=== PATIENT | female | born 1955 | race Two or more races ===

== ENCOUNTER 2025-05-15 19:20 | Inpatient (IN) | payer OTHER, MEDICARE ==
[~2025-05-15] VITALS: Ht 165.1 cm; Wt 75.6 kg
--- NOTE | 2025-05-15 19:29 | ECG ---
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
[2025-05-15 23:17] VITALS: PULSE 93; RESP 14; O2SAT 93
--- NOTE | 2025-05-15 23:34 | DVH ---
EXAM: CT HEAD WITHOUT CONTRAST INDICATION: head injury TECHNIQUE: CT of the head without intravenous contrast. Radiation Dose : 1. Head: CT Dose: CTDI volume is 33.04 mGy. Dose-length product is 1.44 mGy*cm The dose indicators for CT are the volume Computed Tomography (CT) Dose Index (CTDIvol) and the Dose Length Product (DLP), and are measured in units of mGy and mGy-cm, respectively. These indicators are not patient dose, but values generated from the CT scanner acquisition factors. The report includes radiation exposure data for exposures received during this examination. COMPARISON: None FINDINGS: There is no evidence of acute intracranial hemorrhage, extra-axial collection, mass effect, midline s hift, herniation or hydrocephalus. Increased prominence of the ventricles, sulci and cisterns is consistent with the sequelae of atrophi c cortical volume loss. The lock-white differentiation is intact. Moderate diffuse confluent periventricular and subcortical white matter hypoattenuation is nonspecifi c but may be related to small vessel ischemic disease. Right maxillary mucosal sinus disease. The remaining visualized paranasal sinuses and mastoid air ce lls are clear. The surrounding soft tissues and osseous structures are unremarkable. IMPRESSION: 1. No acute intracranial abnormality. 2. Chronic sequelae of microangiopathy and atrophic cortical volume loss. Radiation optimization: All CT scans at this facility use at least one of these dose optimization izabela hniques: automated exposure control mA and/or kV adjustment per patient size (includes targeted exam s where dose is matched to clinical indication) or iterative reconstruction.
--- NOTE | 2025-05-15 23:55 | ED.PDOC ---
History of Present Illness HPI Comments 70-year-old female is brought in by ambulance for chief complaint of abdominal pain past 3 days. Patient is A&Ox2 at baseline. Denies any nausea, vomiting, diarrhea. Significant history for stomach cancer and CVA. No further acute symptoms reported. REVIEW OF SYSTEMS: General: No fever, no chills, or fatigue HEENT: No sore throat, no earache, no congestion, no neck pain. Cardiac: No chest pain. No palpitations. Lungs: No shortness of breath, no cough. GI: Abdominal pain, no nausea, no vomiting : No dysuria, frequency, or urgency. No hematuria. Musculoskeletal: No joint pain , no joint swelling, no extremity edema. Skin: No rash, no itching. Neuro: No headache, no dizziness, no weakness PHYSICAL EXAM: General: Awake, alert and oriented. No acute distress. Skin: Skin in warm, dry and intact. Appropriate color for ethnicity. HEENT: The head is normocephalic and atraumatic. Conjunctivae are clear without exudates or hemorrhage. Sclera is non-icteric. EOM are intact. No signs of nystagmus. Eyelids are normal in appearance without swelling or lesions. Oral mucosa is pink and moist Neck: The neck is supple with normal range of motion. No JVD. Cardiac: Heart rate and rhythm are normal. No murmurs, gallops, or rubs are auscultated. Respiratory: No signs of respiratory distress. Lung sounds are clear in all lobes bilaterally without rales, rhonchi, or wheezes. Abdominal: Abdomen is soft, non-tender without distention, guarding or rigidity. Bowel sounds are present and normoactive in all four quadrants. Musculoskeletal: Mild erythema to right flank. Extremities: Upper and lower extremities are atraumatic in appearance without deformity but positive pitting edema Neurological: The patient is awake, alert and oriented to person only. Speech is clear. There is no facial asymmetry. No upper or lower extremity drift. 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 Was a procedure done?: No Differential Dx Considerations may include: Differential diagnoses considered include: Abdominal aortic aneurysm, [place], esophageal rupture, intestinal obstruction, mesenteric ischemia, perforated viscus or solid organ rupture, CHF with hepatomegaly, pneumonia, abscess, appendicitis, biliary disease, diverticulitis, gastritis, gastroenteritis, hepatitis, hernia, inflammatory bowel disease, pancreatitis, peptic ulcer disease, urinary tract infection, ureteral colic, constipation, GERD, irritable syndrome, abdominal wall pain, nonspecific abdominal pain, herpes zoster, nephrolithiasis. [ ]Also ruptured ectopic , ovarian torsion/cyst, tubo- ovarian abscess, PID, endometriosis, mittleschmerz. X-Ray, Labs, Meds, VS Vital Signs Date Time Temp Pulse Resp B/P (MAP) Pulse Ox O2 Delivery O2 Flow Rate FiO2 05/16/25 08:35 79 195/100 05/16/25 08:00 98.3 72 18 187/83 (117) 100 98.3 05/16/25 07:00 81 18 179/100 (126) 100 05/16/25 06:00 64 15 190/108 (135) 100 05/16/25 05:00 64 14 150/91 (110) 100 05/16/25 04:00 68 16 143/80 (101) 100 05/16/25 03:00 92 14 171/98 (122) 100 05/16/25 02:00 77 13 158/89 (112) 100 05/16/25 01:00 74 18 159/89 (112) 100 05/16/25 00:00 93 13 187/81 (116) 95 05/15/25 23:17 98.8 93 14 182/99 (126) 93 98.8 05/15/25 23:17 93 14 93 Room Air* 0 21 05/15/25 19:34 99.5 86 18 200/88 96 99.5 05/15/25 19:20 84 Lab Test 05/16/25 06:03 05/16/25 02:38 05/16/25 02:07 05/15/25 06:53 Range/Units Urine Opiates Screen Neg NEGATIVE Urine Fentanyl Screen Neg NEGATIVE Urine Barbiturates Screen Neg NEGATIVE Urine Phencyclidine Screen Neg NEGATIVE Urine Amphetamines Screen Neg NEGATIVE Urine Benzodiazepines Screen Neg NEGATIVE Urine Cocaine Screen Neg NEGATIVE Urine Cannabinoids Screen Neg NEGATIVE White Blood Count 6.0 4.4-10.8 10^3/uL Red Blood Count 3.32 L 4.0-5.20 10^6/uL Hemoglobin 9.3 L 12.2-16.2 g/dL Hematocrit 28.3 L 36.0-46.0 % Mean Corpuscular Volume 85.3 80.0-100.0 fL Mean Corpuscular Hemoglobin 28.0 28.0-32.0 pg Mean Corpuscular Hemoglobin Concent 32.8 32.0-36.0 g/dL Red Cell Distribution Width 24.4 H 11.8-14.3 % Platelet Count 135 L 140-450 10^3/uL Mean Platelet Volume 7.7 6.9-10.8 fL Neutrophils (%) (Auto) 72.2 37.0-80.0 % Lymphocytes (%) (Auto) 18.0 10.0-50.0 % Monocytes (%) (Auto) 8.2 0.0-12.0 % Eosinophils (%) (Auto) 1.1 0.0-7.0 % Basophils (%) (Auto) 0.5 0.0-2.0 % Neutrophils # (Auto) 4.3 1.6-8.6 10 ^3/uL Lymphocytes # (Auto) 1.1 0.4-5.4 10 ^3/uL Monocytes # (Auto) 0.5 0-1.3 10 ^3/uL Eosinophils # (Auto) 0.1 0-0.8 10 ^3/uL Basophils # (Auto) 0 0-0.2 10 ^3/uL Nucleated Red Blood Cells 0.1 % B-Type Natriuretic Peptide 400.76 0-100 pg/mL Sodium Level 143 136-145 mmol/L Potassium Level 3.9 3.5-5.1 mmol/L Chloride Level 108 H 98-107 mmol/L Carbon Dioxide Level 22 20-31 mmol/L Anion Gap 13 5-15 Blood Urea Nitrogen 7 L 9-23 mg/dL Creatinine 1.41 H 0.550-1.02 mg/dL Glomerular Filtration Rate Calc 40 >90 mL/min BUN/Creatinine Ratio 5.0 L 10.0-20.0 Serum Glucose 95 74-106 mg/dL Calcium Level 9.0 8.7-10.4 mg/dL Total Bilirubin 1.0 0.2-1.0 mg/dL Aspartate Amino Transferase (AST) 38 13-40 U/L Alanine Aminotransferase (ALT) < 9 7-40 U/L Alkaline Phosphatase 168 H 46-116 U/L Total Protein 7.4 5.7-8.2 g/dL Albumin 3.5 3.2-4.8 g/dL Urine Color Colorless Yellow Urine Clarity Clear Clear Urine pH 7.5 5.0-9.0 Urine Specific [place] 1.007 1.001-1.035 Urine Protein Negative Negative Urine Ketones Negative Negative Urine Blood 3+ H Negative /uL Urine Nitrite Negative Negative Urine Bilirubin Negative Negative Urine Urobilinogen Normal Negative mg/dL Urine Leukocyte Esterase 1+ Negative /uL Urine RBC 259 0 - 4 /hpf Urine Microscopic WBC 34 H 0-5 /HPF Urine Squamous Epithelial Cells Few <5 /hpf Urine Bacteria None seen None Seen /hpf Urine Glucose Normal Normal mg/dL Current Medications Medications (Trade) Dose Ordered Sig/Raoul Route Start Time Stop Time Status Last Admin Lorazepam (Ativan Inj) 5 mg ONCE ONCE IM 05/15/25 23:45 05/15/25 23:46 DC 05/16/25 00:00 Lorazepam (Ativan Inj) 1 mg ONCE ONCE IV 05/16/25 06:45 05/16/25 06:46 DC 05/16/25 06:46 Labetalol HCl (Labetalol HCl) 10 mg ONCE ONCE IV 05/16/25 08:30 05/16/25 08:31 DC 05/16/25 08:35 [place] [id number] Ph: [phone] DIAGNOSTIC IMAGING Diagnostic Imaging Report : [id number] Signed PATIENT: CHAD TREVIZO ACCT: [id number] UNIT: [id number] : 1955 LOC: ER ROOM / BED: / AGE / SEX: 70 / F ADM STATUS: REG ER SERVICE 30 ORDERING PHYSICIAN: CAMMY MORALES MD PROCEDURE(s): HWOCT - HEAD WITHOUT CONTRAST REASON: head injury ORDER NUMBER(s): [id number], ACCESSION NUMBER(s): [id number] EXAM: CT HEAD WITHOUT CONTRAST INDICATION: head injury TECHNIQUE: CT of the head without intravenous contrast. Radiation Dose : 1. Head: CT Dose: CTDI volume is 33.04 mGy. Dose-length product is 1.44 mGy*cm The dose indicators for CT are the volume Computed Tomography (CT) Dose Index (CTDIvol) and the Dose Length Product (DLP), and are measured in units of mGy and mGy-cm, respectively. These indicators are not patient dose, but values generated from the CT scanner acquisition factors. The report includes radiation exposure data for exposures received during this examination. COMPARISON: None FINDINGS: There is no evidence of acute intracranial hemorrhage, extra-axial collection, mass effect, midline shift, herniation or hydrocephalus. Increased prominence of the ventricles, sulci and cisterns is consistent with the sequelae of atrophic cortical volume loss. The lock-white differentiation is intact. Moderate diffuse confluent periventricular and subcortical white matter hypoattenuation is nonspecific but may be related to small vessel ischemic disease. Right maxillary mucosal sinus disease. The remaining visualized paranasal sinuses and mastoid air cells are clear. The surrounding soft tissues and osseous structures are unremarkable. IMPRESSION: 1. No acute intracranial abnormality. 2. Chronic sequelae of microangiopathy and atrophic cortical volume loss. Radiation optimization: All CT scans at this facility use at least one of these dose optimization techniques: automated exposure control mA and/or kV adjustment per patient size (includes targeted exams where dose is matched to clinical indication) or iterative reconstruction. ATED BY: VASILE CORRAL MD DICTATED DATE/TIME: 05/15/252331 SIGNED BY: VASILE CORRAL MD SIGNED DATE/TIME: 05/15/252331 CC: [place] [id number] Ph: [phone] DIAGNOSTIC IMAGING Diagnostic Imaging Report : [id number] Signed PATIENT: CHAD TREVIZO ACCT: [id number] UNIT: [id number] : 1955 LOC: ER ROOM / BED: / AGE / SEX: 70 / F ADM STATUS: REG ER SERVICE 30 ORDERING PHYSICIAN: CAMMY MORALES MD PROCEDURE(s): ABPL - CT AB PEL WO CON-NO ORAL OR IV REASON: abdominal pain ORDER NUMBER(s): [id number], ACCESSION NUMBER(s): [id number] Exam: CT CT AB PEL WO CON-NO ORAL OR IV History: abdominal pain Comparison Study: None Technique: Multidetector spiral CT of the abdomen was performed from lung bases to pubic symphysis. Imaging was performed without IV contrast. Axial, coronal and sagittal multiplanar reformats were obtained from the axial data set by the technologist. Radiation Dose : 1. Abdomen/Pelvis: CTDIvol 19.88 mGy, DLP 1085.27 mGy*cm. Findings: Evaluation of solid organs is limited due to lack of intravenous contrast use. Beam hardening artifact from arms down positioning, and presence of 4-quadrant a scites, further limit assessment. Lower Chest: Small right layering simple density pleural effusion with adjacent compressive atelectasis. Unremarkable imaged heart. Liver: Unremarkable. Gallbladder and Biliary Tree: Calcified stone in the gallbladder. No obvious wall thickening or ductal dilation. Pancreas: Mild atrophy. Spleen: Unremarkable. Adrenal Glands: Unremarkable. Kidneys/Ureters: Left percutaneous nephrostomy appears appropriately positioned. Mild bilateral hydroureteronephrosis. No evidence of a ureteral stone. Bladder: Circumferential wall thickening with irregular left posterolateral masslike density measuring a proximally 6.1 x 4 by 4.6 cm. Pelvic Organs: Markedly enlarged multi fibroid uterus. Thickened appearance of the endometrial stripe. No obvious adnexal abnormality. Bowel: No evidence of bowel obstruction or focal wall thickening. The appendix appears normal. Vasculature: Dwbe-ea-dcjbxetn atherosclerosis. A filter is present within a persistent left IVC, with no right-sided IVC appreciated. Lymphadenopathy: Limited assessment. No gross adenopathy is appreciated. Peritoneum: Moderate volume 4 quadrant ascites. Diffuse mesenteric edema. No free air or obvious fluid collection. Abdominal Wall: Moderate to severe anasarca. Musculoskeletal: No acute findings. No anatomic evidence of osseous metastasis. Mild degenerative changes. IMPRESSION: 1. Significantly limited exam. 2. Multiple abnormalities may be related to malignancy /metastatic disease. An irregular 6.1 cm mass within the left posterior bladder is suspicious for primary urinary or reproductive malignancy. The uterus is markedly enlarged with endometrial thickening. Mild bilateral hydroureteronephrosis, with a left percutaneous nephrostomy present, likely related to the bladder mass or enlarged uterus. 3. Fluid third-spacing including moderate volume 4 quadrant ascites, diffuse mes enteric and subcutaneous edema, and small right pleural effusion. 4. Correlate with any available prior exams, patient history, and other clinical workup. Radiation optimization: All CT scans at this facility use at least one of these dose optimization techniques: automated exposure control mA and/or kV adjustment per patient size (includes targeted exams where dose is matched to clinical indication) or iterative reconstruction. ATED BY: JOSHUA MCARTHUR MD DICTATED DATE/TIME: 05/15/252352 SIGNED BY: JOSHUA MCARTHUR MD SIGNED DATE/TIME: 05/15/252352 CC: X-Ray, Labs, Meds, VS Comment Addendum by Dr. Nickie Sands: Patient is admitted however is still being house in the ED. She has been agitated and yelling for the last several hours. She has been medicated multiple times during the course of her stay with IV Ativan which has seemed to improve her symptoms. I ordered an additional dose of IV Ativan at 1432 for agitation. Time of 1ST Reevaluation: 21:24 Reevaluation 1ST: Unchanged Patient Education/Counseling: Other Family Education/Counseling: No Family Present SEPSIS Sepsis Screen Date sepsis recognized/suspect: May 15, 2025 Time Sepsis recognized/suspect: 2326 Recent Procedure: No On Antibiotic Therapy: No Respiratory Rate >20: No Heart Rate >90: Yes Temp<36 C (96.8 F) or >38.3 C: No SBP <90 or MAP <65 mmHG: No New Acute Mental Status Change: No Is the patient on CPAP, BIPAP,: No Physician Orders Head Without Contrast (05/15/25 22:31) Fall Risk Precautions In Place QSHIFT (05/15/25 22:31) Fall Precautions Initiated (05/15/25 22:31) Ct Ab Pel Wo Con-No Oral Or Iv (05/15/25 22:31) Continous Pulse Oximetry (05/16/25 00:11) Cover Marker (05/16/25 ) Titrate Oxygen (05/16/25 00:11) Vital Signs Date Time Temp Pulse Resp B/P (MAP) Pulse Ox O2 Delivery O2 Flow Rate FiO2 05/16/25 08:35 79 195/100 05/16/25 08:00 98.3 72 18 187/83 (117) 100 98.3 05/16/25 07:00 81 18 179/100 (126) 100 05/16/25 06:00 64 15 190/108 (135) 100 05/16/25 05:00 64 14 150/91 (110) 100 05/16/25 04:00 68 16 143/80 (101) 100 05/16/25 03:00 92 14 171/98 (122) 100 05/16/25 02:00 77 13 158/89 (112) 100 05/16/25 01:00 74 18 159/89 (112) 100 05/16/25 00:00 93 13 187/81 (116) 95 05/15/25 23:17 98.8 93 14 182/99 (126) 93 98.8 05/15/25 23:17 93 14 93 Room Air* 0 21 05/15/25 19:34 99.5 86 18 200/88 96 99.5 05/15/25 19:20 84 Laboratory Tests Test 05/16/25 02:38 White Blood Count 6.0 10^3/uL (4.4-10.8) Departure 1 Departure Time of Disposition: 03:08 Impression: Primary Impression: Altered mental status Additional Impression: Acute renal failure Disposition: HOME / SELF CARE / HOMELESS Condition: Stable Comments MDM: Patient admitted to hospitalist service for further treatment, evaluation and monitoring. Extensive evaluation was performed in attempt to identify or rule out: (See differential diagnosis section) The following tests were ordered, and results were reviewed by me: (See diagnostic results section) The following test were independently interpreted by me: N/A I reviewed and agreed with the following test results read by other providers: CT head and abdomen and pelvis without contrast I reviewed the following notes from the pt's past medical encounters: N/A Additional information was gathered from interviewing the following independent historians: EMS personnel Decision regarding hospitalization or escalation of hospital level of care: Risk and benefits of admission for further treatment of patient's condition was considered. Due to patient's current clinical condition, high risk of decline and poor outcome if discharged and need for further inpatient management and monitoring, patient will be admitted to the hospital. Critical Care Note Critical Care Time?: No Stability Stability form required: No Heart Score Heart Score: Heart Score Response (Comments) Value History N/A 0 EKG N/A 0 Age N/A 0 Risk Factors N/A 0 Troponin N/A 0 Total 0 I personally scribed for CAMMY MORALES MD ([email or web address]) on 05/15/25 at 23:55. Electronically submitted by Kem Valdaez ([email or web address]). I personally scribed for CAMMY MORALES MD ([email or web address]) on 05/16/25 at 03:26. Electronically submitted by Kem Valadez ([email or web address]). CAMMY MORALES MD May 15, 2025 23:55 JOSE LIND MD May 16, 2025 14:32
--- NOTE | 2025-05-15 23:55 | DVH ---
Exam: CT CT AB PEL WO CON-NO ORAL OR IV History: abdominal pain Comparison Study: None Technique: Multidetector spiral CT of the abdomen was performed from lung bases to pubic symphysis. I maging was performed without IV contrast. Axial, coronal and sagittal multiplanar reformats were obta ined from the axial data set by the technologist. Radiation Dose : 1. Abdomen/Pelvis: CTDIvol 19.88 mGy, DLP 1085.27 mGy*cm. Findings: Evaluation of solid organs is limited due to lack of intravenous contrast use. Beam hardening artifac t from arms down positioning, and presence of 4-quadrant ascites, further limit assessment. Lower Chest: Small right layering simple density pleural effusion with adjacent compressive atelectas is. Unremarkable imaged heart. Liver: Unremarkable. Gallbladder and Biliary Tree: Calcified stone in the gallbladder. No obvious wall thickening or duct al dilation. Pancreas: Mild atrophy. Spleen: Unremarkable. Adrenal Glands: Unremarkable. Kidneys/Ureters: Left percutaneous nephrostomy appears appropriately positioned. Mild bilateral hydro ureteronephrosis. No evidence of a ureteral stone. Bladder: Circumferential wall thickening with irregular left posterolateral masslike density measurin g a proximally 6.1 x 4 by 4.6 cm. Pelvic Organs: Markedly enlarged multi fibroid uterus. Thickened appearance of the endometrial strip e. No obvious adnexal abnormality. Bowel: No evidence of bowel obstruction or focal wall thickening. The appendix appears normal. Vasculature: Ivfj-bs-daktwdgb atherosclerosis. A filter is present within a persistent left IVC, with no right-sided IVC appreciated. Lymphadenopathy: Limited assessment. No gross adenopathy is appreciated. Peritoneum: Moderate volume 4 quadrant ascites. Diffuse mesenteric edema. No free air or obvious fl uid collection. Abdominal Wall: Moderate to severe anasarca. Musculoskeletal: No acute findings. No anatomic evidence of osseous metastasis. Mild degenerative ch anges. IMPRESSION: 1. Significantly limited exam. 2. Multiple abnormalities may be related to malignancy /metastatic disease. An irregular 6.1 cm mass within the left posterior bladder is suspicious for primary urinary or reproductive malignancy. The uterus is markedly enlarged with endometrial thickening. Mild bilateral hydroureteronephrosis, with a left percutaneous nephrostomy present, likely related to the bladder mass or enlarged uterus. 3. Fluid third-spacing including moderate volume 4 quadrant ascites, diffuse mesenteric and subcutane ous edema, and small right pleural effusion. 4. Correlate with any available prior exams, patient history, and other clinical workup. Radiation optimization: All CT scans at this facility use at least one of these dose optimization izabela hniques: automated exposure control mA and/or kV adjustment per patient size (includes targeted exam s where dose is matched to clinical indication) or iterative reconstruction.
[2025-05-16] MEDS: LORazepam 2MG/ML-1ML VIAL IM ONE
[2025-05-16 02:37] LABS: Albumin 3.5 g/dL (3.2-4.8); Anion Gap 13 (5-15); BUN/Creatinine Ratio 5.0 (10.0-20.0); Bilirubin, Total 1.0 mg/dL (0.2-1.0); Calcium 9.0 mg/dL (8.7-10.4); Carbon Dioxide 22 mmol/L (20-31); Glucose 95 mg/dL (74-106); Potassium 3.9 mmol/L (3.5-5.1); Sodium 143 mmol/L (136-145); Total Protein 7.4 g/dL (5.7-8.2)
[2025-05-16 02:38] LABS: Alanine Aminotransferase < 9 U/L (7-40); Alkaline Phosphatase 168 U/L (46-116); Blood Urea Nitrogen 7 mg/dL (9-23); Chloride 108 mmol/L (98-107)
[2025-05-16 03:08] LABS: Hematocrit 28.3 % (36.0-46.0); Hemoglobin 9.3 g/dL (12.2-16.2); Mean Corpuscular Hemoglobin 28.0 pg (28.0-32.0); Mean Corpuscular Volume 85.3 fL (80.0-100.0); Nucleated Red Blood Cells % 0.1 %
[2025-05-16] MEDS ORDERED: LORazepam 2MG/ML-1ML VIAL IM ONE (06:30)
[2025-05-16] MEDS: LORazepam 2MG/ML-1ML VIAL IV ONE ×2 (06:46→22:42)
[2025-05-16 07:40] LABS: Urine Protein, UAD Negative (Negative)
[2025-05-16] MEDS: LABETALOL HCL 20 MG/4 ML VL IV ONE (08:35)
[2025-05-16] MEDS ORDERED: MORPHINE SULFATE INJ 2 MG/ml SYRG IV PRN (09:15)
[2025-05-16] MEDS ORDERED: NITROGLYCERIN 0.4 MG SL TAB SL PRN (09:15)
--- NOTE | 2025-05-16 09:55 | DVH ---
CHEST RADIOGRAPH Indication: SOB Technique: Single frontal view of the chest was obtained COMPARISON: None FINDINGS: Lines and Tubes: None Lungs: Clear Pleura: No effusion. No pneumothorax. Cardiomediastinal contours: Unremarkable Bones: Unremarkable IMPRESSION: No acute disease.
[2025-05-16 10:07] LABS: Opiate Scree,Urine Neg (NEGATIVE)
[2025-05-16 10:09] LABS: Amphetamine Screen, Urine Neg (NEGATIVE); Barbiturate Scree,Urine Neg (NEGATIVE); Benzodiazephine Screen, Urine Neg (NEGATIVE); Cannabinoid Screen, Urine Neg (NEGATIVE); Cocaine Screen, Urine Neg (NEGATIVE); Phencyclidine Screen, Urine Neg (NEGATIVE)
--- NOTE | 2025-05-16 10:29 | DVHHPRES ---
History of Present Illness Resident Creating Document: VICTORIA KOENIG RESIDENT History of Present Illness CHAD TREVIZO is a 70-year-old female with altered mental status, presented to the ER with chief complain of abdominal pain. She is a poor historian. Daughter on bedside, reported past medical history of cancer with metastasis, unsure primary. She reported that the patient was brought in from hospice care and has requested full code. Cardiovascular: HTN SKIN CARVER: CVA Hepatobiliary: Cholelithiasis Review of Systems Gastrointestinal: Abdominal Pain Allergies: Coded Allergies: Aspirin (Verified Allergy, Unknown, 05/15/25) Medications Current Medications Medications Dose Ordered Sig/Raoul Route Start Time Stop Time Status Last Admin Dose Admin Nitroglycerin 0.4 mg Q5MINP PRN SL 05/16/25 09:15 Morphine Sulfate 2 mg Q30M PRN IV 05/16/25 09:15 Nifedipine 60 mg DAILY PO 05/16/25 09:45 UNV Ceftriaxone Sodium 50 ml @ 100 mls/hr DAILY@09 IV 05/17/25 09:00 UNV Exam Vital Signs Vital Signs Date Time Temp Pulse Resp B/P (MAP) Pulse Ox O2 Delivery O2 Flow Rate FiO2 05/16/25 09:35 84 184/75 05/16/25 08:00 98.3 18 100 98.3 05/15/25 23:17 Room Air* 0 21 General Appearance: Cooperative, Other (Confused, somnolent) HEENT: Atraumatic, PERRLA, Other (protubrent eyes B/L) Respiratory: Clear to auscultation, Normal air movement Cardiovascular: Regular rate, Normal S1, Normal S2, No murmurs Abdominal: Normal bowel sounds, Other (Generalized tenderness w/o guarding or rigidity, nephrostomy tube on left side draining straw-colored fluid) Extremities: No clubbing, No cyanosis, Other (Grade 2 pitting edema bilateral lower extremities) Skin: No significant lesion Neuro: Sensation intact, Other (Motor strength 3 on 5 on right hand, 4 on 5 on left hand) Psych/Mental Status: Other (Altered mental status) Labs/Xrays Labs Test 05/16/25 06:03 05/16/25 02:38 05/16/25 02:07 05/15/25 06:53 Range/Units White Blood Count 6.0 4.4-10.8 10^3/uL Red Blood Count 3.32 L 4.0-5.20 10^6/uL Hemoglobin 9.3 L 12.2-16.2 g/dL Hematocrit 28.3 L 36.0-46.0 % Mean Corpuscular Volume 85.3 80.0-100.0 fL Mean Corpuscular Hemoglobin 28.0 28.0-32.0 pg Mean Corpuscular Hemoglobin Concent 32.8 32.0-36.0 g/dL Red Cell Distribution Width 24.4 H 11.8-14.3 % Platelet Count 135 L 140-450 10^3/uL Mean Platelet Volume 7.7 6.9-10.8 fL Neutrophils (%) (Auto) 72.2 37.0-80.0 % Lymphocytes (%) (Auto) 18.0 10.0-50.0 % Monocytes (%) (Auto) 8.2 0.0-12.0 % Eosinophils (%) (Auto) 1.1 0.0-7.0 % Basophils (%) (Auto) 0.5 0.0-2.0 % Neutrophils # (Auto) 4.3 1.6-8.6 10 ^3/uL Lymphocytes # (Auto) 1.1 0.4-5.4 10 ^3/uL Monocytes # (Auto) 0.5 0-1.3 10 ^3/uL Eosinophils # (Auto) 0.1 0-0.8 10 ^3/uL Basophils # (Auto) 0 0-0.2 10 ^3/uL Nucleated Red Blood Cells 0.1 % B-Type Natriuretic Peptide 400.76 0-100 pg/mL Sodium Level 143 136-145 mmol/L Potassium Level 3.9 3.5-5.1 mmol/L Chloride Level 108 H 98-107 mmol/L Carbon Dioxide Level 22 20-31 mmol/L Anion Gap 13 5-15 Blood Urea Nitrogen 7 L 9-23 mg/dL Creatinine 1.41 H 0.550-1.02 mg/dL Glomerular Filtration Rate Calc 40 >90 mL/min BUN/Creatinine Ratio 5.0 L 10.0-20.0 Serum Glucose 95 74-106 mg/dL Calcium Level 9.0 8.7-10.4 mg/dL Total Bilirubin 1.0 0.2-1.0 mg/dL Aspartate Amino Transferase (AST) 38 13-40 U/L Alanine Aminotransferase (ALT) < 9 7-40 U/L Alkaline Phosphatase 168 H 46-116 U/L Total Protein 7.4 5.7-8.2 g/dL Albumin 3.5 3.2-4.8 g/dL Urine Color Colorless Yellow Urine Clarity Clear Clear Urine pH 7.5 5.0-9.0 Urine Specific [place] 1.007 1.001-1.035 Urine Protein Negative Negative Urine Ketones Negative Negative Urine Blood 3+ H Negative /uL Urine Nitrite Negative Negative Urine Bilirubin Negative Negative Urine Urobilinogen Normal Negative mg/dL Urine Leukocyte Esterase 1+ Negative /uL Urine RBC 259 0 - 4 /hpf Urine Microscopic WBC 34 H 0-5 /HPF Urine Squamous Epithelial Cells Few <5 /hpf Urine Bacteria None seen None Seen /hpf Urine Glucose Normal Normal mg/dL SEPSIS Sepsis Screen Date sepsis recognized/suspect: May 15, 2025 Time Sepsis recognized/suspect: 2326 Recent Procedure: No On Antibiotic Therapy: No Respiratory Rate >20: No Heart Rate >90: Yes Temp<36 C (96.8 F) or >38.3 C: No SBP <90 or MAP <65 mmHG: No New Acute Mental Status Change: No Is the patient on CPAP, BIPAP,: No Physician Orders Admit (05/16/25 09:14) Code Status (05/16/25:) Vital Signs .PER UNIT PROTOCOL (05/16/25 09:14) Review Orders With Adm. (05/16/25 09:14) Encourage Activity As Tolerate (05/16/25 09:14) Notify Md Of Changes From Base (05/16/25:14) Advance Directive (05/16/25:14) Echo 2d Mode Cardiac Dop (05/16/25:14) Basic Metabolic Panel (05/17/25 04:00) Complete Blood Count (05/17/25 04:00) Urine Bacterial Culture (05/16/25 09:14) Patient Condition (05/16/25:14) Allergies (05/16/25:14) Drug Screen (05/16/25 09:14) Sequential Compression Device (05/16/25 ) Nitroglycerin Sublingual (Ntrostat Subli (05/16/25 09:15) Morphine Sulfate Injection (05/16/25:15) Oxygen By Nasal Cannula (05/16/25 09:14) Stat Ekg For Chest Pain (05/16/25 09:14) Notify Of Changes From Base (05/16/25 09:14) Aircraft Load Controller For 24 Hours (05/16/25 09:14) Emergency Dysrhythmia Protocol (05/16/25 09:14) Rhythm Strips Once Every Shift (05/16/25 09:14) Chest Portable (05/16/25 09:14) Troponin-I Hs (05/16/25 09:14) Abdomen Complete Sonogram (05/16/25 09:14) Electrocardigram (05/16/25 09:41) Nifedipine Er (Procardia Xl (Time-Releas (05/16/25 09:45) Ceftriaxone 1gm/50ml (Rocephin) (05/16/25 09:45) Ceftriaxone 1gm/50ml (Rocephin) (05/17/25 09:00) Pureed (05/16/25 Lunch) Blood Culture (05/16/25 09:44) Vital Signs Date Time Temp Pulse Resp B/P (MAP) Pulse Ox O2 Delivery O2 Flow Rate FiO2 05/16/25 09:35 84 184/75 05/16/25 09:29 85 05/16/25 08:35 79 195/100 05/16/25 08:00 98.3 72 18 187/83 (117) 100 98.3 05/16/25 07:00 81 18 179/100 (126) 100 05/16/25 06:00 64 15 190/108 (135) 100 05/16/25 05:00 64 14 150/91 (110) 100 05/16/25 04:00 68 16 143/80 (101) 100 05/16/25 03:00 92 14 171/98 (122) 100 05/16/25 02:00 77 13 158/89 (112) 100 Laboratory Tests Test 05/16/25 02:38 White Blood Count 6.0 10^3/uL (4.4-10.8) Medications Medications Dose Ordered Sig/Raoul Route Start Time Stop Time Status Last Admin Dose Admin Labetalol HCl 10 mg ONCE ONCE IV 05/16/25 08:30 05/16/25 08:31 DC 05/16/25 08:35 10 MG Lorazepam 1 mg ONCE ONCE IV 05/16/25 06:45 05/16/25 06:46 DC 05/16/25 06:46 1 MG Lorazepam 5 mg ONCE ONCE IM 05/15/25 23:45 05/15/25 23:46 DC 05/16/25 00:00 5 MG Assessment/Plan Assessment/Plan Acute Metabolic encephalopathy Hx of dementia Brain metastasis, possible CT abdomen pelvis showed increased prominence of ventricles, sulci and cisterns which is consistent with the sequela of atrophic cortical volume loss, no other acute intracranial abnormality Hypertensive emergency Hypertensive heart disease NSTEMI, likely type II from demand ischemia Nifedipine 90mg Cardiology consulted Aspirin, atorvastatin ordered Labs show BNP elevated, Echo ordered Acute abdominal pain Urinary bladder mass Uterine mass Diffuse mesenteric, subcutaneous edema with ascites CT abdomen pelvis show irregular 6.1 cm mass within the left posterior bladder is suspicious for primary urinary or reproductive malignancy, ascites, diffuse mesenteric and subcutaneous edema, small right pleural effusion. Ordered ultrasound abdomen Complicated UTI Bilateral hydronephrosis with Left nephrostomy tube FADIA due to VMN UA positive for UTI, elevated creatinine Urine culture ordered IV ceftriaxone 1 g daily Urology consulted Holding of IV fluids in context of possible fluid overload Monitor renal function, electrolytes Normocytic, normochromic anemia, unspecified UA positive for blood, RBCs Stool occult blood, iron panel ordered IVC filter in place, seen on CT scan Cholelithiasis, CT finding Ordered ultrasound abdomen History of CVA DIET: Pureed diet DVT PROPHYLAXIS: Sequential compression device, IVC filter in place (Lovenox deferred due to unobtainable history) GI prophylaxis: PO Protonix CODE STATUS: Goals of care discussed with shania, patient at bedside for more than 37 minutes. Full code (presumptive) DISPOSITION: Med/surge Patient's status and plan discussed with the patient. Case discussed with Dr. Zuleta Plan discussed with: Daughter (Lisa palma), Other ([facility]) My Orders Orders - VICTORIA KOENIG RESIDENT Procedure Category Date Status Time Admit ADMIT 05/16/25 Transmitted 09:14 Code Status CODE 05/16/25 Transmitted 09:14 Vital Signs KARTHIK 05/16/25 In Process 09:14 Review Orders With KARTHIK 05/16/25 In Process Adm. 09:14 Encourage Activity As KARTHIK 05/16/25 In Process Tolerate 09:14 Notify Of Changes KARTHIK 05/16/25 In Process From Base 09:14 Advance Directive [facility] 05/16/25 In Process 09:14 Echo 2d Mode Cardiac US 05/16/25 Logged DOP 09:14 Basic Metabolic Panel LAB 05/17/25 Verified 04:00 Complete Blood Count LAB 05/17/25 Verified 04:00 Urine Bacterial JOSE 05/16/25 In Process Culture 09:14 Patient Condition ORDERS 05/16/25 Transmitted 09:14 Allergies [facility] 05/16/25 In Process 09:14 Drug Screen LAB 05/16/25 In Process 09:14 Sequential KARTHIK 05/16/25 In Process Compression Device Nitroglycerin [facility] 05/16/25 In Process Sublingual (Ntrostat 09:15 Morphine Sulfate PHA 05/16/25 In Process Injection 09:15 Oxygen By Nasal RT 05/16/25 Transmitted Cannula 09:14 Stat Ekg For Chest [facility] 05/16/25 In Process Pain 09:14 Notify Md Of Changes [facility] 05/16/25 In Process From Base 09:14 Aircraft Load Controller For [facility] 05/16/25 In Process 24 Hours 09:14 Emergency Dysrhythmia [facility] 05/16/25 In Process Protocol 09:14 Rhythm Strips Once [facility] 05/16/25 In Process Every Shift 09:14 Chest Portable XY 05/16/25 Resulted 09:14 Troponin-I Hs LAB 05/16/25 Logged 09:14 Abdomen Complete US 05/16/25 Logged Sonogram 09:14 Electrocardigram EKG 05/16/25 Logged 09:41 Nifedipine Er PHA 05/16/25 Logged (Procardia Xl 09:45 Date of Service: May 16, 2025 Billing Provider: ANTONIA ZULETA MD Common Visit Codes: 49289-ACFWQHA INP/OBS CARE (HIGH) Secondary Visit Codes: 42374-[id number] CARE PLAN 30 MINUTES VICTORIA KOENIG RESIDENT May 16, 2025 10:29 HARVEY HOYOS RESIDENT May 16, 2025 16:13
--- NOTE | 2025-05-16 10:44 | DVH ---
Exam: US BLADDER History: BLADDER MASS Comparison: US ABDOMEN LIMITED on DOS: 05/16/25, US PELVIC on DOS: 05/16/25, CT CT AB PEL WO CON-NO ORA L OR IV on DOS: 05/15/25 Date: 05/16/2025 10:13 AM Technique: Grayscale and color Doppler ultrasound of the pelvis was obtained. Pre-and postvoid images of the bladder were obtained. Findings/Impression: Masslike area in the urinary bladder measuring 6.5 x 5.4 x 3.3 cm. Recommend further evaluation with cystoscopy.
--- NOTE | 2025-05-16 11:10 | DVH ---
INDICATION: Eval for GB stone TECHNIQUE: Multiple real-time sonographic images were obtained of the right upper quadrant. COMPARISON: US PELVIC on DOS: 05/16/25, US BLADDER on DOS: 05/16/25, CT CT AB PEL WO CON-NO ORAL OR IV on DOS: 05/15/25 FINDINGS: The liver demonstrates increased echotexture without focal mass lesions. The liver measure s 15.9 cm. There is no intrahepatic or extrahepatic ductal dilatation. The common duct is suboptimally visualize d secondary to shadowing from overlying bowel gas. Cholelithiasis. The gallbladder wall measures 0.3 cm and is within normal limits. The right kidney measures 9.0 cm. The right kidney is normal in contour, size, and shape. The echogen icity is normal. There is no hydronephrosis. The pancreas is not well visualized due to overlying bowel gas. Small right pleural effusion. Trace ascites. IMPRESSION: Cholelithiasis. Hepatic steatosis. Small right pleural effusion. Trace ascites.
[2025-05-16] MEDS: PANTOPRAZOLE 40 MG TAB PO SCH (11:17)
--- NOTE | 2025-05-16 11:26 | DVH ---
INDICATION: UTERINE MASS TECHNIQUE: Multiple real-time grayscale transabdominal sonographic images along with color and duplex Doppler of the uterus and ovaries were obtained. COMPARISON: US ABDOMEN LIMITED on DOS: 05/16/25, US BLADDER on DOS: 05/16/25, CT CT AB PEL WO CON-NO OR AL OR IV on DOS: 05/15/25 FINDINGS: The uterus measures 15 x 9 x 6 cm. The endometrial stripe measures 2.4 cm. Right ovary not seen. The left ovary measures 4 x 4x 2 cm. Left ovarian flow is noted. IMPRESSION: 1. Thickened endometrial stripe with 4 x 3 x 5 cm uterine mass, which could represent a fibroid. MRI with IV contrast recommended.
[2025-05-16 12:07] LABS: Iron 34.0 ug/dL (50-170); Total Iron Binding Capacity 240.0 ug/dL (250-425)
[2025-05-16] MEDS: POLYETHYLENE GLYCOL 17 GM PWDR PO ONE (12:54)
[2025-05-16] MEDS: hydrALAZINE HCL 20 MG/ML VL IV ONE (13:53)
--- NOTE | 2025-05-16 15:32 | DVHINCON2 ---
Date of service: May 16, 2025 Referring Physician Hospitalist Reason for Consultation bladder mass History of Present Illness History Source: Family Exam Limitations: Clinical condition HPI 70 yo pleasantly confused lady with recent diagnosis of metastatic bladder cancer. She was seen at [facility] last month for gross hematuria. Daughter Mary reports that the doctors there "offered no treatment" and she was d/c on hospice with left sided PCN placement. She is admitted for ALOC and is seen in ER 3 without clothing on and yelling random words. She denies pain. Her PCN is draining well, urine is clear. Her daughter wants her to get treatment at [facility] or [facility]. Past Medical History Hemotology/Oncology: Anemia NOS, Cancer Review of Systems Psychiatric: Confusion H&P Exam Vital Signs Vital Signs Date Time Temp Pulse Resp B/P (MAP) Pulse Ox O2 Delivery O2 Flow Rate FiO2 05/16/25 14:00 81 17 184/54 (97) 97 05/16/25 08:00 98.3 98.3 05/15/25 23:17 Room Air* 0 21 General Appeara: Well developed, Well nourished, Normal Appearance, Mild distress Pulmonary/Respiratory: Normal inspection, Normal breath sounds, Chest non- tender, Lungs clear Cardiovascular/Chest: Edema Abdominal Exam: Normal bowel sounds, Soft, No tenderness, No hepatospenomegaly, No masses Rectal Exam: Deferred Back Exam: Normal inspection, Other (left pCN insitu) Pelvic Exam: External exam normal Neuro/Mental St: Disoriented Appearance: Memory impairment, Impaired recent memory, Impaired remote memory Skin Exam: Normal inspection, Normal color, Warm/dry Labs/Xrays [place] [address] Ph: [phone] DIAGNOSTIC IMAGING Diagnostic Imaging Report : [id number] Signed PATIENT: CHAD TREVIZO ACCT: [id number] UNIT: [id number] : 1955 LOC: OVERFLOW ROOM / BED: [facility] / A AGE / SEX: 70 / F ADM STATUS: ADM IN SERVICE 0000 ORDERING PHYSICIAN: VICTORIA KOENIG RESIDENT PROCEDURE(s): BLDR - BLADDER REASON: BLADDER MASS ORDER NUMBER(s): [id number], ACCESSION NUMBER(s): [id number] Exam: US BLADDER History: BLADDER MASS Comparison: US ABDOMEN LIMITED on DOS: 05/16/25, US PELVIC on DOS: 05/16/25, CT CT AB PEL WO CON-NO ORAL OR IV on DOS: 05/15/25 Date: 05/16/2025 10:13 AM Technique: Grayscale and color Doppler ultrasound of the pelvis was obtained. Pre-and postvoid images of the bladder were obtained. Findings/Impression: Masslike area in the urinary bladder measuring 6.5 x 5.4 x 3.3 cm. Recommend further evaluation with cystoscopy. ATED BY: ESTRADA DOE MD DICTATED DATE/TIME: 05/16/251040 SIGNED BY: ESTRADA DOE MD SIGNED DATE/TIME: 05/16/251040 CC: [place] [address] Ph: [phone] DIAGNOSTIC IMAGING Diagnostic Imaging Report : [id number] Signed PATIENT: CHAD TREVIZO ACCT: [id number] UNIT: [id number] : 1955 LOC: ER ROOM / BED: / AGE / SEX: 70 / F ADM STATUS: REG ER SERVICE 30 ORDERING PHYSICIAN: CAMMY MORALES MD PROCEDURE(s): ABPL - CT AB PEL WO CON-NO ORAL OR IV REASON: abdominal pain ORDER NUMBER(s): [id number], ACCESSION NUMBER(s): [id number] Exam: CT CT AB PEL WO CON-NO ORAL OR IV History: abdominal pain Comparison Study: None Technique: Multidetector spiral CT of the abdomen was performed from lung bases to pubic symphysis. Imaging was performed without IV contrast. Axial, coronal and sagittal multiplanar reformats were obtained from the axial data set by the technologist. Radiation Dose : 1. Abdomen/Pelvis: CTDIvol 19.88 mGy, DLP 1085.27 mGy*cm. Findings: Evaluation of solid organs is limited due to lack of intravenous contrast use. Beam hardening artifact from arms down positioning, and presence of 4-quadrant ascites, further limit assessment. Lower Chest: Small right layering simple density pleural effusion with adjacent compressive atelectasis. Unremarkable imaged heart. Liver: Unremarkable. Gallbladder and Biliary Tree: Calcified stone in the gallbladder. No obvious w all thickening or ductal dilation. Pancreas: Mild atrophy. Spleen: Unremarkable. Adrenal Glands: Unremarkable. Kidneys/Ureters: Left percutaneous nephrostomy appears appropriately positioned. Mild bilateral hydroureteronephrosis. No evidence of a ureteral stone. Bladder: Circumferential wall thickening with irregular left posterolateral masslike density measuring a proximally 6.1 x 4 by 4.6 cm. Pelvic Organs: Markedly enlarged multi fibroid uterus. Thickened appearance of the endometrial stripe. No obvious adnexal abnormality. Bowel: No evidence of bowel obstruction or focal wall thickening. The appendix appears normal. Vasculature: Puuf-yp-gtoegslg atherosclerosis. A filter is present within a persistent left IVC, with no right-sided IVC appreciated. Lymphadenopathy: Limited assessment. No gross adenopathy is appreciated. Peritoneum: Moderate volume 4 quadrant ascites. Diffuse mesenteric edema. No free air or obvious fluid collection. Abdominal Wall: Moderate to severe anasarca. Musculoskeletal: No acute findings. No anatomic evidence of osseous metastasis. Mild degenerative changes. IMPRESSION: 1. Significantly limited exam. 2. Multiple abnormalities may be related to malignancy /metastatic disease. An irregular 6.1 cm mass within the left posterior bladder is suspicious for primary urinary or reproductive malignancy. The uterus is markedly enlarged with endometrial thickening. Mild bilateral hydroureteronephrosis, with a left percutaneous nephrostomy present, likely related to the bladder mass or enlarged uterus. 3. Fluid third-spacing including moderate volume 4 quadrant ascites, diffuse mesenteric and subcutaneous edema, and small right pleural effusion. 4. Correlate with any available prior exams, patient history, and other clinical workup. Radiation optimization: All CT scans at this facility use at least one of these dose optimization techniques: automated exposure control mA and/or kV adjustment per patient size (includes targeted exams where dose is matched to clinical indication) or iterative reconstruction. ATED BY: JOSHUA MCARTHUR MD DICTATED DATE/TIME: 05/15/25 6133 SIGNED BY: JOSHUA MCARTHUR MD SIGNED DATE/TIME: 05/15/25 5834 CC: Labs Test 05/16/25 12:46 05/16/25 10:29 05/16/25 06:03 05/16/25 02:38 Range/Units Troponin I High Sensitivity 894 *H </=34 ng/L Thyroid Stimulating Hormone (TSH) 9.67 H 0.55-4.78 uIU/mL Iron Level 34 L 50-170 ug/dL Total Iron Binding Capacity 240 L 250-425 ug/dL Percent Iron Saturation 14.2 L 15-50 % Ferritin 140.0 10-291 ng/mL Urine Opiates Screen Neg NEGATIVE Urine Fentanyl Screen Neg NEGATIVE Urine Barbiturates Screen Neg NEGATIVE Urine Phencyclidine Screen Neg NEGATIVE Urine Amphetamines Screen Neg NEGATIVE Urine Benzodiazepines Screen Neg NEGATIVE Urine Cocaine Screen Neg NEGATIVE Urine Cannabinoids Screen Neg NEGATIVE White Blood Count 6.0 4.4-10.8 10^3/uL Red Blood Count 3.32 L 4.0-5.20 10^6/uL Hemoglobin 9.3 L 12.2-16.2 g/dL Hematocrit 28.3 L 36.0-46.0 % Mean Corpuscular Volume 85.3 80.0-100.0 fL Mean Corpuscular Hemoglobin 28.0 28.0-32.0 pg Mean Corpuscular Hemoglobin Concent 32.8 32.0-36.0 g/dL Red Cell Distribution Width 24.4 H 11.8-14.3 % Platelet Count 135 L 140-450 10^3/uL Mean Platelet Volume 7.7 6.9-10.8 fL Neutrophils (%) (Auto) 72.2 37.0-80.0 % Lymphocytes (%) (Auto) 18.0 10.0-50.0 % Monocytes (%) (Auto) 8.2 0.0-12.0 % Eosinophils (%) (Auto) 1.1 0.0-7.0 % Basophils (%) (Auto) 0.5 0.0-2.0 % Neutrophils # (Auto) 4.3 1.6-8.6 10 ^3/uL Lymphocytes # (Auto) 1.1 0.4-5.4 10 ^3/uL Monocytes # (Auto) 0.5 0-1.3 10 ^3/uL Eosinophils # (Auto) 0.1 0-0.8 10 ^3/uL Basophils # (Auto) 0 0-0.2 10 ^3/uL Nucleated Red Blood Cells 0.1 % B-Type Natriuretic Peptide 400.76 0-100 pg/mL Test 05/16/25 02:07 05/15/25 06:53 Range/Units Sodium Level 143 136-145 mmol/L Potassium Level 3.9 3.5-5.1 mmol/L Chloride Level 108 H 98-107 mmol/L Carbon Dioxide Level 22 20-31 mmol/L Anion Gap 13 5-15 Blood Urea Nitrogen 7 L 9-23 mg/dL Creatinine 1.41 H 0.550-1.02 mg/dL Glomerular Filtration Rate Calc 40 >90 mL/min BUN/Creatinine Ratio 5.0 L 10.0-20.0 Serum Glucose 95 74-106 mg/dL Calcium Level 9.0 8.7-10.4 mg/dL Total Bilirubin 1.0 0.2-1.0 mg/dL Aspartate Amino Transferase (AST) 38 13-40 U/L Alanine Aminotransferase (ALT) < 9 7-40 U/L Alkaline Phosphatase 168 H 46-116 U/L Total Protein 7.4 5.7-8.2 g/dL Albumin 3.5 3.2-4.8 g/dL Urine Color Colorless Yellow Urine Clarity Clear Clear Urine pH 7.5 5.0-9.0 Urine Specific [place] 1.007 1.001-1.035 Urine Protein Negative Negative Urine Ketones Negative Negative Urine Blood 3+ H Negative /uL Urine Nitrite Negative Negative Urine Bilirubin Negative Negative Urine Urobilinogen Normal Negative mg/dL Urine Leukocyte Esterase 1+ Negative /uL Urine RBC 259 0 - 4 /hpf Urine Microscopic WBC 34 H 0-5 /HPF Urine Squamous Epithelial Cells Few <5 /hpf Urine Bacteria None seen None Seen /hpf Urine Glucose Normal Normal mg/dL Assessment/Plan Problem List: (1) Foreign body in genitourinary tract, part unspecified, initial encounter (2) Bladder malignancy (3) Metastasis (4) Encephalopathy (5) Troponin level elevated (6) Thyroid disease (7) Altered mental status (8) Anemia Plan no urologic intervention indicated. f/u with tertiary center for possible trimodal therapy PCN to be exchanged quarterly Plan discussed with: Daughter JEANINE GONZALEZ SHARA May 16, 2025 15:32
[2025-05-16 15:50] LABS: Free T4 (Free Thyroxine) 1.05 ng/dL (0.89-1.76)
[2025-05-16] MEDS: FUROSEMIDE 20 MG/2 ML VIAL IV ONE (15:59)
[2025-05-16] MEDS: FUROSEMIDE 40 MG/4 ML VIAL ONE (17:19)
[2025-05-16 20:01] VITALS: PULSE 93; RESP 14; O2SAT 93
[2025-05-16] MEDS: ATORVASTATIN 20 MG TAB PO SCH (22:00)
--- NOTE | 2025-05-16 23:24 | ECG ---
[facility] Test Date: 2025-05-16 Test Time: 22:59:35 Pat Name: CHAD TREVIZO Department: Room: 0273T Gender: F Shoe Folder: SUNG : 1955 Requested By: VICTORIA KOENIG Order Number: [id number] Reading MD: Francois Hernandez Measurements Intervals [place] Rate: 102 P: 0 [place]: 0 QRS: -7 QRSD: 106 T: 226 QT: 357 QTc: 466 Interpretive Statements Atrial fibrillation Multiple ventricular premature complexes Probable anterior infarct, age indeterminate Electronically Signed On 05-18-2025 9:57:29 PDT by Francois Hernandez Please click the below link to view image of tracing.
[2025-05-17 05:38] VITALS: BP 170/92; PULSE 94; RESP 15; O2SAT 96
--- NOTE | 2025-05-17 05:44 | DVHINCON2 ---
Date of service: May 17, 2025 Referring Physician ER attending Reason for Consultation Incidental fibroid found in the uterus proximally 4 cm History of Present Illness History Source: Patient (Questionable hips history of primary CA with Mets. 6 cm questionable bladder mass 4 cm fibroid), MD Notes Chief Complaint of Abdominal/F: Other (No peritoneal signs diffuse tenderness) Onset/Duration of Abd/Flank Pa: 1 week Past Medical History Cardiac: No pertinent Hx Pulmonary: No pertinent Hx Central Nervous System: No pertinent Hx GI: No pertinent Hx Hemotology/Oncology: No pertinent Hx Hepatobiliary: No pertinent Hx Psychiatric: No pertinent Hx Musculoskeletal: No pertinent Hx Rheumotologic: No pertinent Hx Infectious Disease: No peritnent Hx ENT: No pertinent Hx Renal/: No pertinent Hx Endocrine: No pertinent Hx Dermatology: No pertinent Hx Past Surgical History: No pertinent Hx Family History: No pertinent Hx Review of Systems Constitutional: No symptom reported Ears, Nose, & Throat: No symptom reported Eyes: No symptom reported Pulmonary/Respiratory: No symptom reported Cardiovascular: No symptom reported Gastrointestinal: No symptom reported Genitourinary: No symptom reported Musculoskeletal: No symptom reported Skin: No symptom reported Psychiatric: No symptom reported Endocrine: No symptom reported Hemotologic/Lymphatic: No symptom reported H&P Exam Vital Signs Vital Signs Date Time Temp Pulse Resp B/P (MAP) Pulse Ox O2 Delivery O2 Flow Rate FiO2 05/17/25 04:00 105 24 146/89 (108) 98 05/16/25 20:01 Room Air* 0 21 05/16/25 19:59 98.8 98.8 General Appeara: Well developed, Well nourished, Normal Appearance Abdominal Exam: Normal bowel sounds, Soft, No tenderness, No hepatospenomegaly, No masses Abdominal Pain Onset Location: Suprapubic, Generalized abdomen Labs/Xrays Labs Test 05/17/25 04:45 05/16/25 12:46 05/16/25 10:29 05/16/25 06:03 Range/Units Thyroid Stimulating Hormone (TSH) 9.67 H 0.55-4.78 uIU/mL Free Thyroxine (T4) Calculated 1.05 0.89-1.76 ng/dL Total Triiodothyronine (TT3) 0.94 0.60-1.81 ng/mL Iron Level 34 L 50-170 ug/dL Total Iron Binding Capacity 240 L 250-425 ug/dL Percent Iron Saturation 14.2 L 15-50 % Ferritin 140.0 10-291 ng/mL Urine Opiates Screen Neg NEGATIVE Urine Fentanyl Screen Neg NEGATIVE Urine Barbiturates Screen Neg NEGATIVE Urine Phencyclidine Screen Neg NEGATIVE Urine Amphetamines Screen Neg NEGATIVE Urine Benzodiazepines Screen Neg NEGATIVE Urine Cocaine Screen Neg NEGATIVE Urine Cannabinoids Screen Neg NEGATIVE Test 05/16/25 02:38 05/16/25 02:07 05/15/25 06:53 Range/Units White Blood Count 6.0 4.4-10.8 10^3/uL Red Blood Count 3.32 L 4.0-5.20 10^6/uL Hemoglobin 9.3 L 12.2-16.2 g/dL Hematocrit 28.3 L 36.0-46.0 % Mean Corpuscular Volume 85.3 80.0-100.0 fL Mean Corpuscular Hemoglobin 28.0 28.0-32.0 pg Mean Corpuscular Hemoglobin Concent 32.8 32.0-36.0 g/dL Red Cell Distribution Width 24.4 H 11.8-14.3 % Platelet Count 135 L 140-450 10^3/uL Mean Platelet Volume 7.7 6.9-10.8 fL Neutrophils (%) (Auto) 72.2 37.0-80.0 % Lymphocytes (%) (Auto) 18.0 10.0-50.0 % Monocytes (%) (Auto) 8.2 0.0-12.0 % Eosinophils (%) (Auto) 1.1 0.0-7.0 % Basophils (%) (Auto) 0.5 0.0-2.0 % Neutrophils # (Auto) 4.3 1.6-8.6 10 ^3/uL Lymphocytes # (Auto) 1.1 0.4-5.4 10 ^3/uL Monocytes # (Auto) 0.5 0-1.3 10 ^3/uL Eosinophils # (Auto) 0.1 0-0.8 10 ^3/uL Basophils # (Auto) 0 0-0.2 10 ^3/uL Nucleated Red Blood Cells 0.1 % B-Type Natriuretic Peptide 400.76 0-100 pg/mL Sodium Level 143 136-145 mmol/L Potassium Level 3.9 3.5-5.1 mmol/L Chloride Level 108 H 98-107 mmol/L Carbon Dioxide Level 22 20-31 mmol/L Anion Gap 13 5-15 Blood Urea Nitrogen 7 L 9-23 mg/dL Creatinine 1.41 H 0.550-1.02 mg/dL Glomerular Filtration Rate Calc 40 >90 mL/min BUN/Creatinine Ratio 5.0 L 10.0-20.0 Serum Glucose 95 74-106 mg/dL Calcium Level 9.0 8.7-10.4 mg/dL Total Bilirubin 1.0 0.2-1.0 mg/dL Aspartate Amino Transferase (AST) 38 13-40 U/L Alanine Aminotransferase (ALT) < 9 7-40 U/L Alkaline Phosphatase 168 H 46-116 U/L Total Protein 7.4 5.7-8.2 g/dL Albumin 3.5 3.2-4.8 g/dL Urine Color Colorless Yellow Urine Clarity Clear Clear Urine pH 7.5 5.0-9.0 Urine Specific [place] 1.007 1.001-1.035 Urine Protein Negative Negative Urine Ketones Negative Negative Urine Blood 3+ H Negative /uL Urine Nitrite Negative Negative Urine Bilirubin Negative Negative Urine Urobilinogen Normal Negative mg/dL Urine Leukocyte Esterase 1+ Negative /uL Urine RBC 259 0 - 4 /hpf Urine Microscopic WBC 34 H 0-5 /HPF Urine Squamous Epithelial Cells Few <5 /hpf Urine Bacteria None seen None Seen /hpf Urine Glucose Normal Normal mg/dL Assessment/Plan Admitting Diagnosis: Incidental fibroid you found in uterus does not appear to be necrotic or significant. 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
[2025-05-17 06:05] LABS: Hematocrit 30.4 % (36.0-46.0); Hemoglobin 10.0 g/dL (12.2-16.2); Mean Corpuscular Hemoglobin 28.0 pg (28.0-32.0); Mean Corpuscular Volume 85.5 fL (80.0-100.0); Nucleated Red Blood Cells % 0.3 %
[2025-05-17 06:16] LABS: Anion Gap 15 (5-15); Calcium 9.4 mg/dL (8.7-10.4); Carbon Dioxide 23 mmol/L (20-31); Potassium 4.0 mmol/L (3.5-5.1)
[2025-05-17 06:22] LABS: BUN/Creatinine Ratio 5.1 (10.0-20.0); Glucose 96 mg/dL (74-106)
[2025-05-17 06:24] LABS: Blood Urea Nitrogen 6 mg/dL (9-23); Chloride 107 mmol/L (98-107); Sodium 145 mmol/L (136-145)
--- NOTE | 2025-05-17 06:37 | ECG ---
[facility] Test Date: 2025-05-17 Test Time: 00:03:36 Pat Name: CHAD TREVIZO Department: Room: 0273T Gender: F Child Nurse: SUNG : 1955 Requested By: VICTORIA KOENIG Order Number: [id number] Reading MD: Francois Hernandez Measurements Intervals [place] Rate: 105 P: 68 MT: 101 QRS: 24 QRSD: 97 T: 243 QT: 417 QTc: 552 Interpretive Statements Sinus tachycardia Ventricular premature complex Nonspecific T abnormalities, diffuse leads Prolonged QT interval Artifact in lead(s) I,II,III,aVR,aVL,aVF,V1,V2 Electronically Signed On 05-18-2025 9:57:40 PDT by Francois Hernandez Please click the below link to view image of tracing.
[2025-05-17 08:25] VITALS: PULSE 97; RESP 16; O2SAT 98
[2025-05-17] MEDS: LORazepam 2MG/ML-1ML VIAL IV ONE (08:26)
[2025-05-17] MEDS: HALOPERIDOL LACTATE 5 MG/ML INJ VIAL IM PRN (14:52)
--- NOTE | 2025-05-17 15:35 | DVHPN2 ---
Reviewed: H&P Changes from previous H/P or p: No Changes General: Per HPI Gastrointestinal: Abdominal Pain Objective Vitals Vital Signs Date Time Temp Pulse Resp B/P (MAP) Pulse Ox O2 Delivery O2 Flow Rate FiO2 05/17/25 13:00 87 17 135/63 (87) 97 05/17/25 09:30 98.3 98.3 05/17/25 08:25 Room Air* 0 21 Intake/Output Intake and Output 05/17/25 07:00 Output Total 800 ml Balance -800 ml Output Urine Total 800 ml Exam General Appearance: Cooperative, Other (Confused, somnolent) HEENT: Atraumatic, PERRLA, Other (protubrent eyes B/L) Respiratory: Clear to auscultation, Normal air movement Cardiovascular: Regular rate, Normal S1, Normal S2, No murmurs Abdominal: Normal bowel sounds, Other (Generalized tenderness w/o guarding or rigidity, nephrostomy tube on left side draining straw-colored fluid) Extremities: No clubbing, No cyanosis, Other (Grade 2 pitting edema bilateral lower extremities) Skin: No significant lesion Neuro: Sensation intact, Other (Motor strength 3 on 5 on right hand, 4 on 5 on left hand) Psych/Mental Status: Other (Altered mental status) Medications Current Medications Medications Dose Ordered Sig/Raoul Route Start Time Stop Time Status Last Admin Dose Admin Nitroglycerin 0.4 mg Q5MINP PRN SL 05/16/25 09:15 Morphine Sulfate 2 mg Q30M PRN IV 05/16/25 09:15 Ceftriaxone Sodium 50 ml @ 100 mls/hr DAILY@09 IV 05/17/25 09:00 05/17/25 09:17 100 MLS/HR Pantoprazole Sodium 40 mg DAILY@0600 PO 05/16/25 10:30 05/17/25 06:24 40 MG Nifedipine 90 mg DAILY PO 05/17/25 10:00 05/17/25 09:18 90 MG Aspirin 81 mg DAILY PO 05/17/25 10:00 Hold Atorvastatin Calcium 40 mg HS PO 05/16/25 22:00 Haloperidol Lactate 10 mg Q6HPRN PRN IM 05/17/25 14:45 05/17/25 14:52 10 MG Laboratory Results Laboratory Tests 05/17/25 05:24 Chemistry Test 05/17/25 05:24 Calcium Level 9.4 mg/dL (8.7-10.4) Urinalysis Test 05/15/25 06:53 Urine Color Colorless (Yellow) Urine Clarity Clear (Clear) Urine pH 7.5 (5.0-9.0) Urine Specific [place] 1.007 (1.001-1.035) Urine Protein Negative (Negative) Urine Ketones Negative (Negative) Urine Blood 3+ /uL (Negative) H Urine Nitrite Negative (Negative) Urine Bilirubin Negative (Negative) Urine Urobilinogen Normal mg/dL (Negative) Urine Leukocyte Esterase 1+ /uL (Negative) Urine RBC 259 /hpf (0 - 4) Urine Microscopic WBC 34 /HPF (0-5) H Urine Squamous Epithelial Cells Few /hpf (<5) Urine Bacteria None seen /hpf (None Seen) Urine Glucose Normal mg/dL (Normal) Microbiology Microbiology Date/Time Source Procedure Growth Status 05/16/25 12:56 Blood Blood Culture - Preliminary NO GROWTH AFTER 24 HOURS OF INCUBATION. Resulted 05/16/25 06:03 Voided Urine Urine Culture - Preliminary Resulted Labs and/or images reviewed: Labs reviewed by me, Image(s) reviewed by me Assessment/Plan Assessment/Plan 70-year-old female with altered mental status, presented to the ER with chief complain of abdominal pain. She is a poor historian. Daughter on bedside, reported past medical history of cancer with metastasis, unsure primary. She reported that the patient was brought in from hospice care and has requested full code. 05/17 patient in his hospice revoked for unknown reason. CT abdomen showing multiple metastatic disease to left posterior bladder, uterus endometrial thickening. Patient has left PCN that has to be changed every 3 months per urology eval. Patient is 3rd spacing with the ascites diffuse subcutaneous edema. CT head cortical volume loss likely ongoing worsening dementia. Patient has FADIA, troponins elevated, thrombocytopenia. Right upper quadrant ultrasound is done showing trace ascites, cholelithiasis, hepatic steatosis, right pleural effusion which is small. Acute Metabolic encephalopathy Hx of dementia Brain metastasis, possible CT abdomen pelvis showed increased prominence of ventricles, sulci and cisterns which is consistent with the sequela of atrophic cortical volume loss, no other acute intracranial abnormality Hypertensive emergency Hypertensive heart disease NSTEMI, likely type II from demand ischemia Nifedipine 90mg Cardiology consulted Aspirin, atorvastatin ordered Labs show BNP elevated, Echo ordered Acute abdominal pain Urinary bladder mass Uterine mass Diffuse mesenteric, subcutaneous edema with ascites CT abdomen pelvis show irregular 6.1 cm mass within the left posterior bladder is suspicious for primary urinary or reproductive malignancy, ascites, diffuse mesenteric and subcutaneous edema, small right pleural effusion. Ordered ultrasound abdomen Complicated UTI Bilateral hydronephrosis with Left nephrostomy tube FADIA due to VMN UA positive for UTI, elevated creatinine Urine culture ordered IV ceftriaxone 1 g daily Urology consulted Holding of IV fluids in context of possible fluid overload Monitor renal function, electrolytes Normocytic, normochromic anemia, unspecified UA positive for blood, RBCs Stool occult blood, iron panel ordered IVC filter in place, seen on CT scan Cholelithiasis, CT finding Ordered ultrasound abdomen History of CVA DIET: Pureed diet Plan discussed with: Other My Orders Orders - DC DUARTE MD Procedure Category Date Status Time Haloperidol Lactate PHA 05/17/25 In Process Injection (Haldol) 14:45 Date of Service: May 17, 2025 Billing Provider: DC DUARTE MD Common Visit Codes: 36487-[id number] INP/OBS CARE(HIGH) DC DUARTE MD May 17, 2025 15:35
--- NOTE | 2025-05-17 16:50 | DVHINCON2 ---
Date Seen: May 17, 2025 Referring Physician MD Wes Reason for Consultation Elevated troponin History of Present Illness This is a 70-year-old female who presented to the emergency room via EMS with a chief complaint of abdominal pain for three days. At time of assessment, the patient was found A&O x2. Information obtained from primary RN and records which indicate the patient presented with a chief complaint of abdominal pain associated with nausea, vomiting, and constipation with daughter reporting no bowel movement since 04/25/2025. Cardiology consulted given troponin levels peaking at 900s ng/L. Multiple 12 lead electrocardiograms x3 revealed a normal sinus rhythm with premature ventricular contractions and no evidence of acute ischemia (one ECG was read mistakenly as atrial fibrillation by machine). Significant medical history includes metastatic bladder cancer on hospice care prior to admission, history of cerebrovascular accident, hypertension, cholelithiasis, and status post IVC filter insertion. Past Medical History Per records, there is no use of illicit drugs, alcohol, or tobacco use. Past Surgical History IVC filter Family History Unknown family history. Social History Unknown social history. Allergies: Coded Allergies: Aspirin (Verified Allergy, Unknown, 05/15/25) Home Meds Unknown home medications. Current Medications Current Medications Medications (Trade) Dose Ordered Sig/Raoul Route PRN Reason Start Time Stop Time Status Last Admin Ceftriaxone Sodium 50 ml @ 100 mls/hr DAILY@09 IV 05/17/25 09:00 05/17/25 09:17 Nifedipine (Procardia Xl (Time-Release)) 90 mg DAILY PO 05/17/25 10:00 05/17/25 09:18 Aspirin 81 mg DAILY PO 05/17/25 10:00 Hold Atorvastatin Calcium (Lipitor) 40 mg HS PO 05/16/25 22:00 Haloperidol Lactate (Haldol) 10 mg Q6HPRN PRN IM AGITATION 05/17/25 14:45 05/17/25 14:52 Review of Systems Constitutional: No symptom reported Ears, Nose, & Throat: No symptom reported Eyes: No symptom reported Neurological: No symptoms reported Pulmonary/Respiratory: No symptom reported Cardiovascular: No symptom reported Gastrointestinal: Abdominal pain, nausea, vomiting, constipation Genitourinary: No symptom reported Musculoskeletal: No symptom reported Skin: No symptom reported Psychiatric: No symptom reported Endocrine: No symptom reported Hemotologic/Lymphatic: No symptom reported Vital Signs Vital Signs Date Time Temp Pulse Resp B/P (MAP) Pulse Ox O2 Delivery O2 Flow Rate FiO2 05/17/25 13:00 87 17 135/63 (87) 97 05/17/25 09:30 98.3 98.3 05/17/25 08:25 Room Air* 0 21 Physical Exam General Appearance: Cooperative. Thin. In no acute distress Head Exam: Normal inspection Neck Exam: Normal inspection. Non-tender. Normal alignment Pulmonary/Respiratory: Chest non-tender. Clear bilateral breath sounds Cardiovascular/Chest: Regular rate and rhythm. S1, S2. NSR. No murmurs. No JVD. Peripheral Pulses: 2+ Radial (R). 2+ Radial (L). 2+ Pedal (R). 2+ Pedal (L) Abdominal Exam: Normal bowel sounds Ankle Exam: Negative ankle edema Lower extremities: Negative lower extremity edema Neuro/Mental Status: A&O x2. Confused, cooperative Thoughts/Psych: Cooperative, calm Appearance: In no acute distress Skin Exam: Normal inspection. Normal color. Warm. Dry Labs/Diagnostic Data Labs Test 05/17/25 05:24 05/16/25 12:46 05/16/25 10:29 05/16/25 06:03 Range/Units White Blood Count 6.2 4.4-10.8 10^3/uL Red Blood Count 3.55 L 4.0-5.20 10^6/uL Hemoglobin 10.0 L 12.2-16.2 g/dL Hematocrit 30.4 L 36.0-46.0 % Mean Corpuscular Volume 85.5 80.0-100.0 fL Mean Corpuscular Hemoglobin 28.0 28.0-32.0 pg Mean Corpuscular Hemoglobin Concent 32.8 32.0-36.0 g/dL Red Cell Distribution Width 24.3 H 11.8-14.3 % Platelet Count 130 L 140-450 10^3/uL Mean Platelet Volume 7.9 6.9-10.8 fL Neutrophils (%) (Auto) 68.8 37.0-80.0 % Lymphocytes (%) (Auto) 19.9 10.0-50.0 % Monocytes (%) (Auto) 9.8 0.0-12.0 % Eosinophils (%) (Auto) 1.1 0.0-7.0 % Basophils (%) (Auto) 0.4 0.0-2.0 % Neutrophils # (Auto) 4.3 1.6-8.6 10 ^3/uL Lymphocytes # (Auto) 1.2 0.4-5.4 10 ^3/uL Monocytes # (Auto) 0.6 0-1.3 10 ^3/uL Eosinophils # (Auto) 0.1 0-0.8 10 ^3/uL Basophils # (Auto) 0 0-0.2 10 ^3/uL Nucleated Red Blood Cells 0.3 % Sodium Level 145 136-145 mmol/L Potassium Level 4.0 3.5-5.1 mmol/L Chloride Level 107 98-107 mmol/L Carbon Dioxide Level 23 20-31 mmol/L Anion Gap 15 5-15 Blood Urea Nitrogen 6 L 9-23 mg/dL Creatinine 1.17 H 0.550-1.02 mg/dL Glomerular Filtration Rate Calc 50 >90 mL/min BUN/Creatinine Ratio 5.1 L 10.0-20.0 Serum Glucose 96 74-106 mg/dL Calcium Level 9.4 8.7-10.4 mg/dL Troponin I High Sensitivity 891 *H </=34 ng/L Thyroid Stimulating Hormone (TSH) 9.67 H 0.55-4.78 uIU/mL Free Thyroxine (T4) Calculated 1.05 0.89-1.76 ng/dL Total Triiodothyronine (TT3) 0.94 0.60-1.81 ng/mL Iron Level 34 L 50-170 ug/dL Total Iron Binding Capacity 240 L 250-425 ug/dL Percent Iron Saturation 14.2 L 15-50 % Ferritin 140.0 10-291 ng/mL Urine Opiates Screen Neg NEGATIVE Urine Fentanyl Screen Neg NEGATIVE Urine Barbiturates Screen Neg NEGATIVE Urine Phencyclidine Screen Neg NEGATIVE Urine Amphetamines Screen Neg NEGATIVE Urine Benzodiazepines Screen Neg NEGATIVE Urine Cocaine Screen Neg NEGATIVE Urine Cannabinoids Screen Neg NEGATIVE Test 05/16/25 02:38 05/16/25 02:07 05/15/25 06:53 Range/Units B-Type Natriuretic Peptide 400.76 0-100 pg/mL Total Bilirubin 1.0 0.2-1.0 mg/dL Aspartate Amino Transferase (AST) 38 13-40 U/L Alanine Aminotransferase (ALT) < 9 7-40 U/L Alkaline Phosphatase 168 H 46-116 U/L Total Protein 7.4 5.7-8.2 g/dL Albumin 3.5 3.2-4.8 g/dL Urine Color Colorless Yellow Urine Clarity Clear Clear Urine pH 7.5 5.0-9.0 Urine Specific [place] 1.007 1.001-1.035 Urine Protein Negative Negative Urine Ketones Negative Negative Urine Blood 3+ H Negative /uL Urine Nitrite Negative Negative Urine Bilirubin Negative Negative Urine Urobilinogen Normal Negative mg/dL Urine Leukocyte Esterase 1+ Negative /uL Urine RBC 259 0 - 4 /hpf Urine Microscopic WBC 34 H 0-5 /HPF Urine Squamous Epithelial Cells Few <5 /hpf Urine Bacteria None seen None Seen /hpf Urine Glucose Normal Normal mg/dL Microbiology Date/Time Source Procedure Growth Status 05/16/25 12:56 Blood Blood Culture - Preliminary NO GROWTH AFTER 24 HOURS OF INCUBATION. Resulted 05/16/25 06:03 Voided Urine Urine Culture - Preliminary Resulted Assessment Hypertensive urgency with acute encephalopathy Metastatic bladder cancer NSTEMI, likely type 2 secondary to above Pulmonary hypertension, moderate degree Presence of IVC filter History of CVA Recent hospice care Plan/Recommendation (Dr. Sosa) Preliminary transthoracic echocardiogram revealed an optimal LV function and RV SP at 41 mmHg. Continue aggressive blood pressure control with nifedipine therapy for a target SBP <140 mmHg. Consider addition of Coreg therapy for blood pressure control if deemed necessary. Likely NSTEMI Type II secondary to hypertensive urgency and metastatic disease. Consider goals of care given malignancy with recent hospice care. There is no further cardiac workup indic ated at this time. Kindly call if in need to re-consult. Thank you for allowing us to participate in this patient's care. Please call if you have any questions or concerns. This medical document was created using an electronic medical record system with voice recognition software and computerized dictation system. Although this document has been carefully reviewed, there might still be some phonetic and typographical errors. Occasional wrong-word or ``sound-alike substitutions may have occurred due to the inherent limitations of voice recognition software. These areas are purely typographical due to imperfections of the software programs and do not reflect any compromise in the patient's medical care. Please read the chart carefully and recognize, using context, where these substitutions have occurred. Plan discussed with: Other NYHA Physical activity limitations: NA Date of Service: May 17, 2025 Billing Provider: JACKELYN MOMIN [employer] [facility] Cardiology Common Codes: [id number] INP/OBS CARE (High) JACKELYN MOMIN [facility] May 17, 2025 16:50
[2025-05-17 18:00] VITALS: BP 156/83; PULSE 105; RESP 17; TEMP 98.8; O2SAT 98
[2025-05-17 18:24] VITALS: PULSE 105; RESP 17; O2SAT 98
[2025-05-17 20:00] VITALS: PULSE 115; PULSE 74; RESP 18; O2SAT 96
[2025-05-17] MEDS: LACTULOSE 20Gm/30ML SOLN PO SCH (20:12)
[2025-05-17] MEDS: METHYLNALTREXONE BROMIDE 12 MG/0.6 ML VIAL SC ONE (20:14)
[2025-05-17 21:00] VITALS: BP 154/87; PULSE 86; RESP 17; TEMP 98.8; O2SAT 96
[2025-05-18] VITALS (9 sets, daily range): BP systolic 135–159; BP diastolic 71–87; PULSE 84–110; RESP 16–18; TEMP 98–98.6; O2SAT 94–97
[2025-05-18] MEDS: hydrALAZINE HCL 20 MG/ML VL IV ONE (02:57)
--- NOTE | 2025-05-18 07:31 | DVHSR ---
APPROVED REPORT EXAM: LIMITED Two-dimensional and M-mode echocardiogram with Doppler and color Doppler. Blood Pressure: 195/100 mmHg INDICATION Anasarca RISK FACTORS Height: 5'5", Weight: 119 DIMENSIONS LVDd3.5 (3.8-5.7cm)LA (2D)4.0 (1.9-4.0cm)Aortic Root2.8 (2.0-3.7cm) LVDs2.5 (2.5-4.0cm)LA (MM) (1.9-4.0cm)Aortic Cusp Exc1.7 (1.5-2.0cm) EF (%) 60.0 (55-70%)Rt. Atrium3.9 (1.9-4.0cm)Asc. Aorta cm IVSd1.0 (0.7-1.1cm)RV (D) (1.8-2.4cm) PWd1.2 (0.7-1.1cm) Mitral Valve MitralMitral Stenosis E wave0.90m/sMV Mean GR.mmHg A wave1.31m/sMV Peak GR.mmHg E/A ratio0.72D MVAcm2 DECEL [id number] 1/2 Timems Aortic Valve Aortic ValveAortic Stenosis LVOT Diameter2.0 (1.8-2.4cm)Doppler AVAcm2 Pulmonic Valve V21.07m/s Tricuspid Valve TR Velocity2.87m/s [id number] Other Information Quality : Technically LimitedRhythm : Technically limited study due to patient altered and uncooperative. Unable to complete study due to pt grabbing at probe and tech. Conclusion lvef 60% mild lvh RV borderline enlarged left atrium enlarged mild no severe valve abnormality noted trivia to small l circumferential pericardial effusion noted
[2025-05-18] MEDS ORDERED: LORazepam 2MG/ML-1ML VIAL IV ONE (10:00)
--- NOTE | 2025-05-18 11:46 | DVHPN2 ---
Reviewed: H&P Changes from previous H/P or p: No Changes General: Per HPI Gastrointestinal: Abdominal Pain Objective Vitals Vital Signs Date Time Temp Pulse Resp B/P (MAP) Pulse Ox O2 Delivery O2 Flow Rate FiO2 05/18/25 07:45 95 18 95 Room Air* 0 21 05/18/25 05:00 98.6 151/71 (97) 98.6 Intake/Output Intake and Output 05/18/25 07:00 Intake Total 170 ml Balance 170 ml Intake Oral 120 ml IV Total 50 ml # Voids 1 Exam General Appearance: Cooperative, Other (Confused, somnolent) HEENT: Atraumatic, PERRLA, Other (protubrent eyes B/L) Respiratory: Clear to auscultation, Normal air movement Cardiovascular: Regular rate, Normal S1, Normal S2, No murmurs Abdominal: Normal bowel sounds, Other (Generalized tenderness w/o guarding or rigidity, nephrostomy tube on left side draining straw-colored fluid) Extremities: No clubbing, No cyanosis, Other (Grade 2 pitting edema bilateral lower extremities) Skin: No significant lesion Neuro: Sensation intact, Other (Motor strength 3 on 5 on right hand, 4 on 5 on left hand) Psych/Mental Status: Other (Altered mental status) Medications Current Medications Medications Dose Ordered Sig/Raoul Route Start Time Stop Time Status Last Admin Dose Admin Nitroglycerin 0.4 mg Q5MINP PRN SL 05/16/25 09:15 Morphine Sulfate 2 mg Q30M PRN IV 05/16/25 09:15 Ceftriaxone Sodium 50 ml @ 100 mls/hr DAILY@09 IV 05/17/25 09:00 05/18/25 09:55 100 MLS/HR Pantoprazole Sodium 40 mg DAILY@0600 PO 05/16/25 10:30 05/17/25 06:24 40 MG Nifedipine 90 mg DAILY PO 05/17/25 10:00 05/17/25 22:16 90 MG Aspirin 81 mg DAILY PO 05/17/25 10:00 Hold Atorvastatin Calcium 40 mg HS PO 05/16/25 22:00 05/17/25 20:12 40 MG Haloperidol Lactate 10 mg Q6HPRN PRN IM 05/17/25 14:45 05/18/25 07:00 10 MG Lactulose 15 ml BID PO 05/17/25 22:00 05/18/25 09:53 15 ML Laboratory Results Laboratory Tests 05/17/25 05:24 Urinalysis Test 05/15/25 06:53 Urine Color Colorless (Yellow) Urine Clarity Clear (Clear) Urine pH 7.5 (5.0-9.0) Urine Specific [place] 1.007 (1.001-1.035) Urine Protein Negative (Negative) Urine Ketones Negative (Negative) Urine Blood 3+ /uL (Negative) H Urine Nitrite Negative (Negative) Urine Bilirubin Negative (Negative) Urine Urobilinogen Normal mg/dL (Negative) Urine Leukocyte Esterase 1+ /uL (Negative) Urine RBC 259 /hpf (0 - 4) Urine Microscopic WBC 34 /HPF (0-5) H Urine Squamous Epithelial Cells Few /hpf (<5) Urine Bacteria None seen /hpf (None Seen) Urine Glucose Normal mg/dL (Normal) Microbiology Microbiology Date/Time Source Procedure Growth Status 05/16/25 12:56 Blood Blood Culture - Preliminary NO GROWTH AFTER 24 HOURS OF INCUBATION. Resulted 05/16/25 06:03 Voided Urine Urine Culture - Preliminary Resulted Labs and/or images reviewed: Labs reviewed by me, Image(s) reviewed by me Assessment/Plan Assessment/Plan 70-year-old female with altered mental status, presented to the ER with chief complain of abdominal pain. She is a poor historian. Daughter on bedside, reported past medical history of cancer with metastasis, unsure primary. She reported that the patient was brought in from hospice care and has requested full code. 05/17 patient in his hospice revoked for unknown reason. CT abdomen showing multiple metastatic disease to left posterior bladder, uterus endometrial thickening. Patient has left PCN that has to be changed every 3 months per urology eval. Patient is 3rd spacing with the ascites diffuse subcutaneous edema. CT head cortical volume loss likely ongoing worsening dementia. Patient has FADIA, troponins elevated, thrombocytopenia. Right upper quadrant ultrasound is done showing trace ascites, cholelithiasis, hepatic steatosis, right pleural effusion which is small. 05/18: Patient remains confused altered agitated A&O x1, continuing Haldol q.6 as 1st line for agitation, adding Ativan 1 mg q.4 for second-line agitation. Patient having bowel movements which appear to be the primary concern of family. Patient is not complaining of any abdominal pain. Urology signed off, gynecology signed off, patient has advanced metastatic disease. We will discuss with family to continue hospice. - tried to call family but this is no number, concern for patient having we will discuss with social. Acute Metabolic encephalopathy Hx of dementia Brain metastasis, possible CT abdomen pelvis showed increased prominence of ventricles, sulci and cisterns which is consistent with the sequela of atrophic cortical volume loss, no other acute intracranial abnormality Hypertensive emergency Hypertensive heart disease NSTEMI, likely type II from demand ischemia Nifedipine 90mg Cardiology consulted Aspirin, atorvastatin ordered Labs show BNP elevated, Echo ordered Acute abdominal pain Urinary bladder mass Uterine mass Diffuse mesenteric, subcutaneous edema with ascites CT abdomen pelvis show irregular 6.1 cm mass within the left posterior bladder is suspicious for primary urinary or reproductive malignancy, ascites, diffuse mesenteric and subcutaneous edema, small right pleural effusion. Ordered ultrasound abdomen Complicated UTI Bilateral hydronephrosis with Left nephrostomy tube FADIA due to VMN UA positive for UTI, elevated creatinine Urine culture ordered IV ceftriaxone 1 g daily Urology consulted Holding of IV fluids in context of possible fluid overload Monitor renal function, electrolytes Normocytic, normochromic anemia, unspecified UA positive for blood, RBCs Stool occult blood, iron panel ordered IVC filter in place, seen on CT scan Cholelithiasis, CT finding Ordered ultrasound abdomen History of CVA DIET: Pureed diet Plan discussed with: Other My Orders Orders - DC DUARTE MD Procedure Category Date Status Time Haloperidol Lactate PHA 05/17/25 In Process Injection (Haldol) 14:45 Lactulose Oral PHA 05/17/25 In Process 22:00 Mrsa Screen JOSE 05/17/25 In Process 20:50 Bedside Commode KARTHIK 05/18/25 In Process 09:35 Date of Service: May 18, 2025 Billing Provider: CD DUARTE MD Common Visit Codes: [id number] INP/OBS CARE(HIGH) DC DUARTE MD May 18, 2025 11:46
[2025-05-18] MEDS: LORazepam 2MG/ML-1ML VIAL IV PRN (12:24)
--- NOTE | 2025-05-18 19:03 | DVHINCON2 ---
Date Seen: May 17, 2025 Referring Physician MD Wes Reason for Consultation Elevated troponin History of Present Illness This is a 70-year-old female with a PMH of metastatic bladder cancer on hospice care prior to admission, history of cerebrovascular accident, hypertension, cholelithiasis, and status post IVC filter insertion brought in by EMS with complaint of abdominal pain for three days. At time of assessment, the patient was found A&O x2. Information obtained from primary RN and records which indicate the patient presented with a chief complaint of abdominal pain associated with nausea, vomiting, and constipation with daughter reporting no bowel movement since 04/25/2025. Cardiology consulted given troponin levels peaking at 900s ng/L. Multiple 12 lead electrocardiograms x3 revealed a normal sinus rhythm with premature ventricular contractions and no evidence of acute ischemia (one ECG was read mistakenly as atrial fibrillation by machine). Past Medical History Per records, there is no use of illicit drugs, alcohol, or tobacco use. Past Surgical History IVC filter Family History: Patient reports no known family medical history. Allergies: Coded Allergies: Aspirin (Verified Allergy, Unknown, 05/15/25) Current Medications Current Medications Medications (Trade) Dose Ordered Sig/Raoul Route PRN Reason Start Time Stop Time Status Last Admin Lactulose 15 ml BID PO 05/17/25 22:00 05/18/25 09:53 Lorazepam (Ativan Inj) 1 mg Q4HPRN PRN IV ANXIETY 05/18/25 12:15 05/18/25 12:24 Review of Systems Constitutional: No symptom reported Ears, Nose, & Throat: No symptom reported Eyes: No symptom reported Neurological: No symptoms reported Pulmonary/Respiratory: No symptom reported Cardiovascular: No symptom reported Gastrointestinal: Abdominal pain, nausea, vomiting, constipation Genitourinary: No symptom reported Musculoskeletal: No symptom reported Skin: No symptom reported Psychiatric: No symptom reported Endocrine: No symptom reported Hemotologic/Lymphatic: No symptom reported Vital Signs Vital Signs Date Time Temp Pulse Resp B/P (MAP) Pulse Ox O2 Delivery O2 Flow Rate FiO2 05/18/25 17:00 98.0 105 18 153/75 (101) 95 98.0 05/18/25 07:45 Room Air* 0 21 Physical Exam GENERAL: No acute distress. EYES: PERRL, EOMI. Anicteric. HENT: Moist mucous membranes. LUNGS: Clear to auscultation bilaterally. CARDIOVASCULAR: Regular rate and rhythm. ABDOMEN: Soft, non-tender and non-distended. EXTREMITIES: No edema. NEUROLOGIC: A&O x2. Confused, cooperative SKIN: Warm, dry. Labs/Diagnostic Data Labs Test 05/17/25 05:24 05/16/25 12:46 05/16/25 10:29 05/16/25 06:03 Range/Units White Blood Count 6.2 4.4-10.8 10^3/uL Red Blood Count 3.55 L 4.0-5.20 10^6/uL Hemoglobin 10.0 L 12.2-16.2 g/dL Hematocrit 30.4 L 36.0-46.0 % Mean Corpuscular Volume 85.5 80.0-100.0 fL Mean Corpuscular Hemoglobin 28.0 28.0-32.0 pg Mean Corpuscular Hemoglobin Concent 32.8 32.0-36.0 g/dL Red Cell Distribution Width 24.3 H 11.8-14.3 % Platelet Count 130 L 140-450 10^3/uL Mean Platelet Volume 7.9 6.9-10.8 fL Neutrophils (%) (Auto) 68.8 37.0-80.0 % Lymphocytes (%) (Auto) 19.9 10.0-50.0 % Monocytes (%) (Auto) 9.8 0.0-12.0 % Eosinophils (%) (Auto) 1.1 0.0-7.0 % Basophils (%) (Auto) 0.4 0.0-2.0 % Neutrophils # (Auto) 4.3 1.6-8.6 10 ^3/uL Lymphocytes # (Auto) 1.2 0.4-5.4 10 ^3/uL Monocytes # (Auto) 0.6 0-1.3 10 ^3/uL Eosinophils # (Auto) 0.1 0-0.8 10 ^3/uL Basophils # (Auto) 0 0-0.2 10 ^3/uL Nucleated Red Blood Cells 0.3 % Sodium Level 145 136-145 mmol/L Potassium Level 4.0 3.5-5.1 mmol/L Chloride Level 107 98-107 mmol/L Carbon Dioxide Level 23 20-31 mmol/L Anion Gap 15 5-15 Blood Urea Nitrogen 6 L 9-23 mg/dL Creatinine 1.17 H 0.550-1.02 mg/dL Glomerular Filtration Rate Calc 50 >90 mL/min BUN/Creatinine Ratio 5.1 L 10.0-20.0 Serum Glucose 96 74-106 mg/dL Calcium Level 9.4 8.7-10.4 mg/dL Troponin I High Sensitivity 891 *H </=34 ng/L Thyroid Stimulating Hormone (TSH) 9.67 H 0.55-4.78 uIU/mL Free Thyroxine (T4) Calculated 1.05 0.89-1.76 ng/dL Total Triiodothyronine (TT3) 0.94 0.60-1.81 ng/mL Iron Level 34 L 50-170 ug/dL Total Iron Binding Capacity 240 L 250-425 ug/dL Percent Iron Saturation 14.2 L 15-50 % Ferritin 140.0 10-291 ng/mL Urine Opiates Screen Neg NEGATIVE Urine Fentanyl Screen Neg NEGATIVE Urine Barbiturates Screen Neg NEGATIVE Urine Phencyclidine Screen Neg NEGATIVE Urine Amphetamines Screen Neg NEGATIVE Urine Benzodiazepines Screen Neg NEGATIVE Urine Cocaine Screen Neg NEGATIVE Urine Cannabinoids Screen Neg NEGATIVE Test 05/16/25 02:38 05/16/25 02:07 05/15/25 06:53 Range/Units B-Type Natriuretic Peptide 400.76 0-100 pg/mL Total Bilirubin 1.0 0.2-1.0 mg/dL Aspartate Amino Transferase (AST) 38 13-40 U/L Alanine Aminotransferase (ALT) < 9 7-40 U/L Alkaline Phosphatase 168 H 46-116 U/L Total Protein 7.4 5.7-8.2 g/dL Albumin 3.5 3.2-4.8 g/dL Urine Color Colorless Yellow Urine Clarity Clear Clear Urine pH 7.5 5.0-9.0 Urine Specific [place] 1.007 1.001-1.035 Urine Protein Negative Negative Urine Ketones Negative Negative Urine Blood 3+ H Negative /uL Urine Nitrite Negative Negative Urine Bilirubin Negative Negative Urine Urobilinogen Normal Negative mg/dL Urine Leukocyte Esterase 1+ Negative /uL Urine RBC 259 0 - 4 /hpf Urine Microscopic WBC 34 H 0-5 /HPF Urine Squamous Epithelial Cells Few <5 /hpf Urine Bacteria None seen None Seen /hpf Urine Glucose Normal Normal mg/dL Microbiology Date/Time Source Procedure Growth Status 05/17/25 20:50 Nose MRSA Screen - Final Complete 05/16/25 12:56 Blood Blood Culture - Preliminary NO GROWTH AFTER 48 HOURS OF INCUBATION. Resulted 05/16/25 06:03 Voided Urine Urine Culture - Final Complete Assessment Hypertensive urgency with acute encephalopathy. Metastatic bladder cancer. NSTEMI, likely type 2 secondary to above. Pulmonary hypertension, moderate degree. Presence of IVC filter. History of CVA. Recent hospice care. Plan/Recommendation I agree with your ongoing assessment and care of plan. Patient has been seen by Teresita Han NP on my behalf. We have discussed the plan with the patient. Preliminary transthoracic echocardiogram revealed an optimal LV function and RVSP at 41 mmHg. Continue aggressive blood pressure control with nifedipine therapy for a target SBP <140 mmHg. Consider addition of Coreg therapy for blood pressure control if deemed necessary. Likely NSTEMI Type II secondary to hypertensive urgency and metastatic disease. Consider goals of care given malignancy with recent hospice care. Additional plan as per the hospital course. Plan discussed with: Other NYHA Physical activity limitations: NA Date of Service: May 18, 2025 Billing Provider: LION LOCKETT MD Cardiology Common Codes: [id number] INP/OBS CARE (High) Cardiology Consultation Codes: [id number] CONSULT <45MIN LION LOCKETT MD May 18, 2025 19:03
--- NOTE | 2025-05-18 23:47 | DVHPN2 ---
Progress Note - Dictate Date Seen: May 18, 2025 Medical Necessity Reason Pt with a Central, PICC or Fol: No Subjective Patient was seen and evaluated in follow up. Patient is awake and confused. RN reports the patient has been refusing medications. MRSA is negative. Telemetry reviewed. vital signs Vital Sign Date Time Temp Pulse Resp B/P (MAP) Pulse Ox O2 Delivery O2 Flow Rate FiO2 05/18/25 17:00 98.0 105 18 153/75 (101) 95 98.0 05/18/25 07:45 Room Air* 0 21 Total Intake and Output 05/17/25 05/17/25 05/18/25 15:00 23:00 07:00 Intake Total 50 ml 120 ml Balance 50 ml 120 ml medications Current Medications Medications Dose Ordered Sig/Raoul Route Start Time Stop Time Status Last Admin Dose Admin Nitroglycerin 0.4 mg Q5MINP PRN SL 05/16/25 09:15 Morphine Sulfate 2 mg Q30M PRN IV 05/16/25 09:15 Ceftriaxone Sodium 50 ml @ 100 mls/hr DAILY@09 IV 05/17/25 09:00 05/18/25 09:55 100 MLS/HR Pantoprazole Sodium 40 mg DAILY@0600 PO 05/16/25 10:30 05/17/25 06:24 40 MG Nifedipine 90 mg DAILY PO 05/17/25 10:00 05/17/25 22:16 90 MG Aspirin 81 mg DAILY PO 05/17/25 10:00 Hold Atorvastatin Calcium 40 mg HS PO 05/16/25 22:00 05/17/25 20:12 40 MG Haloperidol Lactate 10 mg Q6HPRN PRN IM 05/17/25 14:45 05/18/25 07:00 10 MG Lactulose 15 ml BID PO 05/17/25 22:00 05/18/25 09:53 15 ML Lorazepam 1 mg Q4HPRN PRN IV 05/18/25 12:15 05/18/25 12:24 1 MG objective GENERAL: No acute distress. EYES: PERRL, EOMI. Anicteric. HENT: Moist mucous membranes. LUNGS: Clear to auscultation bilaterally. CARDIOVASCULAR: Regular rate and rhythm. ABDOMEN: Soft, non-tender and non-distended. EXTREMITIES: No edema. NEUROLOGIC: A&O x2. Confused, cooperative SKIN: Warm, dry. laboratory and microbiology Laboratory Tests 05/17/25 05:24 Test 05/17/25 05:24 Range/Units Serum Glucose 96 74-106 mg/dL Problem List Hypertensive urgency with acute encephalopathy. Metastatic bladder cancer. NSTEMI, likely type 2 secondary to above. Pulmonary hypertension, moderate degree. Presence of IVC filter. History of CVA. Recent hospice care. Assessment/Plan Continued all current supportive medical care. Lipitor. IV antibiotics as ordered. Morphine for pain management. Nifedipine. Nitro SL GI prophylactics. Additional plan as per the hospital course. Plan discussed with: Other LION LOCKETT MD May 18, 2025 20:21
[2025-05-19] VITALS (9 sets, daily range): BP systolic 123–164; BP diastolic 64–93; PULSE 85–121; RESP 16–19; TEMP 79.8–98.4; O2SAT 95–100
--- NOTE | 2025-05-19 11:15 | DVHPN2 ---
Reviewed: H&P Changes from previous H/P or p: No Changes General: Per HPI Gastrointestinal: Abdominal Pain Objective Vitals Vital Signs Date Time Temp Pulse Resp B/P (MAP) Pulse Ox O2 Delivery O2 Flow Rate FiO2 05/19/25 09:16 138/75 05/19/25 09:00 79.8 91 16 97 79.8 05/19/25 07:30 Room Air* 0 21 Intake/Output Intake and Output 05/19/25 07:00 Intake Total 1200 ml Output Total 850 ml Balance 350 ml Intake Oral 1150 ml IV Total 50 ml Output Urine Total 850 ml # Voids 3 # Bowel Movements 3 Exam General Appearance: Cooperative, Other (Confused, somnolent) HEENT: Atraumatic, PERRLA, Other (protubrent eyes B/L) Respiratory: Clear to auscultation, Normal air movement Cardiovascular: Regular rate, Normal S1, Normal S2, No murmurs Abdominal: Normal bowel sounds, Other (Generalized tenderness w/o guarding or rigidity, nephrostomy tube on left side draining straw-colored fluid) Extremities: No clubbing, No cyanosis, Other (Grade 2 pitting edema bilateral lower extremities) Skin: No significant lesion Neuro: Sensation intact, Other (Motor strength 3 on 5 on right hand, 4 on 5 on left hand) Psych/Mental Status: Other (Altered mental status) Medications Current Medications Medications Dose Ordered Sig/Raoul Route Start Time Stop Time Status Last Admin Dose Admin Nitroglycerin 0.4 mg Q5MINP PRN SL 05/16/25 09:15 Morphine Sulfate 2 mg Q30M PRN IV 05/16/25 09:15 Ceftriaxone Sodium 50 ml @ 100 mls/hr DAILY@09 IV 05/17/25 09:00 05/19/25 09:27 100 MLS/HR Pantoprazole Sodium 40 mg DAILY@0600 PO 05/16/25 10:30 05/19/25 06:12 40 MG Nifedipine 90 mg DAILY PO 05/17/25 10:00 05/19/25 09:16 90 MG Aspirin 81 mg DAILY PO 05/17/25 10:00 Hold Atorvastatin Calcium 40 mg HS PO 05/16/25 22:00 05/18/25 23:46 40 MG Haloperidol Lactate 10 mg Q6HPRN PRN IM 05/17/25 14:45 05/18/25 07:00 10 MG Lactulose 15 ml BID PO 05/17/25 22:00 05/19/25 09:21 15 ML Lorazepam 1 mg Q4HPRN PRN IV 05/18/25 12:15 05/18/25 12:24 1 MG Laboratory Results Laboratory Tests 05/17/25 05:24 Urinalysis Test 05/15/25 06:53 Urine Color Colorless (Yellow) Urine Clarity Clear (Clear) Urine pH 7.5 (5.0-9.0) Urine Specific [place] 1.007 (1.001-1.035) Urine Protein Negative (Negative) Urine Ketones Negative (Negative) Urine Blood 3+ /uL (Negative) H Urine Nitrite Negative (Negative) Urine Bilirubin Negative (Negative) Urine Urobilinogen Normal mg/dL (Negative) Urine Leukocyte Esterase 1+ /uL (Negative) Urine RBC 259 /hpf (0 - 4) Urine Microscopic WBC 34 /HPF (0-5) H Urine Squamous Epithelial Cells Few /hpf (<5) Urine Bacteria None seen /hpf (None Seen) Urine Glucose Normal mg/dL (Normal) Microbiology Microbiology Date/Time Source Procedure Growth Status 05/17/25 20:50 Nose MRSA Screen - Final Complete 05/16/25 12:56 Blood Blood Culture - Preliminary NO GROWTH AFTER 48 HOURS OF INCUBATION. Resulted 05/16/25 06:03 Voided Urine Urine Culture - Final Complete Labs and/or images reviewed: Labs reviewed by me, Image(s) reviewed by me Assessment/Plan Assessment/Plan 70-year-old female with altered mental status, presented to the ER with chief complain of abdominal pain. She is a poor historian. Daughter on bedside, reported past medical history of cancer with metastasis, unsure primary. She reported that the patient was brought in from hospice care and has requested full code. 05/17 patient in his hospice revoked for unknown reason. CT abdomen showing multiple metastatic disease to left posterior bladder, uterus endometrial thickening. Patient has left PCN that has to be changed every 3 months per urology eval. Patient is 3rd spacing with the ascites diffuse subcutaneous edema. CT head cortical volume loss likely ongoing worsening dementia. Patient has FADIA, troponins elevated, thrombocytopenia. Right upper quadrant ultrasound is done showing trace ascites, cholelithiasis, hepatic steatosis, right pleural effusion which is small. 05/18: Patient remains confused altered agitated A&O x1, continuing Haldol q.6 as 1st line for agitation, adding Ativan 1 mg q.4 for second-line agitation. Patient having bowel movements which appear to be the primary concern of family. Patient is not complaining of any abdominal pain. Urology signed off, gynecology signed off, patient has advanced metastatic disease. We will discuss with family to continue hospice. - tried to call family but this is no number, concern for patient having we will discuss with social. 05/19: Patient appears to be much more calm today. A&O x1. Missed daughter today. Patient is stable to go home we have to discuss with the patient needs to return to hospice or not. Urology in going want to follow up patient outpatient if not going to hospice. Likely discharge today depending. Able to get a hold off the daughter. - update: social was able to provide me daughter number. i had converstaion with daughter, final decision is to take patient back to hospice. she affirms that main reason was constipation and abdominal pain. we notice significant mental and psychiatric burden on patient from the advanced metastatic disease and i will recommend bowel regiment and olanzepine 10mg daily, i defer on-going care/medication rec to [facility]. patient to dc tomorrow Acute Metabolic encephalopathy Hx of dementia Brain metastasis, possible CT abdomen pelvis showed increased prominence of ventricles, sulci and cisterns which is consistent with the sequela of atrophic cortical volume loss, no other acute intracranial abnormality Hypertensive emergency Hypertensive heart disease NSTEMI, likely type II from demand ischemia Nifedipine 90mg Cardiology consulted Aspirin, atorvastatin ordered Labs show BNP elevated, Echo ordered Acute abdominal pain Urinary bladder mass Uterine mass Diffuse mesenteric, subcutaneous edema with ascites CT abdomen pelvis show irregular 6.1 cm mass within the left posterior bladder is suspicious for primary urinary or reproductive malignancy, ascites, diffuse mesenteric and subcutaneous edema, small right pleural effusion. Ordered ultrasound abdomen Complicated UTI Bilateral hydronephrosis with Left nephrostomy tube FADIA due to VMN UA positive for UTI, elevated creatinine Urine culture ordered IV ceftriaxone 1 g daily Urology consulted Holding of IV fluids in context of possible fluid overload Monitor renal function, electrolytes Normocytic, normochromic anemia, unspecified UA positive for blood, RBCs Stool occult blood, iron panel ordered IVC filter in place, seen on CT scan Cholelithiasis, CT finding Ordered ultrasound abdomen History of CVA DIET: Pureed diet Plan discussed with: Other My Orders Orders - DC DUARTE MD Procedure Category Date Status Time Lorazepam 2mg/Ml Inj PHA 05/18/25 In Process (Ativan Inj) 12:15 * [employer] CONS 05/19/25 Transmitted Consult Date of Service: May 19, 2025 Billing Provider: DC DUARTE MD Common Visit Codes: [id number] INP/OBS CARE(HIGH) DC DUARTE MD May 19, 2025 11:15
[2025-05-19] MEDS: OLANZapine 5 MG TAB PO SCH (17:51)
--- NOTE | 2025-05-19 22:14 | DVHPN2 ---
Progress Note - Dictate Date Seen: May 19, 2025 Medical Necessity Reason Pt with a Central, PICC or Fol: No Subjective Patient was seen and evaluated in follow up. The patient is resting comfortably in bed. Patient is awake but remains confused. Patient is afebrile. Telemetry reviewed. vital signs Vital Sign Date Time Temp Pulse Resp B/P (MAP) Pulse Ox O2 Delivery O2 Flow Rate FiO2 05/19/25 09:16 138/75 05/19/25 09:00 79.8 91 16 97 79.8 05/19/25 07:30 Room Air* 0 21 Total Intake and Output 05/18/25 05/18/25 05/19/25 14:59 22:59 06:59 Intake Total 50 ml 800 ml 350 ml Output Total 400 ml 450 ml Balance 50 ml 400 ml -100 ml medications Current Medications Medications Dose Ordered Sig/Raoul Route Start Time Stop Time Status Last Admin Dose Admin Nitroglycerin 0.4 mg Q5MINP PRN SL 05/16/25 09:15 Morphine Sulfate 2 mg Q30M PRN IV 05/16/25 09:15 Ceftriaxone Sodium 50 ml @ 100 mls/hr DAILY@09 IV 05/17/25 09:00 05/19/25 09:27 100 MLS/HR Pantoprazole Sodium 40 mg DAILY@0600 PO 05/16/25 10:30 05/19/25 06:12 40 MG Nifedipine 90 mg DAILY PO 05/17/25 10:00 05/19/25 09:16 90 MG Aspirin 81 mg DAILY PO 05/17/25 10:00 Hold Atorvastatin Calcium 40 mg HS PO 05/16/25 22:00 05/18/25 23:46 40 MG Haloperidol Lactate 10 mg Q6HPRN PRN IM 05/17/25 14:45 05/18/25 07:00 10 MG Lactulose 15 ml BID PO 05/17/25 22:00 05/19/25 09:21 15 ML Lorazepam 1 mg Q4HPRN PRN IV 05/18/25 12:15 05/18/25 12:24 1 MG objective GENERAL: No acute distress. EYES: PERRL, EOMI. Anicteric. HENT: Moist mucous membranes. LUNGS: Clear to auscultation bilaterally. CARDIOVASCULAR: Regular rate and rhythm. ABDOMEN: Soft, non-tender and non-distended. EXTREMITIES: No edema. NEUROLOGIC: A&O x2. Confused, cooperative SKIN: Warm, dry. laboratory and microbiology Laboratory Tests 05/17/25 05:24 Test 05/17/25 05:24 Range/Units Serum Glucose 96 74-106 mg/dL Problem List Hypertensive urgency with acute encephalopathy. Metastatic bladder cancer. NSTEMI, likely type 2 secondary to above. Pulmonary hypertension, moderate degree. Presence of IVC filter. History of CVA. Recent hospice care. Assessment/Plan Continued all current supportive medical care. IV antibiotics as ordered. Morphine for pain management. Nifedipine. Nitro SL GI prophylactics. Additional plan as per the hospital course. Plan discussed with: Other LION LOCKETT MD May 19, 2025 12:06
[2025-05-20] VITALS (8 sets, daily range): BP systolic 140–203; BP diastolic 72–103; PULSE 82–101; RESP 14–20; TEMP 97.7–98.5; O2SAT 94–98
[2025-05-20] MEDS: ONDANSETRON HCL 4 MG/2 ML VIAL IV PRN (12:06)
[2025-05-20] MEDS: hydrALAZINE HCL 20 MG/ML VL IV PRN (12:06)
--- NOTE | 2025-05-20 15:44 | DVHPN2 ---
Reviewed: H&P Changes from previous H/P or p: No Changes General: Per HPI Gastrointestinal: Abdominal Pain Objective Vitals Vital Signs Date Time Temp Pulse Resp B/P (MAP) Pulse Ox O2 Delivery O2 Flow Rate FiO2 05/20/25 12:39 98.1 83 14 203/103 (136) 94 98.1 05/20/25 08:00 Room Air* 0 21 Intake/Output Intake and Output 05/20/25 07:00 Intake Total 1050 ml Output Total 450 ml Balance 600 ml Intake Oral 1000 ml IV Total 50 ml Other 450 ml # Voids 7 Exam General Appearance: Cooperative, Other (Confused, somnolent) HEENT: Atraumatic, PERRLA, Other (protubrent eyes B/L) Respiratory: Clear to auscultation, Normal air movement Cardiovascular: Regular rate, Normal S1, Normal S2, No murmurs Abdominal: Normal bowel sounds, Other (Generalized tenderness w/o guarding or rigidity, nephrostomy tube on left side draining straw-colored fluid) Extremities: No clubbing, No cyanosis, Other (Grade 2 pitting edema bilateral lower extremities) Skin: No significant lesion Neuro: Sensation intact, Other (Motor strength 3 on 5 on right hand, 4 on 5 on left hand) Psych/Mental Status: Other (Altered mental status) Medications Current Medications Medications Dose Ordered Sig/Raoul Route Start Time Stop Time Status Last Admin Dose Admin Nitroglycerin 0.4 mg Q5MINP PRN SL 05/16/25 09:15 Morphine Sulfate 2 mg Q30M PRN IV 05/16/25 09:15 Ceftriaxone Sodium 50 ml @ 100 mls/hr DAILY@09 IV 05/17/25 09:00 05/20/25 09:39 100 MLS/HR Pantoprazole Sodium 40 mg DAILY@0600 PO 05/16/25 10:30 05/20/25 05:19 40 MG Nifedipine 90 mg DAILY PO 05/17/25 10:00 05/20/25 09:40 90 MG Aspirin 81 mg DAILY PO 05/17/25 10:00 Hold Atorvastatin Calcium 40 mg HS PO 05/16/25 22:00 05/19/25 21:43 40 MG Haloperidol Lactate 10 mg Q6HPRN PRN IM 05/17/25 14:45 05/19/25 17:16 10 MG Lactulose 15 ml BID PO 05/17/25 22:00 05/20/25 09:39 15 ML Lorazepam 1 mg Q4HPRN PRN IV 05/18/25 12:15 05/18/25 12:24 1 MG Olanzapine 10 mg DAILY PO 05/19/25 17:00 05/20/25 09:40 10 MG Ondansetron HCl 4 mg Q4HPRN PRN IV 05/20/25 11:55 05/20/25 12:06 4 MG Hydralazine HCl 10 mg Q6HP PRN IV 05/20/25 11:55 05/20/25 12:06 10 MG Laboratory Results Laboratory Tests 05/17/25 05:24 Urinalysis Test 05/15/25 06:53 Urine Color Colorless (Yellow) Urine Clarity Clear (Clear) Urine pH 7.5 (5.0-9.0) Urine Specific [place] 1.007 (1.001-1.035) Urine Protein Negative (Negative) Urine Ketones Negative (Negative) Urine Blood 3+ /uL (Negative) H Urine Nitrite Negative (Negative) Urine Bilirubin Negative (Negative) Urine Urobilinogen Normal mg/dL (Negative) Urine Leukocyte Esterase 1+ /uL (Negative) Urine RBC 259 /hpf (0 - 4) Urine Microscopic WBC 34 /HPF (0-5) H Urine Squamous Epithelial Cells Few /hpf (<5) Urine Bacteria None seen /hpf (None Seen) Urine Glucose Normal mg/dL (Normal) Microbiology Microbiology Date/Time Source Procedure Growth Status 05/18/25 15:42 Nose MRSA Screen - Final Complete 05/16/25 12:56 Blood Blood Culture - Preliminary NO GROWTH AFTER 72 HOURS OF INCUBATION. Resulted 05/16/25 06:03 Voided Urine Urine Culture - Final Complete Labs and/or images reviewed: Labs reviewed by me, Image(s) reviewed by me Assessment/Plan Assessment/Plan 70-year-old female with altered mental status, presented to the ER with chief complain of abdominal pain. She is a poor historian. Daughter on bedside, reported past medical history of cancer with metastasis, unsure primary. She reported that the patient was brought in from hospice care and has requested full code. 05/17 patient in his hospice revoked for unknown reason. CT abdomen showing multiple metastatic disease to left posterior bladder, uterus endometrial thickening. Patient has left PCN that has to be changed every 3 months per urology eval. Patient is 3rd spacing with the ascites diffuse subcutaneous edema. CT head cortical volume loss likely ongoing worsening dementia. Patient has FADIA, troponins elevated, thrombocytopenia. Right upper quadrant ultrasound is done showing trace ascites, cholelithiasis, hepatic steatosis, right pleural effusion which is small. 05/18: Patient remains confused altered agitated A&O x1, continuing Haldol q.6 as 1st line for agitation, adding Ativan 1 mg q.4 for second-line agitation. Patient having bowel movements which appear to be the primary concern of family. Patient is not complaining of any abdominal pain. Urology signed off, gynecology signed off, patient has advanced metastatic disease. We will discuss with family to continue hospice. - tried to call family but this is no number, concern for patient having we will discuss with social. 05/19: Patient appears to be much more calm today. A&O x1. Missed daughter today. Patient is stable to go home we have to discuss with the patient needs to return to hospice or not. Urology in going want to follow up patient outpatient if not going to hospice. Likely discharge today depending. Able to get a hold off the daughter. - update: [employer] was able to provide me daughter number. i had converstaion with daughter, final decision is to take patient back to hospice. she affirms that main reason was constipation and abdominal pain. we notice significant mental and psychiatric burden on patient from the advanced metastatic disease and i will recommend bowel regiment and olanzepine 10mg daily, i defer on-going care/medication rec [facility]. patient to dc tomorrow 05/20: plan to dc today back to hospice but patient later in am lethargic, sBP>200, will start Hydralazine IV 10mg Q6h for SBP>160 and Zofran 4mg IV Q4H for nausea.. monitor another 24hr then dc back to hospice with tay daughter. Acute Metabolic encephalopathy Hx of dementia Brain metastasis, possible CT abdomen pelvis showed increased prominence of ventricles, sulci and cisterns which is consistent with the sequela of atrophic cortical volume loss, no other acute intracranial abnormality Hypertensive emergency Hypertensive heart disease NSTEMI, likely type II from demand ischemia Nifedipine 90mg Cardiology consulted Aspirin, atorvastatin ordered Labs show BNP elevated, Echo ordered Acute abdominal pain Urinary bladder mass Uterine mass Diffuse mesenteric, subcutaneous edema with ascites CT abdomen pelvis show irregular 6.1 cm mass within the left posterior bladder is suspicious for primary urinary or reproductive malignancy, ascites, diffuse mesenteric and subcutaneous edema, small right pleural effusion. Ordered ultrasound abdomen Complicated UTI Bilateral hydronephrosis with Left nephrostomy tube FADIA due to VMN UA positive for UTI, elevated creatinine Urine culture ordered IV ceftriaxone 1 g daily Urology consulted Holding of IV fluids in context of possible fluid overload Monitor renal function, electrolytes Normocytic, normochromic anemia, unspecified UA positive for blood, RBCs Stool occult blood, iron panel ordered IVC filter in place, seen on CT scan Cholelithiasis, CT finding Ordered ultrasound abdomen History of CVA DIET: Pureed diet Plan discussed with: Patient My Orders Orders - DC DUARTE MD Procedure Category Date Status Time * Financial Quantitative Analyst CONS 05/19/25 Transmitted Consult Olanzapine Tablet PHA 05/19/25 In Process (Zyprexa Tablet) 17:00 Ondansetron Hcl PHA 05/20/25 In Process (Zofran) 11:55 Hydralazine Injection PHA 05/20/25 In Process (Apresoline Inject 11:55 Date of Service: May 20, 2025 Billing Provider: DC DUARTE MD Common Visit Codes: [id number] INP/OBS CARE(HIGH) DC DUARTE MD May 20, 2025 15:44
--- NOTE | 2025-05-20 23:18 | DVHPN2 ---
Progress Note - Dictate Date Seen: May 20, 2025 Medical Necessity Reason Pt with a Central, PICC or Fol: No Subjective Patient was seen and evaluated in follow up. Tele sitter at bedside. Patient remains confused. He is afebrile. Telemetry reviewed. vital signs Vital Sign Date Time Temp Pulse Resp B/P (MAP) Pulse Ox O2 Delivery O2 Flow Rate FiO2 05/20/25 09:40 168/101 05/20/25 08:38 97.8 91 16 96 97.8 05/20/25 08:00 Room Air* 0 21 Total Intake and Output 05/19/25 05/19/25 05/20/25 15:00 23:00 07:00 Intake Total 50 ml 840 ml 160 ml Output Total 50 ml 400 ml Balance 50 ml 790 ml -240 ml medications Current Medications Medications Dose Ordered Sig/Raoul Route Start Time Stop Time Status Last Admin Dose Admin Nitroglycerin 0.4 mg Q5MINP PRN SL 05/16/25 09:15 Morphine Sulfate 2 mg Q30M PRN IV 05/16/25 09:15 Ceftriaxone Sodium 50 ml @ 100 mls/hr DAILY@09 IV 05/17/25 09:00 05/20/25 09:39 100 MLS/HR Pantoprazole Sodium 40 mg DAILY@0600 PO 05/16/25 10:30 05/20/25 05:19 40 MG Nifedipine 90 mg DAILY PO 05/17/25 10:00 05/20/25 09:40 90 MG Aspirin 81 mg DAILY PO 05/17/25 10:00 Hold Atorvastatin Calcium 40 mg HS PO 05/16/25 22:00 05/19/25 21:43 40 MG Haloperidol Lactate 10 mg Q6HPRN PRN IM 05/17/25 14:45 05/19/25 17:16 10 MG Lactulose 15 ml BID PO 05/17/25 22:00 05/20/25 09:39 15 ML Lorazepam 1 mg Q4HPRN PRN IV 05/18/25 12:15 05/18/25 12:24 1 MG Olanzapine 10 mg DAILY PO 05/19/25 17:00 05/20/25 09:40 10 MG Ondansetron HCl 4 mg Q4HPRN PRN IV 05/20/25 11:55 Hydralazine HCl 10 mg Q6HP PRN IV 05/20/25 11:55 objective GENERAL: No acute distress. EYES: PERRL, EOMI. Anicteric. HENT: Moist mucous membranes. LUNGS: Clear to auscultation bilaterally. CARDIOVASCULAR: Regular rate and rhythm. ABDOMEN: Soft, non-tender and non-distended. EXTREMITIES: No edema. NEUROLOGIC: A&O x2. Confused, cooperative SKIN: Warm, dry. laboratory and microbiology Laboratory Tests 05/17/25 05:24 Test 05/17/25 05:24 Range/Units Serum Glucose 96 74-106 mg/dL Problem List Hypertensive urgency with acute encephalopathy. Metastatic bladder cancer. NSTEMI, likely type 2 secondary to above. Pulmonary hypertension, moderate degree. Presence of IVC filter. History of CVA. Recent hospice care. Assessment/Plan Continued all current supportive medical care. IV antibiotics as ordered. Morphine for pain management. Nifedipine. Nitro SL GI prophylactics. IV Hydralazine for SBP> 150. Additional plan as per the hospital course. Plan discussed with: Other LION LOCKETT MD May 20, 2025 12:41
[2025-05-21 01:00] VITALS: BP 159/89; PULSE 111; RESP 18; TEMP 98.1; O2SAT 96
[2025-05-21 05:00] VITALS: BP 150/66; PULSE 82; RESP 16; TEMP 98.1; O2SAT 98
[2025-05-21 08:00] VITALS: PULSE 82; PULSE 89; RESP 16; O2SAT 96
[2025-05-21 09:27] VITALS: BP 170/82; PULSE 97; RESP 14; TEMP 98; O2SAT 96
[2025-05-21 12:30] VITALS: BP 151/92; PULSE 95; RESP 16; TEMP 97.9; O2SAT 96
--- NOTE | 2025-05-21 16:50 | DVHPN2 ---
Subjective Patient denies any symptoms. Confusion noted. Reviewed: H&P Changes from previous H/P or p: No Changes General: Per HPI Gastrointestinal: Abdominal Pain Objective Vitals Vital Signs Date Time Temp Pulse Resp B/P (MAP) Pulse Ox O2 Delivery O2 Flow Rate FiO2 05/21/25 12:30 97.9 95 16 151/92 (111) 96 97.9 05/21/25 08:00 Room Air* 0 21 Intake/Output Intake and Output 05/21/25 07:00 Intake Total 2050 ml Output Total 350 ml Balance 1700 ml Intake Oral 2000 ml IV Total 50 ml Output Urine Total 350 ml # Voids 5 General Appearance: Alert, mild distress, Other (Not cooperative) HEENT: Atraumatic, PERRLA Abdomen: Other (Left nephrostomy tube) Musculoskeletal: Normal sensory function, Normal motor function Skin: Dry, Intact Psych/Mental Status: Other (Agitated) Medications Current Medications Medications Dose Ordered Sig/Raoul Route Start Time Stop Time Status Last Admin Dose Admin Nitroglycerin 0.4 mg Q5MINP PRN SL 05/16/25 09:15 Morphine Sulfate 2 mg Q30M PRN IV 05/16/25 09:15 Ceftriaxone Sodium 50 ml @ 100 mls/hr DAILY@09 IV 05/17/25 09:00 05/21/25 08:59 100 MLS/HR Pantoprazole Sodium 40 mg DAILY@0600 PO 05/16/25 10:30 05/20/25 05:19 40 MG Nifedipine 90 mg DAILY PO 05/17/25 10:00 05/20/25 09:40 90 MG Aspirin 81 mg DAILY PO 05/17/25 10:00 Hold Atorvastatin Calcium 40 mg HS PO 05/16/25 22:00 05/20/25 21:42 40 MG Haloperidol Lactate 10 mg Q6HPRN PRN IM 05/17/25 14:45 05/19/25 17:16 10 MG Lactulose 15 ml BID PO 05/17/25 22:00 05/20/25 21:41 15 ML Lorazepam 1 mg Q4HPRN PRN IV 05/18/25 12:15 05/21/25 00:43 1 MG Olanzapine 10 mg DAILY PO 05/19/25 17:00 05/20/25 09:40 10 MG Ondansetron HCl 4 mg Q4HPRN PRN IV 05/20/25 11:55 05/20/25 12:06 4 MG Hydralazine HCl 10 mg Q6HP PRN IV 05/20/25 11:55 05/21/25 08:57 10 MG Laboratory Results Laboratory Tests 05/17/25 05:24 Urinalysis Test 05/15/25 06:53 Urine Color Colorless (Yellow) Urine Clarity Clear (Clear) Urine pH 7.5 (5.0-9.0) Urine Specific [place] 1.007 (1.001-1.035) Urine Protein Negative (Negative) Urine Ketones Negative (Negative) Urine Blood 3+ /uL (Negative) H Urine Nitrite Negative (Negative) Urine Bilirubin Negative (Negative) Urine Urobilinogen Normal mg/dL (Negative) Urine Leukocyte Esterase 1+ /uL (Negative) Urine RBC 259 /hpf (0 - 4) Urine Microscopic WBC 34 /HPF (0-5) H Urine Squamous Epithelial Cells Few /hpf (<5) Urine Bacteria None seen /hpf (None Seen) Urine Glucose Normal mg/dL (Normal) Microbiology Microbiology Date/Time Source Procedure Growth Status 05/18/25 15:42 Nose MRSA Screen - Final Complete 05/16/25 12:56 Blood Blood Culture - Final NO GROWTH AFTER 5 DAYS OF INCUBATION. Complete 05/16/25 06:03 Voided Urine Urine Culture - Final Complete Labs and/or images reviewed: Labs reviewed by me, Image(s) reviewed by me Assessment/Plan Assessment/Plan Impression: -metabolic encephalopathy -probable metastatic cancer with probable bladder cancer as primary. -obstructive uropathy -left percutaneous nephrostomy tube -anemia -hypertensive crisis Plan: Covering for primary hospitalist, . Apparently patient will be discharged back to hospice today per his notation. Attempted to discuss with social media community manager. Notation reveals that patient has been accepted back to hospice. Continue current treatment plan until patient's discharge. Total time spent with patient discussing and formulating plan of care: 35 minutes. This medical document was created using an electronic medical record system with [employer] system. Although this document has been carefully reviewed, there may still be some phonetic and typographical errors. These areas are purely typographical due to imperfections of the software programs, and do not reflect any compromise in the patient's medical care. Plan discussed with: Patient, Other (RN) Date of Service: May 21, 2025 Billing Provider: HANS HERNANDES NP Common Visit Codes: [id number] INP/OBS CARE(HIGH) HANS HERNANDES NP May 21, 2025 16:50
[2025-05-21 18:33] VITALS: BP 156/88; PULSE 84; TEMP 36.6
--- NOTE | 2025-05-21 20:32 | DVHPN2 ---
Progress Note - Dictate Date Seen: May 21, 2025 Medical Necessity Reason Pt with a Central, PICC or Fol: No Subjective Patient was seen and evaluated in follow up. Overnight, the patient was noted to be combative and having hallucinations. Tele sitter now at bedside. Per CM, [facility] has accepted the patient back with their services. Telemetry reviewed. vital signs Vital Sign Date Time Temp Pulse Resp B/P (MAP) Pulse Ox O2 Delivery O2 Flow Rate FiO2 05/21/25 09:27 98.0 97 14 170/82 (111) 96 98.0 05/21/25 08:00 Room Air* 0 21 Total Intake and Output 05/20/25 05/20/25 05/21/25 15:00 23:00 07:00 Intake Total 450 ml 800 ml 800 ml Output Total 350 ml Balance 450 ml 450 ml 800 ml medications Current Medications Medications Dose Ordered Sig/Raoul Route Start Time Stop Time Status Last Admin Dose Admin Nitroglycerin 0.4 mg Q5MINP PRN SL 05/16/25 09:15 Morphine Sulfate 2 mg Q30M PRN IV 05/16/25 09:15 Ceftriaxone Sodium 50 ml @ 100 mls/hr DAILY@09 IV 05/17/25 09:00 05/21/25 08:59 100 MLS/HR Pantoprazole Sodium 40 mg DAILY@0600 PO 05/16/25 10:30 05/20/25 05:19 40 MG Nifedipine 90 mg DAILY PO 05/17/25 10:00 05/20/25 09:40 90 MG Aspirin 81 mg DAILY PO 05/17/25 10:00 Hold Atorvastatin Calcium 40 mg HS PO 05/16/25 22:00 05/20/25 21:42 40 MG Haloperidol Lactate 10 mg Q6HPRN PRN IM 05/17/25 14:45 05/19/25 17:16 10 MG Lactulose 15 ml BID PO 05/17/25 22:00 05/20/25 21:41 15 ML Lorazepam 1 mg Q4HPRN PRN IV 05/18/25 12:15 05/21/25 00:43 1 MG Olanzapine 10 mg DAILY PO 05/19/25 17:00 05/20/25 09:40 10 MG Ondansetron HCl 4 mg Q4HPRN PRN IV 05/20/25 11:55 05/20/25 12:06 4 MG Hydralazine HCl 10 mg Q6HP PRN IV 05/20/25 11:55 05/21/25 08:57 10 MG objective GENERAL: No acute distress. EYES: PERRL, EOMI. Anicteric. HENT: Moist mucous membranes. LUNGS: Clear to auscultation bilaterally. CARDIOVASCULAR: Regular rate and rhythm. ABDOMEN: Soft, non-tender and non-distended. EXTREMITIES: No edema. NEUROLOGIC: A&O x2. Confused, cooperative SKIN: Warm, dry. laboratory and microbiology Laboratory Tests 05/17/25 05:24 Test 05/17/25 05:24 Range/Units Serum Glucose 96 74-106 mg/dL Problem List Hypertensive urgency with acute encephalopathy. Metastatic bladder cancer. NSTEMI, likely type 2 secondary to above. Pulmonary hypertension, moderate degree. Presence of IVC filter. History of CVA. Recent hospice care. Assessment/Plan Continued all current supportive medical care. IV antibiotics as ordered. Morphine for pain management. Nitro SL. IV Hydralazine for SBP >150. Additional plan as per the hospital course. Plan discussed with: LION Berman MD May 21, 2025 12:15
== END 2025-05-21 19:20 | disposition hospice, home (50) | DRG 70 ==
LOC: EDBD 19:20 → ER 19:20 → OVERFLOW 05-16 09:14 → TELE-WESTW 05-17 18:07
PROVIDERS: ADMIT Student in an Organized Health Care Education/Training Program; ATTEND Student in an Organized Health Care Education/Training Program
DX: G93.41 Metabolic encephalopathy (principal); I21.A1 Myocardial infarction type 2; N17.0 Acute kidney failure with tubular necrosis; N13.6 Pyonephrosis; I16.1 Hypertensive emergency; R18.8 Other ascites; F03.92 Unspecified dementia, unspecified severity, with psychotic disturbance; N30.01 Acute cystitis with hematuria; K59.00 Constipation, unspecified; Z51.5 Encounter for palliative care; D64.9 Anemia, unspecified; D25.9 Leiomyoma of uterus, unspecified; C67.9 Malignant neoplasm of bladder, unspecified; E07.9 Disorder of thyroid, unspecified; D69.6 Thrombocytopenia, unspecified; I27.20 Pulmonary hypertension, unspecified; I11.9 Hypertensive heart disease without heart failure; K80.20 Calculus of gallbladder without cholecystitis without obstruction; Z85.9 Personal history of malignant neoplasm, unspecified; Z86.73 Personal history of transient ischemic attack (TIA), and cerebral infarction without residual deficits; Z85.028 Personal history of other malignant neoplasm of stomach; Z85.51 Personal history of malignant neoplasm of bladder; Z95.828 Presence of other vascular implants and grafts; Z88.6 Allergy status to analgesic agent
CPT/HCPCS: 36415; 70450; 71045; 74176; 76705; 76856; 76857; 80048; 80053; 80307; 81001; 82728; 82962; 83540; 83550; 83880; 84439; 84443; 84480; 84484; 85025; 87040; 87077; 87081; 87086; 87186; 93005; 93306; G0378; J2212; J2405

== ENCOUNTER 2025-06-04 21:48 | Inpatient (IN) | payer MEDICARE, OTHER ==
[~2025-06-04] VITALS: Ht 165.1 cm; Wt 70.4 kg
[2025-06-04] MEDS: AZITHROMYCIN 500MG/ 250ML 250 ML IV ONE (22:00)
[2025-06-04] MEDS: SODIUM CHLORIDE 0.9% 1,000 ML IV ONE ×2 (22:00)
[2025-06-04] MEDS: CEFEPIME 1GM/50ML 50 ML IV SCH (22:00)
--- NOTE | 2025-06-04 22:44 | ED.PDOC ---
History of Present Illness HPI Comments 70 y/o F is BIBA from private residence for c/c of ALOC. Significant history of FADIA, anemia, bilateral hydronephrosis, metastatic bladder cancer, CVA, dementia, gallstones, HTN, NSTEMI II, pulmonary HTN, UTI's, IVC filter, and Steen catheter. Per EMS personnel report, family called for worsening mental status for the past 2x days after, recently, being taken off hospice. Patient was found on scene with a Spo2 of 80%RA. No reported recent known prior ailments, sick contacts, injuries, or further pertinent history or events. No further acute symptoms reported. Chief Complaint: ALOC Time Seen by MD: 22:00 Reviewed Notes: Nurses Notes, [employer] Notes, Medications, Allergies Allergies: Coded Allergies: Aspirin (Verified Allergy, Unknown, 05/15/25) Home Meds No Active Prescriptions or Reported Meds Information Source: Emergency Med Personnel Mode of Arrival: EMS Severity: Moderate Timing: Days Duration: Since onset Prehospital treatment: 12 Lead EKG, Wool Washer, IVF, Oxygen (nasal cannule ) Past Medical History PAST MEDICAL HISTORY: Anemia (Normocytic, normochromic anemia), Cancer (Metastatic bladder cancer), CVA, Dementia, Gallstones, HTN, ND (NSTEMI II ), [place] I'S Past Medical History (Other): FADIA d/t VMN Bilateral hydronephrosis with left nephrostomy tube Pulmonary HTN Surgical History (Other): IVC filter Steen catheter Family History Family History: Unknown Social History Smoker: Non-Smoker Alcohol: Denies ETOH Use Drugs: Denies Drug Use Lives In: Home All Other Systems: Reviewed and Negative (Comprehensive systems review obtained and negative except for what is stated in the HPI.) Physical Exam General Appearance: Severe Distress HEENT: Normal ENT Inspection, Pharynx Normal, TMs Normal Neck: Full Range of Motion, Non-Tender, Normal, Normal Inspection Respiratory: Chest Non-Tender, Lungs Clear, No Accessory Muscle Use, No Respiratory Distress, Normal Breath Sounds Cardiovascular: No Edema, No JVD, No Murmur, No Gallop, Normal Peripheral Pulses, Regular Rate/Rhythm Breast Exam: Deferred Gastrointestinal: No Organomegaly, Non Tender, No Pulsatile Mass, Normal Bowel Sounds, Soft Genitalia: Deferred Pelvic: Deferred Rectal: Deferred Extremities: No calf tenderness Musculoskeletal : Apperance: Normal Neurologic: Disoriented Cerebellar Function: NOT DONE Reflexes: NOT DONE Skin: Normal Color Peripheral Pulses: 3+ Radial (R), 3+ Radial (L) Lymphatic: NOT DONE Was a procedure done? Was a procedure done?: No EKG EKG : Pulse Rate (adult): 101 [place]: Normal Cardiac Rhythm: ST Block: None Hypertrophy: None ST: Normal Differential Dx Considerations may include: Metabolic encephalopathy, complicated UTI, viral syndrome, dehydration, electrolyte imbalance, CVA - ischemic vs hemorrhagic, TIA, hypoglycemia, hypoxia, among others X-Ray, Labs, Meds, VS Vital Signs Date Time Temp Pulse Resp B/P (MAP) Pulse Ox O2 Delivery O2 Flow Rate FiO2 06/05/25 00:15 96 18 99 Nasal Cannula* 2 28 06/05/25 00:13 98.1 97 20 126/65 (85) 99 98.1 06/04/25 22:44 101 06/04/25 22:02 101 06/04/25 21:50 99.1 105 20 131/70 98 99.1 Lab Test 06/04/25 22:50 06/04/25 22:31 Range/Units Urine Color Brown H Yellow Urine Clarity Ex.turbid Clear Urine pH 6.0 5.0-9.[address] [place] 1.019 1.001-1.035 Urine Protein 2+ H Negative Urine Ketones 2+ H Negative Urine Blood 3+ H Negative /uL Urine Nitrite Negative Negative Urine Bilirubin Negative Negative Urine Urobilinogen 4 H Negative mg/dL Urine Leukocyte Esterase 3+ Negative /uL Urine RBC 135 0 - 4 /hpf Urine WBC Clumps Present None Seen /hpf Urine Microscopic WBC 3377 H 0-5 /HPF Urine Squamous Epithelial Cells None seen <5 /hpf Urine Bacteria None seen None Seen /hpf Urine Mucus Few None Seen Urine Yeast (Budding) Moderate None Seen /hpf Urine Glucose Normal Normal mg/dL White Blood Count 14.9 H 4.4-10.8 10^3/uL Red Blood Count 2.87 L 4.0-5.20 10^6/uL Hemoglobin 8.0 L 12.2-16.2 g/dL Hematocrit 25.3 L 36.0-46.0 % Mean Corpuscular Volume 88.0 80.0-100.0 fL Mean Corpuscular Hemoglobin 27.7 L 28.0-32.0 pg Mean Corpuscular Hemoglobin Concent 31.5 L 32.0-36.0 g/dL Red Cell Distribution Width 23.8 H 11.8-14.3 % Platelet Count 64 L 140-450 10^3/uL Mean Platelet Volume 8.9 6.9-10.8 fL Neutrophils (%) (Auto) 84.1 H 37.0-80.0 % Lymphocytes (%) (Auto) 11.0 10.0-50.0 % Monocytes (%) (Auto) 4.7 0.0-12.0 % Eosinophils (%) (Auto) 0.1 0.0-7.0 % Basophils (%) (Auto) 0.1 0.0-2.0 % Neutrophils # (Auto) 12.5 H 1.6-8.6 10 ^3/uL Lymphocytes # (Auto) 1.6 0.4-5.4 10 ^3/uL Monocytes # (Auto) 0.7 0-1.3 10 ^3/uL Eosinophils # (Auto) 0 0-0.8 10 ^3/uL Basophils # (Auto) 0 0-0.2 10 ^3/uL Nucleated Red Blood Cells 0.6 % Prothrombin Time 12.3 H 9.3-11.8 sec Prothrombin Time INR 1.18 H 0.9-1.15 Activated Partial Thromboplast Time 29.4 24.5-34.5 SEC Sodium Level 141 136-145 mmol/L Potassium Level 4.7 3.5-5.1 mmol/L Chloride Level 105 98-107 mmol/L Carbon Dioxide Level 22 20-31 mmol/L Anion Gap 14 5-15 Blood Urea Nitrogen 62 H 9-23 mg/dL Creatinine 4.53 H 0.550-1.02 mg/dL Glomerular Filtration Rate Calc 10 >90 mL/min BUN/Creatinine Ratio 13.7 10.0-20.0 Serum Glucose 152 H 74-106 mg/dL Lactic Acid Level 1.7 0.4-2.0 mmol/L Calcium Level 8.3 L 8.7-10.4 mg/dL Total Bilirubin 0.4 0.2-1.0 mg/dL Aspartate Amino Transferase (AST) 27 13-40 U/L Alanine Aminotransferase (ALT) 10 7-40 U/L Alkaline Phosphatase 162 H 46-116 U/L Total Protein 7.2 5.7-8.2 g/dL Albumin 3.5 3.2-4.8 g/dL Current Medications Medications (Trade) Dose Ordered Sig/Raoul Route Start Time Stop Time Status Last Admin Cefepime HCl 50 ml @ 12.5 mls/hr Q8HR IV 06/04/25 22:00 06/05/25 01:31 Sodium Chloride 1,000 ml @ 1,000 mls/hr Q1H ONCE IV 06/04/25 22:00 06/04/25 22:59 DC 06/04/25 22:00 Sodium Chloride 1,000 ml @ 150 mls/hr Q6H40M ONCE IV 06/04/25 22:00 06/05/25 04:39 06/04/25 22:00 Azithromycin 250 ml @ 125 mls/hr ONCE ONCE IV 06/04/25 22:00 06/04/25 23:59 DC 06/04/25 22:00 [place] [id number] Ph: [phone] DIAGNOSTIC IMAGING Diagnostic Imaging Report : [id number] Signed PATIENT: CHAD TREVIZO ACCT: [id number] UNIT: [id number] : 1955 LOC: ER ROOM / BED: / AGE / SEX: 70 / F ADM STATUS: REG ER SERVICE 99 ORDERING PHYSICIAN: ZOHREH GASTELUM MD PROCEDURE(s): HWOCT - HEAD WITHOUT CONTRAST REASON: altered ORDER NUMBER(s): [id number], ACCESSION NUMBER(s): [id number] EXAM: CT HEAD WITHOUT CONTRAST INDICATION: altered TECHNIQUE: CT of the head without intravenous contrast. Radiation Dose : 1. Head: CT Dose: CTDI volume is 53.55 mGy. Dose-length product is 1055.35 mGy*cm The dose indicators for CT are the volume Computed Tomography (CT) Dose Index (CTDIvol) and the Dose Length Product (DLP), and are measured in units of mGy and mGy-cm, respectively. These indicators are not patient dose, but values generated from the CT scanner acquisition factors. The report includes radiation exposure data for exposures received during this examination. COMPARISON: CT HEAD WITHOUT CONTRAST on DOS: 05/15/25 FINDINGS: Brain: No acute hemorrhage, mass effect, or cerebral edema. [id number] senescent changes, including basal ganglia calcifications. CSF Spaces: Moderate symmetric enlargement. Bones/Soft Tissues: No acute findings. Orbits/Sinuses/Mastoids: Similar right maxillary sinus opacity. IMPRESSION: 1. No acute intracranial abnormality or significant interval change from prior exam. Radiation optimization: All CT scans at this facility use at least one of these dose optimization techniques: automated exposure control mA and/or kV adjustment per patient size (includes targeted exams where dose is matched to clinical indication) or iterative reconstruction. ATED BY: JOSHUA MCARTHUR MD DICTATED DATE/TIME: 06/04/252358 SIGNED BY: JOSHUA MCARTHUR MD SIGNED DATE/TIME: 06/04/252358 CC: [place] [id number] Ph: [phone] DIAGNOSTIC IMAGING Diagnostic Imaging Report : [id number] Signed PATIENT: CHAD TREVIZO ACCT: [id number] UNIT: [id number] : 1955 LOC: ER ROOM / BED: / AGE / SEX: 70 / F ADM STATUS: REG ER SERVICE 99 ORDERING PHYSICIAN: ZOHREH GASTELUM MD PROCEDURE(s): CXRP - CHEST PORTABLE REASON: sob ORDER NUMBER(s): [id number], ACCESSION NUMBER(s): [id number] CHEST RADIOGRAPH Indication: sob Technique: 1 view Comparison: XY CHEST PORTABLE on DOS: 05/16/25 FINDINGS: Lines and Tubes: Leadless cardiac device. External leads. Left upper quadrant percutaneous pigtail catheter, and partially imaged filter. Lungs/Pleura: No focal consolidation, pleural effusion or pneumothorax. Interstitial opacities appear within normal limits. Cardiomediastinum: Unremarkable. Other: No acute osseous abnormality. IMPRESSION: 1. No acute cardiopulmonary abnormality. ATED BY: JOSHUA MCARTHUR MD DICTATED DATE/TIME: 06/05/255 SIGNED BY: JOSHUA MCARTHUR MD SIGNED DATE/TIME: 06/05/255 CC: Patient altered. Vitals stable. Unable to get any history from the patient. WBC elevated. Urinalysis shows UTI. Sepsis protocol. Establish intravenous access. Was given fluids. Was given antibiotics. Kidney function elevated. Blood sugar elevated. CT of the head reviewed does not show any acute changes. She was DNR but the family revoked recently Continue monitoring. Time of 1ST Reevaluation: 22:30 Reevaluation 1ST: Unchanged Patient Education/Counseling: Other (Patient is altered ) Family Education/Counseling: No Family Present SEPSIS Sepsis Screen Date sepsis recognized/suspect: Jun 04, 2025 Time Sepsis recognized/suspect: 2149 Recent Procedure: No On Antibiotic Therapy: No Respiratory Rate >20: No Heart Rate >90: Yes Temp<36 C (96.8 F) or >38.3 C: No SBP <90 or MAP <65 mmHG: No New Acute Mental Status Change: No Is the patient on CPAP, BIPAP,: No Physician Orders Chest Portable (06/04/25 22:00) Accucheck (06/04/25 22:00) Blood Culture (06/04/25 22:00) Cefepime 1gm/50ml (Maxipime 1gm/50ml) (06/04/25 22:00) Notify Md If Map <65 Or Bp<90 (06/04/25 22:00) If Map<65 Start Vasopressor (06/04/25 22:00) Sepsis Reassesment After Fluid (06/04/25 23:00) Head Without Contrast (06/04/25 22:00) Sodium Chloride 0.9% (06/04/25 22:00) Urine Bacterial Culture (06/04/25 22:00) Electrocardigram (06/04/25 22:27) Vital Signs Date Time Temp Pulse Resp B/P (MAP) Pulse Ox O2 Delivery O2 Flow Rate FiO2 06/05/25 00:15 96 18 99 Nasal Cannula* 2 28 06/05/25 00:13 98.1 97 20 126/65 (85) 99 98.1 06/04/25 22:44 101 06/04/25 22:02 101 06/04/25 21:50 99.1 105 20 131/70 98 99.1 Laboratory Tests Test 06/04/25 22:31 Lactic Acid Level 1.7 mmol/L (0.4-2.0) White Blood Count 14.9 10^3/uL (4.4-10.8) H Medications Medications Dose Ordered Sig/Raoul Route Start Time Stop Time Status Last Admin Dose Admin Azithromycin 250 ml @ 125 mls/hr ONCE ONCE IV 06/04/25 22:00 06/04/25 23:59 DC 06/04/25 22:00 Cefepime HCl 50 ml @ 12.5 mls/hr Q8HR IV 06/04/25 22:00 06/05/25 01:31 Sodium Chloride 1,000 ml @ 150 mls/hr Q6H40M ONCE IV 06/04/25 22:00 06/05/25 04:39 06/04/25 22:00 Sodium Chloride 1,000 ml @ 1,000 mls/hr Q1H ONCE IV 06/04/25 22:00 06/04/25 22:59 DC 06/04/25 22:00 Departure 1 Departure Time of Disposition: 00:57 Impression: Primary Impression: Metabolic encephalopathy Additional Impression: Sepsis due to urinary tract infection Disposition: ADMITTED INPATIENT Admit to: ICU Condition: Guarded e-Prescriptions No Active Prescriptions or Reported Meds Critical Care Note Critical Care Time?: Yes (90 min-critical care time only) Stability Stability form required: No Heart Score Heart Score: Heart Score Response (Comments) Value History Slightly Suspicious 0 EKG Normal 0 Age >65 2 Risk Factors >3 or Hx ASHD 2 Troponin Normal limit 0 Total 4 I personally scribed for ZOHREH GASTELUM MD ([email or web address]) on 06/04/25 at 22:44. Electronically submitted by Kem Valadez ([email or web address]). I personally scribed for ZOHREH GASTELUM MD ([email or web address]) on 06/05/25 at 02:14. Electronically submitted by Kem Valadez ([email or web address]). ZOHREH GASTELUM MD Jun 04, 2025 22:44
[2025-06-04 22:58] LABS: Hematocrit 25.3 % (36.0-46.0); Hemoglobin 8.0 g/dL (12.2-16.2); Mean Corpuscular Hemoglobin 27.7 pg (28.0-32.0); Mean Corpuscular Volume 88.0 fL (80.0-100.0); Nucleated Red Blood Cells % 0.6 %
[2025-06-04 23:01] LABS: Alanine Aminotransferase 10 U/L (7-40); Albumin 3.5 g/dL (3.2-4.8); Anion Gap 14 (5-15); BUN/Creatinine Ratio 13.7 (10.0-20.0); Bilirubin, Total 0.4 mg/dL (0.2-1.0); Carbon Dioxide 22 mmol/L (20-31); Chloride 105 mmol/L (98-107); Potassium 4.7 mmol/L (3.5-5.1); Sodium 141 mmol/L (136-145); Total Protein 7.2 g/dL (5.7-8.2)
[2025-06-04 23:06] LABS: INR 1.18 (0.9-1.15); Partial Thromboplastin Time 29.4 SEC (24.5-34.5); Prothrombin Time 12.3 sec (9.3-11.8)
[2025-06-04 23:08] LABS: Alkaline Phosphatase 162 U/L (46-116); Blood Urea Nitrogen 62 mg/dL (9-23); Calcium 8.3 mg/dL (8.7-10.4); Glucose 152 mg/dL (74-106)
[2025-06-04 23:18] LABS: Urine Budding Yeast MODERATE /hpf (None Seen); Urine Protein, UAD 2+ (Negative); Urine WBC Clumps PRESENT /hpf (None Seen)
--- NOTE | 2025-06-05 00:02 | DVH ---
EXAM: CT HEAD WITHOUT CONTRAST INDICATION: altered TECHNIQUE: CT of the head without intravenous contrast. Radiation Dose : 1. Head: CT Dose: CTDI volume is 53.55 mGy. Dose-length product is 1055.35 mGy*cm The dose indicators for CT are the volume Computed Tomography (CT) Dose Index (CTDIvol) and the Dose Length Product (DLP), and are measured in units of mGy and mGy-cm, respectively. These indicators are not patient dose, but values generated from the CT scanner acquisition factors. The report includes radiation exposure data for exposures received during this examination. COMPARISON: CT HEAD WITHOUT CONTRAST on DOS: 05/15/25 FINDINGS: Brain: No acute hemorrhage, mass effect, or cerebral edema. [id number] senescent changes, inclu ding basal ganglia calcifications. CSF Spaces: Moderate symmetric enlargement. Bones/Soft Tissues: No acute findings. Orbits/Sinuses/Mastoids: Similar right maxillary sinus opacity. IMPRESSION: 1. No acute intracranial abnormality or significant interval change from prior exam. Radiation optimization: All CT scans at this facility use at least one of these dose optimization izabela hniques: automated exposure control mA and/or kV adjustment per patient size (includes targeted exam s where dose is matched to clinical indication) or iterative reconstruction.
--- NOTE | 2025-06-05 00:08 | DVH ---
CHEST RADIOGRAPH Indication: sob Technique: 1 view Comparison: XY CHEST PORTABLE on DOS: 05/16/25 FINDINGS: Lines and Tubes: Leadless cardiac device. External leads. Left upper quadrant percutaneous pigtail ca theter, and partially imaged filter. Lungs/Pleura: No focal consolidation, pleural effusion or pneumothorax. Interstitial opacities appear within normal limits. Cardiomediastinum: Unremarkable. Other: No acute osseous abnormality. IMPRESSION: 1. No acute cardiopulmonary abnormality.
[2025-06-05 00:15] VITALS: PULSE 96; RESP 18; O2SAT 99
[2025-06-05] MEDS: LORazepam 2MG/ML-1ML VIAL IV ONE (04:39)
[2025-06-05] MEDS ORDERED: ACETAMINOPHEN 325 MG TAB PO PRN (04:45)
[2025-06-05] MEDS ORDERED: ONDANSETRON HCL 4 MG/2 ML VIAL IV PRN (04:45)
[2025-06-05] MEDS ORDERED: DOCUSATE SOD 100 MG CAP PO PRN (04:45)
[2025-06-05] MEDS ORDERED: HYDROcodone-ACET 5/325MG TAB PO PRN (04:45)
[2025-06-05] MEDS: SODIUM CHLOR 0.9% PF (SALINE LOCK) 10ML VIAL/SYR IV SCH (05:08)
[2025-06-05] MEDS ORDERED: NITROGLYCERIN 0.4 MG SL TAB SL PRN (05:30)
[2025-06-05] MEDS ORDERED: MORPHINE SULFATE INJ 2 MG/ml SYRG IV PRN (05:30)
--- NOTE | 2025-06-05 05:32 | DVHHP2 ---
History of Present Illness Reason for Visit: Generalized weakness History of Present Illness The patient is a 70-year-old female with multiple past medical history including hypertension, gallstone, dementia, CVA, and anemia who presented to [facility] ED for evaluation of altered level of consciousness. As reported by EMS, family called for worsening change in patient's mental status for the past 2 days. Patient is recently taken off hospice, she was found on the scene with SpO2 at 80% on room air and was placed on oxygen 2 L/min via nasal cannula O2 saturation improved to 94% EN route to our facility ED. Patient was seen and evaluated in the ED, laboratory data shows WBC 14.9, hemoglobin 8.0, hematocrit 25.3, platelets 64, sodium 141, potassium 4.7, BUN 62, creatinine 4.53, GFR 11, glucose 152, calcium 8.3, blood pressure 140/83, heart rate 90, temperature 98.1 F, O2 saturation 97% on oxygen. Urinalysis positive for urinary tract infection. Head CT showed no acute intracranial abnormality significant interval change from prior exam. Patient was started on IV antibiotic regimen Rocephin, please see medication orders section in the computer. On my assessment, daughter at bedside, patient remains altered, no diaphoresis, currently on oxygen, no diarrhea, nausea, vomiting, no chills. Patient was admitted for further ev aluation and medical management. Past Medical History Anemia (Normocytic, normochromic anemia), Cancer (Metastatic bladder cancer), CVA, Dementia, Gallstones, HTN, IA (NSTEMI II ), UTI'S FADIA d/t VMN, Bilateral hydronephrosis with left nephrostomy tube, Pulmonary HTN Past Surgical History IVC filter, Steen catheter, Left nephrostomy tube Family History Reviewed, noncontributory to the management of this case. Past Social History The patient lives at home, denies smoking, alcohol or illicit drugs abuse. Review of Systems Constitutional: Yes: Weakness, Other (Fatigue); No: Fever, Chills, Sweats, Malaise Eyes: No: Pain, Vision change, Conjunctivae inflammation, Eyelid inflammation, Other, Redness ENT: No: Ear pain, Ear discharge, Nose pain, Nose discharge, Nose congestion, Mouth pain, Mouth swelling, Throat pain, Throat swelling, Other Respiratory: Shortness of breath; No: Cough, Dry, SOB with excertion, Wheezing, Hemoptysis, Pleuritic Pain, Sputum, Wheezing, Other Cardiovascular: No: Chest Pain, Palpitations, Orthopnea, Paroxysmal Noc. Dyspnea, Edema, Lt Headedness, Other Gastrointestinal: No: Nausea, Vomiting, Abdominal Pain, Diarrhea, Constipation, Melena, Hematochezia, Other Genitourinary: No Dysuria, No Frequency, No Incontinence, No Hematuria, No Retention; Other (Nephrostomy tube) Musculoskeletal: No: other, neck pain, shoulder pain, arm pain, back pain, hand pain, leg pain, foot pain Skin: No: Rash, Lesions, Jaundice, Bruising, Other Neurological: Confusion; No: Weakness, Numbness, Incoordination, Change in spe ech, Seizures, Other Allergies: Coded Allergies: Aspirin (Verified Allergy, Unknown, 05/15/25) Medications Current Medications Medications Dose Ordered Sig/Raoul Route Start Time Stop Time Status Last Admin Dose Admin Cefepime HCl 50 ml @ 12.5 mls/hr Q8HR IV 06/04/25 22:00 06/05/25 01:31 12.5 MLS/HR Sodium Chloride 10 ml Q8HR IV 06/05/25 06:00 06/05/25 05:08 10 ML Acetaminophen/ Hydrocodone Bitart 1 tab Q4HP PRN PO 06/05/25 04:45 Ondansetron HCl 4 mg Q4HP PRN IV 06/05/25 04:45 Docusate Sodium 100 mg BIDPRN PRN PO 06/05/25 04:45 Acetaminophen 650 mg Q6HP PRN PO 06/05/25 04:45 Exam Vital Signs Vital Signs Date Time Temp Pulse Resp B/P (MAP) Pulse Ox O2 Delivery O2 Flow Rate FiO2 06/05/25 03:58 98.1 90 18 140/83 (102) 97 98.1 06/05/25 00:15 Nasal Cannula* 2 28 General Appearance: Alert, Cooperative, No acute distress, Other (Oriented x1) HEENT: Atraumatic, PERRLA, EOMI, Mucous membr. moist/pink Respiratory: Normal air movement Cardiovascular: Regular rate, Normal S1, Normal S2, No murmurs Abdominal: Normal bowel sounds, Soft, No tenderness, No hepatospenomegaly, No masses Extremities: No clubbing, No cyanosis, Normal pulses, No tenderness/swelling Skin: No rashes, No significant lesion Neuro: Normal tone, Sensation intact, Cranial nerves 3-12 NL, Reflexes 2+, Other (Generalized weakness) Psych/Mental Status: Mood NL, Other (Altered mental status) Labs/Xrays Labs Test 06/04/25 22:50 06/04/25 22:31 Range/Units Urine Color Brown H Yellow Urine Clarity Ex.turbid Clear Urine pH 6.0 5.0-9.0 Urine Specific [place] 1.019 1.001-1.035 Urine Protein 2+ H Negative Urine Ketones 2+ H Negative Urine Blood 3+ H Negative /uL Urine Nitrite Negative Negative Urine Bilirubin Negative Negative Urine Urobilinogen 4 H Negative mg/dL Urine Leukocyte Esterase 3+ Negative /uL Urine RBC 135 0 - 4 /hpf Urine WBC Clumps Present None Seen /hpf Urine Microscopic WBC 3377 H 0-5 /HPF Urine Squamous Epithelial Cells None seen <5 /hpf Urine Bacteria None seen None Seen /hpf Urine Mucus Few None Seen Urine Yeast (Budding) Moderate None Seen /hpf Urine Glucose Normal Normal mg/dL White Blood Count 14.9 H 4.4-10.8 10^3/uL Red Blood Count 2.87 L 4.0-5.20 10^6/uL Hemoglobin 8.0 L 12.2-16.2 g/dL Hematocrit 25.3 L 36.0-46.0 % Mean Corpuscular Volume 88.0 80.0-100.0 fL Mean Corpuscular Hemoglobin 27.7 L 28.0-32.0 pg Mean Corpuscular Hemoglobin Concent 31.5 L 32.0-36.0 g/dL Red Cell Distribution Width 23.8 H 11.8-14.3 % Platelet Count 64 L 140-450 10^3/uL Mean Platelet Volume 8.9 6.9-10.8 fL Neutrophils (%) (Auto) 84.1 H 37.0-80.0 % Lymphocytes (%) (Auto) 11.0 10.0-50.0 % Monocytes (%) (Auto) 4.7 0.0-12.0 % Eosinophils (%) (Auto) 0.1 0.0-7.0 % Basophils (%) (Auto) 0.1 0.0-2.0 % Neutrophils # (Auto) 12.5 H 1.6-8.6 10 ^3/uL Lymphocytes # (Auto) 1.6 0.4-5.4 10 ^3/uL Monocytes # (Auto) 0.7 0-1.3 10 ^3/uL Eosinophils # (Auto) 0 0-0.8 10 ^3/uL Basophils # (Auto) 0 0-0.2 10 ^3/uL Nucleated Red Blood Cells 0.6 % Prothrombin Time 12.3 H 9.3-11.8 sec Prothrombin Time INR 1.18 H 0.9-1.15 Activated Partial Thromboplast Time 29.4 24.5-34.5 SEC Sodium Level 141 136-145 mmol/L Potassium Level 4.7 3.5-5.1 mmol/L Chloride Level 105 98-107 mmol/L Carbon Dioxide Level 22 20-31 mmol/L Anion Gap 14 5-15 Blood Urea Nitrogen 62 H 9-23 mg/dL Creatinine 4.53 H 0.550-1.02 mg/dL Glomerular Filtration Rate Calc 10 >90 mL/min BUN/Creatinine Ratio 13.7 10.0-20.0 Serum Glucose 152 H 74-106 mg/dL Lactic Acid Level 1.7 0.4-2.0 mmol/L Calcium Level 8.3 L 8.7-10.4 mg/dL Total Bilirubin 0.4 0.2-1.0 mg/dL Aspartate Amino Transferase (AST) 27 13-40 U/L Alanine Aminotransferase (ALT) 10 7-40 U/L Alkaline Phosphatase 162 H 46-116 U/L Total Protein 7.2 5.7-8.2 g/dL Albumin 3.5 3.2-4.8 g/dL PATIENT: CHAD TREVIZO ACCT: [id number] UNIT: [id number] : 1955 LOC: ER ROOM / BED: / AGE / SEX: 70 / F ADM STATUS: REG ER SERVICE 99 ORDERING PHYSICIAN: ZOHREH GASTELUM MD PROCEDURE(s): HWOCT - HEAD WITHOUT CONTRAST REASON: altered ORDER NUMBER(s): [id number], ACCESSION NUMBER(s): [id number] EXAM: CT HEAD WITHOUT CONTRAST INDICATION: altered TECHNIQUE: CT of the head without intravenous contrast. Radiation Dose: 1. Head: CT Dose: CTDI volume is 53.55 mGy. Dose-length product is 1055.35 mGy*cm The dose indicators for CT are the volume Computed Tomography (CT) Dose Index (CTDIvol) and the Dose Length Product (DLP), and are measured in units of mGy and mGy-cm, respectively. These indicators are not patient dose, but values ge nerated from the CT scanner acquisition factors. The report includes radiation exposure data for exposures received during this examination. COMPARISON: CT HEAD WITHOUT CONTRAST on DOS: 05/15/25 FINDINGS: Brain: No acute hemorrhage, mass effect, or cerebral edema. [id number] senescent changes, including basal ganglia calcifications. CSF Spaces: Moderate symmetric enlargement. Bones/Soft Tissues: No acute findings. Orbits/Sinuses/Mastoids: Similar right maxillary sinus opacity. IMPRESSION: 1. No acute intracranial abnormality or significant interval change from prior exam. ORDERING PHYSICIAN: ZOHREH GASTELUM MD PROCEDURE(s): CXRP - CHEST PORTABLE REASON: sob ORDER NUMBER(s): [id number], ACCESSION NUMBER(s): [id number] CHEST RADIOGRAPH Indication: sob Technique: 1 view Comparison: XY CHEST PORTABLE on DOS: 05/16/25 FINDINGS: Lines and Tubes: Leadless cardiac device. External leads. Left upper quadrant percutaneous pigtail catheter, and partially imaged filter. Lungs/Pleura: No focal consolidation, pleural effusion or pneumothorax. Interstitial opacities appear within normal limits. Cardiomediastinum: Unremarkable. Other: No acute osseous abnormality. IMPRESSION: 1. No acute cardiopulmonary abnormality. SEPSIS Sepsis Screen Date sepsis recognized/suspect: Jun 05, 2025 Time Sepsis recognized/suspect: 0014 Recent Procedure: No On Antibiotic Therapy: No Respiratory Rate >20: No Heart Rate >90: No Temp<36 C (96.8 F) or >38.3 C: No SBP <90 or MAP <65 mmHG: No New Acute Mental Status Change: No Is the patient on CPAP, BIPAP,: No Physician Orders Chest Portable (06/04/25 22:00) Accucheck (06/04/25 22:00) Blood Culture (06/04/25 22:00) Cefepime 1gm/50ml (Maxipime 1gm/50ml) (06/04/25 22:00) Notify Md If Map <65 Or Bp<90 (06/04/25 22:00) If Map<65 Start Vasopressor (06/04/25 22:00) Sepsis Reassesment After Fluid (06/04/25 23:00) Head Without Contrast (06/04/25 22:00) Urine Bacterial Culture (06/04/25 22:00) Electrocardigram (06/04/25 22:27) Type And Screen (06/05/25 04:37) *Dr. Janae Floyd -Da Anisa (06/05/25 04:37) Allergies (06/05/25 04:37) Code Status (06/05/25 04:37) Renal Standard(2gna,3gk,Lopho) (06/05/25 Breakfast) Sodium Chloride Lock (Saline Lock Ns) (06/05/25 06:00) Oxygen Per Hour (06/05/25 04:37) Hydrocodone-Acet 5/325mg Tab ([place] 32 (06/05/25 04:45) Ondansetron Hcl (Zofran) (06/05/25 04:45) Docusate Sodium Capsule (Colace Capsule) (06/05/25 04:45) Fall Risk Precautions In Place QSHIFT (06/05/25 04:37) Complete Blood Count (06/06/25 04:00) Comprehensive Metabolic Panel (06/06/25 04:00) Condition: Serious (06/05/25 04:37) Acetaminophen Tablet (Tylenol Tablet) (06/05/25 04:45) Maintain Bed Rest (06/05/25 04:37) Sequential Compression Device (06/05/25 ) Complete Blood Count (06/05/25 05:11) Comprehensive Metabolic Panel (06/05/25 05:11) Admit (06/05/25 05:30) Nitroglycerin Sublingual (Ntrostat Subli (06/05/25 05:30) Morphine Sulfate Injection (06/05/25 05:30) Stat Ekg For Chest Pain (06/05/25 05:30) Notify Md Of Changes From Base (06/05/25 05:30) Solutions Delivery Consultant For 24 Hours (06/05/25 05:30) Emergency Dysrhythmia Protocol (06/05/25 05:30) Rhythm Strips Once Every Shift (06/05/25 05:30) Oxygen By Nasal Cannula (06/05/25 05:30) Vital Signs Date Time Temp Pulse Resp B/P (MAP) Pulse Ox O2 Delivery O2 Flow Rate FiO2 06/05/25 03:58 98.1 90 18 140/83 (102) 97 98.1 06/05/25 00:15 96 18 99 Nasal Cannula* 2 28 06/05/25 00:13 98.1 97 20 126/65 (85) 99 98.1 06/04/25 22:44 101 06/04/25 22:02 101 06/04/25 21:50 99.1 105 20 131/70 98 99.1 Laboratory Tests Test 06/04/25 22:31 Lactic Acid Level 1.7 mmol/L (0.4-2.0) White Blood Count 14.9 10^3/uL (4.4-10.8) H Medications Medications Dose Ordered Sig/Raoul Route Start Time Stop Time Status Last Admin Dose Admin Azithromycin 250 ml @ 125 mls/hr ONCE ONCE IV 06/04/25 22:00 06/04/25 23:59 DC 06/04/25 22:00 125 MLS/HR Cefepime HCl 50 ml @ 12.5 mls/hr Q8HR IV 06/04/25 22:00 06/05/25 01:31 12.5 MLS/HR Lorazepam 0.5 mg ONCE ONCE IV 06/05/25 04:45 06/05/25 04:46 DC 06/05/25 04:39 0.5 MG Sodium Chloride 10 ml Q8HR IV 06/05/25 06:00 06/05/25 05:08 10 ML Sodium Chloride 1,000 ml @ 150 mls/hr Q6H40M ONCE IV 06/04/25 22:00 06/05/25 04:39 DC 06/04/25 22:00 150 MLS/HR Sodium Chloride 1,000 ml @ 1,000 mls/hr Q1H ONCE IV 06/04/25 22:00 06/04/25 22:59 DC 06/04/25 22:00 1,000 MLS/HR Assessment/Plan Assessment/Plan Metabolic encephalopathy Anemia, unspecified Thrombocytopenia Sepsis due to urinary tract infection Generalized weakness Acute respiratory distress Acute on chronic renal failure Plan 1. Admit to telemetry unit 2. Breathing treatment 3. Pain control management 4. IV antibiotic management 5. Management of fluids and electrolytes 6. Consultation for hospitalist 7. Diagnostic test head CT 8. DVT prophylaxis-on SCDs 9. Repeat labs CBC, CMP in a.m. 10. Home medication reviewed and reconciled 11. Continue with current medical management 12. Treatment plan discussed with patient and RN. Patient verbalized understanding. Plan discussed with: Patient, Daughter (Daughter at bedside), Other (RN) My Orders Orders - DAMION MCCORD DNP Procedure Category Date Status Time Type And Screen BBK 06/05/25 Logged 04:37 *Dr. Janae Floyd -Da CONS 06/05/25 Transmitted Anisa 04:37 Allergies KARTHIK 06/05/25 In Process 04:37 Code Status CODE 06/05/25 Transmitted 04:37 Renal DIET 06/05/25 Transmitted Standard(2gna,3gk,Lopho) Breakfast Sodium Chloride Lock PHA 06/05/25 In Process (Saline Lock Ns) 06:00 Oxygen Per Hour RT 06/05/25 Transmitted 04:37 Hydrocodone-Acet PHA 06/05/25 In Process 5/325mg Tab ([place] 04:45 Ondansetron Hcl PHA 06/05/25 In Process (Zofran) 04:45 Docusate Sodium PHA 06/05/25 In Process Capsule (Colace 04:45 Fall Risk Precautions KARTHIK 06/05/[address] 04:37 Complete Blood Count LAB 06/06/25 Verified 04:00 Comprehensive LAB 06/06/25 Verified Metabolic Panel 04:00 Condition: Serious KARTHIK 06/05/25 In Process 04:37 Acetaminophen Tablet PHA 06/05/25 In Process (Tylenol Tablet) 04:45 Maintain Bed Rest KARTHIK 06/05/25 In Process 04:37 Sequential KARTHIK 06/05/25 In Process Compression Device Complete Blood Count LAB 06/05/25 Logged 05:11 Comprehensive LAB 06/05/25 Logged Metabolic Panel 05:11 Admit ADMIT 06/05/25 Verified 05:30 Nitroglycerin PHA 06/05/25 Verified Sublingual (Ntrostat 05:30 Morphine Sulfate PHA 06/05/25 Verified Injection 05:30 Stat Ekg For Chest KARTHIK 06/05/25 Verified Pain 05:30 Notify Md Of Changes KARTHIK 06/05/25 Verified From Base 05:30 Solutions Delivery Consultant For KARTHIK 06/05/25 Verified 24 Hours 05:30 Emergency Dysrhythmia KARTHIK 06/05/25 Verified Protocol 05:30 Rhythm Strips Once KARTHIK 06/05/25 Verified Every Shift 05:30 Oxygen By Nasal RT 06/05/25 Verified Cannula 05:30 Problem List: (1) Metabolic encephalopathy (2) Anemia, unspecified (3) Thrombocytopenia (4) Sepsis due to urinary tract infection (5) Generalized weakness (6) Acute respiratory distress (7) Acute on chronic renal failure Date of Service: Jun 05, 2025 Billing Provider: DAMION MCCORD DNP Common Visit Codes: [id number] INP/OBS CARE (HIGH) DAMION MCCORD DNP Jun 05, 2025 05:32
[2025-06-05 05:47] LABS: Hematocrit 23.0 % (36.0-46.0); Hemoglobin 7.4 g/dL (12.2-16.2); Mean Corpuscular Hemoglobin 27.3 pg (28.0-32.0); Mean Corpuscular Volume 85.2 fL (80.0-100.0); Nucleated Red Blood Cells % 0.6 %
[2025-06-05 07:22] LABS: Albumin 3.3 g/dL (3.2-4.8); Anion Gap 16 (5-15); BUN/Creatinine Ratio 15.7 (10.0-20.0); Carbon Dioxide 20 mmol/L (20-31); Chloride 106 mmol/L (98-107); Potassium 4.9 mmol/L (3.5-5.1); Sodium 142 mmol/L (136-145); Total Protein 6.7 g/dL (5.7-8.2)
[2025-06-05 07:23] LABS: Bilirubin, Total 0.4 mg/dL (0.2-1.0)
[2025-06-05 07:24] LABS: Alanine Aminotransferase 9 U/L (7-40); Alkaline Phosphatase 145 U/L (46-116); Blood Urea Nitrogen 64 mg/dL (9-23); Calcium 7.9 mg/dL (8.7-10.4); Glucose 135 mg/dL (74-106)
[2025-06-05 07:53] VITALS: O2SAT 90
[2025-06-05] MEDS: SODIUM CHLORIDE 0.9% 1,000 ML IV SCH (11:51)
[2025-06-05] MEDS: BUMETANIDE 2.5mg/10ml (0.25 mg/ml) INJ IV ONE (12:10)
--- NOTE | 2025-06-05 13:02 | DVHINCON2 ---
DATE OF CONSULTATION: 06/05/2025 CONSULTING PHYSICIAN: Dr. Lazcano. REASON FOR CONSULTATION: Renal failure. HISTORY OF PRESENT ILLNESS: The patient is a 70-year-old female who presented to the Emergency Room earlier today. She was brought by ambulance. The family called them to pick her up and bring her to the Emergency Room because they were taking her off the hospice when she was in palliative care at home with the diagnosis of the bladder cancer. The reason for this is that she became more lethargic and was pretty much unresponsive. When she came to the Emergency Room, she was found to have significant renal failure. She was also hypoxemic and hypotensive, so she has been admitted to the hospital for further care. I am being consulted to evaluate the renal failure. Her past medical history, as per review of the medical records, is significant for "acute kidney injury." She has a history of metastatic bladder cancer, anemia, bilateral hydronephrosis. She has bilateral nephrostomy tubes. She also has a history of stroke, dementia, hypertension, coronary artery disease, pulmonary hypertension, recurrent urinary tract infections. She has inferior vena cava filter and a Steen catheter in place. REVIEW OF SYSTEMS: Not obtainable because of her mental status. PAST MEDICAL HISTORY: As stated above. SOCIAL HISTORY: Per review of the records, negative for alcohol or tobacco use. FAMILY HISTORY: Not available. MEDICATIONS: In the hospital, she is on sodium chloride, morphine, nitroglycerin, acetaminophen, docusate, Zofran, and hydrocodone. PHYSICAL EXAMINATION: VITAL SIGNS: 144/81, heart rate is 91, respirations 20, temperature 98. GENERAL: This patient is an elderly female who appears to be chronically ill, who is currently obtunded. HEENT: Shows pale oral mucosa. Oral mucosa is dry. LUNGS: Diminished air entry at the bases, with scattered wheezing and rhonchi. CARDIOVASCULAR: Regular rate, slightly tachycardic, a few extra systoles. ABDOMEN: Soft, mildly distended. Bowel sounds are diminished in intensity and frequency. No organomegaly. No ascites. EXTREMITIES: Show no clubbing or cyanosis. There is no edema. NEUROLOGIC: Nonfocal. LABORATORY FINDINGS: Sodium is 142, potassium 4.9, bicarbonate 20, BUN 64, creatinine 4.0. Estimated GFR is 11 mL/min, calcium 7.9, albumin 3.3. Hemoglobin 7.4. Urinalysis showed clumps of white blood cells, with hematuria. IMAGING: Imaging of the head was unremarkable. Chest x-ray shows no acute abnormalities. ASSESSMENT AND PLAN: * Acute kidney injury on top of chronic kidney disease. We do not know what her baseline creatinine is. She clearly has a history of obstructive uropathy with bilateral nephrostomy tubes and Steen catheter. We need to investigate the patency of the nephrostomy tubes. I will request a renal ultrasound. * Metastatic bladder cancer. * Anemia, which seems to be multifactorial. * Uremic encephalopathy. * History of hypertension. * Urinary tract infection. * History of coronary artery disease. * History of stroke and dementia. There is no urgent indication for renal replacement therapy. Moreover, she seems to be not a good candidate for any type of renal replacement therapy given her age and significant comorbidities and very poor prognosis. I would recommend conservative management at this point. We will start her on intravenous normal saline at 75 mL/h. Monitor urine output. If oliguric, we will start intravenous bumetanide 4 mg every 12 hours and continue to monitor closely. Further management will depend on the clinical progress. Thank you for the consultation. MD ADARSH Rudolph/KAREN/LYDIA TID: [id number] RECEIPT: [id number]
--- NOTE | 2025-06-05 13:19 | DVH ---
INDICATION: renal failure bladder cancer TECHNIQUE: Multiple real-time sonographic images of the kidneys and bladder were obtained. COMPARISON: Urinary bladder ultrasound 05/16/[address] abdomen and pelvis 05/15/2025 FINDINGS: The right kidney measures 10.3 cm in length, which is normal in size. There is normal echogenicity o f the right kidney. No hydronephrosis. The left kidney measures 9.5 cm in length, which is normal in size. There is normal echogenicity of the left kidney. No hydronephrosis. Redemonstration of masslike density within the Posterior urinary bladder measuring up to 6.2 x 5.6 x 6.7 cm. Small amount of Fluid-filled within the bilateral Upper abdominal quadrants. Moderate left with small right-sided pleural effusion. IMPRESSION: Normal sonographic appearance of the kidneys. No hydronephrosis. 6.2 x 5.6 x 6.7 cm mass within the urinary bladder. Cystoscopy is recommended for further evaluation . Small bilateral Upper abdominal ascites. Moderate right with small left-sided pleural effusions.
--- NOTE | 2025-06-05 13:51 | ECG ---
[facility] Test Date: 2025-06-04 Test Time: 22:02:32 Pat Name: CHAD TREVIZO Department: Room: 0237T Gender: F [employer] Worker: : 1955 Requested By: ZOHREH GASTELUM Order Number: [id number] Reading MD: Francois Hernandez Measurements Intervals [place] Rate: 101 P: 69 NE: 131 QRS: 39 QRSD: 68 T: -88 QT: 328 QTc: 426 Interpretive Statements Sinus tachycardia Multiple ventricular premature complexes Low voltage, precordial leads Borderline repolarization abnormality Electronically Signed On 06-11-2025 20:19:19 PDT by Francois Hernandez Please click the below link to view image of tracing.
--- NOTE | 2025-06-05 13:55 | DVHPN2 ---
Reviewed: Care Plan, H&P, Labs, Medications, Previous Orders, Radiology Changes from previous H/P or p: No Changes Objective Vitals Vital Signs Date Time Temp Pulse Resp B/P (MAP) Pulse Ox O2 Delivery O2 Flow Rate FiO2 06/05/25 12:40 90 94 119/94 (102) 06/05/25 10:20 96 06/05/25 08:00 98.1 98.1 06/05/25 07:53 Nasal Cannula* 4 36 Medications Current Medications Medications Dose Ordered Sig/Raoul Route Start Time Stop Time Status Last Admin Dose Admin Cefepime HCl 50 ml @ 12.5 mls/hr Q8HR IV 06/04/25 22:00 06/05/25 01:31 12.5 MLS/HR Sodium Chloride 10 ml Q8HR IV 06/05/25 06:00 06/05/25 05:08 10 ML Acetaminophen/ Hydrocodone Bitart 1 tab Q4HP PRN PO 06/05/25 04:45 Ondansetron HCl 4 mg Q4HP PRN IV 06/05/25 04:45 Docusate Sodium 100 mg BIDPRN PRN PO 06/05/25 04:45 Acetaminophen 650 mg Q6HP PRN PO 06/05/25 04:45 Nitroglycerin 0.4 mg Q5MINP PRN SL 06/05/25 05:30 Morphine Sulfate 2 mg Q30M PRN IV 06/05/25 05:30 Sodium Chloride 1,000 ml @ 75 mls/hr [id number] IV 06/05/25 11:45 06/05/25 11:51 75 MLS/HR Laboratory Results Laboratory Tests 06/05/25 05:15 06/05/25 06:54 Chemistry Test 06/04/25 22:31 06/05/25 06:54 Albumin 3.5 g/dL (3.2-4.8) 3.3 g/dL (3.2-4.8) Calcium Level 8.3 mg/dL (8.7-10.4) L 7.9 mg/dL (8.7-10.4) L Total Protein 7.2 g/dL (5.7-8.2) 6.7 g/dL (5.7-8.2) Coagulation Test 06/04/25 22:31 Prothrombin Time 12.3 sec (9.3-11.8) H Prothrombin Time INR 1.18 (0.9-1.15) H Activated Partial Thromboplast Time 29.4 SEC (24.5-34.5) LFT Test 06/04/25 22:31 06/05/25 06:54 Alanine Aminotransferase (ALT) 10 U/L (7-40) 9 U/L (7-40) Alkaline Phosphatase 162 U/L (46-116) H 145 U/L (46-116) H Aspartate Amino Transferase (AST) 27 U/L (13-40) 29 U/L (13-40) Total Bilirubin 0.4 mg/dL (0.2-1.0) 0.4 mg/dL (0.2-1.0) Urinalysis Test 06/04/25 22:50 Urine Color Brown (Yellow) H Urine Clarity Ex.turbid (Clear) Urine pH 6.0 (5.0-9.0) Urine Specific [place] 1.019 (1.001-1.035) Urine Protein 2+ (Negative) H Urine Ketones 2+ (Negative) H Urine Blood 3+ /uL (Negative) H Urine Nitrite Negative (Negative) Urine Bilirubin Negative (Negative) Urine Urobilinogen 4 mg/dL (Negative) H Urine Leukocyte Esterase 3+ /uL (Negative) Urine RBC 135 /hpf (0 - 4) Urine WBC Clumps Present /hpf (None Seen) Urine Microscopic WBC 3377 /HPF (0-5) H Urine Squamous Epithelial Cells None seen /hpf (<5) Urine Bacteria None seen /hpf (None Seen) Urine Mucus Few (None Seen) Urine Yeast (Budding) Moderate /hpf (None Seen) Urine Glucose Normal mg/dL (Normal) Labs and/or images reviewed: Labs reviewed by me, Image(s) reviewed by me Assessment/Plan Assessment/Plan Sepsis secondary to urinary tract infection: Blood cultures urine cultures , DC cefepime start Rocephin Acute metabolic encephalopathy Generalized weakness -probable metastatic cancer with probable bladder cancer as primary. -obstructive uropathy -left percutaneous nephrostomy tube -anemia -hypertensive crisis Bilateral hydronephrosis CVA Dementia Gallstones Hypertension Pulmonary hypertension History of IVC filter ESRD: Patient not a candidate for hemodialysis per Dr. Cardoso Patient is hospice revoked Time spent 70 minutes Advanced care planning time 20 minutes Plan discussed with: Patient Date of Service: Jun 05, 2025 Billing Provider: FABRICE ARENAS MD Common Visit Codes: [id number] CARE 30-74 MIN FABRICE ARENAS MD Jun 05, 2025 13:55
[2025-06-05 21:06] VITALS: BP 154/96; PULSE 94; RESP 18; TEMP 98.1; O2SAT 96
[2025-06-05] MEDS ORDERED: VANCOMYCIN PER PHARMACY 0 MG IV SCH (21:30)
[2025-06-05] MEDS: VANCOMYCIN 1.5GM/250ML 250 ML IV ONE (22:03)
[2025-06-06] VITALS (9 sets, daily range): BP systolic 131–159; BP diastolic 74–96; PULSE 18–101; RESP 17–20; TEMP 97.6–98.9; O2SAT 90–98
[2025-06-06] MEDS: HYDROmorphone HCL 2 MG/ML VL/or syr IV PRN (02:24)
[2025-06-06 07:50] LABS: Hemoglobin 8.4 g/dL (12.2-16.2)
[2025-06-06 07:54] LABS: Hematocrit 26.6 % (36.0-46.0); Mean Corpuscular Hemoglobin 27.7 pg (28.0-32.0); Mean Corpuscular Volume 87.5 fL (80.0-100.0); Nucleated Red Blood Cells % 1.8 %
[2025-06-06 08:04] LABS: Alanine Aminotransferase 11 U/L (7-40); Albumin 3.4 g/dL (3.2-4.8); Anion Gap 16 (5-15); BUN/Creatinine Ratio 18.6 (10.0-20.0); Carbon Dioxide 20 mmol/L (20-31); Potassium 4.0 mmol/L (3.5-5.1); Total Protein 7.1 g/dL (5.7-8.2)
[2025-06-06 08:05] LABS: Bilirubin, Total 0.4 mg/dL (0.2-1.0)
[2025-06-06 08:06] LABS: Alkaline Phosphatase 153 U/L (46-116); Blood Urea Nitrogen 54 mg/dL (9-23); Calcium 8.4 mg/dL (8.7-10.4); Chloride 109 mmol/L (98-107); Glucose 131 mg/dL (74-106); Sodium 145 mmol/L (136-145)
[2025-06-06 08:30] LABS: Anisocytosis Moderate
[2025-06-06 08:31] LABS: Polychromasia Slight
--- NOTE | 2025-06-06 12:14 | DVHPN2 ---
Reviewed: Care Plan, H&P, Labs, Medications, Previous Orders, Radiology Changes from previous H/P or p: No Changes Eyes: No Pain, No Vision change, No Conjunctivae inflammation, No Eyelid inflammation, No Other, No Redness ENT: No Ear pain, No Ear discharge, No Nose pain, No Nose discharge, No Nose congestion, No Mouth pain, No Mouth swelling, No Throat pain, No Throat swelling, No Other Cardiovascular: No Chest Pain, No Palpitations, No Orthopnea, No Paroxysmal Noc. Dyspnea, No Edema, No Lt Headedness, No Other Respiratory: No Cough, No Dry; Shortness of breath; No SOB with excertion, No Wheezing, No Hemoptysis, No Pleuritic Pain, No Sputum, No Other Gastrointestinal: No Nausea, No Vomiting, No Abdominal Pain, No Diarrhea, No Constipation, No Melena, No Hematochezia, No Other Genitourinary: No Dysuria, No Frequency, No Incontinence, No Hematuria, No Retention; Other (Nephrostomy tube) Musculoskeletal: No other, No neck pain, No shoulder pain, No arm pain, No back pain, No hand pain, No leg pain, No foot pain Skin: No Rash, No Lesions, No Jaundice, No Bruising, No Other Objective Vitals Vital Signs Date Time Temp Pulse Resp B/P (MAP) Pulse Ox O2 Delivery O2 Flow Rate FiO2 06/06/25 09:00 97.7 97 18 146/87 (106) 98 97.7 06/06/25 08:15 Nasal Cannula* 2 28 Intake/Output Intake and Output 06/06/25 07:00 Intake Total 1415 ml Output Total 1650 ml Balance -235 ml Intake Oral 1040 ml IV Total 375 ml Output Urine Total 1650 ml Medications Current Medications Medications Dose Ordered Sig/Raoul Route Start Time Stop Time Status Last Admin Dose Admin Sodium Chloride 10 ml Q8HR IV 06/05/25 06:00 06/06/25 05:24 10 ML Acetaminophen/ Hydrocodone Bitart 1 tab Q4HP PRN PO 06/05/25 04:45 Ondansetron HCl 4 mg Q4HP PRN IV 06/05/25 04:45 Docusate Sodium 100 mg BIDPRN PRN PO 06/05/25 04:45 Acetaminophen 650 mg Q6HP PRN PO 06/05/25 04:45 Nitroglycerin 0.4 mg Q5MINP PRN SL 06/05/25 05:30 Morphine Sulfate 2 mg Q30M PRN IV 06/05/25 05:30 Sodium Chloride 1,000 ml @ 75 mls/hr [id number] IV 06/05/25 11:45 06/06/25 02:09 75 MLS/HR Ceftriaxone Sodium 50 ml @ 100 mls/hr DAILY@09 IV 06/06/25 09:00 06/06/25 08:53 100 MLS/HR Vancomycin HCl 0 ml @ 0 mls/hr UD IV 06/05/25 21:30 Hydromorphone HCl 1 mg Q4HPRN PRN IV 06/06/25 02:15 06/06/25 02:24 1 MG Laboratory Results Laboratory Tests 06/06/25 07:11 Chemistry Test 06/06/25 07:11 Albumin 3.4 g/dL (3.2-4.8) Calcium Level 8.4 mg/dL (8.7-10.4) L Total Protein 7.1 g/dL (5.7-8.2) LFT Test 06/06/25 07:11 Alanine Aminotransferase (ALT) 11 U/L (7-40) Alkaline Phosphatase 153 U/L (46-116) H Aspartate Amino Transferase (AST) 25 U/L (13-40) Total Bilirubin 0.4 mg/dL (0.2-1.0) Urinalysis Test 06/04/25 22:50 Urine Color Brown (Yellow) H Urine Clarity Ex.turbid (Clear) Urine pH 6.0 (5.0-9.0) Urine Specific [place] 1.019 (1.001-1.035) Urine Protein 2+ (Negative) H Urine Ketones 2+ (Negative) H Urine Blood 3+ /uL (Negative) H Urine Nitrite Negative (Negative) Urine Bilirubin Negative (Negative) Urine Urobilinogen 4 mg/dL (Negative) H Urine Leukocyte Esterase 3+ /uL (Negative) Urine RBC 135 /hpf (0 - 4) Urine WBC Clumps Present /hpf (None Seen) Urine Microscopic WBC 3377 /HPF (0-5) H Urine Squamous Epithelial Cells None seen /hpf (<5) Urine Bacteria None seen /hpf (None Seen) Urine Mucus Few (None Seen) Urine Yeast (Budding) Moderate /hpf (None Seen) Urine Glucose Normal mg/dL (Normal) Microbiology Microbiology Date/Time Source Procedure Growth Status 06/04/25 22:31 Blood Blood Culture - Preliminary NO GROWTH AFTER 24 HOURS OF INCUBATION. 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 Cardoso Discussed the diagnosis management and poor prognosis with the patient's daughter Lisa [phone] at bedside Patient is hospice revoked Time spent 70 minutes Advanced care planning time 20 minutes Plan discussed with: Patient, Daughter, Other (RN) My Orders Orders - FABRICE ARENAS MD Procedure Category Date Status Time Ceftriaxone 1gm/50ml PHA 06/06/25 In Process (Rocephin) 09:00 Date of Service: Jun 06, 2025 Billing Provider: FABRICE ARENAS MD Common Visit Codes: [id number] CARE 30-74 MIN FABRICE ARENAS MD Jun 06, 2025 12:14
--- NOTE | 2025-06-06 17:55 | DVHPN2 ---
Progress Note - Dictate Date Seen: Jun 06, 2025 Medical Necessity Reason Pt with a Central, PICC or Fol: No Subjective no new symptoms vital signs Vital Sign Date Time Temp Pulse Resp B/P (MAP) Pulse Ox O2 Delivery O2 Flow Rate FiO2 06/06/25 13:00 98.9 18 143/94 (110) 90 98.9 06/06/25 09:00 18 06/06/25 08:15 Nasal Cannula* 2 28 Total Intake and Output 06/05/25 06/05/25 06/06/25 15:00 23:00 07:00 Intake Total 300 ml 315 ml 800 ml Output Total 1650 ml Balance 300 ml 315 ml -850 ml medications Current Medications Medications Dose Ordered Sig/Raoul Route Start Time Stop Time Status Last Admin Dose Admin Sodium Chloride 10 ml Q8HR IV 06/05/25 06:00 06/06/25 14:44 10 ML Acetaminophen/ Hydrocodone Bitart 1 tab Q4HP PRN PO 06/05/25 04:45 Ondansetron HCl 4 mg Q4HP PRN IV 06/05/25 04:45 Docusate Sodium 100 mg BIDPRN PRN PO 06/05/25 04:45 Acetaminophen 650 mg Q6HP PRN PO 06/05/25 04:45 Nitroglycerin 0.4 mg Q5MINP PRN SL 06/05/25 05:30 Morphine Sulfate 2 mg Q30M PRN IV 06/05/25 05:30 Sodium Chloride 1,000 ml @ 75 mls/hr [id number] IV 06/05/25 11:45 06/06/25 14:44 75 MLS/HR Ceftriaxone Sodium 50 ml @ 100 mls/hr DAILY@09 IV 06/06/25 09:00 06/06/25 08:53 100 MLS/HR Vancomycin HCl 0 ml @ 0 mls/hr UD IV 06/05/25 21:30 Hydromorphone HCl 1 mg Q4HPRN PRN IV 06/06/25 02:15 06/06/25 02:24 1 MG objective GENERAL: This patient is an elderly female who appears to be chronically ill, HEENT: Shows pale oral mucosa. Oral mucosa is dry. LUNGS: Diminished air entry at the bases, with scattered wheezing and rhonchi. CARDIOVASCULAR: Regular rate, slightly tachycardic, a few extra systoles. ABDOMEN: Soft, mildly distended. Bowel sounds are diminished in intensity and frequency. No organomegaly. No ascites. EXTREMITIES: Show no clubbing or cyanosis. There is no edema. NEUROLOGIC: Nonfocal. laboratory and microbiology Laboratory Tests 06/06/25 07:11 Test 06/06/25 07:11 Range/Units Serum Glucose 131 H 74-106 mg/dL Assessment/Plan ASSESSMENT AND PLAN: * Acute kidney injury on top of chronic kidney disease. We do not know what her baseline creatinine is. She clearly has a history of obstructive uropathy with bilateral nephrostomy tubes and Steen catheter * Metastatic bladder cancer. * Anemia, which seems to be multifactorial. * Uremic encephalopathy. * History of hypertension. * Urinary tract infection. * History of coronary artery disease. * History of stroke and dementia. Plan: GFR improving change IVF to 1/2 NS at 70 cc/h daily BMP Strict UO Dietary Evaluation Review Comments: Nutrition Recommendation 1) Consider 2gm Na msoft diet to minimize restriction 2) Nepro carbsteady 240ml BID 3) Monitor PO intake, lab values, weight trend, and I/O Expected Outcomes/Goals: To meet >75% estimated needs Lab values to improve Fu 3-5 days Plan discussed with: Other KEYUR HAYES MD Jun 06, 2025 17:55
[2025-06-06] MEDS: SOD CHL 0.45% 1,000 ML IV SCH (18:30)
[2025-06-07] VITALS (9 sets, daily range): BP systolic 122–161; BP diastolic 44–96; PULSE 83–108; RESP 16–18; TEMP 96.9–99; O2SAT 93–98
--- NOTE | 2025-06-07 11:06 | DVHPN2 ---
Reviewed: Care Plan, H&P, Labs, Medications, Previous Orders, Radiology Changes from previous H/P or p: No Changes Eyes: No Pain, No Vision change, No Conjunctivae inflammation, No Eyelid inflammation, No Other, No Redness ENT: No Ear pain, No Ear discharge, No Nose pain, No Nose discharge, No Nose congestion, No Mouth pain, No Mouth swelling, No Throat pain, No Throat swelling, No Other Cardiovascular: No Chest Pain, No Palpitations, No Orthopnea, No Paroxysmal Noc. Dyspnea, No Edema, No Lt Headedness, No Other Respiratory: No Cough, No Dry; Shortness of breath; No SOB with excertion, No Wheezing, No Hemoptysis, No Pleuritic Pain, No Sputum, No Other Gastrointestinal: No Nausea, No Vomiting, No Abdominal Pain, No Diarrhea, No Constipation, No Melena, No Hematochezia, No Other Genitourinary: No Dysuria, No Frequency, No Incontinence, No Hematuria, No Retention; Other (Nephrostomy tube) Musculoskeletal: No other, No neck pain, No shoulder pain, No arm pain, No back pain, No hand pain, No leg pain, No foot pain Skin: No Rash, No Lesions, No Jaundice, No Bruising, No Other Objective Vitals Vital Signs Date Time Temp Pulse Resp B/P (MAP) Pulse Ox O2 Delivery O2 Flow Rate FiO2 06/07/25 08:15 Room Air* 0 21 06/07/25 05:00 97.6 84 18 139/44 (75) 93 97.6 Intake/Output Intake and Output 06/07/25 07:00 Intake Total 805 ml Output Total 250 ml Balance 555 ml Intake Oral 530 ml IV Total 275 ml Output Urine Total 100 ml Other 150 ml Medications Current Medications Medications Dose Ordered Sig/Raoul Route Start Time Stop Time Status Last Admin Dose Admin Sodium Chloride 10 ml Q8HR IV 06/05/25 06:00 06/07/25 06:00 10 ML Acetaminophen/ Hydrocodone Bitart 1 tab Q4HP PRN PO 06/05/25 04:45 Ondansetron HCl 4 mg Q4HP PRN IV 06/05/25 04:45 Docusate Sodium 100 mg BIDPRN PRN PO 06/05/25 04:45 Acetaminophen 650 mg Q6HP PRN PO 06/05/25 04:45 Nitroglycerin 0.4 mg Q5MINP PRN SL 06/05/25 05:30 Morphine Sulfate 2 mg Q30M PRN IV 06/05/25 05:30 Ceftriaxone Sodium 50 ml @ 100 mls/hr DAILY@09 IV 06/06/25 09:00 06/07/25 08:58 100 MLS/HR Vancomycin HCl 0 ml @ 0 mls/hr UD IV 06/05/25 21:30 Hydromorphone HCl 1 mg Q4HPRN PRN IV 06/06/25 02:15 06/07/25 03:36 1 MG Sodium Chloride 1,000 ml @ 70 mls/hr [id number] IV 06/06/25 18:00 06/07/25 08:58 70 MLS/HR Laboratory Results Laboratory Tests 06/06/25 07:11 Urinalysis Test 06/04/25 22:50 Urine Color Brown (Yellow) H Urine Clarity Ex.turbid (Clear) Urine pH 6.0 (5.0-9.0) Urine Specific [place] 1.019 (1.001-1.035) Urine Protein 2+ (Negative) H Urine Ketones 2+ (Negative) H Urine Blood 3+ /uL (Negative) H Urine Nitrite Negative (Negative) Urine Bilirubin Negative (Negative) Urine Urobilinogen 4 mg/dL (Negative) H Urine Leukocyte Esterase 3+ /uL (Negative) Urine RBC 135 /hpf (0 - 4) Urine WBC Clumps Present /hpf (None Seen) Urine Microscopic WBC 3377 /HPF (0-5) H Urine Squamous Epithelial Cells None seen /hpf (<5) Urine Bacteria None seen /hpf (None Seen) Urine Mucus Few (None Seen) Urine Yeast (Budding) Moderate /hpf (None Seen) Urine Glucose Normal mg/dL (Normal) Microbiology Microbiology Date/Time Source Procedure Growth Status 06/04/25 22:50 Voided Urine Urine Culture - Final Complete 06/04/25 22:31 Blood Blood Culture - Preliminary NO GROWTH AFTER 48 HOURS OF INCUBATION. 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 Cardoso Discussed the diagnosis management and poor prognosis with the patient's daughter Lisa [phone] at bedside Patient is hospice revoked Time spent 70 minutes Advanced care planning time 20 minutes Plan discussed with: Patient Date of Service: Jun 07, 2025 Billing Provider: FABRICE ARENAS MD Common Visit Codes: [id number] CARE 30-74 MIN FABRICE ARENAS MD Jun 07, 2025 11:06
[2025-06-07] MEDS: LORazepam 2MG/ML-1ML VIAL IV PRN (11:43)
[2025-06-07] MEDS: HYDROmorphone HCL 2 MG/ML VL/or syr IV PRN (13:16)
[2025-06-07] MEDS: VANCOMYCIN 500mg/100mL 100 ML IV ONE (16:47)
--- NOTE | 2025-06-07 18:42 | DVHPN2 ---
Progress Note - Dictate Date Seen: Jun 07, 2025 Medical Necessity Reason Pt with a Central, PICC or Fol: No Subjective no new symptoms vital signs Vital Sign Date Time Temp Pulse Resp B/P (MAP) Pulse Ox O2 Delivery O2 Flow Rate FiO2 06/07/25 17:00 97.8 83 16 132/83 (99) 95 97.8 06/07/25 08:15 Room Air* 0 21 Total Intake and Output 06/06/25 06/06/25 06/07/25 15:00 23:00 07:00 Intake Total 50 ml 525 ml 230 ml Output Total 250 ml Balance 50 ml 525 ml -20 ml medications Current Medications Medications Dose Ordered Sig/Raoul Route Start Time Stop Time Status Last Admin Dose Admin Sodium Chloride 10 ml Q8HR IV 06/05/25 06:00 06/07/25 14:00 10 ML Acetaminophen/ Hydrocodone Bitart 1 tab Q4HP PRN PO 06/05/25 04:45 Ondansetron HCl 4 mg Q4HP PRN IV 06/05/25 04:45 Docusate Sodium 100 mg BIDPRN PRN PO 06/05/25 04:45 Acetaminophen 650 mg Q6HP PRN PO 06/05/25 04:45 Nitroglycerin 0.4 mg Q5MINP PRN SL 06/05/25 05:30 Morphine Sulfate 2 mg Q30M PRN IV 06/05/25 05:30 Ceftriaxone Sodium 50 ml @ 100 mls/hr DAILY@09 IV 06/06/25 09:00 06/07/25 08:58 100 MLS/HR Vancomycin HCl 0 ml @ 0 mls/hr UD IV 06/05/25 21:30 Sodium Chloride 1,000 ml @ 70 mls/hr [id number] IV 06/06/25 18:00 06/07/25 08:58 70 MLS/HR Hydromorphone HCl 1 mg Q6HPRN PRN IV 06/07/25 11:15 06/07/25 13:16 1 MG Clonidine HCl 0.1 mg Q6HP PRN PO 06/07/25 11:15 06/07/25 13:14 0.1 MG Lorazepam 0.5 mg Q8HP PRN IV 06/07/25 11:15 06/07/25 11:43 0.5 MG objective GENERAL: This patient is an elderly female who appears to be chronically ill, HEENT: Shows pale oral mucosa. Oral mucosa is dry. LUNGS: Diminished air entry at the bases, with scattered wheezing and rhonchi. CARDIOVASCULAR: Regular rate, slightly tachycardic, a few extra systoles. ABDOMEN: Soft, mildly distended. Bowel sounds are diminished in intensity and frequency. No organomegaly. No ascites. EXTREMITIES: Show no clubbing or cyanosis. There is no edema. NEUROLOGIC: Nonfocal. laboratory and microbiology Laboratory Tests 06/07/25 06:19 06/06/25 07:11 Test 06/06/25 07:11 Range/Units Serum Glucose 131 H 74-106 mg/dL Assessment/Plan ASSESSMENT AND PLAN: * Acute kidney injury on top of chronic kidney disease. We do not know what her baseline creatinine is. She clearly has a history of obstructive uropathy with bilateral nephrostomy tubes and Steen catheter * Metastatic bladder cancer. * Anemia, which seems to be multifactorial. * Uremic encephalopathy. * History of hypertension. * Urinary tract infection. * History of coronary artery disease. * History of stroke and dementia. Plan: GFR improving Continue 1/2 NS at 70 cc/h daily BMP Strict UO Dietary Evaluation Review Comments: Nutrition Recommendation 1) Consider 2gm Na msoft diet to minimize restriction 2) Nepro carbsteady 240ml BID 3) Monitor PO intake, lab values, weight trend, and I/O Expected Outcomes/Goals: To meet >75% estimated needs Lab values to improve Fu 3-5 days Plan discussed with: Patient, Other KEYUR HAYES MD Jun 07, 2025 18:42
[2025-06-08] VITALS (7 sets, daily range): BP systolic 131–185; BP diastolic 75–111; PULSE 85–93; RESP 18–20; TEMP 97.6–98.6; O2SAT 96–98
--- NOTE | 2025-06-08 09:34 | DVHPN2 ---
Reviewed: Care Plan, H&P, Labs, Medications, Previous Orders, Radiology Changes from previous H/P or p: No Changes Eyes: No Pain, No Vision change, No Conjunctivae inflammation, No Eyelid inflammation, No Other, No Redness ENT: No Ear pain, No Ear discharge, No Nose pain, No Nose discharge, No Nose congestion, No Mouth pain, No Mouth swelling, No Throat pain, No Throat swelling, No Other Cardiovascular: No Chest Pain, No Palpitations, No Orthopnea, No Paroxysmal Noc. Dyspnea, No Edema, No Lt Headedness, No Other Respiratory: No Cough, No Dry; Shortness of breath; No SOB with excertion, No Wheezing, No Hemoptysis, No Pleuritic Pain, No Sputum, No Other Gastrointestinal: No Nausea, No Vomiting, No Abdominal Pain, No Diarrhea, No Constipation, No Melena, No Hematochezia, No Other Genitourinary: No Dysuria, No Frequency, No Incontinence, No Hematuria, No Retention; Other (Nephrostomy tube) Musculoskeletal: No other, No neck pain, No shoulder pain, No arm pain, No back pain, No hand pain, No leg pain, No foot pain Skin: No Rash, No Lesions, No Jaundice, No Bruising, No Other Objective Vitals Vital Signs Date Time Temp Pulse Resp B/P (MAP) Pulse Ox O2 Delivery O2 Flow Rate FiO2 06/08/25 08:39 185/111 06/08/25 08:00 91 18 98 Nasal Cannula* 2 28 06/08/25 01:00 97.6 97.6 Intake/Output Intake and Output 06/08/25 07:00 Intake Total 1190 ml Output Total 900 ml Balance 290 ml Intake Oral 350 ml IV Total 840 ml Output Urine Total 900 ml Medications Current Medications Medications Dose Ordered Sig/Raoul Route Start Time Stop Time Status Last Admin Dose Admin Sodium Chloride 10 ml Q8HR IV 06/05/25 06:00 06/08/25 06:06 10 ML Acetaminophen/ Hydrocodone Bitart 1 tab Q4HP PRN PO 06/05/25 04:45 Ondansetron HCl 4 mg Q4HP PRN IV 06/05/25 04:45 Docusate Sodium 100 mg BIDPRN PRN PO 06/05/25 04:45 Acetaminophen 650 mg Q6HP PRN PO 06/05/25 04:45 Nitroglycerin 0.4 mg Q5MINP PRN SL 06/05/25 05:30 Morphine Sulfate 2 mg Q30M PRN IV 06/05/25 05:30 Ceftriaxone Sodium 50 ml @ 100 mls/hr DAILY@09 IV 06/06/25 09:00 06/08/25 08:39 100 MLS/HR Vancomycin HCl 0 ml @ 0 mls/hr UD IV 06/05/25 21:30 Sodium Chloride 1,000 ml @ 70 mls/hr [id number] IV 06/06/25 18:00 06/07/25 22:50 70 MLS/HR Hydromorphone HCl 1 mg Q6HPRN PRN IV 06/07/25 11:15 06/07/25 21:35 1 MG Clonidine HCl 0.1 mg Q6HP PRN PO 06/07/25 11:15 06/08/25 08:39 0.1 MG Lorazepam 0.5 mg Q8HP PRN IV 06/07/25 11:15 06/07/25 11:43 0.5 MG Laboratory Results Laboratory Tests 06/06/25 07:11 06/08/25 06:23 Urinalysis Test 06/04/25 22:50 Urine Color Brown (Yellow) H Urine Clarity Ex.turbid (Clear) Urine pH 6.0 (5.0-9.0) Urine Specific [place] 1.019 (1.001-1.035) Urine Protein 2+ (Negative) H Urine Ketones 2+ (Negative) H Urine Blood 3+ /uL (Negative) H Urine Nitrite Negative (Negative) Urine Bilirubin Negative (Negative) Urine Urobilinogen 4 mg/dL (Negative) H Urine Leukocyte Esterase 3+ /uL (Negative) Urine RBC 135 /hpf (0 - 4) Urine WBC Clumps Present /hpf (None Seen) Urine Microscopic WBC 3377 /HPF (0-5) H Urine Squamous Epithelial Cells None seen /hpf (<5) Urine Bacteria None seen /hpf (None Seen) Urine Mucus Few (None Seen) Urine Yeast (Budding) Moderate /hpf (None Seen) Urine Glucose Normal mg/dL (Normal) Microbiology Microbiology Date/Time Source Procedure Growth Status 06/06/25 22:00 Nose MRSA Screen - Final Complete 06/04/25 22:50 Voided Urine Urine Culture - Final Complete 06/04/25 22:31 Blood Blood Culture - Preliminary NO GROWTH AFTER 72 HOURS OF INCUBATION. 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 Cardoso Discussed the diagnosis management and poor prognosis with the patient's daughter Lisa [phone] at bedside Patient is hospice revoked Time spent 70 minutes Advanced care planning time 20 minutes Plan discussed with: Patient My Orders Orders - FABRICE ARENAS MD Procedure Category Date Status Time Hydromorphone PHA 06/07/25 In Process Injection (Dilaudid 11:15 Clonidine Hcl Tablet PHA 06/07/25 In Process (Catapres Tablet) 11:15 Lorazepam 2mg/Ml Inj PHA 06/07/25 In Process (Ativan Inj) 11:15 Pureed DIET 06/07/25 Transmitted Lunch Ok To Change Steen ORDERS 06/07/25 Transmitted 11:02 * Manager Sound CONS 06/07/25 Transmitted Consult Date of Service: Jun 08, 2025 Billing Provider: FABRICE ARENAS MD Common Visit Codes: [id number] CARE 30-74 MIN FABRICE ARENAS MD Jun 08, 2025 09:34
[2025-06-08] MEDS: LORazepam 2MG/ML-1ML VIAL IV PRN (11:42)
--- NOTE | 2025-06-08 12:57 | MEDREC ---
[facility] Intervention Section I [facility] Intervention: Review courses of therapy (PLEASE CONSIDER REVIEWING COURSE OF THERAPY ACCORDING TO CULTURE RESULTS) NAREN LEIGH PHARMACIST Jun 08, 2025 12:57
[2025-06-08] MEDS: VANCOMYCIN 500mg/100mL 100 ML IV ONE (15:00)
--- NOTE | 2025-06-08 15:39 | DVHPN2 ---
Progress Note - Dictate Date Seen: Jun 08, 2025 Medical Necessity Reason Pt with a Central, PICC or Fol: No Subjective no new symptoms vital signs Vital Sign Date Time Temp Pulse Resp B/P (MAP) Pulse Ox O2 Delivery O2 Flow Rate FiO2 06/08/25 09:39 180/103 06/08/25 09:00 98.6 91 20 97 98.6 06/08/25 08:00 Nasal Cannula* 2 28 Total Intake and Output 06/07/25 06/07/25 06/08/25 15:00 23:00 07:00 Intake Total 300 ml 890 ml Output Total 300 ml 50 ml 550 ml Balance -300 ml 250 ml 340 ml medications Current Medications Medications Dose Ordered Sig/Raoul Route Start Time Stop Time Status Last Admin Dose Admin Sodium Chloride 10 ml Q8HR IV 06/05/25 06:00 06/08/25 14:12 10 ML Acetaminophen/ Hydrocodone Bitart 1 tab Q4HP PRN PO 06/05/25 04:45 Ondansetron HCl 4 mg Q4HP PRN IV 06/05/25 04:45 Docusate Sodium 100 mg BIDPRN PRN PO 06/05/25 04:45 Acetaminophen 650 mg Q6HP PRN PO 06/05/25 04:45 Nitroglycerin 0.4 mg Q5MINP PRN SL 06/05/25 05:30 Morphine Sulfate 2 mg Q30M PRN IV 06/05/25 05:30 Ceftriaxone Sodium 50 ml @ 100 mls/hr DAILY@09 IV 06/06/25 09:00 06/08/25 08:39 100 MLS/HR Vancomycin HCl 0 ml @ 0 mls/hr UD IV 06/05/25 21:30 Sodium Chloride 1,000 ml @ 70 mls/hr [id number] IV 06/06/25 18:00 06/08/25 12:53 70 MLS/HR Hydromorphone HCl 1 mg Q6HPRN PRN IV 06/07/25 11:15 06/07/25 21:35 1 MG Lorazepam 1 mg Q8HP PRN IV 06/08/25 11:30 06/08/25 11:42 1 MG Clonidine HCl 0.2 mg Q6HP PRN PO 06/08/25 13:15 objective GENERAL: This patient is an elderly female who appears to be chronically ill, HEENT: Shows pale oral mucosa. Oral mucosa is dry. LUNGS: Diminished air entry at the bases, with scattered wheezing and rhonchi. CARDIOVASCULAR: Regular rate, slightly tachycardic, a few extra systoles. ABDOMEN: Soft, mildly distended. Bowel sounds are diminished in intensity and frequency. No organomegaly. No ascites. EXTREMITIES: Show no clubbing or cyanosis. There is no edema. NEUROLOGIC: Nonfocal. laboratory and microbiology Laboratory Tests 06/08/25 06:23 06/06/25 07:11 Test 06/06/25 07:11 Range/Units Serum Glucose 131 H 74-106 mg/dL Assessment/Plan ASSESSMENT AND PLAN: * Acute kidney injury on top of chronic kidney disease. We do not know what her baseline creatinine is. She clearly has a history of obstructive uropathy with bilateral nephrostomy tubes and Steen catheter * Metastatic bladder cancer. * Anemia, which seems to be multifactorial. * Uremic encephalopathy. * History of hypertension. * Urinary tract infection. * History of coronary artery disease. * History of stroke and dementia. Plan: GFR improving Continue 1/2 NS at 70 cc/h daily BMP Strict UO Dietary Evaluation Review Comments: Nutrition Recommendation 1) Consider 2gm Na msoft diet to minimize restriction 2) Nepro carbsteady 240ml BID 3) Monitor PO intake, lab values, weight trend, and I/O Expected Outcomes/Goals: To meet >75% estimated needs Lab values to improve Fu 3-5 days Plan discussed with: Daughter, Other KEYUR HAYES MD Jun 08, 2025 15:39
[2025-06-09] VITALS (10 sets, daily range): BP systolic 95–148; BP diastolic 50–110; PULSE 54–96; RESP 16–22; TEMP 96.5–98.5; O2SAT 91–98
--- NOTE | 2025-06-09 06:55 | DVHPN2 ---
Progress Note - Dictate Date Seen: Jun 09, 2025 Medical Necessity Reason Pt with a Central, PICC or Fol: No Subjective no new symptoms vital signs Vital Sign Date Time Temp Pulse Resp B/P (MAP) Pulse Ox O2 Delivery O2 Flow Rate FiO2 06/09/25 04:55 97.6 78 16 126/50 (75) 96 97.6 06/08/25 20:00 Nasal Cannula* 2 28 Total Intake and Output 06/08/25 06/08/25 06/09/25 15:00 23:00 07:00 Intake Total 50 ml 100 ml 300 ml Output Total 400 ml 300 ml Balance 50 ml -300 ml 0 ml medications Current Medications Medications Dose Ordered Sig/Raoul Route Start Time Stop Time Status Last Admin Dose Admin Sodium Chloride 10 ml Q8HR IV 06/05/25 06:00 06/09/25 05:21 10 ML Acetaminophen/ Hydrocodone Bitart 1 tab Q4HP PRN PO 06/05/25 04:45 Ondansetron HCl 4 mg Q4HP PRN IV 06/05/25 04:45 Docusate Sodium 100 mg BIDPRN PRN PO 06/05/25 04:45 Acetaminophen 650 mg Q6HP PRN PO 06/05/25 04:45 Nitroglycerin 0.4 mg Q5MINP PRN SL 06/05/25 05:30 Morphine Sulfate 2 mg Q30M PRN IV 06/05/25 05:30 Ceftriaxone Sodium 50 ml @ 100 mls/hr DAILY@09 IV 06/06/25 09:00 06/08/25 08:39 100 MLS/HR Vancomycin HCl 0 ml @ 0 mls/hr UD IV 06/05/25 21:30 Sodium Chloride 1,000 ml @ 70 mls/hr [id number] IV 06/06/25 18:00 06/09/25 03:14 70 MLS/HR Hydromorphone HCl 1 mg Q6HPRN PRN IV 06/07/25 11:15 06/07/25 21:35 1 MG Lorazepam 1 mg Q8HP PRN IV 06/08/25 11:30 06/08/25 23:25 1 MG Clonidine HCl 0.2 mg Q6HP PRN PO 06/08/25 13:15 06/08/25 23:25 0.2 MG objective GENERAL: This patient is an elderly female who appears to be chronically ill, HEENT: Shows pale oral mucosa. Oral mucosa is dry. LUNGS: Diminished air entry at the bases, with scattered wheezing and rhonchi. CARDIOVASCULAR: Regular rate, slightly tachycardic, a few extra systoles. ABDOMEN: Soft, mildly distended. Bowel sounds are diminished in intensity and frequency. No organomegaly. No ascites. EXTREMITIES: Show no clubbing or cyanosis. There is no edema. NEUROLOGIC: Nonfocal. laboratory and microbiology Laboratory Tests 06/09/25 04:58 06/06/25 07:11 Test 06/06/25 07:11 Range/Units Serum Glucose 131 H 74-106 mg/dL Assessment/Plan ASSESSMENT AND PLAN: * Acute kidney injury on top of chronic kidney disease. We do not know what her baseline creatinine is. She clearly has a history of obstructive uropathy with bilateral nephrostomy tubes and Steen catheter * Metastatic bladder cancer. * Anemia, which seems to be multifactorial. * Uremic encephalopathy. * History of hypertension. * Urinary tract infection. * History of coronary artery disease. * History of stroke and dementia. Plan: GFR improving Continue 1/2 NS at 70 cc/h daily BMP Strict UO Dietary Evaluation Review Comments: Nutrition Recommendation 1) Consider 2gm Na msoft diet to minimize restriction 2) Nepro carbsteady 240ml BID 3) Monitor PO intake, lab values, weight trend, and I/O Expected Outcomes/Goals: To meet >75% estimated needs Lab values to improve Fu 3-5 days Plan discussed with: Other KEYUR HAYES MD Jun 09, 2025 06:55
--- NOTE | 2025-06-09 10:00 | DVHPN2 ---
Reviewed: Care Plan, H&P, Labs, Medications, Previous Orders, Radiology Changes from previous H/P or p: No Changes Eyes: No Pain, No Vision change, No Conjunctivae inflammation, No Eyelid inflammation, No Other, No Redness ENT: No Ear pain, No Ear discharge, No Nose pain, No Nose discharge, No Nose congestion, No Mouth pain, No Mouth swelling, No Throat pain, No Throat swelling, No Other Cardiovascular: No Chest Pain, No Palpitations, No Orthopnea, No Paroxysmal Noc. Dyspnea, No Edema, No Lt Headedness, No Other Respiratory: No Cough, No Dry; Shortness of breath; No SOB with excertion, No Wheezing, No Hemoptysis, No Pleuritic Pain, No Sputum, No Other Gastrointestinal: No Nausea, No Vomiting, No Abdominal Pain, No Diarrhea, No Constipation, No Melena, No Hematochezia, No Other Genitourinary: No Dysuria, No Frequency, No Incontinence, No Hematuria, No Retention; Other (Nephrostomy tube) Musculoskeletal: No other, No neck pain, No shoulder pain, No arm pain, No back pain, No hand pain, No leg pain, No foot pain Skin: No Rash, No Lesions, No Jaundice, No Bruising, No Other Objective Vitals Vital Signs Date Time Temp Pulse Resp B/P (MAP) Pulse Ox O2 Delivery O2 Flow Rate FiO2 06/09/25 04:55 97.6 78 16 126/50 (75) 96 97.6 06/08/25 20:00 Nasal Cannula* 2 28 Intake/Output Intake and Output 06/09/25 07:00 Intake Total 450 ml Output Total 700 ml Balance -250 ml Intake Oral 400 ml IV Total 50 ml Output Urine Total 700 ml Medications Current Medications Medications Dose Ordered Sig/Raoul Route Start Time Stop Time Status Last Admin Dose Admin Sodium Chloride 10 ml Q8HR IV 06/05/25 06:00 06/09/25 05:21 10 ML Acetaminophen/ Hydrocodone Bitart 1 tab Q4HP PRN PO 06/05/25 04:45 Ondansetron HCl 4 mg Q4HP PRN IV 06/05/25 04:45 Docusate Sodium 100 mg BIDPRN PRN PO 06/05/25 04:45 Acetaminophen 650 mg Q6HP PRN PO 06/05/25 04:45 Nitroglycerin 0.4 mg Q5MINP PRN SL 06/05/25 05:30 Morphine Sulfate 2 mg Q30M PRN IV 06/05/25 05:30 Ceftriaxone Sodium 50 ml @ 100 mls/hr DAILY@09 IV 06/06/25 09:00 06/08/25 08:39 100 MLS/HR Vancomycin HCl 0 ml @ 0 mls/hr UD IV 06/05/25 21:30 Sodium Chloride 1,000 ml @ 70 mls/hr [id number] IV 06/06/25 18:00 06/09/25 03:14 70 MLS/HR Hydromorphone HCl 1 mg Q6HPRN PRN IV 06/07/25 11:15 06/07/25 21:35 1 MG Lorazepam 1 mg Q8HP PRN IV 06/08/25 11:30 06/09/25 08:19 1 MG Clonidine HCl 0.2 mg Q6HP PRN PO 06/08/25 13:15 06/08/25 23:25 0.2 MG Laboratory Results Laboratory Tests 06/06/25 07:11 06/09/25 04:58 Urinalysis Test 06/04/25 22:50 Urine Color Brown (Yellow) H Urine Clarity Ex.turbid (Clear) Urine pH 6.0 (5.0-9.0) Urine Specific [place] 1.019 (1.001-1.035) Urine Protein 2+ (Negative) H Urine Ketones 2+ (Negative) H Urine Blood 3+ /uL (Negative) H Urine Nitrite Negative (Negative) Urine Bilirubin Negative (Negative) Urine Urobilinogen 4 mg/dL (Negative) H Urine Leukocyte Esterase 3+ /uL (Negative) Urine RBC 135 /hpf (0 - 4) Urine WBC Clumps Present /hpf (None Seen) Urine Microscopic WBC 3377 /HPF (0-5) H Urine Squamous Epithelial Cells None seen /hpf (<5) Urine Bacteria None seen /hpf (None Seen) Urine Mucus Few (None Seen) Urine Yeast (Budding) Moderate /hpf (None Seen) Urine Glucose Normal mg/dL (Normal) Microbiology Microbiology Date/Time Source Procedure Growth Status 06/06/25 22:00 Nose MRSA Screen - Final Complete 06/04/25 22:50 Voided Urine Urine Culture - Final Complete 06/04/25 22:31 Blood Blood Culture - Preliminary NO GROWTH AFTER 72 HOURS OF INCUBATION. 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 Cardoso Discussed the diagnosis management and poor prognosis with the patient's daughter Lisa [phone] at bedside Patient will be discharged to shelter facility for meropenem IV q.12h for three weeks for bacteremia discussed the plan with the patient's daughter Leyla and she agreed Plan discussed with: Patient My Orders Orders - FABRICE ARENAS MD Procedure Category Date Status Time Lorazepam 2mg/Ml Inj PHA 06/08/25 In Process (Ativan Inj) 11:30 Clonidine Hcl Tablet PHA 06/08/25 In Process (Catapres Tablet) 13:15 Date of Service: Jun 09, 2025 Billing Provider: FABRICE ARENAS MD Common Visit Codes: [id number] CARE 30-74 MIN FABRICE ARENAS MD Jun 09, 2025 10:00
--- NOTE | 2025-06-09 10:43 | DVHDS2 ---
Discharge Summary Date of Admission Jun 05, 2025 at 05:30 Date of Discharge: Jun 09, 2025 Admitting Diagnosis Generalized weakness altered mental status Wounds: None Labs/Diagnostic Data: Laboratory Results Test 06/09/25 04:58 06/06/25 07:11 06/04/25 22:50 06/04/25 22:31 Creatinine 2.15 mg/dL (0.550-1.02) Glomerular Filtration Rate Calc 24 mL/min (>90) Random Vancomycin Level 15.8 ug/mL (5-10) White Blood Count 11.7 10^3/uL (4.4-10.8) Red Blood Count 3.04 10^6/uL (4.0-5.20) Hemoglobin 8.4 g/dL (12.2-16.2) Hematocrit 26.6 % (36.0-46.0) Mean Corpuscular Volume 87.5 fL (80.0-100.0) Mean Corpuscular Hemoglobin 27.7 pg (28.0-32.0) Mean Corpuscular Hemoglobin Concent 31.6 g/dL (32.0-36.0) Red Cell Distribution Width 23.3 % (11.8-14.3) Platelet Count 54 10^3/uL (140-450) Mean Platelet Volume 8.6 fL (6.9-10.8) Neutrophils (%) (Auto) 79.4 % (37.0-80.0) Lymphocytes (%) (Auto) 13.2 % (10.0-50.0) Monocytes (%) (Auto) 6.9 % (0.0-12.0) Eosinophils (%) (Auto) 0.4 % (0.0-7.0) Basophils (%) (Auto) 0.1 % (0.0-2.0) Neutrophils # (Auto) 9.3 10 ^3/uL (1.6-8.6) Lymphocytes # (Auto) 1.5 10 ^3/uL (0.4-5.4) Monocytes # (Auto) 0.8 10 ^3/uL (0-1.3) Eosinophils # (Auto) 0.1 10 ^3/uL (0-0.8) Basophils # (Auto) 0 10 ^3/uL (0-0.2) Nucleated Red Blood Cells 1.8 % Platelet Estimate Decreased Polychromasia Slight Hypochromasia (manual) Slight Poikilocytosis (manual) Slight Anisocytosis (manual) Moderate [place] Cells Few Sodium Level 145 mmol/L (136-145) Potassium Level 4.0 mmol/L (3.5-5.1) Chloride Level 109 mmol/L (98-107) Carbon Dioxide Level 20 mmol/L (20-31) Anion Gap 16 (5-15) Blood Urea Nitrogen 54 mg/dL (9-23) BUN/Creatinine Ratio 18.6 (10.0-20.0) Serum Glucose 131 mg/dL (74-106) Calcium Level 8.4 mg/dL (8.7-10.4) Total Bilirubin 0.4 mg/dL (0.2-1.0) Aspartate Amino Transferase (AST) 25 U/L (13-40) Alanine Aminotransferase (ALT) 11 U/L (7-40) Alkaline Phosphatase 153 U/L (46-116) Total Protein 7.1 g/dL (5.7-8.2) Albumin 3.4 g/dL (3.2-4.8) Urine Color Brown (Yellow) Urine Clarity Ex.turbid (Clear) Urine pH 6.0 (5.0-9.0) Urine Specific [place] 1.019 (1.001-1.035) Urine Protein 2+ (Negative) Urine Ketones 2+ (Negative) Urine Blood 3+ /uL (Negative) Urine Nitrite Negative (Negative) Urine Bilirubin Negative (Negative) Urine Urobilinogen 4 mg/dL (Negative) Urine Leukocyte Esterase 3+ /uL (Negative) Urine RBC 135 /hpf (0 - 4) Urine WBC Clumps Present /hpf (None Seen) Urine Microscopic WBC 3377 /HPF (0-5) Urine Squamous Epithelial Cells None seen /hpf (<5) Urine Bacteria None seen /hpf (None Seen) Urine Mucus Few (None Seen) Urine Yeast (Budding) Moderate /hpf (None Seen) Urine Glucose Normal mg/dL (Normal) Prothrombin Time 12.3 sec (9.3-11.8) Prothrombin Time INR 1.18 (0.9-1.15) Activated Partial Thromboplast Time 29.4 SEC (24.5-34.5) Lactic Acid Level 1.7 mmol/L (0.4-2.0) Other Laboratory Tests 06/09/25 04:58 06/06/25 07:11 Brief Hx & Hospital Course: 70-year-old female with a history of advanced bladder cancer recently moved [place] [facility] [facility] [place] family for altered mental status and generalized weakness patient was found to be an obstructive uropathy with a history of bilateral nephrostomy tubes and indwelling Steen history of anemia hypotension CVA dementia and gallstones and pulmonary hypertension status post IVC filter patient also had a CKD [address] Cardoso who advised the patient not a candidate for any dialysis in view of multiple comorbidities. Patient was started on Rocephin and clindamycin blood cultures came positive for Pseudomonas antibiotic changed to meropenem 500 mg IV q.12h which he will receive for three weeks in the long-term General condition very poor discussed with the patient's daughter and power of monotype setter Perri and [facility] to [facility] weeks of IV meropenem. Family decided not to pursue any aggressive treatment for bladder cancer. Consults/Reason for consult Nephrology Dr. 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 Cardoso Discharge Disposition: [facility] Discharge Instruct/Medications Diet: Cardiac 2g Na,low cholest Activity: Light activity Follow Up/Referral: Follow up with the long-term Medications: Meropenem 500 mg IV q.12h for three weeks for bacteremia See list for other meds No Active Prescriptions or Reported Meds 39 (Time taken for discharge summary 39 minutes) Discharge Statement: "Patient was advised to return to the ER or call 911 if any headaches, dizziness, shortness of breath, chest pain, abdominal pain, bleeding, fevers, or worsening of medical condition. Patient was counseled about treatment plan, medications, possible side effects, patientverbalized understanding. All questions were answered to the best of my ability. 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 Cardoso Date of Service: Jun 09, 2025 Billing Provider: FABRICE ARENAS MD Common Visit Codes: [id number]-WNA/OBS DISCH DAY >30min FABRICE ARENAS MD Jun 09, 2025 10:43
[2025-06-09 13:10] LABS: COVID19 ANTIGEN SOFIA FIA NEGATIVE (NEGATIVE)
[2025-06-09] MEDS ORDERED: MEROPENEM 500MG IVPB 50 ML IV SCH (22:00)
== END 2025-06-09 21:13 | DRG 871 ==
LOC: EDBD 21:48 → ER 21:48 → OVERFLOW 06-05 05:30 → TELE-EAST 06-05 18:00
PROVIDERS: ADMIT Family Medicine; ATTEND Family Medicine
DX: A41.52 Sepsis due to Pseudomonas (principal); G93.41 Metabolic encephalopathy; I63.9 Cerebral infarction, unspecified; N18.6 End stage renal disease; I16.9 Hypertensive crisis, unspecified; N17.9 Acute kidney failure, unspecified; I12.0 Hypertensive chronic kidney disease with stage 5 chronic kidney disease or end stage renal disease; C79.31 Secondary malignant neoplasm of brain; N13.6 Pyonephrosis; D69.6 Thrombocytopenia, unspecified; D64.9 Anemia, unspecified; I27.20 Pulmonary hypertension, unspecified; K80.20 Calculus of gallbladder without cholecystitis without obstruction; C67.9 Malignant neoplasm of bladder, unspecified; Z88.6 Allergy status to analgesic agent; Z20.822 Contact with and (suspected) exposure to COVID-19; F03.90 Unspecified dementia, unspecified severity, without behavioral disturbance, psychotic disturbance, mood disturbance, and anxiety; I25.10 Atherosclerotic heart disease of native coronary artery without angina pectoris; I25.2 Old myocardial infarction; Z86.73 Personal history of transient ischemic attack (TIA), and cerebral infarction without residual deficits; Z87.440 Personal history of urinary (tract) infections; Z95.828 Presence of other vascular implants and grafts; Z51.5 Encounter for palliative care
CPT/HCPCS: 36415; 70450; 71045; 76775; 80053; 80202; 81001; 82565; 83605; 85025; 85610; 85730; 86850; 86900; 86901; 87040; 87077; 87081; 87086; 87186; 87426; 93005; 96365; 97163; 99291; 99292; G0378

== ENCOUNTER 2025-06-15 13:02 | Inpatient (IN) | payer MEDICARE, OTHER ==
[~2025-06-15] VITALS: Ht 165.1 cm; Wt 66.6 kg
[2025-06-15 13:30] VITALS: PULSE 76; RESP 13; O2SAT 98
--- NOTE | 2025-06-15 13:40 | ED.PDOC ---
History of Present Illness HPI Comments 70-year-old female BIBA with prior medical history of Anemia (Normocytic, normochromic anemia), Cancer (Metastatic bladder cancer), CVA, Dementia, Gallstones, HTN, PA (NSTEMI II ), UTI'S, FADIA d/t VMN, Bilateral hydronephrosis with left nephrostomy tube, Pulmonary HTN surgical history of IVC filter, Steen catheter and a chief complaint of shortness a breath. EMS report that the patient was picked up at [facility] due from shortness a breath. EMS report that the patient had a possible sepsis and was on doses of antibiotics yesterday. The patient is verbal boot very shallow. Daughter reports that the patient has shallow breathing and was nonverbal today. On scene the patient had a saturation of 98% via NC, BS 110, BP 142/71,HR 72 and has a central line the left inner thigh. Denies any other symptoms at this time. Denies chills, fever, N/V/D, SOB, CP. No other associated symptoms, modifiers, recent injuries or sick contacts present at this time. Chief Complaint: Shortness of Breath Time Seen by MD: 13:30 Reviewed Notes: Nurses Notes, Cotton Farmer Notes, Medications, Allergies Allergies: Coded Allergies: Aspirin (Verified Allergy, Unknown, 05/15/25) Home Meds No Active Prescriptions or Reported Meds Information Source: Emergency Med Personnel Mode of Arrival: EMS Severity: Moderate Timing: Came on: Suddenly Duration: Since onset Prehospital treatment: None Past Medical History PAST MEDICAL HISTORY: Anemia (Normocytic, normochromic anemia), Cancer (Metastatic bladder cancer), CVA, Dementia, Gallstones, HTN, PA (NSTEMI II), UTI'S Past Medical History (Other): FADIA d/t VMN Bilateral hydronephrosis with left nephrostomy tube Pulmonary HTN Surgical History (Other): IVC filter 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 Family History Family History: Reviewed,noncontributory to illness, Unobtainable Social History Smoker: Unobtainable Alcohol: Unobtainable Drugs: Unobtainable Lives In: Assisted Care All Other Systems: Reviewed and Negative (Patient is currently nonverbal) Physical Exam General Appearance: Moderate Distress, Normal HEENT: Normal ENT Inspection, Pharynx Normal, TMs Normal Neck: Full Range of Motion, Non-Tender, Normal, Normal Inspection Respiratory: Chest Non-Tender, Lungs Clear, No Accessory Muscle Use, No Respiratory Distress, Normal Breath Sounds Cardiovascular: No Edema, No JVD, No Murmur, No Gallop, Normal Peripheral Pulses, Regular Rate/Rhythm Breast Exam: Deferred Gastrointestinal: No Organomegaly, Non Tender, No Pulsatile Mass, Normal Bowel Sounds, Soft Genitalia: Deferred Pelvic: Deferred Rectal: Deferred Extremities: No calf tenderness, Normal capillary refill, No pedal edema Musculoskeletal : Apperance: Normal Neurologic: Disoriented Cerebellar Function: NOT DONE Reflexes: NOT DONE Skin: Dry, Normal Color, Warm Peripheral Pulses: 3+ Radial (R), 3+ Radial (L) Lymphatic: No Adenopathy Was a procedure done? Was a procedure done?: No Differential Dx Considerations may include: Metabolic encephalopathy Electrolyte imbalance X-Ray, Labs, Meds, VS Vital Signs Date Time Temp Pulse Resp B/P (MAP) Pulse Ox O2 Delivery O2 Flow Rate FiO2 06/15/25 13:30 76 13 98 Nasal Cannula* 2 28 06/15/25 13:30 98.2 76 13 156/81 (106) 98 98.2 06/15/25 13:12 77 06/15/25 13:11 98.7 79 20 148/75 98 98.7 Lab Test 06/15/25 13:37 Range/Units White Blood Count 11.5 H 4.4-10.8 10^3/uL Red Blood Count 2.91 L 4.0-5.20 10^6/uL Hemoglobin 8.1 L 12.2-16.2 g/dL Hematocrit 27.1 L 36.0-46.0 % Mean Corpuscular Volume 92.9 80.0-100.0 fL Mean Corpuscular Hemoglobin 27.8 L 28.0-32.0 pg Mean Corpuscular Hemoglobin Concent 29.9 L 32.0-36.0 g/dL Red Cell Distribution Width 23.6 H 11.8-14.3 % Platelet Count 186 140-450 10^3/uL Mean Platelet Volume 9.0 6.9-10.8 fL Neutrophils (%) (Auto) 85.6 H 37.0-80.0 % Lymphocytes (%) (Auto) 9.9 L 10.0-50.0 % Monocytes (%) (Auto) 3.7 0.0-12.0 % Eosinophils (%) (Auto) 0.2 0.0-7.0 % Basophils (%) (Auto) 0.6 0.0-2.0 % Neutrophils # (Auto) 9.8 H 1.6-8.6 10 ^3/uL Lymphocytes # (Auto) 1.1 0.4-5.4 10 ^3/uL Monocytes # (Auto) 0.4 0-1.3 10 ^3/uL Eosinophils # (Auto) 0 0-0.8 10 ^3/uL Basophils # (Auto) 0.1 0-0.2 10 ^3/uL Nucleated Red Blood Cells 0.0 % Prothrombin Time 11.6 9.3-11.8 sec Prothrombin Time INR 1.11 0.9-1.15 Activated Partial Thromboplast Time 25.2 24.5-34.5 SEC Sodium Level 153 H 136-145 mmol/L Potassium Level 5.1 3.5-5.1 mmol/L Chloride Level 120 H 98-107 mmol/L Carbon Dioxide Level 21 20-31 mmol/L Anion Gap 12 5-15 Blood Urea Nitrogen 68 H 9-23 mg/dL Creatinine 2.49 H 0.550-1.02 mg/dL Glomerular Filtration Rate Calc 20 >90 mL/min BUN/Creatinine Ratio 27.3 H 10.0-20.0 Serum Glucose 105 74-106 mg/dL Lactic Acid Level 1.0 0.4-2.0 mmol/L Calcium Level 8.6 L 8.7-10.4 mg/dL Total Bilirubin 0.5 0.2-1.0 mg/dL Aspartate Amino Transferase (AST) 31 13-40 U/L Alanine Aminotransferase (ALT) 14 7-40 U/L Alkaline Phosphatase 180 H 46-116 U/L Total Protein 6.7 5.7-8.2 g/dL Albumin 3.3 3.2-4.8 g/dL Current Medications Medications (Trade) Dose Ordered Sig/Raoul Route Start Time Stop Time Status Last Admin Sodium Chloride 1,000 ml @ 1,000 mls/hr Q1H ONCE IV 06/15/25 13:15 06/15/25 14:14 DC 06/15/25 14:41 Sodium Chloride 1,000 ml @ 150 mls/hr Q6H40M ONCE IV 06/15/25 13:15 06/15/25 19:54 06/15/25 16:55 Clindamycin Phosphate 50 ml @ 50 mls/hr ONCE ONCE IV 06/15/25 13:15 06/15/25 14:14 DC 06/15/25 14:30 Patient baseline as per family. Vitals stable. Unable to get history. Blood pressure elevated. Placed on oxygen. Possible sepsis. Sodium is high. Establish intravenous access. Was given fluids pain Was given clindamycin. Continue monitoring. Time of 1ST Reevaluation: 14:00 Reevaluation 1ST: Unchanged Patient Education/Counseling: Pt Unresponsive Family Education/Counseling: No Family Present SEPSIS Sepsis Screen Date sepsis recognized/suspect: Jun 15, 2025 Time Sepsis recognized/suspect: 1313 Recent Procedure: No On Antibiotic Therapy: Yes Respiratory Rate >20: No Heart Rate >90: No Temp<36 C (96.8 F) or >38.3 C: No SBP <90 or MAP <65 mmHG: No New Acute Mental Status Change: No Is the patient on CPAP, BIPAP,: No Physician Orders Urinalysis (06/15/25 13:07) Chest Portable (06/15/25 13:07) Accucheck (06/15/25 13:07) Blood Culture (06/15/25 13:07) Notify Md If Map <65 Or Bp<90 (06/15/25 13:07) If Map<65 Start Vasopressor (06/15/25 13:07) Sepsis Reassesment After Fluid (06/15/25 14:07) Sodium Chloride 0.9% (06/15/25 13:15) Electrocardigram (06/15/25 13:42) Cefepime (Maxipime) (06/15/25 15:00) Vital Signs Date Time Temp Pulse Resp B/P (MAP) Pulse Ox O2 Delivery O2 Flow Rate FiO2 06/15/25 13:30 76 13 98 Nasal Cannula* 2 28 06/15/25 13:30 98.2 76 13 156/81 (106) 98 98.2 06/15/25 13:12 77 06/15/25 13:11 98.7 79 20 148/75 98 98.7 Laboratory Tests Test 06/15/25 13:37 Lactic Acid Level 1.0 mmol/L (0.4-2.0) White Blood Count 11.5 10^3/uL (4.4-10.8) H Medications Medications Dose Ordered Sig/Raoul Route Start Time Stop Time Status Last Admin Dose Admin Clindamycin Phosphate 50 ml @ 50 mls/hr ONCE ONCE IV 06/15/25 13:15 06/15/25 14:14 DC 06/15/25 14:30 Sodium Chloride 1,000 ml @ 150 mls/hr Q6H40M ONCE IV 06/15/25 13:15 06/15/25 19:54 06/15/25 16:55 Sodium Chloride 1,000 ml @ 1,000 mls/hr Q1H ONCE IV 06/15/25 13:15 06/15/25 14:14 DC 06/15/25 14:41 Departure 1 Departure Time of Disposition: 17:43 Impression: Primary Impression: Sepsis, unspecified organism Qualified Codes: A41.9 - Sepsis, unspecified organism Additional Impressions: Hypernatremia Metabolic encephalopathy Disposition: ADMITTED INPATIENT Admit to: Med Surg Condition: Guarded e-Prescriptions No Active Prescriptions or Reported Meds Critical Care Note Critical Care Time?: Yes (90 min-critical care time only) Stability Stability form required: No Heart Score Heart Score: Heart Score Response (Comments) Value History Slightly Suspicious 0 EKG Normal 0 Age >65 2 Risk Factors >3 or Hx ASHD 2 Troponin Normal limit 0 Total 4 I personally scribed for ZOHREH GASTELUM MD ([email or web address]) on 06/15/25 at 13:40. Electronically submitted by Cal Stone ([email or web address]). ZOHREH GASTELUM MD Jun 15, 2025 13:40
[2025-06-15] MEDS ORDERED: CEFEPIME 0.5 GM in D5W 5% 50 ML IV SCH ×2 (14:00→15:00)
[2025-06-15 14:02] LABS: Nucleated Red Blood Cells % 0.0 %
[2025-06-15 14:05] LABS: Hematocrit 27.1 % (36.0-46.0); Hemoglobin 8.1 g/dL (12.2-16.2); Mean Corpuscular Hemoglobin 27.8 pg (28.0-32.0); Mean Corpuscular Volume 92.9 fL (80.0-100.0)
--- NOTE | 2025-06-15 14:14 | DVH ---
EXAM: XY CHEST PORTABLE HISTORY: sob COMPARISON: XY CHEST PORTABLE on DOS: 06/04/25, XY CHEST PORTABLE on DOS: 05/16/25 TECHNIQUE: Portable upright AP view of the chest was performed. FINDINGS: There is new right basilar infiltrate and/or effusion. There is interstitial prominence, greatest norberto trally. No pneumothorax. The heart is borderline enlarged. There is a left chest loop recorder. IMPRESSION: 1. New right basilar infiltrate and effusion which may be due to pneumonia and/or atelectasis. 2. Increased interstitial prominence, greater centrally. This appearance may be due to CHF or reacti ve airways disease.
[2025-06-15 14:20] LABS: Alanine Aminotransferase 14 U/L (7-40); Albumin 3.3 g/dL (3.2-4.8); Anion Gap 12 (5-15); BUN/Creatinine Ratio 27.3 (10.0-20.0); Carbon Dioxide 21 mmol/L (20-31); Glucose 105 mg/dL (74-106); Total Protein 6.7 g/dL (5.7-8.2)
[2025-06-15 14:21] LABS: Alkaline Phosphatase 180 U/L (46-116); Bilirubin, Total 0.5 mg/dL (0.2-1.0); Blood Urea Nitrogen 68 mg/dL (9-23); Calcium 8.6 mg/dL (8.7-10.4); Chloride 120 mmol/L (98-107); INR 1.11 (0.9-1.15); Partial Thromboplastin Time 25.2 SEC (24.5-34.5); Potassium 5.1 mmol/L (3.5-5.1); Prothrombin Time 11.6 sec (9.3-11.8); Sodium 153 mmol/L (136-145)
[2025-06-15] MEDS: CLINDAMYCIN 300MG IV 50 ML IV ONE (14:30)
[2025-06-15] MEDS: SODIUM CHLORIDE 0.9% 1,000 ML IV ONE ×2 (14:41→16:55)
[2025-06-15] MEDS ORDERED: NITROGLYCERIN 0.4 MG SL TAB SL PRN (18:15)
[2025-06-15] MEDS ORDERED: MORPHINE SULFATE 4 MG/ML SYR/VIAL IV PRN (18:15)
[2025-06-15] MEDS: CEFEPIME 0.5 GM in SODIUM CHL 0.9% 50 ML IV SCH (18:59)
--- NOTE | 2025-06-15 20:14 | ECG ---
[facility] Test Date: 2025-06-15 Test Time: 13:12:25 Pat Name: CHAD TREVIZO Department: [facility] ED Patient ID: [facility]-[id number] Room: 0276T Gender: F Senior Report Developer: RUTH : 1955 Requested By: ZOHREH GASTELUM Order Number: [id number] Reading MD: Francois Hernandez Measurements Intervals [place] Rate: 77 P: 74 [place]: 134 QRS: 22 QRSD: 107 T: 139 QT: 419 QTc: 475 Interpretive Statements Sinus rhythm Probable left ventricular hypertrophy Abnrm T, consider ischemia, anterolateral lds Electronically Signed On 06-18-2025 18:41:01 PDT by Francois Hernandez Please click the below link to view image of tracing.
[2025-06-15] MEDS: FUROSEMIDE 100 MG/10ML VIAL IV ONE (20:15)
[2025-06-15 20:24] VITALS: PULSE 85; RESP 20; O2SAT 93
[2025-06-15] MEDS: D5W 5% 1,000 ML IV ONE (21:00)
[2025-06-15 22:35] VITALS: BP 177/90; PULSE 85; RESP 18; TEMP 98.1; O2SAT 93
[2025-06-15 22:58] LABS: Hemoglobin 9.5 g/dL (12.2-16.2); Nucleated Red Blood Cells % 0.1 %
[2025-06-15 23:00] LABS: Hematocrit 31.9 % (36.0-46.0); Mean Corpuscular Hemoglobin 28.4 pg (28.0-32.0); Mean Corpuscular Volume 95.4 fL (80.0-100.0)
--- NOTE | 2025-06-15 23:11 | DVHHPRES ---
History of Present Illness Resident Creating Document: HARVEY HOYOS RESIDENT History of Present Illness Patient is a 70-year-old female with a significant medical history of metastatic bladder cancer, history of CVA, hypertension, status post IVC filter, anemia, dementia, gallstone, chronic kidney disease, bilateral hydronephrosis with left nephrostomy tube was brought to the hospital acute with the patient had worsening shortness of breath. As per the ED physician documentation daughter reported a shallow breathing and was nonverbal today. Patient was noted to have Steen's catheter with the blood in urine seen. Past medical history: metastatic bladder cancer, history of CVA, hypertension, status post IVC filter, anemia, dementia, gallstone, chronic kidney disease Past surgical history: IVC filter, left nephrostomy tube Social history: Patient was brought [facility] the [facility] Review of Systems Review of Systems Patient seen and examined at the bedside Patient is disoriented and, speech uncomprehensible, does not follow commands Allergies: Coded Allergies: Aspirin (Verified Allergy, Unknown, 05/15/25) Medications Current Medications Medications Dose Ordered Sig/Raoul Route Start Time Stop Time Status Last Admin Dose Admin Nitroglycerin 0.4 mg Q5MINP PRN SL 06/15/25 18:15 Morphine Sulfate 2 mg Q30M PRN IV 06/15/25 18:15 Cefepime HCl 0.5 gm/Sodium Chloride 50 ml @ 12.5 mls/hr Q24H IV 06/15/25 19:00 06/15/25 18:59 12.5 MLS/HR Hydralazine HCl 10 mg Q6HP PRN IV 06/15/25 21:00 Furosemide 40 mg BIDD IV 06/16/25 06:00 Exam Vital Signs Vital Signs Date Time Temp Pulse Resp B/P (MAP) Pulse Ox O2 Delivery O2 Flow Rate FiO2 06/15/25 22:35 98.1 85 18 177/90 (119) 93 98.1 06/15/25 20:24 Room Air* 0 21 Exam Gen - no pallor, no icterus, no cyanosis, no clubbing, no LAD, no edema . Skin - Patients skin is warm and dry. HEENT - normocephalic, atraumatic, moist mucous membranes. Neck - full ROM, no LAD, no JVD Pulmonary - B/L equal breath sounds, no crackles, no wheezing, no stridor. cardiovascular - regular S1,S2 heard, no added sounds, no murmurs heard. peripheral pulses normal radial 2+, pedal 2+. capillary refill normal <2 secs. GI - soft, nontender abdomen. no hepatospleenomegaly. Bowel sounds normoactive Neurological - Patient is A/O X 3 . Bilateral upper extremity strength 5/5, bilateral lower extremity strength 5/5, no facial droop, normal speech, no tremor, no sensory deficiets. Labs/Xrays Labs Test 06/15/25 21:25 06/15/25 13:37 Range/Units Eosinophils (%) (Auto) 0.2 0.0-7.0 % Eosinophils # (Auto) 0 0-0.8 10 ^3/uL Basophils # (Auto) 0.1 0-0.2 10 ^3/uL Nucleated Red Blood Cells 0.0 % Prothrombin Time 11.6 9.3-11.8 sec Prothrombin Time INR 1.11 0.9-1.15 Activated Partial Thromboplast Time 25.2 24.5-34.5 SEC Sodium Level 153 H 136-145 mmol/L Potassium Level 5.1 3.5-5.1 mmol/L Chloride Level 120 H 98-107 mmol/L Carbon Dioxide Level 21 20-31 mmol/L Anion Gap 12 5-15 Blood Urea Nitrogen 68 H 9-23 mg/dL Creatinine 2.49 H 0.550-1.02 mg/dL Glomerular Filtration Rate Calc 20 >90 mL/min BUN/Creatinine Ratio 27.3 H 10.0-20.0 Serum Glucose 105 74-106 mg/dL Lactic Acid Level 1.0 0.4-2.0 mmol/L Calcium Level 8.6 L 8.7-10.4 mg/dL Total Bilirubin 0.5 0.2-1.0 mg/dL Aspartate Amino Transferase (AST) 31 13-40 U/L Alanine Aminotransferase (ALT) 14 7-40 U/L Alkaline Phosphatase 180 H 46-116 U/L Total Protein 6.7 5.7-8.2 g/dL Albumin 3.3 3.2-4.8 g/dL SEPSIS Sepsis Screen Date sepsis recognized/suspect: Jun 15, 2025 Time Sepsis recognized/suspect: 2026 Recent Procedure: No On Antibiotic Therapy: Yes Respiratory Rate >20: No Heart Rate >90: No Temp<36 C (96.8 F) or >38.3 C: No SBP <90 or MAP <65 mmHG: No New Acute Mental Status Change: No Is the patient on CPAP, BIPAP,: No Physician Orders Admit (06/15/25 18:04) Nitroglycerin Sublingual (Ntrostat Subli (06/15/25 18:15) Oxygen By Nasal Cannula (06/15/25 18:04) Stat Ekg For Chest Pain (06/15/25 18:04) Notify Md Of Changes From Base (06/15/25 18:04) Employee Adviser For 24 Hours (06/15/25 18:04) Emergency Dysrhythmia Protocol (06/15/25 18:04) Morphine Sulfate Injection (06/15/25 18:15) Cefepime (Maxipime) (06/15/25 19:00) D5w 5% (Dextrose 5%) (06/15/25 21:00) Npo (Nothing By Mouth) Diet (06/16/25 Breakfast) * Swallow Request (06/15/25 20:57) Complete Blood Count (06/15/25 20:57) Covid19 Antigen Krystal (06/15/25 ) Rapid Influenza A&B (06/15/25 20:57) Mrsa Screen (06/15/25 20:57) Respiratory Culture W/ Gs (06/15/25 20:57) Urine Bacterial Culture (06/15/25 20:57) Hydralazine Injection (Apresoline Inject (06/15/25 21:00) Furosemide Injection (Lasix Injection) (06/16/25 06:00) Vital Signs Date Time Temp Pulse Resp B/P (MAP) Pulse Ox O2 Delivery O2 Flow Rate FiO2 06/15/25 22:35 98.1 85 18 177/90 (119) 93 98.1 06/15/25 20:24 85 20 93 Room Air* 0 21 06/15/25 20:15 179/91 06/15/25 20:00 98.4 85 20 179/91 (120) 93 98.4 06/15/25 15:00 82 16 156/86 (109) 98 Laboratory Tests Test 06/15/25 13:37 06/15/25 21:25 Lactic Acid Level 1.0 mmol/L (0.4-2.0) White Blood Count 11.5 10^3/uL (4.4-10.8) H Pending Medications Medications Dose Ordered Sig/Raoul Route Start Time Stop Time Status Last Admin Dose Admin Cefepime HCl 0.5 gm/Sodium Chloride 50 ml @ 12.5 mls/hr Q24H IV 06/15/25 19:00 06/15/25 18:59 12.5 MLS/HR Clindamycin Phosphate 50 ml @ 50 mls/hr ONCE ONCE IV 06/15/25 13:15 06/15/25 14:14 DC 06/15/25 14:30 50 MLS/HR Furosemide 60 mg ONCE ONCE IV 06/15/25 20:15 06/15/25 20:16 DC 06/15/25 20:15 60 MG Sodium Chloride 1,000 ml @ 150 mls/hr Q6H40M ONCE IV 06/15/25 13:15 06/15/25 19:54 DC 06/15/25 16:55 150 MLS/HR Sodium Chloride 1,000 ml @ 1,000 mls/hr Q1H ONCE IV 06/15/25 13:15 06/15/25 14:14 DC 06/15/25 14:41 1,000 MLS/HR Assessment/Plan Assessment/Plan Acute metabolic encephalopathy likely due to sepsis Advanced dementia - currently NPO - swallow request pending Acute hypoxic respiratory failure likely due to pleural effusion Bilateral pulmonary edema Pneumonia likely due to Gram +/- bacteria Right-sided pleural effusion - Lasix 40 mg IV b.i.d. - duo nebs q.6 hours Hypertensive heart disease with uncontrolled hypertension h/o Pulmonary hypertension with a borderline enlarged RV - since the patient is altered, we will do a swallow evaluation until then IV hydralazine 10 mg IV q.6 hours - Lasix 40 b.i.d. History of metastatic bladder cancer FADIA on CKD likely due to VMN History of obstructive uropathy Left nephrostomy tube - Steen's has a red color urine - nephrostomy tubes patent - patient was evaluated by Nephrology in the last admission 10 days ago and they recommended against any type of renal replacement therapy given her age and significant comorbidities and very poor prognosis - monitor in's and out's - renal ultrasound done on 06/05 shows 6.2 X5.6 X6.7 cm mass within the urinary bladder. History of cholelithiasis Hepatic steatosis - seen on right upper quadrant ultrasound done on 05/16 Normocytic hypochromic anemia - monitor H&H - transfusion if hemoglobin less than 7 PUD prophylaxis: Protonix DVT prophylaxis: Held because of bleeding and low hemoglobin Goals of care discussed with the patient's nurse for over 15 minutes. Time spent: 39 minutes Plan discussed with Dr. Crain Plan discussed with: Other (RN) My Orders Orders - HARVEY HOYOS RESIDENT Procedure Category Date Status Time Admit ADMIT 06/15/25 Transmitted 18:04 Nitroglycerin PHA 06/15/25 In Process Sublingual (Ntrostat 18:15 Oxygen By Nasal RT 06/15/25 Transmitted Cannula 18:04 Stat Ekg For Chest KARTHIK 06/15/25 In Process Pain 18:04 Notify Of Changes KARTHIK 06/15/25 In Process From Base 18:04 Employee Adviser For KARTHIK 06/15/25 In Process 24 Hours 18:04 Emergency Dysrhythmia [facility] 06/15/25 In Process Protocol 18:04 Morphine Sulfate PHA 06/15/25 In Process Injection 18:15 D5w 5% (Dextrose 5%) PHA 06/15/25 In Process 21:00 Npo (Nothing By DIET 06/16/25 Transmitted Mouth) Diet Breakfast * Swallow Request ST 06/15/25 Transmitted 20:57 Complete Blood Count LAB 06/15/25 Logged 20:57 Covid19 Antigen Krystal LAB 06/15/25 Logged Rapid Influenza A&B LAB 06/15/25 Logged 20:57 Mrsa Screen JOSE 06/15/25 Uncollected 20:57 Respiratory Culture JOSE 06/15/25 Uncollected W/ Gs 20:57 Urine Bacterial JOSE 06/15/25 Uncollected Culture 20:57 Hydralazine Injection PHA 06/15/25 In Process (Apresoline Inject 21:00 Furosemide Injection PHA 06/16/25 In Process (Lasix Injection) 06:00 Date of Service: Jun 15, 2025 Billing Provider: YADIRA CRAIN MD Common Visit Codes: [id number] INP/OBS CARE (HIGH) Secondary Visit Codes: [id number] CARE PLAN 30 MINUTES HARVEY HOYOS RESIDENT Jun 15, 2025 23:11 YADIRA CRAIN MD Jun 16, 2025 22:53
[2025-06-15] MEDS: hydrALAZINE HCL 20 MG/ML VL IV PRN (23:41)
[2025-06-16] VITALS (9 sets, daily range): BP systolic 150–188; BP diastolic 85–95; PULSE 84–99; RESP 16–20; TEMP 97.7–99.5; O2SAT 92–98
[2025-06-16] MEDS: DOXYCYCLINE 100MG/100ML 100 ML IV SCH (01:57)
[2025-06-16] MEDS: PANTOPRAZOLE 40 MG/10 ML VIAL INJ IV ONE (03:15)
[2025-06-16 04:27] LABS: Urine Budding Yeast MODERATE /hpf (None Seen); Urine Protein, UAD 1+ (Negative); Urine WBC Clumps PRESENT /hpf (None Seen)
[2025-06-16] MEDS: FUROSEMIDE 40 MG/4 ML VIAL IV SCH (05:55)
[2025-06-16 07:35] LABS: Albumin 3.4 g/dL (3.2-4.8); Anion Gap 16 (5-15); BUN/Creatinine Ratio 19.4 (10.0-20.0); Bilirubin, Total 0.7 mg/dL (0.2-1.0); Calcium 8.8 mg/dL (8.7-10.4); Glucose 96 mg/dL (74-106); Potassium 4.7 mmol/L (3.5-5.1); Total Protein 7.1 g/dL (5.7-8.2)
[2025-06-16 07:36] LABS: Alanine Aminotransferase < 9 U/L (7-40); Alkaline Phosphatase 184 U/L (46-116); Blood Urea Nitrogen 49 mg/dL (9-23); Carbon Dioxide 19 mmol/L (20-31); Chloride 120 mmol/L (98-107); Sodium 155 mmol/L (136-145)
[2025-06-16 07:40] LABS: Hematocrit 28.7 % (36.0-46.0); Hemoglobin 9.1 g/dL (12.2-16.2); Mean Corpuscular Hemoglobin 28.8 pg (28.0-32.0); Mean Corpuscular Volume 91.2 fL (80.0-100.0); Nucleated Red Blood Cells % 0.1 %
[2025-06-16] MEDS: PANTOPRAZOLE 40 MG/10 ML VIAL INJ IV SCH (09:08)
[2025-06-16] MEDS: MEROPENEM 500MG IVPB 50 ML IV SCH (09:14)
[2025-06-16] MEDS ORDERED: D5W 5% 1,000 ML IV ONE (09:15)
--- NOTE | 2025-06-16 10:12 | DVH ---
ULTRASOUND CHEST: HISTORY: Right effusion COMPARISON: XY CHEST PORTABLE on DOS: 06/15/25, TECHNIQUE: Multiple grayscale images of bilateral chest were obtained using curved high resolution pr obe. FINDINGS: There are bilateral pleural effusions right greater than left . IMPRESSION: 1. Bilateral pleural effusions.
[2025-06-16] MEDS ORDERED: hydrALAZINE HCL 20 MG/ML VL IV PRN (13:15)
[2025-06-16] MEDS: HYDROmorphone HCL 2 MG/ML VL/or syr IV ONE (13:15)
--- NOTE | 2025-06-16 14:21 | DVHINCON2 ---
Date of service: Jun 16, [address] Angel Reason for Consultation right pleural effusion History of Present Illness 68-year-old woman history of metastatic bladder cancer, CVA, hypertension status post IVC filter, anemia, dementia, gallstones, chronic kidney disease, bilateral hydronephrosis with left nephrostomy tube who was brought into the hospital due to worsening shortness of breath. Chest x-ray demonstrated a moderate right pleural effusion. Family reported that patient had shallow breathing and was nonverbal. Patient was noted to have Steen's catheter with blood in the urine. Pulmonary consultation is called for evaluation of shortness of breath and right pleural effusion. Review of systems: 14 point review of systems is negative unless otherwise noted above. Past medical history: Metastatic bladder cancer, history of CVA, hypertension, status post IVC filter, anemia, dementia, gallstones, chronic kidney disease Past surgical history: IVC filter, left nephrostomy tube Medications: Reviewed Allergies: Aspirin Family history: No family history of premature CAD. No family history of lung disease Social history: Unable to obtain due to patient's dementia. Family History: Patient reports no known family medical history. Allergies: Coded Allergies: Aspirin (Verified Allergy, Unknown, 05/15/25) Home Meds No Active Prescriptions or Reported Meds Current Medications Current Medications Medications (Trade) Dose Ordered Sig/Raoul Route PRN Reason Start Time Stop Time Status Last Admin Cefepime HCl 0.5 gm/Dextrose 50 ml @ 12.5 mls/hr Q24H IV 06/15/25 15:00 06/15/25 18:31 DC Nitroglycerin (Ntrostat Sublingual) 0.4 mg Q5MINP PRN SL FOR CHEST PAIN 06/15/25 18:15 Morphine Sulfate 2 mg Q30M PRN IV FOR CHEST PAIN 06/15/25 18:15 Cefepime HCl 0.5 gm/Sodium Chloride 50 ml @ 12.5 mls/hr Q24H IV 06/15/25 19:00 06/16/25 07:24 DC 06/15/25 18:59 Hydralazine HCl (Apresoline Injection) 10 mg Q6HP PRN IV SBP>160 06/15/25 21:00 06/16/25 13:04 DC 06/16/25 09:07 Furosemide (Lasix Injection) 40 mg BIDD IV 06/16/25 06:00 06/16/25 05:55 Doxycycline Hyclate 100 ml @ 50 mls/hr Q12H IV 06/15/25 23:00 06/16/25 09:19 Pantoprazole Sodium (Protonix) 40 mg DAILY IV 06/16/25 10:00 06/16/25 09:08 Meropenem 50 ml @ 17 mls/hr Q12HR IV 06/16/25 10:00 06/16/25 09:14 Hydralazine HCl (Apresoline Injection) 20 mg Q6HP PRN IV SBP>160 06/16/25 13:15 Hydromorphone HCl (Dilaudid Injection) 0.5 mg Q4HPRN PRN IV SEVERE PAIN (7-10 PAIN SCALE) 06/16/25 13:15 Vital Signs Vital Signs Date Time Temp Pulse Resp B/P (MAP) Pulse Ox O2 Delivery O2 Flow Rate FiO2 06/16/25 12:46 98.3 95 18 176/94 (121) 98 98.3 06/16/25 08:00 Room Air* 0 21 Physical Exam Gen.: Patient lying in bed in no apparent distress. On supplemental oxygen. Head: Normocephalic, atraumatic Eyes: EOMI/PERRLA. Ears: Normal hearing. Normal anatomy. Neck/trachea: Trachea midline, supple. Nose: Normal external anatomy. Mouth: Moist mucous membranes. Chest: Decreased air entry bilaterally. No wheezing or rhonchi. Right base crackles. Cardio vascular: Positive S1, positive S2. Regular rate and rhythm. Abdomen: Positive bowel sounds in all 4 quadrants. Soft, non-tender, non- distended. : Deferred. Rectal: Deferred Skin: Warm, dry. Extremities: 2+ radial pulses bilaterally. No lower extremity edema. Neuro: Awake, alert , not oriented. No gross motor or sensory deficits. Cranial nerves II through XII intact. Gait not assessed. Labs/Diagnostic Data Labs Test 06/16/25 10:06/16/25 06:36 06/16/25 03:30 06/15/25 23:38 Range/Units Lactic Acid Level 1.7 0.4-2.0 mmol/L White Blood Count 9.9 4.4-10.8 10^3/uL Red Blood Count 3.15 L 4.0-5.20 10^6/uL Hemoglobin 9.1 L 12.2-16.2 g/dL Hematocrit 28.7 #L 36.0-46.0 % Mean Corpuscular Volume 91.2 # 80.0-100.0 fL Mean Corpuscular Hemoglobin 28.8 28.0-32.0 pg Mean Corpuscular Hemoglobin Concent 31.6 L 32.0-36.0 g/dL Red Cell Distribution Width 23.0 H 11.8-14.3 % Platelet Count 194 140-450 10^3/uL Mean Platelet Volume 9.1 6.9-10.8 fL Neutrophils (%) (Auto) 85.6 H 37.0-80.0 % Lymphocytes (%) (Auto) 9.7 L 10.0-50.0 % Monocytes (%) (Auto) 3.7 0.0-12.0 % Eosinophils (%) (Auto) 0.2 0.0-7.0 % Basophils (%) (Auto) 0.8 0.0-2.0 % Neutrophils # (Auto) 8.5 1.6-8.6 10 ^3/uL Lymphocytes # (Auto) 1.0 0.4-5.4 10 ^3/uL Monocytes # (Auto) 0.4 0-1.3 10 ^3/uL Eosinophils # (Auto) 0 0-0.8 10 ^3/uL Basophils # (Auto) 0.1 0-0.2 10 ^3/uL Nucleated Red Blood Cells 0.1 % Sodium Level 155 H 136-145 mmol/L Potassium Level 4.7 3.5-5.1 mmol/L Chloride Level 120 H 98-107 mmol/L Carbon Dioxide Level 19 L 20-31 mmol/L Anion Gap 16 H 5-15 Blood Urea Nitrogen 49 #H 9-23 mg/dL Creatinine 2.53 H 0.550-1.02 mg/dL Glomerular Filtration Rate Calc 20 >90 mL/min BUN/Creatinine Ratio 19.4 10.0-20.0 Serum Glucose 96 74-106 mg/dL Calcium Level 8.8 8.7-10.4 mg/dL Total Bilirubin 0.7 0.2-1.0 mg/dL Aspartate Amino Transferase (AST) 33 13-40 U/L Alanine Aminotransferase (ALT) < 9 7-40 U/L Alkaline Phosphatase 184 H 46-116 U/L Total Protein 7.1 5.7-8.2 g/dL Albumin 3.4 3.2-4.8 g/dL Urine Color Colorless Yellow Urine Clarity Ex.turbid Clear Urine pH 5.5 5.0-9.0 Urine Specific [place] 1.011 1.001-1.035 Urine Protein 1+ H Negative Urine Ketones Negative Negative Urine Blood 3+ H Negative /uL Urine Nitrite Negative Negative Urine Bilirubin Negative Negative Urine Urobilinogen Normal Negative mg/dL Urine Leukocyte Esterase 3+ Negative /uL Urine RBC 2590 0 - 4 /hpf Urine WBC Clumps Present None Seen /hpf Urine Microscopic WBC 629 H 0-5 /HPF Urine Squamous Epithelial Cells Few <5 /hpf Urine Bacteria None seen None Seen /hpf Urine Yeast (Budding) Moderate None Seen /hpf Urine Glucose Normal Normal mg/dL Platelet Estimate Adequate Test 06/15/25 13:37 Range/Units Prothrombin Time 11.6 9.3-11.8 sec Prothrombin Time INR 1.11 0.9-1.15 Activated Partial Thromboplast Time 25.2 24.5-34.5 SEC Microbiology Date/Time Source Procedure Growth Status 06/16/25 03:00 Nose MRSA Screen - Final Complete 06/15/25 13:37 Blood Blood Culture - Preliminary NO GROWTH AFTER 24 HOURS OF INCUBATION. Resulted Assessment Impression: Acute metabolic encephalopathy likely due to sepsis Sepsis Advanced dementia Acute hypoxic respiratory failure secondary to right pleural effusion Pleural effusion Atelectasis Bilateral pulmonary edema Pneumonia likely Gram-negative versus Gram-positive cocci Pulmonary hypertension Metastatic bladder cancer Acute on chronic kidney disease Status post left nephrostomy tube Plan: Chest x-ray imaging report reviewed. New right basilar opacities and effusion. Pneumonia versus atelectasis. Increased interstitial pulmonary vascular congestion. Chest ultrasound demonstrates bilateral pleural effusions, right greater than le ft. Limited chest ultrasound was performed at the bedside. Moderate right pleural effusion. Obtain consent for right thoracentesis. Tapered off supplemental oxygen Currently on room air. Continue antibiotics Follow up cultures Diuresis euvolemia. On Lasix twice daily. Monitor ins and outs. Monitor renal function. Monitor electrolytes. Supplement as necessary. GI prophylaxis-Protonix Prognosis: Poor given multiple comorbidities. Rest of plan per hospitalist and other consultants. Thank you Dr. Angel for allowing me to participate in this patient's care. Further recommendations will depend on patient's clinical course. Please do not hesitate to contact me if you have any questions or concerns. This medical document was created using an electronic medical record system with [employer] dictation system. Although this document has been carefully reviewed, there may still be some phonetic and typographical errors. These areas are purely typographical due to imperfections of the software programs, and do not reflect any compromise in the patient's medical care. Plan discussed with: Other (MD Dr Macario Mckennaajorge/Dr Lucero Crain) Visit Coding Pulmonary Billing Provider: ARIANA LEMOS MD Date of Service if different f: Jun 16, 2025 Common Visit Codes: [id number] INP/OBS CARE (HIGH) ARIANA LEMOS MD Jun 16, 2025 14:21
[2025-06-16] MEDS: hydrALAZINE HCL 20 MG/ML VL IV ONE (14:37)
--- NOTE | 2025-06-16 17:48 | DVHPNRES ---
Progress Note Date Seen: Jun 16, 2025 Resident Creating Document: BARAK THOMPSON Medical Necessity Reason Pt with a Central, PICC or Fol: Yes The following are medically ne: Steen Catheter Subjective Review of Systems Patient is a 70-year-old female with past medical history of metastatic bladder cancer, CVA, hypertension, anemia, dementia, gallstones, ID, UTI, and FADIA, presented to [facility] ED with complaint of worsening shortness of breath. According to the ED physician's documentation, the patient's daughter reported shallow breathing and noted that the patient was nonverbal today. The patient was observed to be aphasic and non-verbal. Blood pressure was elevated at 179/91, and order for Lasix 60 mg was administered. A Steen catheter was in place with blood noted in the urine earlier; however, urine appeared clear today. Midline access was established in the left upper thigh. MRSA swab and urine sample were sent to the lab for analysis. Past medical history: metastatic bladder cancer, cerebrovascular accident (CVA), hypertension, anemia, dementia, gallstones, chronic kidney disease, bilateral hydronephrosis Past surgical history: status post IVC filter placement, left nephrostomy tube Allergies: Aspirin Review of Systems Patient seen and examined at the bedside Patient is disoriented and, speech uncomprehensible, does not follow commands Objective vital signs Vital Sign Date Time Temp Pulse Resp B/P (MAP) Pulse Ox O2 Delivery O2 Flow Rate FiO2 06/16/25 17:13 166/85 06/16/25 16:57 98.2 99 18 97 98.2 06/16/25 08:00 Room Air* 0 21 Total Intake and Output 06/15/25 06/15/25 06/16/25 15:00 23:00 07:00 Intake Total 0 ml Output Total 650 ml Balance -650 ml medications Current Medications Medications Dose Ordered Sig/Raoul Route Start Time Stop Time Status Last Admin Dose Admin Nitroglycerin 0.4 mg Q5MINP PRN SL 06/15/25 18:15 Morphine Sulfate 2 mg Q30M PRN IV 06/15/25 18:15 Furosemide 40 mg BIDD IV 06/16/25 06:00 06/16/25 17:13 40 MG Doxycycline Hyclate 100 ml @ 50 mls/hr Q12H IV 06/15/25 23:00 06/16/25 09:19 50 MLS/HR Pantoprazole Sodium 40 mg DAILY IV 06/16/25 10:00 06/16/25 09:08 40 MG Meropenem 50 ml @ 17 mls/hr Q12HR IV 06/16/25 10:00 06/16/25 09:14 17 MLS/HR Hydralazine HCl 20 mg Q6HP PRN IV 06/16/25 13:15 Hydromorphone HCl 0.5 mg Q4HPRN PRN IV 06/16/25 13:15 Examination General Appearance: no pallor, no icterus, no cyanosis, no clubbing, no LAD, no edema . Head Exam: Normal inspection Neck Exam: Normal inspection. Non-tender. Normal alignment Pulmonary/Respiratory: Chest non-tender. Clear bilateral breath sounds, no crackles, no wheezing. Cardiovascular/Chest: Regular rate and rhythm. No murmurs. No JVD. Peripheral Pulses: 2+ Radial (R). 2+ Radial (L). 2+ Pedal (R). 2+ Pedal (L) Abdominal Exam: Normal bowel sounds. Soft. normal abdomen, no visible veins, Nontender. No hepatospenomegaly. No masses Ankle Exam: Negative ankle edema Lower extremities: Negative lower extremity edema Neuro/Mental Status: A&O x0. Thoughts/Psych: Normal thought pattern. Appropriate mood and affect. Skin Exam: Normal inspection. Normal color. Warm. Dry laboratory and microbiology Laboratory Tests 06/16/25 06:36 Test 06/16/25 06:36 Range/Units Serum Glucose 96 74-106 mg/dL Microbiology Date/Time Source Procedure Growth Status 06/16/25 03:00 Nose MRSA Screen - Final Complete 06/15/25 13:37 Blood Blood Culture - Preliminary NO GROWTH AFTER 24 HOURS OF INCUBATION. Resulted Labs and/or images reviewed: Labs reviewed by me, Image(s) reviewed by me Problem List/Assessment/Plan Problem List/Assessment/Plan Acute metabolic encephalopathy likely due to sepsis Advanced dementia - currently NPO - swallow request pending Acute hypoxic respiratory failure likely due to pleural effusion Bilateral pulmonary edema Pneumonia likely due to Gram +/- bacteria Right-sided pleural effusion - Chest US: Bilateral pleural effusions. - Chest X-ray: New right basilar infiltrate and effusion which may be due to pneumonia and/or atelectasis. Increased interstitial prominence, greater centrally. This appearance may be due to CHF or reactive airways disease. - Lasix 40 mg IV b.i.d. - duo nebs q.6 hours - tribal delegate on board - Doxycycline 100 ml - Meropenem 50 ml Hypertensive heart disease with uncontrolled hypertension h/o Pulmonary hypertension with a borderline enlarged RV - EKG: Sinus rhythm. Probable left ventricular hypertrophy Abnormal T, consider ischemia, anterolateral lds - since the patient is altered, we will do a swallow evaluation until then IV hydralazine 10 mg IV q.6 hours - Lasix 40 b.i.d. - Hydralazine 20 mg History of metastatic bladder cancer FADIA on CKD likely due to VMN History of obstructive uropathy Left nephrostomy tube - Steen's has a red color urine - nephrostomy tubes patent - patient was evaluated by Nephrology in the last admission 10 days ago and they recommended against any type of renal replacement therapy given her age and significant comorbidities and very poor prognosis - monitor in's and out's - renal ultrasound done on 06/05 shows 6.2 X5.6 X6.7 cm mass within the urinary bladder. History of cholelithiasis Hepatic steatosis - seen on right upper quadrant ultrasound done on 05/16 Normocytic hypochromic anemia - monitor H&H - transfusion if hemoglobin less than 7 Diet: NPO PUD prophylaxis: Protonix DVT prophylaxis: Held because of bleeding and low hemoglobin Goals of care: Full code, discussed for >16 minutes on 06/16/25 Plan discussed with patient Plan discussed with Dr. Crain Plan discussed with: Other (RN) Date of Service: Jun 16, 2025 Billing Provider: YADIRA CRAIN MD Common Visit Codes: [id number] INP/OBS CARE(HIGH) BARAK THOMPSON RESIDENT Jun 16, 2025 17:48 YADIRA CRAIN MD Jun 16, 2025 22:52
[2025-06-17] VITALS (8 sets, daily range): BP systolic 154–180; BP diastolic 84–106; PULSE 85–99; RESP 15–20; TEMP 97.3–98.8; O2SAT 94–98
[2025-06-17 07:50] LABS: Hematocrit 29.0 % (36.0-46.0); Hemoglobin 9.1 g/dL (12.2-16.2); Mean Corpuscular Hemoglobin 28.5 pg (28.0-32.0); Mean Corpuscular Volume 90.8 fL (80.0-100.0); Nucleated Red Blood Cells % 0.1 %
[2025-06-17 07:59] LABS: Potassium 4.5 mmol/L (3.5-5.1)
[2025-06-17 08:00] LABS: Anion Gap 17 (5-15); Calcium 8.9 mg/dL (8.7-10.4)
[2025-06-17 08:01] LABS: Carbon Dioxide 20 mmol/L (20-31); Chloride 120 mmol/L (98-107); Sodium 157 mmol/L (136-145)
[2025-06-17 08:05] LABS: BUN/Creatinine Ratio 22.9 (10.0-20.0); Glucose 95 mg/dL (74-106)
[2025-06-17 08:07] LABS: Blood Urea Nitrogen 57 mg/dL (9-23)
--- NOTE | 2025-06-17 10:45 | DVHPN2 ---
Subjective [facility] DOS: 06/17/2025 Patient seen and examined at bedside. Breathing comfortably on room air. Overnight events reviewed. Changes from previous H/P or p: No Changes Objective Vitals Vital Signs Date Time Temp Pulse Resp B/P (MAP) Pulse Ox O2 Delivery O2 Flow Rate FiO2 06/17/25 09:00 97.6 98 18 159/106 (123) 96 97.6 06/16/25 20:00 Room Air* 0 21 Intake/Output Intake and Output 06/17/25 07:00 Intake Total 0 ml Output Total 1025 ml Balance -1025 ml Intake Oral 0 ml Output Urine Total 1025 ml # Bowel Movements 1 Exam Gen.: Patient lying in bed in no apparent distress. Breathing on room air. Head: Normocephalic, atraumatic. Eyes: EOMI/PERRLA. Ears: Normal hearing. Normal anatomy. Neck/trachea: Trachea midline, supple. Nose: Normal external anatomy. Mouth: Moist mucous membranes. Chest: Decreased air entry bilaterally. No wheezing or rhonchi. Right base crackles. Cardiovascular: Positive S1, positive S2. Regular rate and rhythm. Abdomen: Positive bowel sounds in all 4 quadrants. Soft, non-tender, non- distended. : Deferred. Rectal: Deferred. Skin: Warm, dry. Intact. Extremities: 2+ radial pulses bilaterally. No lower extremity edema. Neuro: Awake, alert, oriented x3. No gross motor or sensory deficits. Cranial nerves II through XII intact. Gait not assessed. Medications Current Medications Medications Dose Ordered Sig/Raoul Route Start Time Stop Time Status Last Admin Dose Admin Nitroglycerin 0.4 mg Q5MINP PRN SL 06/15/25 18:15 Morphine Sulfate 2 mg Q30M PRN IV 06/15/25 18:15 Furosemide 40 mg BIDD IV 06/16/25 06:00 06/17/25 05:06 40 MG Doxycycline Hyclate 100 ml @ 50 mls/hr Q12H IV 06/15/25 23:00 06/17/25 09:35 50 MLS/HR Pantoprazole Sodium 40 mg DAILY IV 06/16/25 10:00 06/17/25 09:34 40 MG Meropenem 50 ml @ 17 mls/hr Q12HR IV 06/16/25 10:00 06/17/25 09:34 17 MLS/HR Hydromorphone HCl 0.5 mg Q4HPRN PRN IV 06/16/25 13:15 Labetalol HCl 10 mg Q6HPRN PRN IV 06/16/25 23:30 Laboratory Results Laboratory Tests 06/17/25 06:35 Chemistry Test 06/17/25 06:35 Calcium Level 8.9 mg/dL (8.7-10.4) Urinalysis Test 06/16/25 03:30 Urine Color Colorless (Yellow) Urine Clarity Ex.turbid (Clear) Urine pH 5.5 (5.0-9.0) Urine Specific [place] 1.011 (1.001-1.035) Urine Protein 1+ (Negative) H Urine Ketones Negative (Negative) Urine Blood 3+ /uL (Negative) H Urine Nitrite Negative (Negative) Urine Bilirubin Negative (Negative) Urine Urobilinogen Normal mg/dL (Negative) Urine Leukocyte Esterase 3+ /uL (Negative) Urine RBC 2590 /hpf (0 - 4) Urine WBC Clumps Present /hpf (None Seen) Urine Microscopic WBC 629 /HPF (0-5) H Urine Squamous Epithelial Cells Few /hpf (<5) Urine Bacteria None seen /hpf (None Seen) Urine Yeast (Budding) Moderate /hpf (None Seen) Urine Glucose Normal mg/dL (Normal) Microbiology Microbiology Date/Time Source Procedure Growth Status 06/16/25 03:00 Nose MRSA Screen - Final Complete 06/15/25 13:37 Blood Blood Culture - Preliminary NO GROWTH AFTER 24 HOURS OF INCUBATION. Resulted Assessment/Plan Assessment/Plan Impression: Acute metabolic encephalopathy likely due to sepsis Sepsis Advanced dementia Acute hypoxic respiratory failure secondary to right pleural effusion Pleural effusion Atelectasis Bilateral pulmonary edema Pneumonia likely Gram-negative versus Gram-positive cocci Pulmonary hypertension Metastatic bladder cancer Acute on chronic kidney disease Status post left nephrostomy tube Events: Breathing on room air Supplemental oxygen PRN Continue diuresis with Lasix Monitor renal function. Monitor electrolytes. Supplement as necessary. Continue IV antibiotics Incentive spirometry Protonix for GI prophylaxis Labs and imaging reviewed. Rest of plan as noted below. Plan: Chest x-ray imaging report reviewed. New right basilar opacities and effusion. Pneumonia versus atelectasis. Increased interstitial pulmonary vascular congestion. Chest ultrasound demonstrates bilateral pleural effusions, right greater than left. Limited chest ultrasound was performed at the bedside. Moderate right pleural effusion. Obtain consent for right thoracentesis. Supplemental oxygen PRN Titrate to keep O2 sats above 92%. Continue antibiotics Follow up cultures Diurese to euvolemia. On Lasix twice daily. Monitor ins and outs. Monitor renal function. Monitor electrolytes. Supplement as necessary. GI prophylaxis-Protonix Prognosis: Poor given multiple comorbidities. Rest of plan per hospitalist and other consultants. Thank you Dr. Angel for allowing me to participate in this patient's care. Further recommendations will depend on patient's clinical course. Please do not hesitate to contact me if you have any questions or concerns. This medical document was created using an electronic medical record system with [employer] dictation system. Although this document has been carefully reviewed, there may still be some phonetic and typographical errors. These areas are purely typographical due to imperfections of the software programs, and do not reflect any compromise in the patient's medical care. Plan discussed with: Patient, Other (RAJESH Farr) My Orders Orders - ARIANA LEMOS MD Procedure Category Date Status Time Obtain Consent For: ORDERS 06/16/25 Transmitted 14:18 Obtain Consent For KARTHIK 06/16/25 In Process Anesthesia 14:18 Body Fluid Culture W/ JOSE 06/16/25 Logged GS 14:18 Body Fluid Ph LAB 06/16/25 Logged 14:18 Body Fluids, Diff. LAB 06/16/25 Logged Cell Count 14:18 Glucose Body Fluid LAB 06/16/25 Logged 14:18 Protein, Body Fluid LAB 06/16/25 Logged 14:18 Lactate LAB 06/16/25 Logged Dehydrogenase, Fluid 14:18 Visit Coding Pulmonary Billing Provider: ARIANA LEMOS MD Date of Service if different f: Jun 17, 2025 Common Visit Codes: [id number] INP/OBS CARE(HIGH) ARIANA LEMOS MD Jun 17, 2025 10:45
[2025-06-17] MEDS: LABETALOL HCL 20 MG/4 ML VL IV PRN (12:23)
[2025-06-17] MEDS: D5W 5% 1,000 ML IV SCH (13:30)
--- NOTE | 2025-06-17 15:17 | DVHPNRES ---
Progress Note Date Seen: Jun 17, 2025 Resident Creating Document: BARAK THOMPSON Medical Necessity Reason Pt with a Central, PICC or Fol: Yes The following are medically ne: Steen Catheter Subjective Review of Systems Patient is a 70-year-old female with past medical history of metastatic bladder cancer, CVA, hypertension, anemia, dementia, gallstones, OR, UTI, and FADIA, presented to [facility] ED with complaint of worsening shortness of breath. According to the ED physician's documentation, the patient's daughter reported shallow breathing and noted that the patient was nonverbal today. The patient was observed to be aphasic and non-verbal. Blood pressure was elevated at 179/91, and order for Lasix 60 mg was administered. A Steen catheter was in place with blood noted in the urine earlier; however, urine appeared clear today. Midline access was established in the left upper thigh. MRSA swab and urine sample were sent to the lab for analysis. 06/17: Patient was seen and examined at bedside. Overnight events were reviewed. Chest X-ray and ultrasound imaging have been reviewed. Findings include new right basilar opacities and effusion, increased interstitial pulmonary vascular congestion, and bilateral pleural effusions, with the right side being more prominent. A limited bedside chest ultrasound confirmed a moderate right pleural effusion. Swallow evaluation is to be completed. Objective vital signs Vital Sign Date Time Temp Pulse Resp B/P (MAP) Pulse Ox O2 Delivery O2 Flow Rate FiO2 06/17/25 13:00 97.7 97 17 154/96 (115) 98 97.7 06/17/25 08:00 Room Air* 0 21 Total Intake and Output 06/16/25 06/16/25 06/17/25 15:00 23:00 07:00 Intake Total 0 ml 0 ml Output Total 600 ml 425 ml Balance -600 ml -425 ml medications Current Medications Medications Dose Ordered Sig/Raoul Route Start Time Stop Time Status Last Admin Dose Admin Nitroglycerin 0.4 mg Q5MINP PRN SL 06/15/25 18:15 Morphine Sulfate 2 mg Q30M PRN IV 06/15/25 18:15 Furosemide 40 mg BIDD IV 06/16/25 06:00 06/17/25 05:06 40 MG Doxycycline Hyclate 100 ml @ 50 mls/hr Q12H IV 06/15/25 23:00 06/17/25 09:35 50 MLS/HR Pantoprazole Sodium 40 mg DAILY IV 06/16/25 10:00 06/17/25 09:34 40 MG Meropenem 50 ml @ 17 mls/hr Q12HR IV 06/16/25 10:00 06/17/25 09:34 17 MLS/HR Hydromorphone HCl 0.5 mg Q4HPRN PRN IV 06/16/25 13:15 Labetalol HCl 10 mg Q6HPRN PRN IV 06/16/25 23:30 06/17/25 12:23 10 MG Dextrose 1,000 ml @ 125 mls/hr Q8H IV 06/17/25 13:30 06/17/25 13:30 125 MLS/HR Examination General Appearance: no pallor, no icterus, no cyanosis, no clubbing, no LAD, no edema . Head Exam: Normal inspection Neck Exam: Normal inspection. Non-tender. Normal alignment Pulmonary/Respiratory: Chest non-tender. Clear bilateral breath sounds, no crackles, no wheezing. Cardiovascular/Chest: Regular rate and rhythm. No murmurs. No JVD. Peripheral Pulses: 2+ Radial (R). 2+ Radial (L). 2+ Pedal (R). 2+ Pedal (L) Abdominal Exam: Normal bowel sounds. Soft. normal abdomen, no visible veins, Nontender. No hepatospenomegaly. No masses Ankle Exam: Negative ankle edema Lower extremities: Negative lower extremity edema Neuro/Mental Status: A&O x0. Thoughts/Psych: Normal thought pattern. Appropriate mood and affect. Skin Exam: Normal inspection. Normal color. Warm. Dry laboratory and microbiology Laboratory Tests 06/17/25 06:35 Test 06/17/25 06:35 Range/Units Serum Glucose 95 74-106 mg/dL Microbiology Date/Time Source Procedure Growth Status 06/16/25 03:30 Urine - Steen Port Urine Culture - Preliminary Resulted 06/16/25 03:00 Nose MRSA Screen - Final Complete 06/15/25 13:37 Blood Blood Culture - Preliminary NO GROWTH AFTER 48 HOURS OF INCUBATION. Resulted Labs and/or images reviewed: Labs reviewed by me, Image(s) reviewed by me Problem List/Assessment/Plan Problem List/Assessment/Plan Acute metabolic encephalopathy likely due to sepsis Advanced dementia - currently NPO - swallow request pending Acute hypoxic respiratory failure likely due to pleural effusion Bilateral pulmonary edema Pneumonia likely due to Gram +/- bacteria Right-sided pleural effusion - Chest US: Bilateral pleural effusions. - Chest X-ray: New right basilar infiltrate and effusion which may be due to pneumonia and/or atelectasis. Increased interstitial prominence, greater centrally. This appearance may be due to CHF or reactive airways disease. - Lasix 40 mg IV b.i.d. - duo nebs q.6 hours - county director welfare on board - Doxycycline 100 ml - Meropenem 50 ml Hypertensive heart disease with uncontrolled hypertension h/o Pulmonary hypertension with a borderline enlarged RV - EKG: Sinus rhythm. Probable left ventricular hypertrophy Abnormal T, consider ischemia, anterolateral lds - since the patient is altered, we will do a swallow evaluation until then IV hydralazine 10 mg IV q.6 hours - Lasix 40 b.i.d. - Hydralazine 20 mg History of metastatic bladder cancer FADIA on CKD likely due to VMN History of obstructive uropathy Left nephrostomy tube - Steen's has a red color urine - nephrostomy tubes patent - patient was evaluated by Nephrology in the last admission 10 days ago and they recommended against any type of renal replacement therapy given her age and significant comorbidities and very poor prognosis - monitor in's and out's - renal ultrasound done on 06/05 shows 6.2 X5.6 X6.7 cm mass within the urinary bladder. History of cholelithiasis Hepatic steatosis - seen on right upper quadrant ultrasound done on 05/16 Normocytic hypochromic anemia - monitor H&H - transfusion if hemoglobin less than 7 Diet: NPO PUD prophylaxis: Protonix DVT prophylaxis: Held because of bleeding and low hemoglobin Goals of care: Full code, discussed for >16 minutes on 06/17/25 Plan discussed with patient Plan discussed with Dr. Crain Plan discussed with: Daughter Date of Service: Jun 17, 2025 Billing Provider: YADIRA CRAIN MD Common Visit Codes: [id number] INP/OBS CARE(HIGH) BARAK THOMPSON RESIDENT Jun 17, 2025 15:17 YADIRA CRAIN MD Jun 17, 2025 23:51
[2025-06-18] VITALS (9 sets, daily range): BP systolic 136–161; BP diastolic 82–92; PULSE 75–100; RESP 17–19; TEMP 97.6–99.2; O2SAT 93–100
[2025-06-18 05:06] LABS: Hemoglobin 7.8 g/dL (12.2-16.2)
[2025-06-18 05:08] LABS: Hematocrit 24.5 % (36.0-46.0); Mean Corpuscular Hemoglobin 28.8 pg (28.0-32.0); Mean Corpuscular Volume 90.5 fL (80.0-100.0); Nucleated Red Blood Cells % 0.2 %
[2025-06-18 05:23] LABS: Potassium 4.3 mmol/L (3.5-5.1)
[2025-06-18 05:24] LABS: Anion Gap 15 (5-15); Carbon Dioxide 21 mmol/L (20-31); Chloride 120 mmol/L (98-107); Sodium 156 mmol/L (136-145)
[2025-06-18 05:27] LABS: Calcium 8.6 mg/dL (8.7-10.4)
[2025-06-18 05:29] LABS: BUN/Creatinine Ratio 21.1 (10.0-20.0); Glucose 103 mg/dL (74-106)
[2025-06-18 05:32] LABS: Blood Urea Nitrogen 52 mg/dL (9-23)
[2025-06-18] MEDS: HYDROmorphone HCL 2 MG/ML VL/or syr IV PRN (10:26)
--- NOTE | 2025-06-18 10:55 | DVH ---
EXAM DESCRIPTION: Chest 1 View CLINICAL HISTORY: pleural eff COMPARISON: US CHEST ULTRASOUND on DOS: 06/16/25, XY CHEST PORTABLE on DOS: 06/15/25, XY CHEST PORTAB LE on DOS: 06/04/25, XY CHEST PORTABLE on DOS: 05/16/25 FINDINGS and IMPRESSION: Lines, tubes, and support devices: Loop recorder in the left chest wall. Lungs / Pleura: No consolidation. No pleural effusion. No pneumothorax. Mediastinum: Normal cardiomediastinal silhouette. Osseous structures / Soft tissues: No acute findings.
[2025-06-18 11:12] LABS: Iron 20.0 ug/dL (50-170)
[2025-06-18 11:16] LABS: Total Iron Binding Capacity 213.0 ug/dL (250-425)
[2025-06-18] MEDS ORDERED: CLINIMIX PER PHARMACY 0 ML IV SCH (12:30)
[2025-06-18] MEDS: FLUCONAZOLE 200MG/100ML 100 ML IV ONE (13:15)
--- NOTE | 2025-06-18 15:22 | DVHPN2 ---
Progress Note - Dictate Date Seen: Jun 18, 2025 Medical Necessity Reason Pt with a Central, PICC or Fol: Yes The following are medically ne: Steen Catheter vital signs Vital Sign Date Time Temp Pulse Resp B/P (MAP) Pulse Ox O2 Delivery O2 Flow Rate FiO2 06/18/25 13:33 97.6 88 18 146/84 (104) 99 97.6 06/18/25 08:00 Room Air* 0 21 Total Intake and Output 06/17/25 06/17/25 06/18/25 15:00 23:00 07:00 Intake Total 0 ml 0 ml Output Total 350 ml 350 ml Balance -350 ml -350 ml medications Current Medications Medications Dose Ordered Sig/Raoul Route Start Time Stop Time Status Last Admin Dose Admin Nitroglycerin 0.4 mg Q5MINP PRN SL 06/15/25 18:15 Morphine Sulfate 2 mg Q30M PRN IV 06/15/25 18:15 Furosemide 40 mg BIDD IV 06/16/25 06:00 06/18/25 05:20 40 MG Pantoprazole Sodium 40 mg DAILY IV 06/16/25 10:00 06/18/25 08:35 40 MG Meropenem 50 ml @ 17 mls/hr Q12HR IV 06/16/25 10:00 06/18/25 10:25 17 MLS/HR Hydromorphone HCl 0.5 mg Q4HPRN PRN IV 06/16/25 13:15 06/18/25 10:26 0.5 MG Labetalol HCl 10 mg Q6HPRN PRN IV 06/16/25 23:30 06/17/25 21:10 10 MG Dextrose 1,000 ml @ 125 mls/hr Q8H IV 06/17/25 13:30 06/18/25 08:46 125 MLS/HR Iron Sucrose 110 ml @ 110 mls/hr DAILY@1200 IV 06/19/25 12:00 06/23/25 12:59 Fluconazole 100 ml @ 100 mls/hr DAILY IV 06/19/25 10:00 Future Hold Amino Acids 0 ml @ 0 mls/hr PER PHARMACY IV 06/18/25 12:30 UNV laboratory and microbiology Laboratory Tests 06/18/25 04:12 Test 06/18/25 04:12 Range/Units Serum Glucose 103 74-106 mg/dL Assessment/Plan Impression Acute hypoxemic respiratory failure Pulmonary hypertension Pulmonary edema Pleural effusions Pneumonia Patient seen and examined Events Low oxygen requirements On 3 liters nasal cannula No acute events Labs and imaging reviewed Management Supplemental oxygen Titrate to maintain sats 90% or above Incentive spirometry Continue antibiotics F/u cultures Bronchodilators Monitor renal function Monitor electrolytes Supplement as needed DVT prophylaxis Plan discussed with: Patient JOE LOPEZ MD Jun 18, 2025 15:22
--- NOTE | 2025-06-18 15:45 | DVHPNRES ---
Progress Note Date Seen: Jun 18, 2025 Resident Creating Document: BARAK THOMPSON Medical Necessity Reason Pt with a Central, PICC or Fol: Yes The following are medically ne: Steen Catheter Subjective Review of Systems Patient is a 70-year-old female with past medical history of metastatic bladder cancer, CVA, hypertension, anemia, dementia, gallstones, NH, UTI, and FADIA, presented to [facility] ED with complaint of worsening shortness of breath. According to the ED physician's documentation, the patient's daughter reported shallow breathing and noted that the patient was nonverbal today. The patient was observed to be aphasic and non-verbal. Blood pressure was elevated at 179/91, and order for Lasix 60 mg was administered. A Steen catheter was in place with blood noted in the urine earlier; however, urine appeared clear today. Midline access was established in the left upper thigh. MRSA swab and urine sample were sent to the lab for analysis. 06/17: Patient was seen and examined at bedside. Overnight events were reviewed. Chest X-ray and ultrasound imaging have been reviewed. Findings include new right basilar opacities and effusion, increased interstitial pulmonary vascular congestion, and bilateral pleural effusions, with the right side being more prominent. A limited bedside chest ultrasound confirmed a moderate right pleural effusion. Swallow evaluation is to be completed. 06/18: Patient was seen and examined at bedside. No signs or symptoms of distress, shortness of breath, or pain were noted. Overnight events were reviewed. Patients daughter verified identity and requested hospice services with [facility]. Objective vital signs Vital Sign Date Time Temp Pulse Resp B/P (MAP) Pulse Ox O2 Delivery O2 Flow Rate FiO2 06/18/25 13:33 97.6 88 18 146/84 (104) 99 97.6 06/18/25 08:00 Room Air* 0 21 Total Intake and Output 06/17/25 06/17/25 06/18/25 15:00 23:00 07:00 Intake Total 0 ml 0 ml Output Total 350 ml 350 ml Balance -350 ml -350 ml medications Current Medications Medications Dose Ordered Sig/Raoul Route Start Time Stop Time Status Last Admin Dose Admin Nitroglycerin 0.4 mg Q5MINP PRN SL 06/15/25 18:15 Morphine Sulfate 2 mg Q30M PRN IV 06/15/25 18:15 Furosemide 40 mg BIDD IV 06/16/25 06:00 06/18/25 05:20 40 MG Pantoprazole Sodium 40 mg DAILY IV 06/16/25 10:00 06/18/25 08:35 40 MG Meropenem 50 ml @ 17 mls/hr Q12HR IV 06/16/25 10:00 06/18/25 10:25 17 MLS/HR Hydromorphone HCl 0.5 mg Q4HPRN PRN IV 06/16/25 13:15 06/18/25 10:26 0.5 MG Labetalol HCl 10 mg Q6HPRN PRN IV 06/16/25 23:30 06/17/25 21:10 10 MG Dextrose 1,000 ml @ 125 mls/hr Q8H IV 06/17/25 13:30 06/18/25 08:46 125 MLS/HR Iron Sucrose 110 ml @ 110 mls/hr DAILY@1200 IV 06/19/25 12:00 06/23/25 12:59 Fluconazole 100 ml @ 100 mls/hr DAILY IV 06/19/25 10:00 Future Hold Amino Acids 0 ml @ 0 mls/hr PER PHARMACY IV 06/18/25 12:30 UNV Examination General Appearance: no pallor, no icterus, no cyanosis, no clubbing, no LAD, no edema . Head Exam: Normal inspection Neck Exam: Normal inspection. Non-tender. Normal alignment Pulmonary/Respiratory: Chest non-tender. Clear bilateral breath sounds, no crackles, no wheezing. Cardiovascular/Chest: Regular rate and rhythm. No murmurs. No JVD. Peripheral Pulses: 2+ Radial (R). 2+ Radial (L). 2+ Pedal (R). 2+ Pedal (L) Abdominal Exam: Normal bowel sounds. Soft. normal abdomen, no visible veins, Nontender. No hepatospenomegaly. No masses Ankle Exam: Negative ankle edema Lower extremities: Negative lower extremity edema Neuro/Mental Status: A&O x0. Thoughts/Psych: Normal thought pattern. Appropriate mood and affect. Skin Exam: Normal inspection. Normal color. Warm. Dry laboratory and microbiology Laboratory Tests 06/18/25 04:12 Test 06/18/25 04:12 Range/Units Serum Glucose 103 74-106 mg/dL Microbiology Date/Time Source Procedure Growth Status 06/16/25 03:30 Urine - Steen Port Urine Culture - Preliminary Resulted 06/16/25 03:00 Nose MRSA Screen - Final Complete 06/15/25 13:37 Blood Blood Culture - Preliminary NO GROWTH AFTER 72 HOURS OF INCUBATION. Resulted Labs and/or images reviewed: Labs reviewed by me, Image(s) reviewed by me Problem List/Assessment/Plan Problem List/Assessment/Plan Acute metabolic encephalopathy likely due to sepsis Advanced dementia - currently NPO - swallow request pending Acute hypoxic respiratory failure likely due to pleural effusion Bilateral pulmonary edema Pneumonia likely due to Gram +/- bacteria Right-sided pleural effusion - Chest US: Bilateral pleural effusions. - Chest X-ray: New right basilar infiltrate and effusion which may be due to pneumonia and/or atelectasis. Increased interstitial prominence, greater centrally. This appearance may be due to CHF or reactive airways disease. - Lasix 40 mg IV b.i.d. - duo nebs q.6 hours - produce assistant on board - Doxycycline 100 ml - Meropenem 50 ml Hypertensive heart disease with uncontrolled hypertension h/o Pulmonary hypertension with a borderline enlarged RV - EKG: Sinus rhythm. Probable left ventricular hypertrophy Abnormal T, consider ischemia, anterolateral lds - since the patient is altered, we will do a swallow evaluation until then IV hydralazine 10 mg IV q.6 hours - Lasix 40 b.i.d. - Hydralazine 20 mg History of metastatic bladder cancer FADIA on CKD likely due to VMN History of obstructive uropathy Left nephrostomy tube - Steen's has a red color urine - nephrostomy tubes patent - patient was evaluated by Nephrology in the last admission 10 days ago and they recommended against any type of renal replacement therapy given her age and significant comorbidities and very poor prognosis - monitor in's and out's - renal ultrasound done on 06/05 shows 6.2 X5.6 X6.7 cm mass within the urinary bladder. History of cholelithiasis Hepatic steatosis - seen on right upper quadrant ultrasound done on 05/16 Normocytic hypochromic anemia - monitor H&H - transfusion if hemoglobin less than 7 Diet: NPO PUD prophylaxis: Protonix DVT prophylaxis: Held because of bleeding and low hemoglobin Goals of care: Full code, discussed for >16 minutes on 06/18/25 Plan discussed with patient Plan discussed with Dr. Crain Plan discussed with: Patient, Other (RN) Date of Service: Jun 18, 2025 Billing Provider: YADIRA CRAIN MD Common Visit Codes: [id number] INP/OBS CARE(HIGH) BARAK THOMPSON RESIDENT Jun 18, 2025 15:45 YADIRA CRAIN MD Jun 19, 2025 08:26
[2025-06-18] MEDS ORDERED: DEXTROSE (50%) 50ML SYRG IV SCH (17:30)
[2025-06-18] MEDS: ACCU-CHEK COMFORT CURVE STRIP VI SCH (18:00)
[2025-06-18] MEDS: InsuLIN REG 1unit/0.01ml Soln (100units/ml) SC SCH (18:00)
[2025-06-19] VITALS (8 sets, daily range): BP systolic 125–173; BP diastolic 74–97; PULSE 74–84; RESP 16–18; TEMP 97.2–98.1; O2SAT 98–100
[2025-06-19] MEDS: AMINO ACID INFUSION IN D10W 1,000 ML IV SCH (03:47)
[2025-06-19 05:36] LABS: Hematocrit 26.5 % (36.0-46.0); Hemoglobin 8.1 g/dL (12.2-16.2); Mean Corpuscular Hemoglobin 28.4 pg (28.0-32.0); Mean Corpuscular Volume 92.8 fL (80.0-100.0); Nucleated Red Blood Cells % 0.0 %
[2025-06-19 05:54] LABS: Magnesium 2.6 mg/dL (1.6-2.6); Triglycerides 211.0 mg/dL (< 150)
[2025-06-19 05:55] LABS: Anion Gap 14 (5-15); BUN/Creatinine Ratio 18.9 (10.0-20.0); Bilirubin, Total 0.5 mg/dL (0.2-1.0); Calcium 8.7 mg/dL (8.7-10.4); Carbon Dioxide 21 mmol/L (20-31); Glucose 105 mg/dL (74-106); Potassium 4.4 mmol/L (3.5-5.1); Total Protein 6.6 g/dL (5.7-8.2)
[2025-06-19 05:58] LABS: Alanine Aminotransferase < 9 U/L (7-40); Albumin 3.0 g/dL (3.2-4.8); Alkaline Phosphatase 163 U/L (46-116); Blood Urea Nitrogen 52 mg/dL (9-23); Chloride 118 mmol/L (98-107); Sodium 153 mmol/L (136-145)
[2025-06-19] MEDS ORDERED: FLUCONAZOLE 200MG/100ML 100 ML IV SCH (10:00)
--- NOTE | 2025-06-19 14:13 | DVHPN2 ---
Progress Note - Dictate Date Seen: Jun 19, 2025 Medical Necessity Reason Pt with a Central, PICC or Fol: Yes The following are medically ne: Steen Catheter vital signs Vital Sign Date Time Temp Pulse Resp B/P (MAP) Pulse Ox O2 Delivery O2 Flow Rate FiO2 06/19/25 09:00 98.1 74 18 149/87 (107) 100 98.1 06/19/25 08:00 Nasal Cannula* 2 28 Total Intake and Output 06/18/25 06/18/25 06/19/25 15:00 23:00 07:00 Intake Total 0 ml 0 ml Output Total 350 ml 275 ml Balance -350 ml -275 ml 0 ml medications Current Medications Medications Dose Ordered Sig/Raoul Route Start Time Stop Time Status Last Admin Dose Admin Furosemide 40 mg BIDD IV 06/16/25 06:00 06/19/25 05:56 40 MG Pantoprazole Sodium 40 mg DAILY IV 06/16/25 10:00 06/19/25 08:05 40 MG Meropenem 50 ml @ 17 mls/hr Q12HR IV 06/16/25 10:00 06/19/25 08:04 17 MLS/HR Hydromorphone HCl 0.5 mg Q4HPRN PRN IV 06/16/25 13:15 06/19/25 08:05 0.5 MG Labetalol HCl 10 mg Q6HPRN PRN IV 06/16/25 23:30 06/19/25 01:08 10 MG Dextrose 1,000 ml @ 125 mls/hr Q8H IV 06/17/25 13:30 06/19/25 09:51 125 MLS/HR Iron Sucrose 110 ml @ 110 mls/hr DAILY@1200 IV 06/19/25 12:00 06/23/25 12:59 Fluconazole 100 ml @ 100 mls/hr DAILY IV 06/19/25 10:00 Hold Amino Acids 0 ml @ 0 mls/hr PER PHARMACY IV 06/18/25 12:30 Amino Acids/ Electrolytes/ Dextrose 1,000 ml @ 41 mls/hr DAILY@2200 IV 06/18/25 22:00 06/19/25 03:47 41 MLS/HR Diagnostic Test (Pha) 1 strip Q6HR 06/18/25 18:00 06/19/25 12:00 1 STRIP Insulin Human Regular FOLLOW SLIDING SCALE Q6HR SC 06/18/25 18:00 Dextrose 50 ml UD IV 06/18/25 17:30 laboratory and microbiology Laboratory Tests 06/19/25 04:55 Test 06/19/25 04:55 Range/Units Serum Glucose 105 74-106 mg/dL Assessment/Plan Impression Acute hypoxemic respiratory failure Pulmonary hypertension Pulmonary edema Pleural effusions Pneumonia Patient seen and examined Events Low oxygen requirements On 3 liters nasal cannula No distress Labs and imaging reviewed Management Supplemental oxygen Titrate to maintain sats 90% or above Incentive spirometry Continue antibiotics F/u cultures Bronchodilators Monitor renal function Monitor electrolytes Supplement as needed DVT prophylaxis Dietary Evaluation Review Comments: 1) Increase TPN to meet at leas 75% estimated daily needs 2) Advance to renal cardiac diet when medically feasible, pending ST approval 3) Follow-up with cardiology, pulmonology, nephrology, and oncology 4) Continue to monitor I&O, labs, and skin integrity Expected Outcomes/Goals: 1) TPN to meet at least 75% estimated daily needs 2) labs to improve 3) diet to advance 4) f/u in 2-3 days Plan discussed with: Patient JOE LOPEZ MD Jun 19, 2025 14:12
[2025-06-19] MEDS: IRON SUCROSE COMPLEX 110 ML IV SCH (14:16)
--- NOTE | 2025-06-19 16:05 | DVHPNRES ---
Progress Note Date Seen: Jun 19, 2025 Resident Creating Document: YENIFER KOLB Medical Necessity Reason Pt with a Central, PICC or Fol: Yes The following are medically ne: Steen Catheter Subjective Review of Systems Guy Patient is a 70-year-old female with past medical history of metastatic bladder cancer, CVA, hypertension, anemia, dementia, gallstones, [place], UTI, and FADIA, presented to [facility] ED with complaint of worsening shortness of breath. According to the ED physician's documentation, the patient's daughter reported shallow breathing and noted that the patient was nonverbal today. The patient was observed to be aphasic and non-verbal. Blood pressure was elevated at 179/91, and order for Lasix 60 mg was administered. A Steen catheter was in place with blood noted in the urine earlier; however, urine appeared clear today. Midline access was established in the left upper thigh. MRSA swab and urine sample were sent to the lab for analysis. The patient was seen and examined at bedside. Overnight events were reviewed. The patient was drowsy and was not responding to questions. The nurse reported giving her pain medicines. The daughter requested hospice service, awaiting acceptance. No other new complaints reported. Objective vital signs Vital Sign Date Time Temp Pulse Resp B/P (MAP) Pulse Ox O2 Delivery O2 Flow Rate FiO2 06/19/25 13:00 97.2 84 17 125/85 (98) 99 97.2 06/19/25 08:00 Nasal Cannula* 2 28 Total Intake and Output 06/18/25 06/18/25 06/19/25 15:00 23:00 07:00 Intake Total 0 ml 0 ml Output Total 350 ml 275 ml Balance -350 ml -275 ml 0 ml medications Current Medications Medications Dose Ordered Sig/Raoul Route Start Time Stop Time Status Last Admin Dose Admin Furosemide 40 mg BIDD IV 06/16/25 06:00 06/19/25 05:56 40 MG Pantoprazole Sodium 40 mg DAILY IV 06/16/25 10:00 06/19/25 08:05 40 MG Meropenem 50 ml @ 17 mls/hr Q12HR IV 06/16/25 10:00 06/19/25 08:04 17 MLS/HR Hydromorphone HCl 0.5 mg Q4HPRN PRN IV 06/16/25 13:15 06/19/25 08:05 0.5 MG Labetalol HCl 10 mg Q6HPRN PRN IV 06/16/25 23:30 06/19/25 01:08 10 MG Dextrose 1,000 ml @ 125 mls/hr Q8H IV 06/17/25 13:30 06/19/25 09:51 125 MLS/HR Iron Sucrose 110 ml @ 110 mls/hr DAILY@1200 IV 06/19/25 12:00 06/23/25 12:59 06/19/25 14:16 110 MLS/HR Fluconazole 100 ml @ 100 mls/hr DAILY IV 06/19/25 10:00 Hold Amino Acids 0 ml @ 0 mls/hr PER PHARMACY IV 06/18/25 12:30 Amino Acids/ Electrolytes/ Dextrose 1,000 ml @ 41 mls/hr DAILY@2200 IV 06/18/25 22:00 06/19/25 03:47 41 MLS/HR Diagnostic Test (Pha) 1 strip Q6HR 06/18/25 18:00 06/19/25 12:00 1 STRIP Insulin Human Regular FOLLOW SLIDING SCALE Q6HR SC 06/18/25 18:00 Dextrose 50 ml UD IV 06/18/25 17:30 Examination Pt is lying on bed General Appearance: Alert Oriented X0, Cooperative, Mild distress HEENT: Atraumatic, Mucous membranes moist/pink Respiratory: Clear to auscultation, Normal air movement, No added sounds Cardiovascular: Regular rate, Normal S1, Normal S2, No murmurs Abdominal/ : Active bowel sounds, Soft, no distention, no tenderness Extremities: No edema, Normal pulses, No tenderness/swelling Skin: No Significant rash, except past surgical scars Neuro: Normal speech, sensorimotor deficits none Psych/Mental Status: Mental status NL, Mood NL Nurse was there as freight caller during examination laboratory and microbiology Laboratory Tests 06/19/25 04:55 Test 06/19/25 04:55 Range/Units Serum Glucose 105 74-106 mg/dL Microbiology Date/Time Source Procedure Growth Status 06/16/25 03:30 Urine - Steen Port Urine Culture - Final Presumptive Alejandra albicans Complete 06/16/25 03:00 Nose MRSA Screen - Final Complete 06/15/25 13:37 Blood Blood Culture - Preliminary NO GROWTH AFTER 72 HOURS OF INCUBATION. Resulted Labs and/or images reviewed: Labs reviewed by me, Image(s) reviewed by me Problem List/Assessment/Plan Problem List/Assessment/Plan Acute metabolic encephalopathy likely due to sepsis Advanced dementia - currently NPO due to AXO - swallow request pending Acute hypoxic respiratory failure likely due to pleural effusion Bilateral pulmonary edema Pneumonia likely due to Gram +/- bacteria Right-sided pleural effusion - Chest US: Bilateral pleural effusions. - Chest X-ray: New right basilar infiltrate and effusion which may be due to pneumonia and/or atelectasis. Increased interstitial prominence, greater centrally. This appearance may be due to CHF or reactive airways disease. - Lasix 40 mg IV b.i.d. - duo nebs q.6 hours - structural steel worker helper on board - Doxycycline 100 ml - Meropenem 50 ml Hypertensive heart disease with uncontrolled hypertension h/o Pulmonary hypertension with a borderline enlarged RV - EKG: Sinus rhythm. Probable left ventricular hypertrophy Abnormal T, consider ischemia, anterolateral lds - since the patient is altered, we will do a swallow evaluation until then IV hydralazine 10 mg IV q.6 hours - Lasix 40 b.i.d. - Hydralazine 20 mg History of metastatic bladder cancer FADIA on CKD likely due to VMN History of obstructive uropathy Left nephrostomy tube - Steen's has a red color urine - nephrostomy tubes patent - patient was evaluated by Nephrology in the last admission 10 days ago and they recommended against any type of renal replacement therapy given her age and significant comorbidities and very poor prognosis - monitor in's and out's - renal ultrasound done on 06/05 shows 6.2 X5.6 X6.7 cm mass within the urinary bladder. History of cholelithiasis Hepatic steatosis - seen on right upper quadrant ultrasound done on 05/16 Normocytic hypochromic anemia - monitor H&H - transfusion if hemoglobin less than 7 Patient is waiting to be accepted at hospice. Diet: NPO due to AXO PUD prophylaxis: Protonix DVT prophylaxis: Held because of bleeding and low hemoglobin Goals of care: Full code, discussed for >16 minutes on 06/18/25 Plan discussed with patient Plan discussed with Dr. Crain Plan discussed with: Patient, Other (RN) Plan discussed with: Patient, Other (RN) Dietary Evaluation Review Comments: 1) Increase TPN to meet at leas 75% estimated daily needs 2) Advance to renal cardiac diet when medically feasible, pending ST approval 3) Follow-up with cardiology, pulmonology, nephrology, and oncology 4) Continue to monitor I&O, labs, and skin integrity Expected Outcomes/Goals: 1) TPN to meet at least 75% estimated daily needs 2) labs to improve 3) diet to advance 4) f/u in 2-3 days Date of Service: Jun 19, 2025 Billing Provider: YADIRA CRAIN MD Common Visit Codes: 89225-[id number] INP/OBS CARE(HIGH) YENIFER KOLB Jun 19, 2025 16:05 YADIRA CRAIN MD Jun 19, 2025 22:22
[2025-06-19] MEDS: D5W 5% 1,000 ML IV SCH (20:04)
[2025-06-20] VITALS (8 sets, daily range): BP systolic 128–169; BP diastolic 77–98; PULSE 73–83; RESP 16–18; TEMP 96.4–98.8; O2SAT 96–100
[2025-06-20 06:34] LABS: Hematocrit 26.9 % (36.0-46.0); Hemoglobin 8.1 g/dL (12.2-16.2); Mean Corpuscular Hemoglobin 28.5 pg (28.0-32.0); Mean Corpuscular Volume 94.0 fL (80.0-100.0); Nucleated Red Blood Cells % 0.1 %
[2025-06-20 06:44] LABS: Anion Gap 14 (5-15); BUN/Creatinine Ratio 22.1 (10.0-20.0); Bilirubin, Total 0.4 mg/dL (0.2-1.0); Carbon Dioxide 21 mmol/L (20-31); Glucose 102 mg/dL (74-106); Potassium 4.8 mmol/L (3.5-5.1); Total Protein 6.6 g/dL (5.7-8.2)
[2025-06-20 06:47] LABS: Alanine Aminotransferase < 9 U/L (7-40); Albumin 3.0 g/dL (3.2-4.8); Alkaline Phosphatase 173 U/L (46-116); Blood Urea Nitrogen 66 mg/dL (9-23); Calcium 8.3 mg/dL (8.7-10.4); Chloride 113 mmol/L (98-107); Magnesium 2.6 mg/dL (1.6-2.6); Sodium 148 mmol/L (136-145)
[2025-06-20] MEDS ORDERED: POTASSIUM PHOSPHATE 22 MEQ in SODIUM CHL 0.9% 100 ML IV ONE (11:30)
[2025-06-20 11:38] LABS: Free T4 (Free Thyroxine) 1.03 ng/dL (0.89-1.76)
--- NOTE | 2025-06-20 13:21 | DVHPN2 ---
Progress Note - Dictate Date Seen: Jun 20, 2025 Medical Necessity Reason Pt with a Central, PICC or Fol: Yes The following are medically ne: Steen Catheter vital signs Vital Sign Date Time Temp Pulse Resp B/P (MAP) Pulse Ox O2 Delivery O2 Flow Rate FiO2 06/20/25 09:00 98.3 75 16 128/77 (94) 100 98.3 06/20/25 08:00 Nasal Cannula* 2 28 Total Intake and Output 06/19/25 06/19/25 06/20/25 15:00 23:00 07:00 Intake Total 0 ml 50 ml Output Total 450 ml 50 ml Balance -450 ml 0 ml medications Current Medications Medications Dose Ordered Sig/Raoul Route Start Time Stop Time Status Last Admin Dose Admin Furosemide 40 mg BIDD IV 06/16/25 06:00 06/20/25 06:26 40 MG Pantoprazole Sodium 40 mg DAILY IV 06/16/25 10:00 06/20/25 10:27 40 MG Meropenem 50 ml @ 17 mls/hr Q12HR IV 06/16/25 10:00 06/20/25 10:27 17 MLS/HR Hydromorphone HCl 0.5 mg Q4HPRN PRN IV 06/16/25 13:15 06/20/25 07:28 0.5 MG Labetalol HCl 10 mg Q6HPRN PRN IV 06/16/25 23:30 06/20/25 00:32 10 MG Iron Sucrose 110 ml @ 110 mls/hr DAILY@1200 IV 06/19/25 12:00 06/23/25 12:59 06/20/25 12:12 110 MLS/HR Fluconazole 100 ml @ 100 mls/hr DAILY IV 06/19/25 10:00 Hold Amino Acids 0 ml @ 0 mls/hr PER PHARMACY IV 06/18/25 12:30 Amino Acids/ Electrolytes/ Dextrose 1,000 ml @ 41 mls/hr DAILY@2200 IV 06/18/25 22:00 06/20/25 00:33 41 MLS/HR Diagnostic Test (Pha) 1 strip Q6HR 06/18/25 18:00 06/20/25 12:13 1 STRIP Insulin Human Regular FOLLOW SLIDING SCALE Q6HR SC 06/18/25 18:00 Dextrose 50 ml UD IV 06/18/25 17:30 Dextrose 1,000 ml @ 100 mls/hr Q10H IV 06/19/25 19:00 06/19/25 20:04 100 MLS/HR laboratory and microbiology Laboratory Tests 06/20/25 05:21 Test 06/20/25 05:21 Range/Units Serum Glucose 102 74-106 mg/dL Assessment/Plan Impression Acute hypoxemic respiratory failure Pulmonary hypertension Pulmonary edema Pleural effusions Pneumonia Patient seen and examined Events Low oxygen requirements On 3 liters nasal cannula No acute events Labs and imaging reviewed Management Supplemental oxygen Titrate to maintain sats 90% or above Incentive spirometry Continue antibiotics F/u cultures Bronchodilators Monitor renal function Monitor electrolytes Supplement as needed DVT prophylaxis Dietary Evaluation Review Comments: 1) Increase TPN to meet at leas 75% estimated daily needs 2) Advance to renal cardiac diet when medically feasible, pending ST approval 3) Follow-up with cardiology, pulmonology, nephrology, and oncology 4) Continue to monitor I&O, labs, and skin integrity Expected Outcomes/Goals: 1) TPN to meet at least 75% estimated daily needs 2) labs to improve 3) diet to advance 4) f/u in 2-3 days Plan discussed with: Patient JOE LOPEZ MD Jun 20, 2025 13:21
--- NOTE | 2025-06-20 16:55 | DVHDSRES ---
Discharge Summary Date of Admission Resident Creating Document: YENIFER KOLB Jun 15, 2025 at 18:04 Date of Discharge: Jun 20, 2025 Labs/Diagnostic Data: Laboratory Results Test 06/20/25 06:40 06/20/25 05:21 06/19/25 04:55 06/18/25 04:12 POC Glucose 96 mg/dl (70-106) White Blood Count 8.2 10^3/uL (4.4-10.8) Red Blood Count 2.86 10^6/uL (4.0-5.20) Hemoglobin 8.1 g/dL (12.2-16.2) Hematocrit 26.9 % (36.0-46.0) Mean Corpuscular Volume 94.0 fL (80.0-100.0) Mean Corpuscular Hemoglobin 28.5 pg (28.0-32.0) Mean Corpuscular Hemoglobin Concent 30.3 g/dL (32.0-36.0) Red Cell Distribution Width 21.4 % (11.8-14.3) Platelet Count 125 10^3/uL (140-450) Mean Platelet Volume 8.4 fL (6.9-10.8) Neutrophils (%) (Auto) 76.6 % (37.0-80.0) Lymphocytes (%) (Auto) 16.1 % (10.0-50.0) Monocytes (%) (Auto) 5.3 % (0.0-12.0) Eosinophils (%) (Auto) 1.3 % (0.0-7.0) Basophils (%) (Auto) 0.7 % (0.0-2.0) Neutrophils # (Auto) 6.2 10 ^3/uL (1.6-8.6) Lymphocytes # (Auto) 1.3 10 ^3/uL (0.4-5.4) Monocytes # (Auto) 0.4 10 ^3/uL (0-1.3) Eosinophils # (Auto) 0.1 10 ^3/uL (0-0.8) Basophils # (Auto) 0.1 10 ^3/uL (0-0.2) Nucleated Red Blood Cells 0.1 % Sodium Level 148 mmol/L (136-145) Potassium Level 4.8 mmol/L (3.5-5.1) Chloride Level 113 mmol/L (98-107) Carbon Dioxide Level 21 mmol/L (20-31) Anion Gap 14 (5-15) Blood Urea Nitrogen 66 mg/dL (9-23) Creatinine 2.99 mg/dL (0.550-1.02) Glomerular Filtration Rate Calc 16 mL/min (>90) BUN/Creatinine Ratio 22.1 (10.0-20.0) Serum Glucose 102 mg/dL (74-106) Calcium Level 8.3 mg/dL (8.7-10.4) Phosphorus Level 6.2 mg/dL (2.4-5.1) Magnesium Level 2.6 mg/dL (1.6-2.6) Total Bilirubin 0.4 mg/dL (0.2-1.0) Aspartate Amino Transferase (AST) 23 U/L (13-40) Alanine Aminotransferase (ALT) < 9 U/L (7-40) Alkaline Phosphatase 173 U/L (46-116) Total Protein 6.6 g/dL (5.7-8.2) Albumin 3.0 g/dL (3.2-4.8) Triglycerides Level 211 mg/dL (< 150) Iron Level 20 ug/dL (50-170) Total Iron Binding Capacity 213 ug/dL (250-425) Percent Iron Saturation 9.4 % (15-50) Ferritin 196.4 ng/mL (10-291) B-Type Natriuretic Peptide 61.03 pg/mL (0-100) Thyroid Stimulating Hormone (TSH) 12.20 uIU/mL (0.55-4.78) Free Thyroxine (T4) Calculated 1.03 ng/dL (0.89-1.76) Total Triiodothyronine (TT3) 0.62 ng/mL (0.60-1.81) Test 06/16/25 10:15 06/16/25 03:30 06/15/25 23:38 06/15/25 13:37 Lactic Acid Level 1.7 mmol/L (0.4-2.0) Urine Color Colorless (Yellow) Urine Clarity Ex.turbid (Clear) Urine pH 5.5 (5.0-9.0) Urine Specific [place] 1.011 (1.001-1.035) Urine Protein 1+ (Negative) Urine Ketones Negative (Negative) Urine Blood 3+ /uL (Negative) Urine Nitrite Negative (Negative) Urine Bilirubin Negative (Negative) Urine Urobilinogen Normal mg/dL (Negative) Urine Leukocyte Esterase 3+ /uL (Negative) Urine RBC 2590 /hpf (0 - 4) Urine WBC Clumps Present /hpf (None Seen) Urine Microscopic WBC 629 /HPF (0-5) Urine Squamous Epithelial Cells Few /hpf (<5) Urine Bacteria None seen /hpf (None Seen) Urine Yeast (Budding) Moderate /hpf (None Seen) Urine Glucose Normal mg/dL (Normal) Platelet Estimate Adequate Prothrombin Time 11.6 sec (9.3-11.8) Prothrombin Time INR 1.11 (0.9-1.15) Activated Partial Thromboplast Time 25.2 SEC (24.5-34.5) Other Laboratory Tests 06/20/25 05:21 Brief Hx & Hospital Course: Brief history and hospital course: Guy Patient is a 70-year-old female with past medical history of metastatic bladder cancer, CVA, hypertension, anemia, dementia, gallstones, [place], UTI, and FADIA, presented to [facility] ED with complaint of worsening shortness of breath. Patient is on home-hospice, daughter called the EMS due to worsening shortness of breaths. EMS report that the patient was picked up at [facility], symptoms reported by daughter. On scene the patient had a saturation of 98% via NC, BS 110, BP 142/71,HR 72 and has a central line the left inner thigh. Patient has been nonverbal. The patient was observed to be aphasic and non-verbal. During her stay, patient remained A&Ox0. Her labs revealed hyponatremia. Chest X-ray revealed new right basilar infiltrate and effusion which may be due to pneumonia and/or atelectasis. Increased interstitial prominence, greater centrally. This appearance may be due to CHF or reactive airways disease. Chest US showed Bilateral pleural effusions. Her urine analysis was positive for UTI. Patient was treated with IV meropenem, Clinimix, pain management provided. Her labs have improved, patient is on her baseline and will be discharged for home hospice. Discharge diagnosis: Acute metabolic encephalopathy likely due to sepsis Advanced dementia Acute hypoxic respiratory failure likely due to pleural effusion Bilateral pulmonary edema Pneumonia likely due to Gram +/- bacteria Right-sided pleural effusion Hypertensive heart disease with uncontrolled hypertension h/o Pulmonary hypertension with a borderline enlarged RV History of metastatic bladder cancer FADIA on CKD likely due to VMN History of obstructive uropathy Left nephrostomy tube History of cholelithiasis Hepatic steatosis Normocytic hypochromic anemia, unspecified Discharge plan: Patient is discharged on home hospice. Continue home medications. Condition at Discharge: Stable Final Diagnosis/Problems List Acute metabolic encephalopathy likely due to sepsis Advanced dementia Acute hypoxic respiratory failure likely due to pneumonia, pleural effusion Bilateral pulmonary edema Pneumonia likely due to Gram +/- bacteria Right-sided pleural effusion Hypertensive heart disease with uncontrolled hypertension h/o Pulmonary hypertension with a borderline enlarged RV History of metastatic bladder cancer FADIA on CKD likely due to VMN History of obstructive uropathy Left nephrostomy tube History of cholelithiasis Hepatic steatosis Normocytic hypochromic anemia, unspecified Discharge Disposition: Hospice - Home Discharge Instruct/Medications Diet: Cardiac 2g Na,low cholest Activity: No Restrictions, As Tolerated Follow Up/Referral: Follow with PCP in 1 week Medications: As per Hospice Medication Profile: No Active Prescriptions or Reported Meds No Active Prescriptions or Reported Meds Discharge Statement: "Patient was advised to return to the ER or call 911 if any headaches, dizziness, shortness of breath, chest pain, abdominal pain, bleeding, fevers, or worsening of medical condition. Patient was counseled about treatment plan, medications, possible side effects, patientverbalized understanding. All questions were answered to the best of my ability. This discharge took greater then 30 minutes in planning, reviewing documentation, counseling the patient, and discussing with other team members." ASSESSMENT ASSESSMENT Assessment Sepsis due to pneumonia VICTORIA KOENIG RESIDENT Jun 20, 2025 16:54
--- NOTE | 2025-06-20 17:28 | DVHPNRES ---
Progress Note Date Seen: Jun 20, 2025 Resident Creating Document: VICTORIA KOENIG RESIDENT Medical Necessity Reason Pt with a Central, PICC or Fol: Yes The following are medically ne: Steen Catheter Subjective Review of Systems Guy Patient is a 70-year-old female with past medical history of metastatic bladder cancer, CVA, hypertension, anemia, dementia, gallstones, [place], UTI, and FADIA, presented to [facility] ED with complaint of worsening shortness of breath. According to the ED physician's documentation, the patient's daughter reported shallow breathing and noted that the patient was nonverbal today. The patient was observed to be aphasic and non-verbal. Blood pressure was elevated at 179/91, and order for Lasix 60 mg was administered. A Steen catheter was in place with blood noted in the urine earlier; however, urine appeared clear today. Midline access was established in the left upper thigh. MRSA swab and urine sample were sent to the lab for analysis. Review of system can not be done due as patient is not oriented and does not follow commands. 06/20/2025: The patient was seen and examined at bedside. The patient remains drowsy and was not responding to questions. The nurse reported giving her pain medicines. The daughter denied discharge to hospice, and wants to evaluate other options for discharge. Objective vital signs Vital Sign Date Time Temp Pulse Resp B/P (MAP) Pulse Ox O2 Delivery O2 Flow Rate FiO2 06/20/25 15:52 72 20 124/78 06/20/25 15:35 98.8 99 06/20/25 08:00 Nasal Cannula* 2 28 Total Intake and Output 06/19/25 06/19/25 06/20/25 15:00 23:00 07:00 Intake Total 0 ml 50 ml Output Total 450 ml 50 ml Balance -450 ml 0 ml medications Current Medications Medications Dose Ordered Sig/Raoul Route Start Time Stop Time Status Last Admin Dose Admin Furosemide 40 mg BIDD IV 06/16/25 06:00 06/20/25 06:26 40 MG Pantoprazole Sodium 40 mg DAILY IV 06/16/25 10:00 06/20/25 10:27 40 MG Meropenem 50 ml @ 17 mls/hr Q12HR IV 06/16/25 10:00 06/20/25 10:27 17 MLS/HR Hydromorphone HCl 0.5 mg Q4HPRN PRN IV 06/16/25 13:15 06/20/25 15:22 0.5 MG Labetalol HCl 10 mg Q6HPRN PRN IV 06/16/25 23:30 06/20/25 00:32 10 MG Iron Sucrose 110 ml @ 110 mls/hr DAILY@1200 IV 06/19/25 12:00 06/23/25 12:59 06/20/25 12:12 110 MLS/HR Fluconazole 100 ml @ 100 mls/hr DAILY IV 06/19/25 10:00 Hold Amino Acids 0 ml @ 0 mls/hr PER PHARMACY IV 06/18/25 12:30 Amino Acids/ Electrolytes/ Dextrose 1,000 ml @ 41 mls/hr DAILY@2200 IV 06/18/25 22:00 06/20/25 00:33 41 MLS/HR Diagnostic Test (Pha) 1 strip Q6HR 06/18/25 18:00 06/20/25 12:13 1 STRIP Insulin Human Regular FOLLOW SLIDING SCALE Q6HR SC 06/18/25 18:00 Dextrose 50 ml UD IV 06/18/25 17:30 Dextrose 1,000 ml @ 100 mls/hr Q10H IV 06/19/25 19:00 06/19/25 20:04 100 MLS/HR Examination General: Patient is not alert and oriented, not following commands. HEENT: Normocephalic, atraumatic. Respiratory/pulmonary: Clear lungs bilaterally. Cardiovascular: Normal heart sounds S1 and S2 Abdomen: Abdomen nondistended, there is no pain to palpation in any of the abdominal quadrants, no palpable masses. Extremities: Grade 1 bilateral pitting edema laboratory and microbiology Laboratory Tests 06/20/25 05:21 Test 06/20/25 05:21 Range/Units Serum Glucose 102 74-106 mg/dL Microbiology Date/Time Source Procedure Growth Status 06/16/25 03:30 Urine - Steen Port Urine Culture - Final Presumptive Alejandra albicans Complete 06/16/25 03:00 Nose MRSA Screen - Final Complete 06/15/25 13:37 Blood Blood Culture - Final NO GROWTH AFTER 5 DAYS OF INCUBATION. Complete Problem List/Assessment/Plan Problem List/Assessment/Plan Acute metabolic encephalopathy likely due to sepsis Advanced dementia Currently NPO due to AXO Swallow eval failed Acute hypoxic respiratory failure likely due to pleural effusion Bilateral pulmonary edema Pneumonia likely due to Gram +/- bacteria Right-sided pleural effusion Chest US: Bilateral pleural effusions. Chest X-ray: New right basilar infiltrate and effusion which may be due to pneumonia and/or atelectasis. Increased interstitial prominence, greater centrally. This appearance may be due to CHF or reactive airways disease. Lasix 40 mg IV b.i.d. 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 Probable left ventricular hypertrophy Abnormal T, consider ischemia, anterolateral lds Since the patient is altered, we will do a swallow evaluation until then IV hydralazine 10 mg IV q.6 hours Lasix 40 b.i.d. Hydralazine 20 mg History of metastatic bladder cancer FADIA on CKD likely due to VMN History of obstructive uropathy Left nephrostomy tube Steen's has a red color urine Nephrostomy tubes patent Patient was evaluated by Nephrology in the last admission 10 days ago and they recommended against any type of renal replacement therapy given her age and significant comorbidities and very poor prognosis Renal ultrasound done on 06/05 shows 6.2 X5.6 X6.7 cm mass within the urinary bladder. History of cholelithiasis Hepatic steatosis Normocytic hypochromic anemia Monitor H&H Transfusion if hemoglobin less than 7 Discharge planning Swallow evaluation Plan discussed with patient's daughter for more than 36 minutes, daughters denied discharge to hospice. GI consulted to evaluate for options. DIET: NPO DVT PROPHYLAXIS: Sequential compression device, Lovenox Held because of bleeding and low hemoglobin GI PROPHYLAXIS: Protonix CODE STATUS: Goals of care discussed with patient at bedside for more than 35 minutes. DISPOSITION: Telemetry This medical document was created using an electronic medical record system with [employer] direct computerized dictation system. Although this document has been carefully reviewed, there may still be some phonetic and typographical errors. These areas are purely typographical due to imperfections of the software programs, and do not reflect any compromise in the patient's medical care. Patient's status and plan discussed with the daughters Case discussed with Dr. Cruz Plan discussed with: Daughter, Other (Nurses) Dietary Evaluation Review Comments: 1) Increase TPN to meet at leas 75% estimated daily needs 2) Advance to renal cardiac diet when medically feasible, pending ST approval 3) Follow-up with cardiology, pulmonology, nephrology, and oncology 4) Continue to monitor I&O, labs, and skin integrity Expected Outcomes/Goals: 1) TPN to meet at least 75% estimated daily needs 2) labs to improve 3) diet to advance 4) f/u in 2-3 days VCITORIA KOENIG RESIDENT Jun 20, 2025 17:28
[2025-06-21] VITALS (11 sets, daily range): BP systolic 150–186; BP diastolic 71–94; PULSE 60–92; RESP 16–19; TEMP 96.7–98.9; O2SAT 95–100
[2025-06-21] MEDS: AMINO ACID INFUSION IN D10W 1,000 ML IV SCH (02:25)
[2025-06-21] MEDS ORDERED: AMOX1SUS99 PO (10:33)
[2025-06-21] MEDS ORDERED: hydrALAZINE HCL 20 MG/ML VL IV ONE (11:45)
--- NOTE | 2025-06-21 14:48 | DVHPN2 ---
Progress Note - Dictate Date Seen: Jun 21, 2025 Medical Necessity Reason Pt with a Central, PICC or Fol: Yes The following are medically ne: Steen Catheter vital signs Vital Sign Date Time Temp Pulse Resp B/P (MAP) Pulse Ox O2 Delivery O2 Flow Rate FiO2 06/21/25 13:00 98.9 89 18 150/71 (97) 97 98.9 06/21/25 08:21 Nasal Cannula* 2 28 Total Intake and Output 06/20/25 06/20/25 06/21/25 15:00 23:00 07:00 Intake Total 0 ml 50 ml Balance 0 ml 50 ml medications Current Medications Medications Dose Ordered Sig/Raoul Route Start Time Stop Time Status Last Admin Dose Admin Furosemide 40 mg BIDD IV 06/16/25 06:00 06/21/25 05:24 40 MG Pantoprazole Sodium 40 mg DAILY IV 06/16/25 10:00 06/20/25 10:27 40 MG Meropenem 50 ml @ 17 mls/hr Q12HR IV 06/16/25 10:00 06/20/25 23:33 17 MLS/HR Hydromorphone HCl 0.5 mg Q4HPRN PRN IV 06/16/25 13:15 06/20/25 15:22 0.5 MG Labetalol HCl 10 mg Q6HPRN PRN IV 06/16/25 23:30 06/20/25 00:32 10 MG Iron Sucrose 110 ml @ 110 mls/hr DAILY@1200 IV 06/19/25 12:00 06/23/25 12:59 06/20/25 12:12 110 MLS/HR Fluconazole 100 ml @ 100 mls/hr DAILY IV 06/19/25 10:00 Hold Dextrose 1,000 ml @ 100 mls/hr Q10H IV 06/19/25 19:00 06/19/25 20:04 100 MLS/HR Amino Acids/ Electrolytes/ Dextrose 1,000 ml @ 41 mls/hr DAILY@2200 IV 06/21/25 22:00 Cancel Hydralazine HCl 25 mg Q6HP PRN PO 06/21/25 13:15 laboratory and microbiology Laboratory Tests 06/20/25 05:21 Test 06/20/25 05:21 Range/Units Serum Glucose 102 74-106 mg/dL Assessment/Plan Impression Acute hypoxemic respiratory failure Pulmonary hypertension Pulmonary edema Pleural effusions Pneumonia Patient seen and examined Events Low oxygen requirements On 3 liters nasal cannula No distress Labs and imaging reviewed Management Supplemental oxygen Titrate to maintain sats 90% or above Incentive spirometry Continue antibiotics F/u cultures Bronchodilators Monitor renal function Monitor electrolytes Supplement as needed DVT prophylaxis Dietary Evaluation Review Comments: 1) Increase TPN to meet at leas 75% estimated daily needs 2) Advance to renal cardiac diet when medically feasible, pending ST approval 3) Follow-up with cardiology, pulmonology, nephrology, and oncology 4) Continue to monitor I&O, labs, and skin integrity Expected Outcomes/Goals: 1) TPN to meet at least 75% estimated daily needs 2) labs to improve 3) diet to advance 4) f/u in 2-3 days Plan discussed with: Patient JOE LOPEZ MD Jun 21, 2025 14:48
--- NOTE | 2025-06-21 16:28 | DVHDSRES ---
Discharge Summary Date of Admission Resident Creating Document: VICTORIA KOENIG RESIDENT Jun 15, 2025 at 18:04 Date of Discharge: Jun 20, 2025 Labs/Diagnostic Data: Laboratory Results Test 06/21/25 12:29 06/20/25 05:21 06/19/25 04:55 06/18/25 04:12 POC Glucose 72 mg/dl (70-106) White Blood Count 8.2 10^3/uL (4.4-10.8) Red Blood Count 2.86 10^6/uL (4.0-5.20) Hemoglobin 8.1 g/dL (12.2-16.2) Hematocrit 26.9 % (36.0-46.0) Mean Corpuscular Volume 94.0 fL (80.0-100.0) Mean Corpuscular Hemoglobin 28.5 pg (28.0-32.0) Mean Corpuscular Hemoglobin Concent 30.3 g/dL (32.0-36.0) Red Cell Distribution Width 21.4 % (11.8-14.3) Platelet Count 125 10^3/uL (140-450) Mean Platelet Volume 8.4 fL (6.9-10.8) Neutrophils (%) (Auto) 76.6 % (37.0-80.0) Lymphocytes (%) (Auto) 16.1 % (10.0-50.0) Monocytes (%) (Auto) 5.3 % (0.0-12.0) Eosinophils (%) (Auto) 1.3 % (0.0-7.0) Basophils (%) (Auto) 0.7 % (0.0-2.0) Neutrophils # (Auto) 6.2 10 ^3/uL (1.6-8.6) Lymphocytes # (Auto) 1.3 10 ^3/uL (0.4-5.4) Monocytes # (Auto) 0.4 10 ^3/uL (0-1.3) Eosinophils # (Auto) 0.1 10 ^3/uL (0-0.8) Basophils # (Auto) 0.1 10 ^3/uL (0-0.2) Nucleated Red Blood Cells 0.1 % Sodium Level 148 mmol/L (136-145) Potassium Level 4.8 mmol/L (3.5-5.1) Chloride Level 113 mmol/L (98-107) Carbon Dioxide Level 21 mmol/L (20-31) Anion Gap 14 (5-15) Blood Urea Nitrogen 66 mg/dL (9-23) Creatinine 2.99 mg/dL (0.550-1.02) Glomerular Filtration Rate Calc 16 mL/min (>90) BUN/Creatinine Ratio 22.1 (10.0-20.0) Serum Glucose 102 mg/dL (74-106) Calcium Level 8.3 mg/dL (8.7-10.4) Phosphorus Level 6.2 mg/dL (2.4-5.1) Magnesium Level 2.6 mg/dL (1.6-2.6) Total Bilirubin 0.4 mg/dL (0.2-1.0) Aspartate Amino Transferase (AST) 23 U/L (13-40) Alanine Aminotransferase (ALT) < 9 U/L (7-40) Alkaline Phosphatase 173 U/L (46-116) Total Protein 6.6 g/dL (5.7-8.2) Albumin 3.0 g/dL (3.2-4.8) Triglycerides Level 211 mg/dL (< 150) Iron Level 20 ug/dL (50-170) Total Iron Binding Capacity 213 ug/dL (250-425) Percent Iron Saturation 9.4 % (15-50) Ferritin 196.4 ng/mL (10-291) B-Type Natriuretic Peptide 61.03 pg/mL (0-100) Thyroid Stimulating Hormone (TSH) 12.20 uIU/mL (0.55-4.78) Free Thyroxine (T4) Calculated 1.03 ng/dL (0.89-1.76) Total Triiodothyronine (TT3) 0.62 ng/mL (0.60-1.81) Test 06/16/25 10:15 06/16/25 03:30 06/15/25 23:38 06/15/25 13:37 Lactic Acid Level 1.7 mmol/L (0.4-2.0) Urine Color Colorless (Yellow) Urine Clarity Ex.turbid (Clear) Urine pH 5.5 (5.0-9.0) Urine Specific [place] 1.011 (1.001-1.035) Urine Protein 1+ (Negative) Urine Ketones Negative (Negative) Urine Blood 3+ /uL (Negative) Urine Nitrite Negative (Negative) Urine Bilirubin Negative (Negative) Urine Urobilinogen Normal mg/dL (Negative) Urine Leukocyte Esterase 3+ /uL (Negative) Urine RBC 2590 /hpf (0 - 4) Urine WBC Clumps Present /hpf (None Seen) Urine Microscopic WBC 629 /HPF (0-5) Urine Squamous Epithelial Cells Few /hpf (<5) Urine Bacteria None seen /hpf (None Seen) Urine Yeast (Budding) Moderate /hpf (None Seen) Urine Glucose Normal mg/dL (Normal) Platelet Estimate Adequate Prothrombin Time 11.6 sec (9.3-11.8) Prothrombin Time INR 1.11 (0.9-1.15) Activated Partial Thromboplast Time 25.2 SEC (24.5-34.5) Other Laboratory Tests 06/20/25 05:21 Brief Hx & Hospital Course: Brief history and hospital course: Guy Patient is a 70-year-old female with past medical history of metastatic bladder cancer, CVA, hypertension, anemia, dementia, gallstones, ME, UTI, and FADIA, presented to [facility] ED with complaint of worsening shortness of breath. Patient is on home-hospice, daughter called the EMS due to worsening shortness of breaths. EMS report that the patient was picked up at [facility], symptoms reported by daughter. On scene the patient had a saturation of 98% via NC, BS 110, BP 142/71,HR 72 and has a central line the left inner thigh. Patient has been nonverbal. The patient was observed to be aphasic and non-verbal. During her stay, patient remained A&Ox0. Her labs revealed hyponatremia. Chest X-ray revealed new right basilar infiltrate and effusion which may be due to pneumonia and/or atelectasis. Increased interstitial prominence, greater centrally. This appearance may be due to CHF or reactive airways disease. Chest US showed Bilateral pleural effusions. Her urine analysis was positive for UTI. Patient was treated with IV meropenem, Clinimix, pain management provided. Her labs have improved, patient is on her baseline, now tolerating pureed diet and will be discharged for home hospice. Discharge diagnosis: Acute metabolic encephalopathy likely due to sepsis Advanced dementia Acute hypoxic respiratory failure likely due to pleural effusion Bilateral pulmonary edema Pneumonia likely due to Gram +/- bacteria Right-sided pleural effusion Hypertensive heart disease with uncontrolled hypertension h/o Pulmonary hypertension with a borderline enlarged RV History of metastatic bladder cancer FADIA on CKD likely due to VMN History of obstructive uropathy Left nephrostomy tube History of cholelithiasis Hepatic steatosis Normocytic hypochromic anemia, unspecified Discharge plan: Patient is discharged on home hospice. Continue home medications. Operations or Procedures EXAM DESCRIPTION: Chest 1 View CLINICAL HISTORY: pleural eff COMPARISON: US CHEST ULTRASOUND on DOS: 06/16/25, XY CHEST PORTABLE on DOS: 06/15/25, XY CHEST PORTABLE on DOS: 06/04/25, XY CHEST PORTABLE on DOS: 05/16/25 FINDINGS and IMPRESSION: Lines, tubes, and support devices: Loop recorder in the left chest wall. Lungs / Pleura: No consolidation. No pleural effusion. No pneumothorax. Mediastinum: Normal cardiomediastinal silhouette. Osseous structures / Soft tissues: No acute findings. ULTRASOUND CHEST: HISTORY: Right effusion COMPARISON: XY CHEST PORTABLE on DOS: 06/15/25, TECHNIQUE: Multiple grayscale images of bilateral chest were obtained using curved high resolution probe. FINDINGS: There are bilateral pleural effusions right greater than left . IMPRESSION: 1. Bilateral pleural effusions. EXAM: XY CHEST PORTABLE HISTORY: sob COMPARISON: XY CHEST PORTABLE on DOS: 06/04/25, XY CHEST PORTABLE on DOS: 05/16/25 TECHNIQUE: Portable upright AP view of the chest was performed. FINDINGS: There is new right basilar infiltrate and/or effusion. There is interstitial prominence, greatest centrally. No pneumothorax. The heart is borderline enlarged. There is a left chest loop recorder. IMPRESSION: 1. New right basilar infiltrate and effusion which may be due to pneumonia and/or atelectasis. 2. Increased interstitial prominence, greater centrally. This appearance may be due to CHF or reactive airways disease. 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 History of obstructive uropathy Left nephrostomy tube History of cholelithiasis Hepatic steatosis Normocytic hypochromic anemia, unspecified Discharge Disposition: Hospice - Home Discharge Instruct/Medications Diet: Cardiac 2g Na,low cholest Diet comment: Patient only able to tolerate pureed diet, thickened liquids Activity: No Restrictions, As Tolerated Follow Up/Referral: Follow with PCP in 1 week Medications: As per Hospice Scheduled Amoxicillin & Pot Clavulanate (Augmentin Es-600 600-42.9 mg/5Ml), 5 MONSTER PO Q8HR Discharge Statement: "Patient was advised to return to the ER or call 911 if any headaches, dizziness, shortness of breath, chest pain, abdominal pain, bleeding, fevers, or worsening of medical condition. Patient was counseled about treatment plan, medications, possible side effects, patientverbalized understanding. All questions were answered to the best of my ability. This discharge took greater then 30 minutes in planning, reviewing documentation, counseling the patient, and discussing with other team members." ASSESSMENT ASSESSMENT Assessment Acute metabolic encephalopathy likely due to sepsisAdvanced dementiaAcute hypoxic respiratory failure likely due to pneumonia, pleural effusionBilateral pulmonary edemaPneumonia likely due to Gram +/- bacteriaRight-sided pleural effusionHypertensive heart disease with uncontrolled hypertensionh/o Pulmonary hypertension with a borderline enlarged RVHistory of metastatic bladder cancerAKI on CKD likely due to VMNHistory of obstructive uropathyLeft nephrostomy tubeHistory of cholelithiasis Hepatic steatosisNormocytic hypochromic anemia, unspecified Date of Service: Jun 21, 2025 Billing Provider: DANE ENAMORADO MD Common Visit Codes: 11302-YYQ/OBS DISCH DAY >30min VICTORIA KOENIG RESIDENT Jun 21, 2025 16:28
[2025-06-21] MEDS ORDERED: AMINO ACID INFUSION IN D10W 1,000 ML IV SCH (22:00)
== END 2025-06-21 17:30 | disposition hospice, home (50) | DRG 871 ==
LOC: EDBD 13:02 → ER 13:02 → OVERFLOW 18:04 → TELE-WESTW 22:02
PROVIDERS: ADMIT Internal Medicine Geriatric Medicine; ATTEND Internal Medicine Geriatric Medicine
DX: A41.9 Sepsis, unspecified organism (principal); G93.41 Metabolic encephalopathy; J15.69 Pneumonia due to other Gram-negative bacteria; J96.01 Acute respiratory failure with hypoxia; N17.0 Acute kidney failure with tubular necrosis; J15.9 Unspecified bacterial pneumonia; J90 Pleural effusion, not elsewhere classified; J81.1 Chronic pulmonary edema; J98.11 Atelectasis; E87.0 Hyperosmolality and hypernatremia; I13.0 Hypertensive heart and chronic kidney disease with heart failure and stage 1 through stage 4 chronic kidney disease, or unspecified chronic kidney disease; N18.9 Chronic kidney disease, unspecified; I27.20 Pulmonary hypertension, unspecified; K76.0 Fatty (change of) liver, not elsewhere classified; D50.9 Iron deficiency anemia, unspecified; F03.90 Unspecified dementia, unspecified severity, without behavioral disturbance, psychotic disturbance, mood disturbance, and anxiety; I50.9 Heart failure, unspecified; F17.200 Nicotine dependence, unspecified, uncomplicated; I25.2 Old myocardial infarction; Z85.51 Personal history of malignant neoplasm of bladder; Z86.73 Personal history of transient ischemic attack (TIA), and cerebral infarction without residual deficits; Z93.6 Other artificial openings of urinary tract status; Z95.828 Presence of other vascular implants and grafts; Z88.6 Allergy status to analgesic agent; Z87.440 Personal history of urinary (tract) infections; Z88.8 Allergy status to other drugs, medicaments and biological substances
CPT/HCPCS: 36415; 71045; 76604; 80048; 80053; 81001; 82728; 82962; 83540; 83550; 83605; 83735; 83880; 84100; 84439; 84443; 84478; 84480; 85025; 85610; 85730; 87040; 87081; 87086; 87088; 92610; 93005; 96365; 97163; 99291; 99292; G0378; J1450; J1756; J2185; J2470; J3490; J7060

== ENCOUNTER 2025-08-04 23:09 | Inpatient (IN) | payer OTHER, MEDICARE, MEDICAID ==
[~2025-08-04] VITALS: Ht 165.1 cm; Wt 72.1 kg
[~2025-08-04 23:09] MED LIST: AMOX1SUS99 PO
[2025-08-04 23:52] VITALS: PULSE 76; RESP 15; O2SAT 100
[2025-08-05] VITALS (9 sets, daily range): BP systolic 105–179; BP diastolic 44–97; PULSE 77–96; RESP 17–20; TEMP 96.7–98.6; O2SAT 93–100
[2025-08-05 00:33] LABS: Hematocrit 26.5 % (36.0-46.0); Hemoglobin 8.4 g/dL (12.2-16.2); Mean Corpuscular Hemoglobin 27.6 pg (28.0-32.0); Mean Corpuscular Volume 86.3 fL (80.0-100.0); Nucleated Red Blood Cells % 0.2 %
[2025-08-05 00:34] LABS: Albumin 3.4 g/dL (3.2-4.8); Anion Gap 14 (5-15); BUN/Creatinine Ratio 20.3 (10.0-20.0); Calcium 8.9 mg/dL (8.7-10.4); Total Protein 7.3 g/dL (5.7-8.2)
--- NOTE | 2025-08-05 00:44 | DVH ---
EXAM: CT HEAD WITHOUT CONTRAST INDICATION: aloc TECHNIQUE: CT of the head without intravenous contrast. Radiation Dose : 1. Head: CT Dose: CTDI volume is 53.34 mGy. Dose-length product is 1051.35 mGy*cm The dose indicators for CT are the volume Computed Tomography (CT) Dose Index (CTDIvol) and the Dose Length Product (DLP), and are measured in units of mGy and mGy-cm, respectively. These indicators are not patient dose, but values generated from the CT scanner acquisition factors. The report includes radiation exposure data for exposures received during this examination. COMPARISON: CT HEAD WITHOUT CONTRAST on DOS: 06/04/25, CT HEAD WITHOUT CONTRAST on DOS: 05/15/25 FINDINGS: There is no evidence of acute intracranial hemorrhage, extra-axial collection, mass effect, midline shift, herniation or hydrocephalus. Chronic appearing infarcts within the right cerebellum and bilateral occipital lobes. Increased prominence of the ventricles, sulci and cisterns consistent with sequelae Of atrophic cortical volume loss. The lock-white differentiation is intact. Moderate diffuse confluent periventricular and subcortical white matter hypoattenuation is nonspecific but may be related to small vessel ischemic disease. Right maxillary sinus air-fluid level. The remaining visualized paranasal sinuses and mastoid air cells are clear. The surrounding soft tissues and osseous structures are unremarkable. IMPRESSION: 1. No acute intracranial abnormality. 2. Chronic appearing infarcts within the right cerebellum and bilateral occipital lobes. 3. Chronic sequelae of microangiopathy and atrophic cortical volume loss. 4. Right maxillary sinus air-fluid level. Radiation optimization: All CT scans at this facility use at least one of these dose optimization techniques: automated exposure control mA and/or kV adjustment per patient size (includes targeted exams where dose is matched to clinical indication) or iterative reconstruction.
[2025-08-05 00:54] LABS: Alanine Aminotransferase < 9 U/L (7-40); Alkaline Phosphatase 190 U/L (46-116); Bilirubin, Total 0.2 mg/dL (0.2-1.0); Carbon Dioxide 19 mmol/L (20-31); Chloride 96 mmol/L (98-107); Glucose 124 mg/dL (74-106); Lipase 118 U/L (12-53); Sodium 129 mmol/L (136-145)
--- NOTE | 2025-08-05 00:55 | DVH ---
Exam: CT CT AB PEL WO CON-NO ORAL OR IV History: abd pain Comparison Study: US ABDOMEN LIMITED on DOS: 05/16/25, US PELVIC on DOS: 05/16/25, CT CT AB PEL WO CON-NO ORAL OR IV on DOS: 05/15/25 TECHNIQUE: Multidetector CT of the abdomen and pelvis was performed from lung bases to pubic symphysis. Imaging was performed without IV contrast. Axial, coronal, and sagittal multiplanar reformats were obtained from the axial data set by the technologist. RADIATION DOSE: CTDI vol 9.01 mGy. DLP 540.97 mGy.cm Findings: Limited evaluation of the solid organs in the absence of IV contrast. Evaluation is also degraded by motion artifact. Lungs: Incompletely assessed large right pleural effusion with adjacent opacity. Incompletely assessed mild opacity within the left lower lobe. Liver: Unremarkable. Spleen: Unremarkable. Pancreas: Unremarkable. Gallbladder: Cholelithiasis. Adrenals: Unremarkable Kidneys: Redemonstrated left percutaneous nephrostomy. Mild bilateral hydronephrosis. No obstructing calculus. Pelvic Viscera: Markedly enlarged multi fibroid uterus. Previously seen mass within the urinary bladder is not well assessed. Vasculature: Atherosclerotic aortoiliac calcification. Incidental note of an IVC filter. Retroperitoneum: Moderate abdominopelvic ascites. Bowel: No bowel obstruction. Musculoskeletal: Unremarkable. Soft tissues: Diffuse subcutaneous edema. Impression: 1. Fluid third-spacing including moderate abdominopelvic ascites, diffuse mesenteric and subcutaneous edema, and Incompletely assessed large right pleural effusion. 2. Incompletely bibasilar opacities, infectious / inflammatory process cannot be excluded in the appropriate clinical setting. 3. Additional findings as detailed.
[2025-08-05 00:59] LABS: Blood Urea Nitrogen 107 mg/dL (9-23); Potassium 6.4 mmol/L (3.5-5.1)
[2025-08-05 01:11] LABS: Urine Budding Yeast LOADED /hpf (None Seen); Urine Protein, UAD 1+ (Negative); Urine WBC Clumps PRESENT /hpf (None Seen)
--- NOTE | 2025-08-05 01:46 | ED.PDOC ---
History of Present Illness HPI Comments Patient brought in by EMS. Per family members patient has a history of brain cancer and uterine cancer, was on hospice. They called hospice nurse and they advised to come into the emergency department. They noticed that over the last 24 hours patient's stomach has become more round and firm. Patient has normal status is nonverbal, bed-bound. They state that they decided to call EMS because patient started having episodes of vomiting, patient has been vomiting for the last 5 hours. Chief Complaint: Nausea/Vomiting Time Seen by MD: 23:12 Reviewed Notes: Nurses Notes Allergies: Coded Allergies: Aspirin (Verified Allergy, Unknown, 05/15/25) Home Meds Active Scripts Amoxicillin & Pot Clavulanate (Augmentin Es-600 600-42.9 mg/5Ml) 1 Monster Monster, 5 MONSTER PO Q8HR for 5 Days, #75 ML Prov:DANE ENAMORADO MD 06/21/25 Information Source: Emergency Med Personnel Mode of Arrival: EMS Past Medical History PAST MEDICAL HISTORY: Anemia, Cancer, CVA, Dementia, Gallstones, HTN, [place], UTI'S [place]AC[place] [employer] CONSULTANT History: Unobtainable Family History Family History: Reviewed,noncontributory to illness, Unobtainable Social History Smoker: Unobtainable Alcohol: Unobtainable Drugs: Unobtainable Lives In: Assisted Care Unable to Obtain due to: Altered Mental Status Physical Exam General Appearance: Severe Distress, Thin HEENT: Head, Pharynx Normal, TMs Normal Neck: Normal Respiratory: Decreased Breath Sounds Cardiovascular: No Edema, No JVD, No Murmur, No Gallop, Normal Peripheral Pulses, Regular Rate/Rhythm Breast Exam: Deferred Gastrointestinal: Distended, Tenderness Genitalia: Deferred Pelvic: Deferred Rectal: Deferred Extremities: NOT DONE Neurologic: NOT DONE Cerebellar Function: NOT DONE Reflexes: NOT DONE Skin: NOT DONE Peripheral Pulses: 2+ carotid (R), 2+ carotid (L) Lymphatic: NOT DONE Was a procedure done? Was a procedure done?: No Differential Dx Considerations may include: Urinary tract infection, sepsis, metastatic cancer X-Ray, Labs, Meds, VS Vital Signs Date Time Temp Pulse Resp B/P (MAP) Pulse Ox O2 Delivery O2 Flow Rate FiO2 08/04/25 23:52 76 15 100 Nasal Cannula* 4 36 08/04/25 23:30 97.0 76 15 130/45 (73) 100 97.0 08/04/25 23:29 75 08/04/25 23:09 98.1 78 14 131/63 97 98.1 Lab Test 08/05/25 01:08 08/04/25 23:59 08/04/25 23:30 Range/Units Troponin I High Sensitivity 17 18 </=34 ng/L White Blood Count 6.5 4.4-10.8 10^3/uL Red Blood Count 3.06 L 4.0-5.20 10^6/uL Hemoglobin 8.4 L 12.2-16.2 g/dL Hematocrit 26.5 L 36.0-46.0 % Mean Corpuscular Volume 86.3 80.0-100.0 fL Mean Corpuscular Hemoglobin 27.6 L 28.0-32.0 pg Mean Corpuscular Hemoglobin Concent 31.9 L 32.0-36.0 g/dL Red Cell Distribution Width 18.8 H 11.8-14.3 % Platelet Count 404 140-450 10^3/uL Mean Platelet Volume 7.4 6.9-10.8 fL Neutrophils (%) (Auto) 83.2 H 37.0-80.0 % Lymphocytes (%) (Auto) 13.0 10.0-50.0 % Monocytes (%) (Auto) 3.4 0.0-12.0 % Eosinophils (%) (Auto) 0.3 0.0-7.0 % Basophils (%) (Auto) 0.1 0.0-2.0 % Neutrophils # (Auto) 5.4 1.6-8.6 10 ^3/uL Lymphocytes # (Auto) 0.9 0.4-5.4 10 ^3/uL Monocytes # (Auto) 0.2 0-1.3 10 ^3/uL Eosinophils # (Auto) 0 0-0.8 10 ^3/uL Basophils # (Auto) 0 0-0.2 10 ^3/uL Nucleated Red Blood Cells 0.2 % Sodium Level 129 L 136-145 mmol/L Potassium Level 6.4 *H 3.5-5.1 mmol/L Chloride Level 96 L 98-107 mmol/L Carbon Dioxide Level 19 L 20-31 mmol/L Anion Gap 14 5-15 Blood Urea Nitrogen 107 *H 9-23 mg/dL Creatinine 5.26 H 0.550-1.02 mg/dL Glomerular Filtration Rate Calc 8 >90 mL/min BUN/Creatinine Ratio 20.3 H 10.0-20.0 Serum Glucose 124 H 74-106 mg/dL Lactic Acid Level 1.9 0.4-2.0 mmol/L Calcium Level 8.9 8.7-10.4 mg/dL Total Bilirubin 0.2 0.2-1.0 mg/dL Aspartate Amino Transferase (AST) 18 13-40 U/L Alanine Aminotransferase (ALT) < 9 7-40 U/L Alkaline Phosphatase 190 H 46-116 U/L Ammonia < 10 L 11-32 umol/L Total Protein 7.3 5.7-8.2 g/dL Albumin 3.4 3.2-4.8 g/dL Lipase 118 H 12-53 U/L Urine Color Light-orange Yellow Urine Clarity Ex.turbid Clear Urine pH 5.0 5.0-9.0 Urine Specific [place] 1.016 1.001-1.035 Urine Protein 1+ H Negative Urine Ketones Negative Negative Urine Blood 2+ H Negative /uL Urine Nitrite Negative Negative Urine Bilirubin Negative Negative Urine Urobilinogen Normal Negative mg/dL Urine Leukocyte Esterase 3+ Negative /uL Urine RBC 82 0 - 4 /hpf Urine WBC Clumps Present None Seen /hpf Urine Microscopic WBC 490 H 0-5 /HPF Urine Squamous Epithelial Cells Few <5 /hpf Urine Bacteria None seen None Seen /hpf Urine Hyaline Casts Mod 0 - 2 /lpf Urine Mucus Few None Seen Urine Yeast (Budding) Loaded None Seen /hpf Urine Glucose Normal Normal mg/dL X-Ray, Labs, Meds, VS Comment Patient will be admitted for intractable vomiting, ascites, metastatic cancer, hyperkalemia, Time of 1ST Reevaluation: 01:45 Reevaluation 1ST: Unchanged Patient Education/Counseling: Diagnosis, Treatment Family Education/Counseling: Diagnosis, Treatment SEPSIS Sepsis Screen Date sepsis recognized/suspect: Aug 04, 2025 Time Sepsis recognized/suspect: 2351 Recent Procedure: No On Antibiotic Therapy: No Respiratory Rate >20: No Heart Rate >90: No Temp<36 C (96.8 F) or >38.3 C: No SBP <90 or MAP <65 mmHG: No New Acute Mental Status Change: No Is the patient on CPAP, BIPAP,: No Physician Orders Ct Ab Pel Wo Con-No Oral Or Iv (08/04/25 23:18) Head Without Contrast (08/04/25 23:18) Troponin-I Hs (08/05/25 02:18) Electrocardigram (08/05/25 01:10) Insulin R (Human) (Insulin R) (08/05/25 01:45) Dextrose 50% Syringe (08/05/25 01:45) Albuterol Medneb (Ventolin Medneb) (08/05/25 01:45) Sodium Bicarb 50meq/50ml Syr (08/05/25 01:45) Vital Signs Date Time Temp Pulse Resp B/P (MAP) Pulse Ox O2 Delivery O2 Flow Rate FiO2 08/04/25 23:52 76 15 100 Nasal Cannula* 4 36 08/04/25 23:30 97.0 76 15 130/45 (73) 100 97.0 08/04/25 23:29 75 08/04/25 23:09 98.1 78 14 131/63 97 98.1 Laboratory Tests Test 08/04/25 23:59 Lactic Acid Level 1.9 mmol/L (0.4-2.0) White Blood Count 6.5 10^3/uL (4.4-10.8) Departure 1 Departure Time of Disposition: 01:43 Impression: Primary Impression: Altered mental status Qualified Codes: R41.0 - Disorientation, unspecified Additional Impressions: Encephalopathy Qualified Codes: G93.40 - Encephalopathy, unspecified Generalized weakness Ascites Qualified Codes: R18.8 - Other ascites Disposition: 09 ADMITTED INPATIENT Condition: Guarded Critical Care Note Critical Care Time?: No Stability Stability form required: No Heart Score Heart Score: Heart Score Response (Comments) Value History N/A 0 EKG N/A 0 Age N/A 0 Risk Factors N/A 0 Troponin N/A 0 Total 0 COLE SPENCER Aug 05, 2025 01:46
[2025-08-05] MEDS: DEXTROSE (50%) 50ML SYRG IV ONE ×3 (01:52→12:22)
[2025-08-05] MEDS: SODIUM BICARB 8.4% 50Meq/50ml SYR INJ IV ONE ×2 (01:52→04:58)
[2025-08-05] MEDS: ALBUTEROL SULF 2.5 MG/0.5ML(0.5%) NEB SOLN NEB ONE ×2 (01:57→04:58)
[2025-08-05] MEDS: InsuLIN REG 1unit/0.01ml Soln (100units/ml) IV ONE ×3 (02:06→12:30)
[2025-08-05] MEDS ORDERED: DOCUSATE SOD 100 MG CAP PO PRN (02:30)
[2025-08-05] MEDS ORDERED: ONDANSETRON HCL 4 MG/2 ML VIAL IV PRN (02:30)
[2025-08-05] MEDS ORDERED: ACETAMINOPHEN 325 MG TAB PO PRN (02:30)
[2025-08-05 03:04] LABS: Hematocrit 24.0 % (36.0-46.0); Hemoglobin 7.6 g/dL (12.2-16.2); Mean Corpuscular Hemoglobin 27.2 pg (28.0-32.0); Mean Corpuscular Volume 86.2 fL (80.0-100.0); Nucleated Red Blood Cells % 0.1 %
[2025-08-05] MEDS ORDERED: MORPHINE SULFATE INJ 2 MG/ml SYRG IV PRN (03:15)
[2025-08-05] MEDS ORDERED: NITROGLYCERIN 0.4 MG SL TAB SL PRN (03:15)
[2025-08-05 03:18] LABS: Anion Gap 14 (5-15); BUN/Creatinine Ratio 17.4 (10.0-20.0); Total Protein 6.9 g/dL (5.7-8.2)
--- NOTE | 2025-08-05 03:18 | DVHHP2 ---
History of Present Illness Reason for Visit: Altered mental status History of Present Illness The patient is a 70-year-old female bed-bound who presented to [facility] ED with complaint of anemia, brain cancer with Mets, CVA, dementia, gallstones, hypertension, ND, and UTIs presented to [facility] ED for evaluation of altered mental status associated with generalized body pain. As reported by EMS, patient was noted to be altered than usual, nonverbal, distended abdomen and firm, nausea, episodes of vomiting, so hospice nurse advised family to call EMS to bring patient to the emergency department. Patient was seen and evaluated in the ED, laboratory data shows WBC 6.5, hemoglobin 8.4, hematocrit 26.5, platelets 404, sodium 129, potassium 6.4, BUN 107, creatinine 5.26, GFR 8, glucose 124, hemoglobin A1c 5.5, calcium 8.9, alkaline phos 190, lipase 118, lactic acid 1.9, troponin 18, ammonia < 10, blood pressure 142/55, heart rate 90, temperature 97.6 F, O2 saturation 95% on oxygen. Head CT showed no acute intracranial abnormality. Abdomen/pelvis CT revealing fluid 3rd spacing including moderate abdominopelvic ascites, diffuse mesenteric and subcutaneous edema, and incompletely assessed large right pleural effusion; incompletely bibasilar opacities, infectious/inflammatory process can not be excluded. Patient was given hyperkalemia protocol, please see medication orders section in the computer. On my assessment, patient remains altered, no dizziness, diaphoresis, currently on oxygen, no diarrhea, nausea, vomiting, fever, no chills. Patient was admitted for further evaluation and medical management. Past Medical History Anemia, Breast cancer, CVA, Dementia, Gallstones, HTN, ND, UTI'S Past Surgical History Nephrostomy tube, Mastectomy Family History Reviewed, noncontributory to the management of this case. Past Social History The patient lives at assisted care living, denies smoking, alcohol or illicit drugs abuse. Review of Systems Constitutional: Yes: Weakness, Other (Fatigue); No: Fever, Chills, Sweats, Malaise Eyes: No: Pain, Vision change, Conjunctivae inflammation, Eyelid inflammation, Other, Redness ENT: No: Ear pain, Ear discharge, Nose pain, Nose discharge, Nose congestion, Mouth pain, Mouth swelling, Throat pain, Throat swelling, Other Respiratory: Shortness of breath, Other (SOB at rest); No: Cough, Dry, SOB with excertion, Wheezing, Hemoptysis, Pleuritic Pain, Sputum, Wheezing Cardiovascular: No: Chest Pain, Palpitations, Orthopnea, Paroxysmal Noc. Dyspnea, Edema, Lt Headedness, Other Gastrointestinal: Nausea, Vomiting, Abdominal Pain, Other (Distended abdomen); No: Diarrhea, Constipation, Melena, Hematochezia Genitourinary: No Dysuria, No Frequency, No Incontinence, No Hematuria, No Retention; Other (Nephrostomy tube in place) Musculoskeletal: No: other, neck pain, shoulder pain, arm pain, back pain, hand pain, leg pain, foot pain Skin: No: Rash, Lesions, Jaundice, Bruising, Other Neurological: No: Weakness, Numbness, Incoordination, Change in speech, Confusion, Seizures, Other Allergies: Coded Allergies: Aspirin (Verified Allergy, Unknown, 05/15/25) Medications Current Medications Medications Dose Ordered Sig/Raoul Route Start Time Stop Time Status Last Admin Dose Admin Amlodipine Besylate 5 mg DAILY PO 08/05/25 10:00 Metoprolol Tartrate 25 mg BID PO 08/05/25 10:00 Clonidine HCl 0.1 mg Q4HP PRN PO 08/05/25 02:30 Sodium Chloride 10 ml Q8HR IV 08/05/25 06:00 Acetaminophen/ Hydrocodone Bitart 1 tab Q4HP PRN PO 08/05/25 02:30 Ondansetron HCl 4 mg Q4HP PRN IV 08/05/25 02:30 Docusate Sodium 100 mg BIDPRN PRN PO 08/05/25 02:30 Acetaminophen 650 mg Q6HP PRN PO 08/05/25 02:30 Exam Vital Signs Vital Signs Date Time Temp Pulse Resp B/P (MAP) Pulse Ox O2 Delivery O2 Flow Rate FiO2 08/05/25 02:00 90 15 142/55 (84) 100 08/05/25 01:57 Nasal Cannula* 5 40 08/04/25 23:30 97.0 97.0 General Appearance: Alert, Cooperative, No acute distress, Other (Oriented x1) HEENT: Atraumatic, PERRLA, EOMI, Mucous membr. moist/pink Respiratory: Normal air movement, Other (Diminished breath sounds) Cardiovascular: Regular rate, Normal S1, Normal S2, No murmurs Abdominal: Normal bowel sounds, Soft, No masses, Other (Distended abdom en/tenderness) Extremities: No clubbing, No cyanosis, No edema, Normal pulses, No tenderness/swelling Skin: No rashes, No significant lesion Neuro: Normal speech, Normal tone, Sensation intact, Cranial nerves 3-12 NL, Reflexes 2+, Other (Generalized weakness) Psych/Mental Status: Mood NL, Other (Altered mental status) Labs/Xrays Labs Test 08/05/25 02:50 08/05/25 01:46 08/04/25 23:59 08/04/25 23:30 Range/Units White Blood Count 8.2 # 4.4-10.8 10^3/uL Red Blood Count 2.79 L 4.0-5.20 10^6/uL Hemoglobin 7.6 L 12.2-16.2 g/dL Hematocrit 24.0 L 36.0-46.0 % Mean Corpuscular Volume 86.2 80.0-100.0 fL Mean Corpuscular Hemoglobin 27.2 L 28.0-32.0 pg Mean Corpuscular Hemoglobin Concent 31.6 L 32.0-36.0 g/dL Red Cell Distribution Width 19.1 H 11.8-14.3 % Platelet Count 362 140-450 10^3/uL Mean Platelet Volume 7.2 6.9-10.8 fL Neutrophils (%) (Auto) 84.8 H 37.0-80.0 % Lymphocytes (%) (Auto) 12.1 10.0-50.0 % Monocytes (%) (Auto) 2.7 0.0-12.0 % Eosinophils (%) (Auto) 0.1 0.0-7.0 % Basophils (%) (Auto) 0.3 0.0-2.0 % Neutrophils # (Auto) 6.9 1.6-8.6 10 ^3/uL Lymphocytes # (Auto) 1.0 0.4-5.4 10 ^3/uL Monocytes # (Auto) 0.2 0-1.3 10 ^3/uL Eosinophils # (Auto) 0 0-0.8 10 ^3/uL Basophils # (Auto) 0 0-0.2 10 ^3/uL Nucleated Red Blood Cells 0.1 % Troponin I High Sensitivity 17 </=34 ng/L POC Glucose 132 H 70-106 mg/dl Lactic Acid Level 1.9 0.4-2.0 mmol/L Ammonia < 10 L 11-32 umol/L Lipase 118 H 12-53 U/L Urine Color Light-orange Yellow Urine Clarity Ex.turbid Clear Urine pH 5.0 5.0-9.0 Urine Specific [place] 1.016 1.001-1.035 Urine Protein 1+ H Negative Urine Ketones Negative Negative Urine Blood 2+ H Negative /uL Urine Nitrite Negative Negative Urine Bilirubin Negative Negative Urine Urobilinogen Normal Negative mg/dL Urine Leukocyte Esterase 3+ Negative /uL Urine RBC 82 0 - 4 /hpf Urine WBC Clumps Present None Seen /hpf Urine Microscopic WBC 490 H 0-5 /HPF Urine Squamous Epithelial Cells Few <5 /hpf Urine Bacteria None seen None Seen /hpf Urine Hyaline Casts Mod 0 - 2 /lpf Urine Mucus Few None Seen Urine Yeast (Budding) Loaded None Seen /hpf Urine Glucose Normal Normal mg/dL PATIENT: CHAD TREVIZO ACCT: [id number] UNIT: [id number] : 1955 LOC: ER ROOM / BED: / AGE / SEX: 70 / F ADM STATUS: REG ER SERVICE [id number] ORDERING PHYSICIAN: COLE SPENCER PROCEDURE(s): HWOCT - HEAD WITHOUT CONTRAST REASON: aloc ORDER NUMBER(s): [id number], ACCESSION NUMBER(s): [id number] EXAM: CT HEAD WITHOUT CONTRAST INDICATION: aloc TECHNIQUE: CT of the head without intravenous contrast. Radiation Dose: 1. Head: CT Dose: CTDI volume is 53.34 mGy. Dose-length product is 1051.35 mGy*cm The dose indicators for CT are the volume Computed Tomography (CT) Dose Index (CTDIvol) and the Dose Length Product (DLP), and are measured in units of mGy and mGy-cm, respectively. These indicators are not patient dose, but values generated from the CT scanner acquisition factors. The report includes radiation exposure data for exposures received during this examination. COMPARISON: CT HEAD WITHOUT CONTRAST on DOS: 06/04/25, CT HEAD WITHOUT CONTRAST on DOS: 05/15/25 FINDINGS: There is no evidence of acute intracranial hemorrhage, extra-axial collection, mass effect, midline shift, herniation or hydrocephalus. Chronic appearing infarcts within the right cerebellum and bilateral occipital lobes. Increased prominence of the ventricles, sulci and cisterns consistent with sequelae Of atrophic cortical volume loss. The lock-white differentiation is intact. Moderate diffuse confluent periventricular and subcortical white matter hypoattenuation is nonspecific but may be related to small vessel ischemic disease. Right maxillary sinus air-fluid level. The remaining visualized paranasal sinuses and mastoid air cells are clear. The surrounding soft tissues and osseous structures are unremarkable. IMPRESSION: 1. No acute intracranial abnormality. 2. Chronic appearing infarcts within the right cerebellum and bilateral occipital lobes. 3. Chronic sequelae of microangiopathy and atrophic cortical volume loss. 4. Right maxillary sinus air-fluid level. ORDERING PHYSICIAN: COLE SPENCER PROCEDURE(s): ABPL - CT AB PEL WO CON-NO ORAL OR IV REASON: abd pain ORDER NUMBER(s): [id number], ACCESSION NUMBER(s): [id number] Exam: CT CT AB PEL WO CON-NO ORAL OR IV History: abd pain Comparison Study: US ABDOMEN LIMITED on DOS: 05/16/25, US PELVIC on DOS: 05/16/25, CT CT AB PEL WO CON-NO ORAL OR IV on DOS: 05/15/25 TECHNIQUE: Multidetector CT of the abdomen and pelvis was performed from lung bases to pubic symphysis. Imaging was performed without IV contrast. Axial, coronal, and sagittal multiplanar reformats were obtained from the axial data set by the technologist. RADIATION DOSE: CTDI vol 9.01 mGy. DLP 540.97 mGy.cm Findings: Limited evaluation of the solid organs in the absence of IV contrast. Evaluation is also degraded by motion artifact. Lungs: Incompletely assessed large right pleural effusion with adjacent opacity. Incompletely assessed mild opacity within the left lower lobe. Liver: Unremarkable. Spleen: Unremarkable. Pancreas: Unremarkable. Gallbladder: Cholelithiasis. Adrenals: Unremarkable Kidneys: Redemonstrated left percutaneous nephrostomy. Mild bilateral hydronephrosis. No obstructing calculus. Pelvic Viscera: Markedly enlarged multi fibroid uterus. Previously seen mass w ithin the urinary bladder is not well assessed. Vasculature: Atherosclerotic aortoiliac calcification. Incidental note of an IVC filter. Retroperitoneum: Moderate abdominopelvic ascites. Bowel: No bowel obstruction. Musculoskeletal: Unremarkable. Soft tissues: Diffuse subcutaneous edema. Impression: 1. Fluid third-spacing including moderate abdominopelvic ascites, diffuse mesent jasmina and subcutaneous edema, and Incompletely assessed large right pleural effusion. 2. Incompletely bibasilar opacities, infectious/inflammatory process cannot be excluded in the appropriate clinical setting. 3. Additional findings as detailed. SEPSIS Sepsis Screen Date sepsis recognized/suspect: Aug 04, 2025 Time Sepsis recognized/suspect: 2351 Recent Procedure: No On Antibiotic Therapy: No Respiratory Rate >20: No Heart Rate >90: No Temp<36 C (96.8 F) or >38.3 C: No SBP <90 or MAP <65 mmHG: No New Acute Mental Status Change: No Is the patient on CPAP, BIPAP,: No Physician Orders Ct Ab Pel Wo Con-No Oral Or Iv (08/04/25 23:18) Head Without Contrast (08/04/25 23:18) Troponin-I Hs (08/05/25 02:18) Electrocardigram (08/05/25 01:10) Comprehensive Metabolic Panel (08/05/25 04:00) Amlodipine Tablet (Norvasc Tablet) (08/05/25 10:00) Metoprolol Tartrate Tablet (Lopressor Ta (08/05/25 10:00) Clonidine Hcl Tablet (Catapres Tablet) (08/05/25 02:30) Type And Screen (08/05/25 02:23) Urine Bacterial Culture (08/05/25 02:23) *[facility] (08/05/25 02:23) Hemoglobin A1c (08/05/25 02:23) Allergies (08/05/25 02:23) Code Status (08/05/25 02:23) Renal Standard(2gna,3gk,Lopho) (08/05/25 Breakfast) Sodium Chloride Lock (Saline Lock Ns) (08/05/25 06:00) Oxygen Per Hour (08/05/25 02:23) Hydrocodone-Acet 5/325mg Tab ([place] (08/05/25 02:30) Ondansetron Hcl (Zofran) (08/05/25 02:30) Docusate Sodium Capsule (Colace Capsule) (08/05/25 02:30) Fall Risk Precautions In Place QSHIFT (08/05/25 02:23) Complete Blood Count (08/06/25 04:00) Comprehensive Metabolic Panel (08/06/25 04:00) Condition: Serious (08/05/25 02:23) Acetaminophen Tablet (Tylenol Tablet) (08/05/25 02:30) Maintain Bed Rest (08/05/25 02:23) Sequential Compression Device (08/05/25 ) Vital Signs Date Time Temp Pulse Resp B/P (MAP) Pulse Ox O2 Delivery O2 Flow Rate FiO2 08/05/25 02:00 90 15 142/55 (84) 100 08/05/25 01:57 18 95 Nasal Cannula* 5 40 08/04/25 23:52 76 15 100 Nasal Cannula* 4 36 08/04/25 23:30 97.0 76 15 130/45 (73) 100 97.0 08/04/25 23:29 75 08/04/25 23:09 98.1 78 14 131/63 97 98.1 Laboratory Tests Test 08/04/25 23:59 08/05/25 02:50 Lactic Acid Level 1.9 mmol/L (0.4-2.0) White Blood Count 6.5 10^3/uL (4.4-10.8) 8.2 10^3/uL (4.4-10.8) # Medications Medications Dose Ordered Sig/Raoul Route Start Time Stop Time Status Last Admin Dose Admin Albuterol 20 mg ONCE ONCE NEB 08/05/25 01:45 08/05/25 01:46 DC 08/05/25 01:57 20 MG Dextrose 50 ml ONCE ONCE IV 08/05/25 01:45 08/05/25 01:46 DC 08/05/25 01:52 50 ML Insulin Human Regular 10 units ONCE ONCE IV 08/05/25 01:45 08/05/25 01:46 DC 08/05/25 02:06 10 UNITS Sodium Bicarbonate 50 ml ONCE ONCE IV 08/05/25 01:45 08/05/25 01:46 DC 08/05/25 01:52 50 ML Assessment/Plan Assessment/Plan Altered mental status Ascites Electrolyte imbalance Pleural effusion Disorientation, unspecified Anemia of chronic disease Acute on chronic renal failure Generalized weakness Metabolic encephalopathy Plan 1. Admit to telemetry unit 2. Breathing treatment 3. Pain control management 4. Management of fluids and electrolytes 5. Consultation for nephrology/Hematology/Oncology/GI/hospitalist 6. Diagnostic tests abdomen/pelvis CT, head CT 7. DVT prophylaxis-on SCDs 8. Repeat labs CBC, CMP, hemoglobin A1c in a.m. 9. Continue with current medical management 10. Treatment plan discussed with patient and RN. Patient will need reinstatement of information given mental status. Plan discussed with: Patient, Other (RN) My Orders Orders - DAMION MCCORD DNP Procedure Category Date Status Time Comprehensive LAB 08/05/25 In Process Metabolic Panel 04:00 Amlodipine Tablet PHA 08/05/25 In Process (Norvasc Tablet) 10:00 Metoprolol Tartrate PHA 08/05/25 In Process Tablet (Lopressor Ta 10:00 Clonidine Hcl Tablet PHA 08/05/25 In Process (Catapres Tablet) 02:30 Type And Screen BBK 08/05/25 In Process 02:23 Urine Bacterial JOSE 08/05/25 In Process Culture 02:23 *[facility] CONS 08/05/25 Transmitted -[place] 02:23 Hemoglobin A1c LAB 08/05/25 In Process 02:23 Allergies KARTHIK 08/05/25 In Process 02:23 Code Status CODE 08/05/25 Transmitted 02:23 Renal DIET 08/05/25 Transmitted Standard(2gna,3gk,Lopho) Breakfast Sodium Chloride Lock PHA 08/05/25 In Process (Saline Lock Ns) 06:00 Oxygen Per Hour RT 08/05/25 Transmitted 02:23 Hydrocodone-Acet PHA 08/05/25 In Process 5/325mg Tab ([place] 02:30 Ondansetron Hcl PHA 08/05/25 In Process (Zofran) 02:30 Docusate Sodium PHA 08/05/25 In Process Capsule (Colace 02:30 Fall Risk Precautions KARTHIK 08/05/[address] 02:23 Complete Blood Count LAB 08/06/25 Verified 04:00 Comprehensive LAB 08/06/25 Verified Metabolic Panel 04:00 Condition: Serious KARTHIK 08/05/25 In Process 02:23 Acetaminophen Tablet PHA 08/05/25 In Process (Tylenol Tablet) 02:30 Maintain Bed Rest KARTHIK 08/05/25 In Process 02:23 Sequential KARTHIK 08/05/25 In Process Compression Device Problem List: (1) Altered mental status (2) Ascites (3) Electrolyte imbalance (4) Pleural effusion (5) Disorientation, unspecified (6) Anemia of chronic disease (7) Acute on chronic renal failure (8) Generalized weakness (9) Metabolic encephalopathy Date of Service: Aug 05, 2025 Billing Provider: DAMION MCCORD DNP Common Visit Codes: [id number] INP/OBS CARE (HIGH) DAMION MCCORD DNP Aug 05, 2025 03:18
[2025-08-05 03:24] LABS: Alanine Aminotransferase < 9 U/L (7-40); Albumin 3.1 g/dL (3.2-4.8); Alkaline Phosphatase 161 U/L (46-116); Bilirubin, Total < 0.2 mg/dL (0.2-1.0); Calcium 8.5 mg/dL (8.7-10.4); Carbon Dioxide 20 mmol/L (20-31); Chloride 97 mmol/L (98-107); Glucose 229 mg/dL (74-106); Sodium 131 mmol/L (136-145)
[2025-08-05 03:27] LABS: Blood Urea Nitrogen 90 mg/dL (9-23); Potassium 5.9 mmol/L (3.5-5.1)
[2025-08-05] MEDS: CALCIUM GLUC 1,000mg/50ml-NS 50 ML IV ONE (04:58)
[2025-08-05] MEDS: ALBUTEROL SULF 2.5 MG/0.5ML(0.5%) NEB SOLN ONE (04:58)
[2025-08-05] MEDS: SODIUM CHLOR 0.9% PF (SALINE LOCK) 10ML VIAL/SYR IV SCH (05:11)
--- NOTE | 2025-08-05 10:10 | ECG ---
[facility] Test Date: 2025-08-04 Test Time: 23:29:05 Pat Name: CHAD TREVIZO Department: ED Room: 0234T Gender: F Telephone Collector: MARCELLE : 1955 Requested By: COLE BROWN* Order Number: [id number] Reading MD: Francois Hernandez Measurements Intervals [place] Rate: 75 P: 26 NE: 137 QRS: 12 QRSD: 92 T: 69 QT: 353 QTc: 395 Interpretive Statements Sinus rhythm Probable left atrial enlargement Electronically Signed On 08-11-2025 18:44:36 PST by Francois Hernandez Please click the below link to view image of tracing.
--- NOTE | 2025-08-05 10:48 | DVHCONRES ---
Date Seen: Aug 05, 2025 Resident Creating Document: ALLAN YANEZ RESIDENT Referring Physician Bladimir OLMEDO Reason for Consultation Hyperkalemia History of Present Illness Keturah Tovar is a 70-year-old female bed-bound who presented to [facility] ED with complaint of anemia, brain cancer with Mets, CVA, dementia, gallstones, hypertension, AL, and UTIs presented to [facility] ED f or evaluation of altered mental status associated with generalized body pain. As reported by EMS, patient was noted to be altered than usual, nonverbal, distended abdomen and firm, nausea, episodes of vomiting, so hospice nurse advised family to call EMS to bring patient to the emergency department. nephrology was consulted for hyperkalemia. Past Medical History: Anemia, Breast cancer, CVA, Dementia, Gallstones, HTN, AL, UTI'S Past Surgical History: Nephrostomy tube, Mastectomy Family History: Reviewed, noncontributory to the management of this case. Past Social History: The patient lives at assisted care living, denies smoking, alcohol or illicit drugs abuse. Allergies: Aspirin Patient seen and examined at the bedside. Unable to obtain ROS due to patient's clinical status, altered. Family History: Patient reports no known family medical history. Allergies: Coded Allergies: Aspirin (Verified Allergy, Unknown, 05/15/25) Home Meds Active Scripts Amoxicillin & Pot Clavulanate (Augmentin Es-600 600-42.9 mg/5Ml) 1 Zandra Zandra, 5 ZANDRA PO Q8HR for 5 Days, #75 ML Prov:DANE ENAMORADO MD 06/21/25 Current Medications Current Medications Medications (Trade) Dose Ordered Sig/Raoul Route PRN Reason Start Time Stop Time Status Last Admin Amlodipine Besylate (Norvasc Tablet) 5 mg DAILY PO 08/05/25 10:00 Metoprolol Tartrate (Lopressor Tablet) 25 mg BID PO 08/05/25 10:00 Clonidine HCl (Catapres Tablet) 0.1 mg Q4HP PRN PO SBP>150 08/05/25 02:30 Sodium Chloride (Saline Lock Ns) 10 ml Q8HR IV 08/05/25 06:00 08/05/25 05:11 Acetaminophen/ Hydrocodone Bitart ([place] 5/325MG Tab) 1 tab Q4HP PRN PO MODERATE PAIN (4-6 PAIN SCALE) 08/05/25 02:30 Ondansetron HCl (Zofran) 4 mg Q4HP PRN IV NAUSEA / VOMITING 08/05/25 02:30 Docusate Sodium (Colace Capsule) 100 mg BIDPRN PRN PO FOR CONSTIPATION 08/05/25 02:30 Acetaminophen (Tylenol Tablet) 650 mg Q6HP PRN PO PAIN SCALE 1-3 OR TEMP>100.4 08/05/25 02:30 Nitroglycerin (Ntrostat Sublingual) 0.4 mg Q5MINP PRN SL FOR CHEST PAIN 08/05/25 03:15 Morphine Sulfate 2 mg Q30M PRN IV FOR CHEST PAIN 08/05/25 03:15 Sodium Chloride 1,000 ml @ 100 mls/hr Q10H IV 08/05/25 10:45 UNV Vital Signs Vital Signs Date Time Temp Pulse Resp B/P (MAP) Pulse Ox O2 Delivery O2 Flow Rate FiO2 08/05/25 08:24 94 19 95 Nasal Cannula* 2 28 08/05/25 08:19 98.9 119/82 (94) 98.9 Physical Exam General Appearance: mild distress, altered HEENT: Atraumatic, PERRLA, Other Lungs: clear, no adventitious sounds Cardiovascular: Normal S1, Normal S2 Abdomen: decreased bowel sounds, abdomen is distended, tender Genitourinary: Steen catheter Musculoskeletal: No edema, Neuro: Unable to assess Skin: Dry, Intact Labs/Diagnostic Data Labs Test 08/05/25 04:49 08/05/25 02:50 08/04/25 23:59 08/04/25 23:30 Range/Units POC Glucose 137 H 70-106 mg/dl White Blood Count 8.2 # 4.4-10.8 10^3/uL Red Blood Count 2.79 L 4.0-5.20 10^6/uL Hemoglobin 7.6 L 12.2-16.2 g/dL Hematocrit 24.0 L 36.0-46.0 % Mean Corpuscular Volume 86.2 80.0-100.0 fL Mean Corpuscular Hemoglobin 27.2 L 28.0-32.0 pg Mean Corpuscular Hemoglobin Concent 31.6 L 32.0-36.0 g/dL Red Cell Distribution Width 19.1 H 11.8-14.3 % Platelet Count 362 140-450 10^3/uL Mean Platelet Volume 7.2 6.9-10.8 fL Neutrophils (%) (Auto) 84.8 H 37.0-80.0 % Lymphocytes (%) (Auto) 12.1 10.0-50.0 % Monocytes (%) (Auto) 2.7 0.0-12.0 % Eosinophils (%) (Auto) 0.1 0.0-7.0 % Basophils (%) (Auto) 0.3 0.0-2.0 % Neutrophils # (Auto) 6.9 1.6-8.6 10 ^3/uL Lymphocytes # (Auto) 1.0 0.4-5.4 10 ^3/uL Monocytes # (Auto) 0.2 0-1.3 10 ^3/uL Eosinophils # (Auto) 0 0-0.8 10 ^3/uL Basophils # (Auto) 0 0-0.2 10 ^3/uL Nucleated Red Blood Cells 0.1 % Sodium Level 131 L 136-145 mmol/L Potassium Level 5.9 *H 3.5-5.1 mmol/L Chloride Level 97 L 98-107 mmol/L Carbon Dioxide Level 20 20-31 mmol/L Anion Gap 14 5-15 Blood Urea Nitrogen 90 #*H 9-23 mg/dL Creatinine 5.16 H 0.550-1.02 mg/dL Glomerular Filtration Rate Calc 8 >90 mL/min BUN/Creatinine Ratio 17.4 10.0-20.0 Serum Glucose 229 H 74-106 mg/dL Hemoglobin A1c 5.5 <5.7 % A1C Calcium Level 8.5 L 8.7-10.4 mg/dL Total Bilirubin < 0.2 L 0.2-1.0 mg/dL Aspartate Amino Transferase (AST) 20 13-40 U/L Alanine Aminotransferase (ALT) < 9 7-40 U/L Alkaline Phosphatase 161 H 46-116 U/L Troponin I High Sensitivity 17 </=34 ng/L Total Protein 6.9 5.7-8.2 g/dL Albumin 3.1 L 3.2-4.8 g/dL Lactic Acid Level 1.9 0.4-2.0 mmol/L Ammonia < 10 L 11-32 umol/L Lipase 118 H 12-53 U/L Urine Color Light-orange Yellow Urine Clarity Ex.turbid Clear Urine pH 5.0 5.0-9.0 Urine Specific [place] 1.016 1.001-1.035 Urine Protein 1+ H Negative Urine Ketones Negative Negative Urine Blood 2+ H Negative /uL Urine Nitrite Negative Negative Urine Bilirubin Negative Negative Urine Urobilinogen Normal Negative mg/dL Urine Leukocyte Esterase 3+ Negative /uL Urine RBC 82 0 - 4 /hpf Urine WBC Clumps Present None Seen /hpf Urine Microscopic WBC 490 H 0-5 /HPF Urine Squamous Epithelial Cells Few <5 /hpf Urine Bacteria None seen None Seen /hpf Urine Hyaline Casts Mod 0 - 2 /lpf Urine Mucus Few None Seen Urine Yeast (Budding) Loaded None Seen /hpf Urine Glucose Normal Normal mg/dL Assessment FADIA likely hemodynamic mediated on CKD Dehydration Obstructive uropathy from advanced uterine cancer Status post nephrostomy tube Hyperkalemia likely from renal failure And increased intake (ensure) Metabolic encephalopathy Plan/recommendations Avoid potassium ingestion/ensure Hyperkalemia protocol with insulin 10 units, D5W Continuously monitor lab Urine studies 1 L bolus follow up with 100 mL/hour NS Lasix 80 mg IV push after 1 L bolus Steen catheter, monitor urine output Strict I&Os Rest of management primary team Patient seen and examined by myself in rounds with the medicine resident, I agree with the assessment and plan Case discussed with the Dr. Tabares Plan discussed with: Daughter, Other (rn) ALLAN YANEZ RESIDENT Aug 05, 2025 10:48 CIARRA TABARES MD Aug 06, 2025 09:37
[2025-08-05 11:06] LABS: Hemoglobin 7.7 g/dL (12.2-16.2); Mean Corpuscular Hemoglobin 27.0 pg (28.0-32.0); Nucleated Red Blood Cells % 0.1 %
[2025-08-05 11:08] LABS: Hematocrit 24.6 % (36.0-46.0); Mean Corpuscular Volume 86.7 fL (80.0-100.0)
[2025-08-05 11:17] LABS: Anion Gap 13 (5-15); Calcium 9.0 mg/dL (8.7-10.4); Carbon Dioxide 22 mmol/L (20-31)
[2025-08-05 11:22] LABS: BUN/Creatinine Ratio 20.8 (10.0-20.0); Chloride 97 mmol/L (98-107); Glucose 123 mg/dL (74-106); Sodium 132 mmol/L (136-145)
[2025-08-05 11:27] LABS: Blood Urea Nitrogen 109 mg/dL (9-23); Potassium 6.3 mmol/L (3.5-5.1)
--- NOTE | 2025-08-05 12:12 | DVHPN2 ---
Reviewed: Care Plan, H&P, Labs, Medications, Previous Orders, Radiology Changes from previous H/P or p: No Changes Eyes: No Pain, No Vision change, No Conjunctivae inflammation, No Eyelid inflammation, No Other, No Redness ENT: No Ear pain, No Ear discharge, No Nose pain, No Nose discharge, No Nose congestion, No Mouth pain, No Mouth swelling, No Throat pain, No Throat swelling, No Other Cardiovascular: No Chest Pain, No Palpitations, No Orthopnea, No Paroxysmal Noc. Dyspnea, No Edema, No Lt Headedness, No Other Respiratory: No Cough, No Dry; Shortness of breath; No SOB with excertion, No Wheezing, No Hemoptysis, No Pleuritic Pain, No Sputum; Other (SOB at rest) Gastrointestinal: Nausea, Vomiting, Abdominal Pain; No Diarrhea, No Constipation, No Melena, No Hematochezia; Other (Distended abdomen) Genitourinary: No Dysuria, No Frequency, No Incontinence, No Hematuria, No Retention; Other (Nephrostomy tube in place) Musculoskeletal: No other, No neck pain, No shoulder pain, No arm pain, No back pain, No hand pain, No leg pain, No foot pain Skin: No Rash, No Lesions, No Jaundice, No Bruising, No Other Objective Vitals Vital Signs Date Time Temp Pulse Resp B/P (MAP) Pulse Ox O2 Delivery O2 Flow Rate FiO2 08/05/25 10:47 90 20 111/44 (66) 98 08/05/25 08:24 Nasal Cannula* 2 28 08/05/25 08:19 98.9 98.9 Intake/Output Intake and Output 08/05/25 07:00 Intake Total 120 ml Balance 120 ml Intake IV Total 120 ml Medications Current Medications Medications Dose Ordered Sig/Raoul Route Start Time Stop Time Status Last Admin Dose Admin Amlodipine Besylate 5 mg DAILY PO 08/05/25 10:00 Metoprolol Tartrate 25 mg BID PO 08/05/25 10:00 Clonidine HCl 0.1 mg Q4HP PRN PO 08/05/25 02:30 Sodium Chloride 10 ml Q8HR IV 08/05/25 06:00 08/05/25 05:11 10 ML Acetaminophen/ Hydrocodone Bitart 1 tab Q4HP PRN PO 08/05/25 02:30 Ondansetron HCl 4 mg Q4HP PRN IV 08/05/25 02:30 Docusate Sodium 100 mg BIDPRN PRN PO 08/05/25 02:30 Acetaminophen 650 mg Q6HP PRN PO 08/05/25 02:30 Nitroglycerin 0.4 mg Q5MINP PRN SL 08/05/25 03:15 Morphine Sulfate 2 mg Q30M PRN IV 08/05/25 03:15 Sodium Chloride 1,000 ml @ 100 mls/hr Q10H IV 08/05/25 10:45 Laboratory Results Laboratory Tests 08/05/25 10:48 Chemistry Test 08/04/25 23:59 08/05/25 02:50 08/05/25 10:48 Albumin 3.4 g/dL (3.2-4.8) 3.1 g/dL (3.2-4.8) L Calcium Level 8.9 mg/dL (8.7-10.4) 8.5 mg/dL (8.7-10.4) L 9.0 mg/dL (8.7-10.4) Total Protein 7.3 g/dL (5.7-8.2) 6.9 g/dL (5.7-8.2) Lipid panel Test 08/04/25 23:59 Lipase 118 U/L (12-53) H LFT Test 08/04/25 23:59 08/05/25 02:50 Alanine Aminotransferase (ALT) < 9 U/L (7-40) < 9 U/L (7-40) Alkaline Phosphatase 190 U/L (46-116) H 161 U/L (46-116) H Aspartate Amino Transferase (AST) 18 U/L (13-40) 20 U/L (13-40) Total Bilirubin 0.2 mg/dL (0.2-1.0) < 0.2 mg/dL (0.2-1.0) L HgA1c, TSH Test 08/05/25 02:50 Hemoglobin A1c 5.5 % A1C (<5.7) Urinalysis Test 08/04/25 23:30 Urine Color Light-orange (Yellow) Urine Clarity Ex.turbid (Clear) Urine pH 5.0 (5.0-9.0) Urine Specific [place] 1.016 (1.001-1.035) Urine Protein 1+ (Negative) H Urine Ketones Negative (Negative) Urine Blood 2+ /uL (Negative) H Urine Nitrite Negative (Negative) Urine Bilirubin Negative (Negative) Urine Urobilinogen Normal mg/dL (Negative) Urine Leukocyte Esterase 3+ /uL (Negative) Urine RBC 82 /hpf (0 - 4) Urine WBC Clumps Present /hpf (None Seen) Urine Microscopic WBC 490 /HPF (0-5) H Urine Squamous Epithelial Cells Few /hpf (<5) Urine Bacteria None seen /hpf (None Seen) Urine Hyaline Casts Mod /lpf (0 - 2) Urine Mucus Few (None Seen) Urine Yeast (Budding) Loaded /hpf (None Seen) Urine Glucose Normal mg/dL (Normal) Labs and/or images reviewed: Labs reviewed by me, Image(s) reviewed by me Assessment/Plan Assessment/Plan Sepsis secondary to urinary tract infection: Blood cultures urine cultures, Rocephin Acute metabolic encephalopathy Generalized weakness 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 Cardoso during the last visit Acute hyperkalemia: Treatment per protocol consult by Dr. Tabares appreciated Patient Is hospice revoked Time spent 70 minutes Advanced care planning time 20 minutes Plan discussed with: Patient My Orders Orders - FABRICE ARENAS MD Procedure Category Date Status Time * Urology Consult CONS 08/05/25 Transmitted 12:06 Date of Service: Aug 05, 2025 Billing Provider: FABRICE ARENAS MD Common Visit Codes: [id number] CARE 30-74 MIN FABRICE ARENAS MD Aug 05, 2025 12:12
[2025-08-05] MEDS: METOPROLOL TARTRATE 25 MG TAB PO SCH (12:21)
[2025-08-05] MEDS: SODIUM CHLORIDE 0.9% 1,000 ML IV SCH (12:23)
[2025-08-05] MEDS: SODIUM CHLORIDE 0.9% 1,000 ML IV ONE (12:23)
[2025-08-05] MEDS: FUROSEMIDE 100 MG/10ML VIAL IV ONE (12:24)
--- NOTE | 2025-08-05 15:04 | DVH ---
Date: 08/05/2025 02:09 PM Examination: XY KUB ABDOMEN SINGLE VIEW History: ACITIES Comparison: None TECHNIQUE: Frontal views of the abdomen was obtained. FINDINGS: Bowel gas pattern is unremarkable. Large stool burden throughout the colon suggesting constipation. Loop recorder over cardiac silhouette in the left lower lung field. 5 cm round calcification in the pelvic midline most consistent with a calcified uterine fibroid. The lung bases are unremarkable. No acute osseous abnormality identified. IMPRESSION: 1. Nonobstructive bowel gas pattern. 2. Findings consistent with stool-filled colon constipation. 3. If ascites is of concern recommend abdominal ultrasound. 4. 5 cm round calcification in the pelvic midline consistent with a uterine fibroid. 5. Loop recorder over the left lower lung field over the cardiac silhouette.
[2025-08-05 15:28] LABS: Protein, Urine 122.0 mg/dL (1-14)
--- NOTE | 2025-08-05 17:14 | DVHINCON2 ---
Date of service: Aug 05, 2025 Referring Physician Hospitalist Reason for Consultation Hematuria History of Present Illness Patient brought in by EMS. Per family members patient has a history of brain cancer and uterine cancer, was on hospice. They called hospice nurse and they advised to come into the emergency department. They noticed that over the last 24 hours patient's stomach has become more round and firm. Patient has normal status is nonverbal, bed-bound. They state that they decided to call EMS because patient started having episodes of vomiting, patient has been vomiting for the last 5 hours. Daval[address] catheter in place with hematuria noted. Left PNT has clear urine output. Chief Complaint: Nausea/Vomiting Reviewed Notes: Nurses Notes Allergies: Coded Allergies: Aspirin (Verified Allergy, Unknown, 05/15/25) Home Meds Active Scripts Amoxicillin & Pot Clavulanate (Augmentin Es-600 600-42.9 mg/5Ml) 1 Zandra Zandra, 5 ZANDRA PO Q8HR for 5 Days, #75 ML Prov:DANE ENAMORADO MD 06/21/25 Information Source: Emergency Med Personnel Mode of Arrival: EMS Past Medical History Anemia, Cancer, CVA, Dementia, Gallstones, HTN, [place], UTI'S Past Surgical History Left PNT Family History: Patient reports no known family medical history. Allergies: Coded Allergies: Aspirin (Verified Allergy, Unknown, 05/15/25) Home Meds Active Scripts Amoxicillin & Pot Clavulanate (Augmentin Es-600 600-42.9 mg/5Ml) 1 Zandra Zandra, 5 ZANDRA PO Q8HR for 5 Days, #75 ML Prov:DANE ENAMORADO MD 06/21/25 Current Medications Current Medications Medications (Trade) Dose Ordered Sig/Raoul Route PRN Reason Start Time Stop Time Status Last Admin Amlodipine Besylate (Norvasc Tablet) 5 mg DAILY PO 08/05/25 10:00 Metoprolol Tartrate (Lopressor Tablet) 25 mg BID PO 08/05/25 10:00 Clonidine HCl (Catapres Tablet) 0.1 mg Q4HP PRN PO SBP>150 08/05/25 02:30 08/05/25 16:52 Sodium Chloride (Saline Lock Ns) 10 ml Q8HR IV 08/05/25 06:00 08/05/25 05:11 Acetaminophen/ Hydrocodone Bitart ([place] 5/325MG Tab) 1 tab Q4HP PRN PO MODERATE PAIN (4-6 PAIN SCALE) 08/05/25 02:30 Ondansetron HCl (Zofran) 4 mg Q4HP PRN IV NAUSEA / VOMITING 08/05/25 02:30 Docusate Sodium (Colace Capsule) 100 mg BIDPRN PRN PO FOR CONSTIPATION 08/05/25 02:30 Acetaminophen (Tylenol Tablet) 650 mg Q6HP PRN PO PAIN SCALE 1-3 OR TEMP>100.4 08/05/25 02:30 Nitroglycerin (Ntrostat Sublingual) 0.4 mg Q5MINP PRN SL FOR CHEST PAIN 08/05/25 03:15 Morphine Sulfate 2 mg Q30M PRN IV FOR CHEST PAIN 08/05/25 03:15 Sodium Chloride 1,000 ml @ 100 mls/hr Q10H IV 08/05/25 10:45 08/05/25 12:23 Ceftriaxone Sodium 50 ml @ 100 mls/hr DAILY@09 IV 08/06/25 09:00 Review of Systems Unable to Obtain due to: Altered Mental Status Vital Signs Vital Signs Date Time Temp Pulse Resp B/P (MAP) Pulse Ox O2 Delivery O2 Flow Rate FiO2 08/05/25 16:52 179/97 08/05/25 16:47 96.7 91 18 93 96.7 08/05/25 16:18 Nasal Cannula* 2 28 Physical Exam General Appearance: NAD HEENT: Head, Pharynx Normal, TMs Normal Neck: Normal Respiratory: Decreased Breath Sounds Cardiovascular: No Edema, No JVD, No Murmur, No Gallop, Normal Peripheral Pulses, Regular Rate/Rhythm Breast Exam: Deferred Gastrointestinal: Distended, Tenderness Genitalia: Davalos in place with heme tinged color urine Extremities: NOT DONE Neurologic: NOT DONE Cerebellar Function: NOT DONE Reflexes: NOT DONE Skin: NOT DONE Peripheral Pulses: 2+ carotid (R), 2+ carotid (L) Lymphatic: NOT DONE Labs/Diagnostic Data Labs Test 08/05/25 12:28 08/05/25 10:48 08/05/25 02:50 08/04/25 23:59 Range/Units POC Glucose 178 H 70-106 mg/dl White Blood Count 7.6 4.4-10.8 10^3/uL Red Blood Count 2.84 L 4.0-5.20 10^6/uL Hemoglobin 7.7 L 12.2-16.2 g/dL Hematocrit 24.6 L 36.0-46.0 % Mean Corpuscular Volume 86.7 80.0-100.0 fL Mean Corpuscular Hemoglobin 27.0 L 28.0-32.0 pg Mean Corpuscular Hemoglobin Concent 31.2 L 32.0-36.0 g/dL Red Cell Distribution Width 19.2 H 11.8-14.3 % Platelet Count 357 140-450 10^3/uL Mean Platelet Volume 7.2 6.9-10.8 fL Neutrophils (%) (Auto) 90.6 H 37.0-80.0 % Lymphocytes (%) (Auto) 3.9 L 10.0-50.0 % Monocytes (%) (Auto) 5.4 0.0-12.0 % Eosinophils (%) (Auto) 0.1 0.0-7.0 % Basophils (%) (Auto) 0.0 0.0-2.0 % Neutrophils # (Auto) 6.9 1.6-8.6 10 ^3/uL Lymphocytes # (Auto) 0.3 L 0.4-5.4 10 ^3/uL Monocytes # (Auto) 0.4 0-1.3 10 ^3/uL Eosinophils # (Auto) 0 0-0.8 10 ^3/uL Basophils # (Auto) 0 0-0.2 10 ^3/uL Nucleated Red Blood Cells 0.1 % Sodium Level 132 L 136-145 mmol/L Potassium Level 6.3 *H 3.5-5.1 mmol/L Chloride Level 97 L 98-107 mmol/L Carbon Dioxide Level 22 20-31 mmol/L Anion Gap 13 5-15 Blood Urea Nitrogen 109 #*H 9-23 mg/dL Creatinine 5.24 H 0.550-1.02 mg/dL Glomerular Filtration Rate Calc 8 >90 mL/min BUN/Creatinine Ratio 20.8 H 10.0-20.0 Serum Glucose 123 H 74-106 mg/dL Calcium Level 9.0 8.7-10.4 mg/dL Hemoglobin A1c 5.5 <5.7 % A1C Total Bilirubin < 0.2 L 0.2-1.0 mg/dL Aspartate Amino Transferase (AST) 20 13-40 U/L Alanine Aminotransferase (ALT) < 9 7-40 U/L Alkaline Phosphatase 161 H 46-116 U/L Troponin I High Sensitivity 17 </=34 ng/L Total Protein 6.9 5.7-8.2 g/dL Albumin 3.1 L 3.2-4.8 g/dL Lactic Acid Level 1.9 0.4-2.0 mmol/L Ammonia < 10 L 11-32 umol/L Lipase 118 H 12-53 U/L Test 08/04/25 23:30 Range/Units Urine Color Light-orange Yellow Urine Clarity Ex.turbid Clear Urine pH 5.0 5.0-9.0 Urine Specific [place] 1.016 1.001-1.035 Urine Protein 1+ H Negative Urine Ketones Negative Negative Urine Blood 2+ H Negative /uL Urine Nitrite Negative Negative Urine Bilirubin Negative Negative Urine Urobilinogen Normal Negative mg/dL Urine Leukocyte Esterase 3+ Negative /uL Urine RBC 82 0 - 4 /hpf Urine WBC Clumps Present None Seen /hpf Urine Microscopic WBC 490 H 0-5 /HPF Urine Squamous Epithelial Cells Few <5 /hpf Urine Bacteria None seen None Seen /hpf Urine Hyaline Casts Mod 0 - 2 /lpf Urine Mucus Few None Seen Urine Yeast (Budding) Loaded None Seen /hpf Urine Creatinine 113.85 30.0-125.0 mg/dL Urine Protein/Creatinine Ratio 1.07 Urine Sodium 34 L 40-220 mmol/L Urine Potassium 48 12-62 mmol/L Urine Glucose Normal Normal mg/dL Urine Total Protein 122.0 H 1-14 mg/dL Assessment FADIA/Azotemia Hematuria s/p Left PNT in situ Plan/Recommendation Keep davalos to gravity Monitor creatinine Left PNT in situ Plan discussed with: Other SAVITA STOUT MD Aug 05, 2025 17:14
[2025-08-06] VITALS (11 sets, daily range): BP systolic 111–158; BP diastolic 74–94; PULSE 64–96; RESP 16–19; TEMP 98.3–98.7; O2SAT 94–100
[2025-08-06 08:05] LABS: Hematocrit 22.6 % (36.0-46.0); Hemoglobin 7.3 g/dL (12.2-16.2); Mean Corpuscular Hemoglobin 28.2 pg (28.0-32.0); Mean Corpuscular Volume 87.6 fL (80.0-100.0); Nucleated Red Blood Cells % 0.4 %
[2025-08-06 08:56] LABS: Anion Gap 16 (5-15); BUN/Creatinine Ratio 22.2 (10.0-20.0); Chloride 101 mmol/L (98-107); Glucose 78 mg/dL (74-106)
[2025-08-06 08:57] LABS: Total Protein 6.2 g/dL (5.7-8.2)
[2025-08-06 09:07] LABS: Alanine Aminotransferase < 9 U/L (7-40); Albumin 2.8 g/dL (3.2-4.8); Alkaline Phosphatase 162 U/L (46-116); Bilirubin, Total 0.2 mg/dL (0.2-1.0); Calcium 8.2 mg/dL (8.7-10.4); Carbon Dioxide 19 mmol/L (20-31); Sodium 136 mmol/L (136-145)
[2025-08-06 09:09] LABS: Blood Urea Nitrogen 109 mg/dL (9-23); Potassium 6.0 mmol/L (3.5-5.1)
--- NOTE | 2025-08-06 09:24 | DVHPN2 ---
Reviewed: Care Plan, H&P, Labs, Medications, Previous Orders, Radiology Changes from previous H/P or p: No Changes Eyes: No Pain, No Vision change, No Conjunctivae inflammation, No Eyelid inflammation, No Other, No Redness ENT: No Ear pain, No Ear discharge, No Nose pain, No Nose discharge, No Nose congestion, No Mouth pain, No Mouth swelling, No Throat pain, No Throat swelling, No Other Cardiovascular: No Chest Pain, No Palpitations, No Orthopnea, No Paroxysmal Noc. Dyspnea, No Edema, No Lt Headedness, No Other Respiratory: No Cough, No Dry; Shortness of breath; No SOB with excertion, No Wheezing, No Hemoptysis, No Pleuritic Pain, No Sputum; Other (SOB at rest) Gastrointestinal: Nausea, Vomiting, Abdominal Pain; No Diarrhea, No Constipation, No Melena, No Hematochezia; Other (Distended abdomen) Genitourinary: No Dysuria, No Frequency, No Incontinence, No Hematuria, No Retention; Other (Nephrostomy tube in place) Musculoskeletal: No other, No neck pain, No shoulder pain, No arm pain, No back pain, No hand pain, No leg pain, No foot pain Skin: No Rash, No Lesions, No Jaundice, No Bruising, No Other Objective Vitals Vital Signs Date Time Temp Pulse Resp B/P (MAP) Pulse Ox O2 Delivery O2 Flow Rate FiO2 08/06/25 05:00 98.4 96 18 158/83 (108) 98 98.4 08/05/25 20:30 Nasal Cannula* 3 32 Intake/Output Intake and Output 08/06/25 07:00 Intake Total 0 ml Output Total 300 ml Balance -300 ml Intake Oral 0 ml Output Urine Total 300 ml # Bowel Movements 1 Medications Current Medications Medications Dose Ordered Sig/Raoul Route Start Time Stop Time Status Last Admin Dose Admin Amlodipine Besylate 5 mg DAILY PO 08/05/25 10:00 Metoprolol Tartrate 25 mg BID PO 08/05/25 10:00 Clonidine HCl 0.1 mg Q4HP PRN PO 08/05/25 02:30 08/05/25 16:52 0.1 MG Sodium Chloride 10 ml Q8HR IV 08/05/25 06:00 08/06/25 06:06 10 ML Acetaminophen/ Hydrocodone Bitart 1 tab Q4HP PRN PO 08/05/25 02:30 Ondansetron HCl 4 mg Q4HP PRN IV 08/05/25 02:30 Docusate Sodium 100 mg BIDPRN PRN PO 08/05/25 02:30 Acetaminophen 650 mg Q6HP PRN PO 08/05/25 02:30 Nitroglycerin 0.4 mg Q5MINP PRN SL 08/05/25 03:15 Morphine Sulfate 2 mg Q30M PRN IV 08/05/25 03:15 Sodium Chloride 1,000 ml @ 100 mls/hr Q10H IV 08/05/25 10:45 08/06/25 06:04 100 MLS/HR Ceftriaxone Sodium 50 ml @ 100 mls/hr DAILY@09 IV 08/06/25 09:00 Laboratory Results Laboratory Tests 08/06/25 06:33 Chemistry Test 08/05/25 10:48 08/06/25 06:33 Calcium Level 9.0 mg/dL (8.7-10.4) 8.2 mg/dL (8.7-10.4) L Albumin 2.8 g/dL (3.2-4.8) L Total Protein 6.2 g/dL (5.7-8.2) LFT Test 08/06/25 06:33 Alanine Aminotransferase (ALT) < 9 U/L (7-40) Alkaline Phosphatase 162 U/L (46-116) H Aspartate Amino Transferase (AST) 20 U/L (13-40) Total Bilirubin 0.2 mg/dL (0.2-1.0) Urinalysis Test 08/04/25 23:30 Urine Color Light-orange (Yellow) Urine Clarity Ex.turbid (Clear) Urine pH 5.0 (5.0-9.0) Urine Specific [place] 1.016 (1.001-1.035) Urine Protein 1+ (Negative) H Urine Ketones Negative (Negative) Urine Blood 2+ /uL (Negative) H Urine Nitrite Negative (Negative) Urine Bilirubin Negative (Negative) Urine Urobilinogen Normal mg/dL (Negative) Urine Leukocyte Esterase 3+ /uL (Negative) Urine RBC 82 /hpf (0 - 4) Urine WBC Clumps Present /hpf (None Seen) Urine Microscopic WBC 490 /HPF (0-5) H Urine Squamous Epithelial Cells Few /hpf (<5) Urine Bacteria None seen /hpf (None Seen) Urine Hyaline Casts Mod /lpf (0 - 2) Urine Mucus Few (None Seen) Urine Yeast (Budding) Loaded /hpf (None Seen) Urine Creatinine 113.85 mg/dL (30.0-125.0) Urine Protein/Creatinine Ratio 1.07 Urine Sodium 34 mmol/L (40-220) L Urine Potassium 48 mmol/L (12-62) Urine Glucose Normal mg/dL (Normal) Urine Total Protein 122.0 mg/dL (1-14) H Labs and/or images reviewed: Labs reviewed by me, Image(s) reviewed by me Assessment/Plan Assessment/Plan Sepsis secondary to urinary tract infection: Blood cultures pending urine cultures pending, Rocephin Acute metabolic encephalopathy Generalized weakness 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 Pereira appreciated anemia hypertensive crisis Bilateral hydronephrosis CVA Dementia Gallstones Pulmonary hypertension History of IVC filter ESRD: Patient not a candidate for hemodialysis per Dr. Cardoso during the last visit Acute hyperkalemia: Treatment per protocol consult for Dr. Mccurdy pending Patient Is hospice revoked patient was on [facility] hospice Time spent 50 minutes Advanced care planning time 20 minutes RN Perlita at bedside Plan discussed with: Patient My Orders Orders - FABRICE ARENAS MD Procedure Category Date Status Time Blood Culture JOSE 08/05/25 In Process 12:13 Ceftriaxone 1gm/50ml PHA 08/06/25 In Process (Rocephin) 09:00 * Urology Consult CONS 08/05/25 Transmitted 13:31 Complete Blood Count LAB 08/07/25 Verified 06:00 Complete Blood Count LAB 08/08/25 Verified 06:00 Comprehensive LAB 08/07/25 Verified Metabolic Panel 06:00 Comprehensive LAB 08/08/25 Verified Metabolic Panel 06:00 Pureed DIET 08/06/25 Transmitted Breakfast Date of Service: Aug 06, 2025 Billing Provider: FABRICE ARENAS MD Common Visit Codes: [id number] INP/OBS CARE(HIGH) FABRICE ARENAS MD Aug 06, 2025 09:24
--- NOTE | 2025-08-06 11:27 | DVHPN2 ---
Progress Note Date Seen: Aug 06, 2025 Medical Necessity Reason Pt with a Central, PICC or Fol: No Subjective Review of Systems: RESPIRATORY:Abnormal Other Systems: Patient seen and examined by myself today in follow-up Objective vital signs Vital Sign Date Time Temp Pulse Resp B/P (MAP) Pulse Ox O2 Delivery O2 Flow Rate FiO2 08/06/25 09:42 87 133/94 08/06/25 09:00 98.4 16 95 98.4 08/05/25 20:30 Nasal Cannula* 3 32 Total Intake and Output 08/05/25 08/05/25 08/06/25 15:00 23:00 07:00 Intake Total 0 ml 0 ml Output Total 200 ml 100 ml Balance -200 ml -100 ml medications Current Medications Medications Dose Ordered Sig/Raoul Route Start Time Stop Time Status Last Admin Dose Admin Amlodipine Besylate 5 mg DAILY PO 08/05/25 10:00 08/06/25 09:41 5 MG Metoprolol Tartrate 25 mg BID PO 08/05/25 10:00 08/06/25 09:42 25 MG Clonidine HCl 0.1 mg Q4HP PRN PO 08/05/25 02:30 08/05/25 16:52 0.1 MG Sodium Chloride 10 ml Q8HR IV 08/05/25 06:00 08/06/25 06:06 10 ML Acetaminophen/ Hydrocodone Bitart 1 tab Q4HP PRN PO 08/05/25 02:30 Ondansetron HCl 4 mg Q4HP PRN IV 08/05/25 02:30 Docusate Sodium 100 mg BIDPRN PRN PO 08/05/25 02:30 Acetaminophen 650 mg Q6HP PRN PO 08/05/25 02:30 Nitroglycerin 0.4 mg Q5MINP PRN SL 08/05/25 03:15 Morphine Sulfate 2 mg Q30M PRN IV 08/05/25 03:15 Sodium Chloride 1,000 ml @ 100 mls/hr Q10H IV 08/05/25 10:45 08/06/25 06:04 100 MLS/HR Ceftriaxone Sodium 50 ml @ 100 mls/hr DAILY@09 IV 08/06/25 09:00 08/06/25 09:35 100 MLS/HR Examination: LUNGS:Normal, CVS:Normal, MSK:Abnormal laboratory and microbiology Laboratory Tests 08/06/25 06:33 Test 08/06/25 06:33 Range/Units Serum Glucose 78 74-106 mg/dL Problem List/Assessment/Plan Problem List/Assessment/Plan Acute kidney injury superimposed Chronic Kidney Disease secondary obstructive uropathy Metabolic encephalopathy Obstructive uropathy from advanced uterine cancer Status post nephrostomy tube Hyperkalemia likely from renal failure And increased po intake (ensure supplement) Brain metastasis Metabolic acidosis Anemia of chronic kidney disease Recommendations' Kidney function slightly improved No urine output charted Strict I&Os Steen catheter Nephrostomy tube IVF D5 1/2 NS with sodium bicarb 50 meq/L @ 100 cc/hr Emergent medical treatment for hyperkalemia Urology consult Poor prognosis We will continue to follow up Plan discussed with: Daughter, Other (Nurse) My Orders My Orders Orders - CIARRA MOSER MD Procedure Category Date Status Time D5w/Sod Chl 0.45% PHA 08/06/25 Transmitted (... W/Sodium Bicarb 5 11:30 Dopamine Drip PHA 08/06/25 Transmitted 11:30 Potassium LAB 08/06/25 Transmitted 15:21 Insulin R 10units Iv PHA 08/06/25 Transmitted X One 11:30 Dextrose 50% 1amp=50ml PHA 08/06/25 Transmitted 11:30 Albuterol 20mg Medneb PHA 08/06/25 Transmitted X One 11:30 Sod Bicarb 50ml=1amp PHA 08/06/25 Transmitted 11:30 Furosemide Injection PHA 08/06/25 Transmitted (Lasix Injection) 11:30 Lokelma 10gm Po Tid X PHA 08/06/25 Transmitted 48hrs 14:00 CIARRA MOSER MD Aug 06, 2025 11:27
[2025-08-06] MEDS: ALBUTEROL SULF 2.5 MG/0.5ML(0.5%) NEB SOLN NEB ONE (12:11)
[2025-08-06] MEDS: DEXTROSE (50%) 50ML SYRG IV ONE (13:49)
[2025-08-06] MEDS: InsuLIN REG 1unit/0.01ml Soln (100units/ml) IV ONE (13:56)
[2025-08-06] MEDS: FUROSEMIDE 40 MG/4 ML VIAL IV ONE (13:58)
[2025-08-06] MEDS ORDERED: SODIUM ZIRCONIUM CYCL 10 GM PAK PO SCH (14:00)
[2025-08-06] MEDS: SODIUM BICARB 8.4% 50Meq/50ml SYR INJ IV ONE (14:15)
[2025-08-06] MEDS: SODIUM BICARB 50mEq/50ml Vial 50 ML in D5W/SOD CHL 0.45% 1,000 ML IV SCH (16:14)
[2025-08-06] MEDS: DOPamine 1600MCG/ML D5W 250 ML IV SCH (20:45)
[2025-08-07] VITALS (10 sets, daily range): BP systolic 108–137; BP diastolic 73–83; PULSE 87–102; RESP 16–18; TEMP 97.9–98.9; O2SAT 96–100
[2025-08-07 09:29] LABS: Hematocrit 22.7 % (36.0-46.0); Hemoglobin 7.1 g/dL (12.2-16.2); Mean Corpuscular Hemoglobin 26.9 pg (28.0-32.0); Mean Corpuscular Volume 85.6 fL (80.0-100.0); Nucleated Red Blood Cells % 0.0 %
--- NOTE | 2025-08-07 09:45 | DVHPN2 ---
Reviewed: Care Plan, H&P, Labs, Medications, Previous Orders, Radiology Changes from previous H/P or p: No Changes Eyes: No Pain, No Vision change, No Conjunctivae inflammation, No Eyelid inflammation, No Other, No Redness ENT: No Ear pain, No Ear discharge, No Nose pain, No Nose discharge, No Nose congestion, No Mouth pain, No Mouth swelling, No Throat pain, No Throat swelling, No Other Cardiovascular: No Chest Pain, No Palpitations, No Orthopnea, No Paroxysmal Noc. Dyspnea, No Edema, No Lt Headedness, No Other Respiratory: No Cough, No Dry; Shortness of breath; No SOB with excertion, No Wheezing, No Hemoptysis, No Pleuritic Pain, No Sputum; Other (SOB at rest) Gastrointestinal: Nausea, Vomiting, Abdominal Pain; No Diarrhea, No Constipation, No Melena, No Hematochezia; Other (Distended abdomen) Genitourinary: No Dysuria, No Frequency, No Incontinence, No Hematuria, No Retention; Other (Nephrostomy tube in place) Musculoskeletal: No other, No neck pain, No shoulder pain, No arm pain, No back pain, No hand pain, No leg pain, No foot pain Skin: No Rash, No Lesions, No Jaundice, No Bruising, No Other Objective Vitals Vital Signs Date Time Temp Pulse Resp B/P (MAP) Pulse Ox O2 Delivery O2 Flow Rate FiO2 08/07/25 07:55 100 Nasal Cannula* 3 32 08/07/25 05:00 98.9 94 18 108/73 (85) 98.9 Intake/Output Intake and Output 08/07/25 07:00 Intake Total 2600 ml Output Total 360 ml Balance 2240 ml Intake Oral 1600 ml IV Total 1000 ml Output Urine Total 360 ml Medications Current Medications Medications Dose Ordered Sig/Raoul Route Start Time Stop Time Status Last Admin Dose Admin Amlodipine Besylate 5 mg DAILY PO 08/05/25 10:00 08/06/25 09:41 5 MG Metoprolol Tartrate 25 mg BID PO 08/05/25 10:00 08/06/25 09:42 25 MG Clonidine HCl 0.1 mg Q4HP PRN PO 08/05/25 02:30 08/05/25 16:52 0.1 MG Sodium Chloride 10 ml Q8HR IV 08/05/25 06:00 08/07/25 05:59 10 ML Acetaminophen/ Hydrocodone Bitart 1 tab Q4HP PRN PO 08/05/25 02:30 Ondansetron HCl 4 mg Q4HP PRN IV 08/05/25 02:30 Docusate Sodium 100 mg BIDPRN PRN PO 08/05/25 02:30 Acetaminophen 650 mg Q6HP PRN PO 08/05/25 02:30 Nitroglycerin 0.4 mg Q5MINP PRN SL 08/05/25 03:15 Morphine Sulfate 2 mg Q30M PRN IV 08/05/25 03:15 Ceftriaxone Sodium 50 ml @ 100 mls/hr DAILY@09 IV 08/06/25 09:00 08/07/25 09:06 100 MLS/HR Sodium Bicarbonate 50 ml/ Dextrose/Sodium Chloride 1,050 ml @ 100 mls/hr [id number] IV 08/06/25 11:30 08/07/25 05:55 100 MLS/HR Dopamine HCl/ Dextrose 250 ml @ 5.018 mls/ hr Q24H IV 08/06/25 11:30 08/06/25 20:45 5.018 MLS/HR Zirconium Oxide 10 gm TID PO 08/06/25 14:00 08/08/25 06:01 Laboratory Results Laboratory Tests 08/07/25 08:51 Chemistry Test 08/07/25 08:51 Albumin Pending Calcium Level Pending Total Protein Pending LFT Test 08/07/25 08:51 Alanine Aminotransferase (ALT) Pending Alkaline Phosphatase Pending Aspartate Amino Transferase (AST) Pending Total Bilirubin Pending Urinalysis Test 08/04/25 23:30 Urine Color Light-orange (Yellow) Urine Clarity Ex.turbid (Clear) Urine pH 5.0 (5.0-9.0) Urine Specific [place] 1.016 (1.001-1.035) Urine Protein 1+ (Negative) H Urine Ketones Negative (Negative) Urine Blood 2+ /uL (Negative) H Urine Nitrite Negative (Negative) Urine Bilirubin Negative (Negative) Urine Urobilinogen Normal mg/dL (Negative) Urine Leukocyte Esterase 3+ /uL (Negative) Urine RBC 82 /hpf (0 - 4) Urine WBC Clumps Present /hpf (None Seen) Urine Microscopic WBC 490 /HPF (0-5) H Urine Squamous Epithelial Cells Few /hpf (<5) Urine Bacteria None seen /hpf (None Seen) Urine Hyaline Casts Mod /lpf (0 - 2) Urine Mucus Few (None Seen) Urine Yeast (Budding) Loaded /hpf (None Seen) Urine Creatinine 113.85 mg/dL (30.0-125.0) Urine Protein/Creatinine Ratio 1.07 Urine Sodium 34 mmol/L (40-220) L Urine Potassium 48 mmol/L (12-62) Urine Glucose Normal mg/dL (Normal) Urine Total Protein 122.0 mg/dL (1-14) H Microbiology Microbiology Date/Time Source Procedure Growth Status 08/05/25 13:00 Blood Blood Culture - Preliminary NO GROWTH AFTER 24 HOURS OF INCUBATION. 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 Pereira appreciated anemia hypertensive crisis Bilateral hydronephrosis CVA Dementia Gallstones Pulmonary hypertension History of IVC filter FADIA superimposed on CKD secondary to obstructive uropathy consult by Dr. Tabares appreciated Obstructive uropathy secondary to advanced uterine cancer Acute hyperkalemia: Treatment per protocol consult for Dr. Mccurdy pending Patient Is hospice revoked patient was on [place] hospice Time spent 50 minutes Advanced care planning time 20 minutes RAJESH Arrington at bedside Daughter Perri (was precision dancer in [employer] before) at bedside Plan discussed with: Patient My Orders Orders - FABRICE ARENAS MD Procedure Category Date Status Time Insert Midline ORDERS 08/06/25 Transmitted 13:44 Urinalysis LAB 08/06/25 Logged 16:57 Date of Service: Aug 07, 2025 Billing Provider: FABRICE ARENAS MD Common Visit Codes: [id number] INP/OBS CARE(HIGH) FABRICE ARENAS MD Aug 07, 2025 09:45
[2025-08-07 09:51] LABS: Alanine Aminotransferase < 9 U/L (7-40); Alkaline Phosphatase 161 U/L (46-116); Anion Gap 14 (5-15); BUN/Creatinine Ratio 17.8 (10.0-20.0); Calcium 8.3 mg/dL (8.7-10.4); Carbon Dioxide 22 mmol/L (20-31); Chloride 98 mmol/L (98-107); Glucose 121 mg/dL (74-106); Sodium 134 mmol/L (136-145); Total Protein 6.5 g/dL (5.7-8.2)
[2025-08-07 09:52] LABS: Albumin 3.0 g/dL (3.2-4.8); Bilirubin, Total < 0.2 mg/dL (0.2-1.0)
[2025-08-07 09:53] LABS: Blood Urea Nitrogen 91 mg/dL (9-23); Potassium 5.7 mmol/L (3.5-5.1)
--- NOTE | 2025-08-07 10:23 | DVHPN2 ---
Progress Note Date Seen: Aug 07, 2025 Medical Necessity Reason Pt with a Central, PICC or Fol: No Subjective Patient reports: No new complaints Other Systems: Patient seen and examined by myself today in follow-up Objective vital signs Vital Sign Date Time Temp Pulse Resp B/P (MAP) Pulse Ox O2 Delivery O2 Flow Rate FiO2 08/07/25 07:55 100 Nasal Cannula* 3 32 08/07/25 05:00 98.9 94 18 108/73 (85) 98.9 Total Intake and Output 08/06/25 08/06/25 08/07/25 15:00 23:00 07:00 Intake Total 1000 ml 900 ml 700 ml Output Total 160 ml 200 ml Balance 1000 ml 740 ml 500 ml medications Current Medications Medications Dose Ordered Sig/Raoul Route Start Time Stop Time Status Last Admin Dose Admin Amlodipine Besylate 5 mg DAILY PO 08/05/25 10:00 08/06/25 09:41 5 MG Metoprolol Tartrate 25 mg BID PO 08/05/25 10:00 08/06/25 09:42 25 MG Clonidine HCl 0.1 mg Q4HP PRN PO 08/05/25 02:30 08/05/25 16:52 0.1 MG Sodium Chloride 10 ml Q8HR IV 08/05/25 06:00 08/07/25 05:59 10 ML Acetaminophen/ Hydrocodone Bitart 1 tab Q4HP PRN PO 08/05/25 02:30 Ondansetron HCl 4 mg Q4HP PRN IV 08/05/25 02:30 Docusate Sodium 100 mg BIDPRN PRN PO 08/05/25 02:30 Acetaminophen 650 mg Q6HP PRN PO 08/05/25 02:30 Nitroglycerin 0.4 mg Q5MINP PRN SL 08/05/25 03:15 Morphine Sulfate 2 mg Q30M PRN IV 08/05/25 03:15 Ceftriaxone Sodium 50 ml @ 100 mls/hr DAILY@09 IV 08/06/25 09:00 08/07/25 09:06 100 MLS/HR Sodium Bicarbonate 50 ml/ Dextrose/Sodium Chloride 1,050 ml @ 100 mls/hr [id number] IV 08/06/25 11:30 08/07/25 05:55 100 MLS/HR Dopamine HCl/ Dextrose 250 ml @ 5.018 mls/ hr Q24H IV 08/06/25 11:30 08/06/25 20:45 5.018 MLS/HR Zirconium Oxide 10 gm TID PO 08/06/25 14:00 08/08/25 06:01 Examination: LUNGS:Normal, CVS:Normal, MSK:Normal laboratory and microbiology Laboratory Tests 08/07/25 08:51 Test 08/07/25 08:51 Range/Units Serum Glucose 121 H 74-106 mg/dL Microbiology Date/Time Source Procedure Growth Status 08/05/25 13:00 Blood Blood Culture - Preliminary NO GROWTH AFTER 24 HOURS OF INCUBATION. Resulted 08/04/25 23:30 Voided Urine Urine Culture - Preliminary Resulted Problem List/Assessment/Plan Problem List/Assessment/Plan Acute kidney injury superimposed Chronic Kidney Disease secondary obstructive uropathy Metabolic encephalopathy Obstructive uropathy from advanced uterine cancer Status post nephrostomy tube Hyperkalemia likely from renal failure And increased po intake (ensure supplement) CVA Metabolic acidosis Anemia of chronic kidney disease Recommendations' Kidney function slightly worsened today No urine output charted Strict I&Os Steen catheter Nephrostomy tube IVF D5 1/2 NS with sodium bicarb 50 meq/L @ 100 cc/hr Bumex 1 mg IV q day Emergent medical treatment for hyperkalemia Urology consult Poor prognosis Discussed my treatment plan with the patient her daughter at the bedside Plan discussed with: Patient, Daughter My Orders My Orders Orders - CIARRA MOSER MD Procedure Category Date Status Time D5w/Sod Chl 0.45% PHA 08/06/25 In Process (... W/Sodium Bicarb 5 11:30 Dopamine 1600mcg/Ml PHA 08/06/25 In Process D5W 11:30 Sodium Zirconium PHA 08/06/25 In Process Cyclosilicate 14:00 Potassium LAB 08/07/25 Logged 14:16 Insulin R (Human) PHA 08/07/25 Logged (Insulin R) 10:30 Dextrose 50% Syringe PHA 08/07/25 Logged 10:30 Albuterol Medneb PHA 08/07/25 Logged (Ventolin Medneb) 10:30 Furosemide Injection PHA 08/07/25 Transmitted (Lasix Injection) 10:30 Lokelma 10gm Po Tid X PHA 08/07/25 Transmitted 48hrs 14:00 Renal Specific DIET 08/07/25 Transmitted Diet(Renal) Lunch CIARRA MOSER MD Aug 07, 2025 10:23
[2025-08-07] MEDS: FUROSEMIDE 40 MG/4 ML VIAL IV ONE (10:30)
[2025-08-07] MEDS: InsuLIN REG 1unit/0.01ml Soln (100units/ml) IV ONE (10:30)
[2025-08-07] MEDS: ALBUTEROL SULF 2.5 MG/0.5ML(0.5%) NEB SOLN NEB ONE (11:15)
[2025-08-07] MEDS: DEXTROSE (50%) 50ML SYRG IV ONE (12:14)
[2025-08-07] MEDS: BUMETANIDE 2.5mg/10ml (0.25 mg/ml) INJ IV SCH (12:15)
[2025-08-07] MEDS: SODIUM ZIRCONIUM CYCL 10 GM PAK PO SCH (14:00)
--- NOTE | 2025-08-07 14:34 | DVHPN2 ---
Progress Note - Dictate Date Seen: Aug 07, 2025 Has the PT tested + for MRSA If YES, has PT been informed?: No Medical Necessity Reason Pt with a Central, PICC or Fol: No The following are medically ne: Davalos Catheter Medical Necessity Reason CKD Left PNT in situ Davalos catheter in place. URine now clear Subjective NA vital signs Vital Sign Date Time Temp Pulse Resp B/P (MAP) Pulse Ox O2 Delivery O2 Flow Rate FiO2 08/07/25 12:15 115/75 08/07/25 10:55 89 18 96 08/07/25 10:00 Nasal Cannula 3.0 08/07/25 10:00 32 08/07/25 09:00 98.1 98.1 Total Intake and Output 08/06/25 08/06/25 08/07/25 15:00 23:00 07:00 Intake Total 1000 ml 900 ml 700 ml Output Total 160 ml 200 ml Balance 1000 ml 740 ml 500 ml medications Current Medications Medications Dose Ordered Sig/Raoul Route Start Time Stop Time Status Last Admin Dose Admin Amlodipine Besylate 5 mg DAILY PO 08/05/25 10:00 08/06/25 09:41 5 MG Metoprolol Tartrate 25 mg BID PO 08/05/25 10:00 08/06/25 09:42 25 MG Clonidine HCl 0.1 mg Q4HP PRN PO 08/05/25 02:30 08/05/25 16:52 0.1 MG Sodium Chloride 10 ml Q8HR IV 08/05/25 06:00 08/07/25 05:59 10 ML Acetaminophen/ Hydrocodone Bitart 1 tab Q4HP PRN PO 08/05/25 02:30 Ondansetron HCl 4 mg Q4HP PRN IV 08/05/25 02:30 Docusate Sodium 100 mg BIDPRN PRN PO 08/05/25 02:30 Acetaminophen 650 mg Q6HP PRN PO 08/05/25 02:30 Nitroglycerin 0.4 mg Q5MINP PRN SL 08/05/25 03:15 Morphine Sulfate 2 mg Q30M PRN IV 08/05/25 03:15 Ceftriaxone Sodium 50 ml @ 100 mls/hr DAILY@09 IV 08/06/25 09:00 08/07/25 09:06 100 MLS/HR Sodium Bicarbonate 50 ml/ Dextrose/Sodium Chloride 1,050 ml @ 100 mls/hr [id number] IV 08/06/25 11:30 08/07/25 05:55 100 MLS/HR Dopamine HCl/ Dextrose 250 ml @ 5.018 mls/ hr Q24H IV 08/06/25 11:30 08/06/25 20:45 5.018 MLS/HR Zirconium Oxide 10 gm TID PO 08/07/25 14:00 08/09/25 06:01 Bumetanide 1 mg DAILY IV 08/07/25 10:30 08/07/25 12:15 1 MG laboratory and microbiology Laboratory Tests 08/07/25 08:51 Test 08/07/25 08:51 Range/Units Serum Glucose 121 H 74-106 mg/dL Problem List Renal failure Left PNT in situ Hematuria, improved Mild bilateral hydronephrosis Assessment/Plan Mag 3 Renal Scan with split renal function and lasix washout Keep davalos to gravity Plan discussed with: Other SAVITA STOUT MD Aug 07, 2025 14:34
[2025-08-08] VITALS (10 sets, daily range): BP systolic 107–132; BP diastolic 62–90; PULSE 72–89; RESP 16–19; TEMP 98.2–99.1; O2SAT 97–100
[2025-08-08] MEDS: HYDROcodone-ACET 5/325MG TAB PO PRN (02:16)
[2025-08-08 07:27] LABS: Hematocrit 23.6 % (36.0-46.0); Hemoglobin 7.3 g/dL (12.2-16.2); Mean Corpuscular Hemoglobin 26.5 pg (28.0-32.0); Mean Corpuscular Volume 85.6 fL (80.0-100.0); Nucleated Red Blood Cells % 0.0 %
[2025-08-08 07:41] LABS: Anion Gap 12 (5-15); BUN/Creatinine Ratio 20.0 (10.0-20.0); Carbon Dioxide 23 mmol/L (20-31); Glucose 92 mg/dL (74-106); Total Protein 6.0 g/dL (5.7-8.2)
[2025-08-08 07:53] LABS: Alanine Aminotransferase < 9 U/L (7-40); Albumin 2.8 g/dL (3.2-4.8); Alkaline Phosphatase 173 U/L (46-116); Bilirubin, Total < 0.2 mg/dL (0.2-1.0); Blood Urea Nitrogen 100 mg/dL (9-23); Calcium 8.2 mg/dL (8.7-10.4); Chloride 98 mmol/L (98-107); Potassium 5.9 mmol/L (3.5-5.1); Sodium 133 mmol/L (136-145)
--- NOTE | 2025-08-08 09:15 | DVHPN2 ---
Reviewed: Care Plan, H&P, Labs, Medications, Previous Orders, Radiology Changes from previous H/P or p: No Changes Eyes: No Pain, No Vision change, No Conjunctivae inflammation, No Eyelid inflammation, No Other, No Redness ENT: No Ear pain, No Ear discharge, No Nose pain, No Nose discharge, No Nose congestion, No Mouth pain, No Mouth swelling, No Throat pain, No Throat swelling, No Other Cardiovascular: No Chest Pain, No Palpitations, No Orthopnea, No Paroxysmal Noc. Dyspnea, No Edema, No Lt Headedness, No Other Respiratory: No Cough, No Dry; Shortness of breath; No SOB with excertion, No Wheezing, No Hemoptysis, No Pleuritic Pain, No Sputum; Other (SOB at rest) Gastrointestinal: Nausea, Vomiting, Abdominal Pain; No Diarrhea, No Constipation, No Melena, No Hematochezia; Other (Distended abdomen) Genitourinary: No Dysuria, No Frequency, No Incontinence, No Hematuria, No Retention; Other (Nephrostomy tube in place) Musculoskeletal: No other, No neck pain, No shoulder pain, No arm pain, No back pain, No hand pain, No leg pain, No foot pain Skin: No Rash, No Lesions, No Jaundice, No Bruising, No Other Objective Vitals Vital Signs Date Time Temp Pulse Resp B/P (MAP) Pulse Ox O2 Delivery O2 Flow Rate FiO2 08/08/25 05:00 98.4 74 18 132/90 (104) 100 98.4 08/07/25 20:00 Nasal Cannula* 3 32 Intake/Output Intake and Output 08/08/25 07:00 Intake Total 325 ml Output Total 500 ml Balance -175 ml Intake Oral 325 ml Output Urine Total 500 ml Medications Current Medications Medications Dose Ordered Sig/Raoul Route Start Time Stop Time Status Last Admin Dose Admin Amlodipine Besylate 5 mg DAILY PO 08/05/25 10:00 08/06/25 09:41 5 MG Metoprolol Tartrate 25 mg BID PO 08/05/25 10:00 08/07/25 22:59 25 MG Clonidine HCl 0.1 mg Q4HP PRN PO 08/05/25 02:30 08/05/25 16:52 0.1 MG Sodium Chloride 10 ml Q8HR IV 08/05/25 06:00 08/08/25 07:11 10 ML Acetaminophen/ Hydrocodone Bitart 1 tab Q4HP PRN PO 08/05/25 02:30 08/08/25 02:16 1 TAB Ondansetron HCl 4 mg Q4HP PRN IV 08/05/25 02:30 Docusate Sodium 100 mg BIDPRN PRN PO 08/05/25 02:30 Acetaminophen 650 mg Q6HP PRN PO 08/05/25 02:30 Nitroglycerin 0.4 mg Q5MINP PRN SL 08/05/25 03:15 Morphine Sulfate 2 mg Q30M PRN IV 08/05/25 03:15 Ceftriaxone Sodium 50 ml @ 100 mls/hr DAILY@09 IV 08/06/25 09:00 08/07/25 09:06 100 MLS/HR Sodium Bicarbonate 50 ml/ Dextrose/Sodium Chloride 1,050 ml @ 100 mls/hr [id number] IV 08/06/25 11:30 08/07/25 18:18 100 MLS/HR Dopamine HCl/ Dextrose 250 ml @ 5.018 mls/ hr Q24H IV 08/06/25 11:30 08/06/25 20:45 5.018 MLS/HR Zirconium Oxide 10 gm TID PO 08/07/25 14:00 08/09/25 06:01 Bumetanide 1 mg DAILY IV 08/07/25 10:30 08/07/25 12:15 1 MG Laboratory Results Laboratory Tests 08/08/25 07:03 Chemistry Test 08/08/25 07:03 Albumin 2.8 g/dL (3.2-4.8) L Calcium Level 8.2 mg/dL (8.7-10.4) L Total Protein 6.0 g/dL (5.7-8.2) LFT Test 08/08/25 07:03 Alanine Aminotransferase (ALT) < 9 U/L (7-40) Alkaline Phosphatase 173 U/L (46-116) H Aspartate Amino Transferase (AST) 20 U/L (13-40) Total Bilirubin < 0.2 mg/dL (0.2-1.0) L Urinalysis Test 08/04/25 23:30 Urine Color Light-orange (Yellow) Urine Clarity Ex.turbid (Clear) Urine pH 5.0 (5.0-9.0) Urine Specific [place] 1.016 (1.001-1.035) Urine Protein 1+ (Negative) H Urine Ketones Negative (Negative) Urine Blood 2+ /uL (Negative) H Urine Nitrite Negative (Negative) Urine Bilirubin Negative (Negative) Urine Urobilinogen Normal mg/dL (Negative) Urine Leukocyte Esterase 3+ /uL (Negative) Urine RBC 82 /hpf (0 - 4) Urine WBC Clumps Present /hpf (None Seen) Urine Microscopic WBC 490 /HPF (0-5) H Urine Squamous Epithelial Cells Few /hpf (<5) Urine Bacteria None seen /hpf (None Seen) Urine Hyaline Casts Mod /lpf (0 - 2) Urine Mucus Few (None Seen) Urine Yeast (Budding) Loaded /hpf (None Seen) Urine Creatinine 113.85 mg/dL (30.0-125.0) Urine Protein/Creatinine Ratio 1.07 Urine Sodium 34 mmol/L (40-220) L Urine Potassium 48 mmol/L (12-62) Urine Glucose Normal mg/dL (Normal) Urine Total Protein 122.0 mg/dL (1-14) H Microbiology Microbiology Date/Time Source Procedure Growth Status 08/05/25 13:00 Blood Blood Culture - Preliminary NO GROWTH AFTER 48 HOURS OF INCUBATION. Resulted 08/04/25 23:30 Voided Urine Urine Culture - Final Complete Labs and/or images reviewed: Labs reviewed by me, Image(s) reviewed by me Assessment/Plan Assessment/Plan Sepsis secondary to urinary tract infection: Blood cultures negative, urine cultures mixed culture along with yeast , continue Rocephin add Diflucan 200 mg p.o. 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 Pereira appreciated anemia hypertensive crisis Bilateral hydronephrosis CVA Dementia Gallstones Pulmonary hypertension History of IVC filter FADIA superimposed on CKD secondary to obstructive uropathy consult by Dr. Tabares appreciated, kidney function worsening Obstructive uropathy secondary to advanced uterine cancer Acute hyperkalemia: Treatment per protocol consult for Dr. Mccurdy pending Patient Is hospice revoked patient was on [facility] Time spent 50 minutes Advanced care planning time 20 minutes RAJESH Arrington at bedside Daughter Perri (was data coder operator in [employer] before) at bedside Plan discussed with: Patient My Orders Orders - FABRICE ARENAS MD Procedure Category Date Status Time Fluconazole Tablet PHA 08/08/25 Transmitted (Diflucan Tablet) 10:00 Date of Service: Aug 08, 2025 Billing Provider: FABRICE ARENAS MD Common Visit Codes: [id number] INP/OBS CARE(HIGH) FABRICE ARENAS MD Aug 08, 2025 09:15
[2025-08-08] MEDS: FLUCONAZOLE 100 MG TAB PO SCH (09:50)
[2025-08-08] MEDS: DEXTROSE (50%) 50ML SYRG IV ONE (10:34)
[2025-08-08] MEDS: InsuLIN REG 1unit/0.01ml Soln (100units/ml) IV ONE (10:47)
--- NOTE | 2025-08-08 13:00 | DVHPN2 ---
Progress Note Date Seen: Aug 08, 2025 Resident Creating Document: ALLAN YANEZ RESIDENT Has the PT tested + for MRSA If YES, has PT been informed?: No Medical Necessity Reason Pt with a Central, PICC or Fol: No The following are medically ne: Steen Catheter Subjective Patient reports: No new complaints Changes from previous H/P or p: No Changes Objective vital signs Vital Sign Date Time Temp Pulse Resp B/P (MAP) Pulse Ox O2 Delivery O2 Flow Rate FiO2 08/08/25 11:33 112/62 08/08/25 11:30 98.3 85 16 97 98.3 08/08/25 09:50 Nasal Cannula* 3 32 Total Intake and Output 08/07/25 08/07/25 08/08/25 15:00 23:00 07:00 Intake Total 125 ml 200 ml Output Total 250 ml 250 ml Balance -125 ml -50 ml medications Current Medications Medications Dose Ordered Sig/Raoul Route Start Time Stop Time Status Last Admin Dose Admin Amlodipine Besylate 5 mg DAILY PO 08/05/25 10:00 08/06/25 09:41 5 MG Metoprolol Tartrate 25 mg BID PO 08/05/25 10:00 08/07/25 22:59 25 MG Clonidine HCl 0.1 mg Q4HP PRN PO 08/05/25 02:30 08/05/25 16:52 0.1 MG Sodium Chloride 10 ml Q8HR IV 08/05/25 06:00 08/08/25 07:11 10 ML Acetaminophen/ Hydrocodone Bitart 1 tab Q4HP PRN PO 08/05/25 02:30 08/08/25 02:16 1 TAB Ondansetron HCl 4 mg Q4HP PRN IV 08/05/25 02:30 Docusate Sodium 100 mg BIDPRN PRN PO 08/05/25 02:30 Acetaminophen 650 mg Q6HP PRN PO 08/05/25 02:30 Nitroglycerin 0.4 mg Q5MINP PRN SL 08/05/25 03:15 Morphine Sulfate 2 mg Q30M PRN IV 08/05/25 03:15 Ceftriaxone Sodium 50 ml @ 100 mls/hr DAILY@09 IV 08/06/25 09:00 08/08/25 09:50 100 MLS/HR Sodium Bicarbonate 50 ml/ Dextrose/Sodium Chloride 1,050 ml @ 100 mls/hr [id number] IV 08/06/25 11:30 08/08/25 08:50 100 MLS/HR Dopamine HCl/ Dextrose 250 ml @ 5.018 mls/ hr Q24H IV 08/06/25 11:30 08/08/25 11:33 5.018 MLS/HR Zirconium Oxide 10 gm TID PO 08/07/25 14:00 08/09/25 06:01 Bumetanide 1 mg DAILY IV 08/07/25 10:30 08/08/25 10:02 1 MG Fluconazole 200 mg DAILY PO 08/08/25 10:00 08/08/25 09:50 200 MG Examination General Appearance: mild distress, altered HEENT: Atraumatic, PERRLA, Other Lungs: clear, no adventitious sounds Cardiovascular: Normal S1, Normal S2 Abdomen: decreased bowel sounds, abdomen is distended, tender Genitourinary: Steen catheter Musculoskeletal: No edema, Neuro: Unable to assess Skin: Dry, Intact laboratory and microbiology Laboratory Tests 08/08/25 07:03 Test 08/08/25 07:03 Range/Units Serum Glucose 92 74-106 mg/dL Microbiology Date/Time Source Procedure Growth Status 08/05/25 13:00 Blood Blood Culture - Preliminary NO GROWTH AFTER 48 HOURS OF INCUBATION. Resulted 08/04/25 23:30 Voided Urine Urine Culture - Final Complete Labs and/or images reviewed: Labs reviewed by me, Image(s) reviewed by me Problem List/Assessment/Plan Problem List/Assessment/Plan Acute kidney injury superimposed Chronic Kidney Disease secondary obstructive uropathy Hyperkalemia likely from renal failure And increased po intake (ensure supplement) Metabolic encephalopathy Obstructive uropathy from advanced uterine cancer Status post nephrostomy tube CVA Metabolic acidosis Anemia of chronic kidney disease Recommendations' Kidney function slightly worsened today Hyperkalemia protocol No urine output charted Strict I&Os Steen catheter Nephrostomy tube IVF D5 1/2 NS with sodium bicarb 50 meq/L @ 100 cc/hr Bumex 1 mg IV q day Emergent medical treatment for hyperkalemia Urology consult Poor prognosis Discussed my treatment plan with the patient her daughter at the bedside Case discussed with the Dr. Mccurdy Plan discussed with: Patient, Daughter ALLAN YANEZ RESIDENT Aug 08, 2025 13:00
[2025-08-09] VITALS (7 sets, daily range): BP systolic 103–130; BP diastolic 70–81; PULSE 68–89; RESP 15–17; TEMP 36.7; O2SAT 95–100
--- NOTE | 2025-08-09 09:18 | DVHPN2 ---
Reviewed: Care Plan, H&P, Labs, Medications, Previous Orders, Radiology Changes from previous H/P or p: No Changes Eyes: No Pain, No Vision change, No Conjunctivae inflammation, No Eyelid inflammation, No Other, No Redness ENT: No Ear pain, No Ear discharge, No Nose pain, No Nose discharge, No Nose congestion, No Mouth pain, No Mouth swelling, No Throat pain, No Throat swelling, No Other Cardiovascular: No Chest Pain, No Palpitations, No Orthopnea, No Paroxysmal Noc. Dyspnea, No Edema, No Lt Headedness, No Other Respiratory: No Cough, No Dry; Shortness of breath; No SOB with excertion, No Wheezing, No Hemoptysis, No Pleuritic Pain, No Sputum; Other (SOB at rest) Gastrointestinal: Nausea, Vomiting, Abdominal Pain; No Diarrhea, No Constipation, No Melena, No Hematochezia; Other (Distended abdomen) Genitourinary: No Dysuria, No Frequency, No Incontinence, No Hematuria, No Retention; Other (Nephrostomy tube in place) Musculoskeletal: No other, No neck pain, No shoulder pain, No arm pain, No back pain, No hand pain, No leg pain, No foot pain Skin: No Rash, No Lesions, No Jaundice, No Bruising, No Other Objective Vitals Vital Signs Date Time Temp Pulse Resp B/P (MAP) Pulse Ox O2 Delivery O2 Flow Rate FiO2 08/09/25 01:00 99.1 89 17 103/70 (81) 100 99.1 08/08/25 20:00 Nasal Cannula* 3 32 Intake/Output Intake and Output 08/09/25 07:00 Intake Total 1400 ml Output Total 510 ml Balance 890 ml Intake Oral 200 ml IV Total 1200 ml Output Urine Total 510 ml Medications Current Medications Medications Dose Ordered Sig/Raoul Route Start Time Stop Time Status Last Admin Dose Admin Amlodipine Besylate 5 mg DAILY PO 08/05/25 10:00 08/06/25 09:41 5 MG Metoprolol Tartrate 25 mg BID PO 08/05/25 10:00 08/08/25 21:33 25 MG Clonidine HCl 0.1 mg Q4HP PRN PO 08/05/25 02:30 08/05/25 16:52 0.1 MG Sodium Chloride 10 ml Q8HR IV 08/05/25 06:00 08/09/25 05:31 10 ML Acetaminophen/ Hydrocodone Bitart 1 tab Q4HP PRN PO 08/05/25 02:30 08/08/25 18:29 1 TAB Ondansetron HCl 4 mg Q4HP PRN IV 08/05/25 02:30 Docusate Sodium 100 mg BIDPRN PRN PO 08/05/25 02:30 Acetaminophen 650 mg Q6HP PRN PO 08/05/25 02:30 Nitroglycerin 0.4 mg Q5MINP PRN SL 08/05/25 03:15 Morphine Sulfate 2 mg Q30M PRN IV 08/05/25 03:15 Ceftriaxone Sodium 50 ml @ 100 mls/hr DAILY@09 IV 08/06/25 09:00 08/08/25 09:50 100 MLS/HR Sodium Bicarbonate 50 ml/ Dextrose/Sodium Chloride 1,050 ml @ 100 mls/hr [id number] IV 08/06/25 11:30 08/08/25 08:50 100 MLS/HR Dopamine HCl/ Dextrose 250 ml @ 5.018 mls/ hr Q24H IV 08/06/25 11:30 08/08/25 11:33 5.018 MLS/HR Bumetanide 1 mg DAILY IV 08/07/25 10:30 08/08/25 10:02 1 MG Fluconazole 200 mg DAILY PO 08/08/25 10:00 08/08/25 09:50 200 MG Laboratory Results Laboratory Tests 08/08/25 07:03 08/08/25 20:00 Urinalysis Test 08/04/25 23:30 Urine Color Light-orange (Yellow) Urine Clarity Ex.turbid (Clear) Urine pH 5.0 (5.0-9.0) Urine Specific [place] 1.016 (1.001-1.035) Urine Protein 1+ (Negative) H Urine Ketones Negative (Negative) Urine Blood 2+ /uL (Negative) H Urine Nitrite Negative (Negative) Urine Bilirubin Negative (Negative) Urine Urobilinogen Normal mg/dL (Negative) Urine Leukocyte Esterase 3+ /uL (Negative) Urine RBC 82 /hpf (0 - 4) Urine WBC Clumps Present /hpf (None Seen) Urine Microscopic WBC 490 /HPF (0-5) H Urine Squamous Epithelial Cells Few /hpf (<5) Urine Bacteria None seen /hpf (None Seen) Urine Hyaline Casts Mod /lpf (0 - 2) Urine Mucus Few (None Seen) Urine Yeast (Budding) Loaded /hpf (None Seen) Urine Creatinine 113.85 mg/dL (30.0-125.0) Urine Protein/Creatinine Ratio 1.07 Urine Sodium 34 mmol/L (40-220) L Urine Potassium 48 mmol/L (12-62) Urine Glucose Normal mg/dL (Normal) Urine Total Protein 122.0 mg/dL (1-14) H Microbiology Microbiology Date/Time Source Procedure Growth Status 08/05/25 13:00 Blood Blood Culture - Preliminary NO GROWTH AFTER 72 HOURS OF INCUBATION. Resulted 08/04/25 23:30 Voided Urine Urine Culture - Final Complete Labs and/or images reviewed: Labs reviewed by me, Image(s) reviewed by me Assessment/Plan Assessment/Plan Sepsis secondary to urinary tract infection: Blood cultures negative, urine cultures mixed culture along with yeast , continue Rocephin add Diflucan 200 mg p.o. 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 Pereira appreciated anemia hypertensive crisis Bilateral hydronephrosis CVA Dementia Gallstones Pulmonary hypertension History of IVC filter FADIA superimposed on CKD secondary to obstructive uropathy consult by Dr. Tabares appreciated, kidney function worsening Obstructive uropathy secondary to advanced uterine cancer Acute hyperkalemia: Treatment per protocol consult for Dr. Mccurdy pending Patient Is hospice revoked patient was on [place] hospice Time spent 54 minutes Advanced care planning time 20 minutes RN Josephine at bedside Spoke to daughter reece on the phone she wants patient to be full code and be discharged to [facility] today Plan discussed with: Patient My Orders Orders - FABRICE ARENAS MD Procedure Category Date Status Time Fluconazole Tablet PHA 08/08/25 In Process (Diflucan Tablet) 10:00 * Wound Consult CONS 08/08/25 Transmitted * Dietary Consult CONS 08/08/25 Transmitted 10:01 Date of Service: Aug 09, 2025 Billing Provider: FABRICE ARENAS MD Common Visit Codes: [id number] INP/OBS CARE(HIGH) FABRICE ARENAS MD Aug 09, 2025 09:18
[2025-08-09] MEDS ORDERED: FLUC200T50 PO (10:03)
[2025-08-09] MEDS ORDERED: LEVO500T91 PO (10:03)
--- NOTE | 2025-08-09 10:08 | DVHDS2 ---
Discharge Summary Date of Admission Aug 05, 2025 at 03:13 Date of Discharge: Aug 09, 2025 Admitting Diagnosis Altered mental status Wounds: None Labs/Diagnostic Data: Laboratory Results Test 08/08/25 20:00 08/08/25 10:38 08/08/25 07:03 08/05/25 02:50 Potassium Level 5.7 mmol/L (3.5-5.1) POC Glucose 108 mg/dl (70-106) White Blood Count 7.1 10^3/uL (4.4-10.8) Red Blood Count 2.75 10^6/uL (4.0-5.20) Hemoglobin 7.3 g/dL (12.2-16.2) Hematocrit 23.6 % (36.0-46.0) Mean Corpuscular Volume 85.6 fL (80.0-100.0) Mean Corpuscular Hemoglobin 26.5 pg (28.0-32.0) Mean Corpuscular Hemoglobin Concent 31.0 g/dL (32.0-36.0) Red Cell Distribution Width 18.7 % (11.8-14.3) Platelet Count 262 10^3/uL (140-450) Mean Platelet Volume 7.1 fL (6.9-10.8) Neutrophils (%) (Auto) 83.5 % (37.0-80.0) Lymphocytes (%) (Auto) 9.2 % (10.0-50.0) Monocytes (%) (Auto) 5.8 % (0.0-12.0) Eosinophils (%) (Auto) 1.3 % (0.0-7.0) Basophils (%) (Auto) 0.2 % (0.0-2.0) Neutrophils # (Auto) 5.9 10 ^3/uL (1.6-8.6) Lymphocytes # (Auto) 0.7 10 ^3/uL (0.4-5.4) Monocytes # (Auto) 0.4 10 ^3/uL (0-1.3) Eosinophils # (Auto) 0.1 10 ^3/uL (0-0.8) Basophils # (Auto) 0 10 ^3/uL (0-0.2) Nucleated Red Blood Cells 0.0 % Sodium Level 133 mmol/L (136-145) Chloride Level 98 mmol/L (98-107) Carbon Dioxide Level 23 mmol/L (20-31) Anion Gap 12 (5-15) Blood Urea Nitrogen 100 mg/dL (9-23) Creatinine 5.01 mg/dL (0.550-1.02) Glomerular Filtration Rate Calc 9 mL/min (>90) BUN/Creatinine Ratio 20.0 (10.0-20.0) Serum Glucose 92 mg/dL (74-106) Calcium Level 8.2 mg/dL (8.7-10.4) Total Bilirubin < 0.2 mg/dL (0.2-1.0) Aspartate Amino Transferase (AST) 20 U/L (13-40) Alanine Aminotransferase (ALT) < 9 U/L (7-40) Alkaline Phosphatase 173 U/L (46-116) Total Protein 6.0 g/dL (5.7-8.2) Albumin 2.8 g/dL (3.2-4.8) Hemoglobin A1c 5.5 % A1C (<5.7) Troponin I High Sensitivity 17 ng/L (</=34) Test 08/04/25 23:59 08/04/25 23:30 Lactic Acid Level 1.9 mmol/L (0.4-2.0) Ammonia < 10 umol/L (11-32) Lipase 118 U/L (12-53) Urine Color Light-orange (Yellow) Urine Clarity Ex.turbid (Clear) Urine pH 5.0 (5.0-9.0) Urine Specific [place] 1.016 (1.001-1.035) Urine Protein 1+ (Negative) Urine Ketones Negative (Negative) Urine Blood 2+ /uL (Negative) Urine Nitrite Negative (Negative) Urine Bilirubin Negative (Negative) Urine Urobilinogen Normal mg/dL (Negative) Urine Leukocyte Esterase 3+ /uL (Negative) Urine RBC 82 /hpf (0 - 4) Urine WBC Clumps Present /hpf (None Seen) Urine Microscopic WBC 490 /HPF (0-5) Urine Squamous Epithelial Cells Few /hpf (<5) Urine Bacteria None seen /hpf (None Seen) Urine Hyaline Casts Mod /lpf (0 - 2) Urine Mucus Few (None Seen) Urine Yeast (Budding) Loaded /hpf (None Seen) Urine Creatinine 113.85 mg/dL (30.0-125.0) Urine Protein/Creatinine Ratio 1.07 Urine Sodium 34 mmol/L (40-220) Urine Potassium 48 mmol/L (12-62) Urine Glucose Normal mg/dL (Normal) Urine Total Protein 122.0 mg/dL (1-14) Other Laboratory Tests 08/08/25 20:00 08/08/25 07:03 Brief Hx & Hospital Course: 70-year-old female with a history of bladder cancer with Mets to the brain status post bilateral nephrostomy tubes anemia hypotension CVA dementia gallstones pulmonary hypertension history of IVC filter on hospice burden by family for altered mental status and confusion patient was found to be in sepsis secondary to urinary tract infection treated with Levaquin blood cultures negative urine cultures mixed and also grew yeast started on Diflucan seen by Nephrology Dr. tabares for FADIA and seen by Urology Dr. Pereira advised conservative management . The patient did not make any meaningful improvement discussed with the daughter Shuntae discharged back on hospice. Prognosis very poor. Prescription for Levaquin and Diflucan transmitted to the pharmacy. Consults/Reason for consult Nephrology Urology Operations or Procedures None Condition at Discharge: Poor Final Diagnosis/Problems List Sepsis secondary to urinary tract infection: Blood cultures negative, urine cultures mixed culture along with yeast , continue Rocephin add Diflucan 200 mg p.o. 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 Pereira appreciated anemia hypertensive crisis Bilateral hydronephrosis CVA Dementia Gallstones Pulmonary hypertension History of IVC filter FADIA superimposed on CKD secondary to obstructive uropathy consult by Dr. Tabares appreciated, kidney function worsening Obstructive uropathy secondary to advanced uterine cancer Acute hyperkalemia: Treatment per protocol consult for Dr. Mccurdy pending Patient Is hospice revoked patient was on [place] hospice Discharge Disposition: Hospice - Home Discharge Instruct/Medications Diet: Renal Activity: Light activity Follow Up/Referral: Follow up primary Dr Follow up with the Nephrology Dr. Tabares Resume all previous home medications Medications: Levaquin Diflucan Transmitted to pharmacy Scheduled Amoxicillin & Pot Clavulanate (Augmentin Es-600 600-42.9 mg/5Ml), 5 MONSTER PO Q8HR Fluconazole (Fluconazole), 1 TAB PO DAILY Levofloxacin Hemihydrate (Levaquin 500 Mg), 1 TAB PO DAILY 39 (Time taken for discharge summary 39 minutes) Discharge Statement: "Patient was advised to return to the ER or call 911 if any headaches, dizziness, shortness of breath, chest pain, abdominal pain, bleeding, fevers, or worsening of medical condition. Patient was counseled about treatment plan, medications, possible side effects, patientverbalized understanding. All questions were answered to the best of my ability. This discharge took greater then 30 minutes in planning, reviewing documentation, counseling the patient, and discussing with other team members." ASSESSMENT ASSESSMENT Hospital Course No meaningful recovery Assessment Sepsis secondary to urinary tract infection: Blood cultures negative, urine cultures mixed culture along with yeast , continue Rocephin add Diflucan 200 mg p.o. 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 Pereira appreciated anemia hypertensive crisis Bilateral hydronephrosis CVA Dementia Gallstones Pulmonary hypertension History of IVC filter FADIA superimposed on CKD secondary to obstructive uropathy consult by Dr. Tabares appreciated, kidney function worsening Obstructive uropathy secondary to advanced uterine cancer Acute hyperkalemia: Treatment per protocol consult for Dr. Mccurdy pending Patient Is hospice revoked patient was on [facility] Date of Service: Aug 09, 2025 Billing Provider: FABRICE ARENAS MD Common Visit Codes: [id number] DISCH DAY >30min FABRICE ARENAS MD Aug 09, 2025 10:08
--- NOTE | 2025-08-09 10:43 | DVHPN2 ---
Progress Note - Dictate Date Seen: Aug 09, 2025 Has the PT tested + for MRSA If YES, has PT been informed?: No Medical Necessity Reason Pt with a Central, PICC or Fol: No The following are medically ne: Steen Catheter Subjective Lethargic this morning, noted plans for discharge home again with hospice. vital signs Vital Sign Date Time Temp Pulse Resp B/P (MAP) Pulse Ox O2 Delivery O2 Flow Rate FiO2 08/09/25 10:26 36.7 89 08/09/25 10:00 110/72 08/09/25 09:06 15 95 08/08/25 20:00 Nasal Cannula* 3 32 Total Intake and Output 08/08/25 08/08/25 08/09/25 15:00 23:00 07:00 Intake Total 1200 ml 100 ml 100 ml Output Total 260 ml 250 ml Balance 1200 ml -160 ml -150 ml medications Current Medications Medications Dose Ordered Sig/Raoul Route Start Time Stop Time Status Last Admin Dose Admin Amlodipine Besylate 5 mg DAILY PO 08/05/25 10:00 08/06/25 09:41 5 MG Metoprolol Tartrate 25 mg BID PO 08/05/25 10:00 08/08/25 21:33 25 MG Clonidine HCl 0.1 mg Q4HP PRN PO 08/05/25 02:30 08/05/25 16:52 0.1 MG Sodium Chloride 10 ml Q8HR IV 08/05/25 06:00 08/09/25 05:31 10 ML Acetaminophen/ Hydrocodone Bitart 1 tab Q4HP PRN PO 08/05/25 02:30 08/08/25 18:29 1 TAB Ondansetron HCl 4 mg Q4HP PRN IV 08/05/25 02:30 Docusate Sodium 100 mg BIDPRN PRN PO 08/05/25 02:30 Acetaminophen 650 mg Q6HP PRN PO 08/05/25 02:30 Nitroglycerin 0.4 mg Q5MINP PRN SL 08/05/25 03:15 Morphine Sulfate 2 mg Q30M PRN IV 08/05/25 03:15 Ceftriaxone Sodium 50 ml @ 100 mls/hr DAILY@09 IV 08/06/25 09:00 08/09/25 10:10 100 MLS/HR Sodium Bicarbonate 50 ml/ Dextrose/Sodium Chloride 1,050 ml @ 100 mls/hr [id number] IV 08/06/25 11:30 08/08/25 08:50 100 MLS/HR Dopamine HCl/ Dextrose 250 ml @ 5.018 mls/ hr Q24H IV 08/06/25 11:30 08/08/25 11:33 5.018 MLS/HR Bumetanide 1 mg DAILY IV 08/07/25 10:30 08/08/25 10:02 1 MG Fluconazole 200 mg DAILY PO 08/08/25 10:00 08/08/25 09:50 200 MG objective Gen: nad, chronically ill-appearing, lethargic lungs: cta anteriorly ext: no edema laboratory and microbiology Laboratory Tests 08/08/25 20:00 08/08/25 07:03 Test 08/08/25 07:03 Range/Units Serum Glucose 92 74-106 mg/dL Assessment/Plan Problem List/Assessment/Plan Acute kidney injury superimposed Chronic Kidney Disease secondary obstructive uropathy Hyperkalemia likely from renal failure And increased po intake (ensure supplement) Metabolic encephalopathy Obstructive uropathy from advanced uterine cancer Status post nephrostomy tube CVA Metabolic acidosis Anemia of chronic kidney disease Recommendations' - agree with hospice, palliation given current clinical state and overall poor prognosis. - recommendation for comfort measures as per hospice direction. Plan discussed with: Other NAYANA ZIEGLER MD Aug 09, 2025 10:43
== END 2025-08-09 18:15 | disposition hospice, home (50) | DRG 871 ==
LOC: ER 23:09 → EDBD 23:09 → OVERFLOW 08-05 03:13 → TELE-WESTW 08-05 09:34 → TELE-EAST 08-05 18:01
PROVIDERS: ADMIT Family Medicine; ATTEND Family Medicine
PROC: 05H933Z Insertion of Infusion Device into Right Brachial Vein, Percutaneous Approach (ICD-10-PCS; principal; 2025-08-05)
PROC: B54MZZA Ultrasonography of Right Upper Extremity Veins, Guidance (ICD-10-PCS; 2025-08-05)
DX: A41.9 Sepsis, unspecified organism (principal); G93.41 Metabolic encephalopathy; N18.6 End stage renal disease; J90 Pleural effusion, not elsewhere classified; E87.20 Acidosis, unspecified; I12.0 Hypertensive chronic kidney disease with stage 5 chronic kidney disease or end stage renal disease; R18.8 Other ascites; D63.1 Anemia in chronic kidney disease; I27.20 Pulmonary hypertension, unspecified; N13.6 Pyonephrosis; N17.9 Acute kidney failure, unspecified; F03.90 Unspecified dementia, unspecified severity, without behavioral disturbance, psychotic disturbance, mood disturbance, and anxiety; Z95.828 Presence of other vascular implants and grafts; I16.9 Hypertensive crisis, unspecified; K80.20 Calculus of gallbladder without cholecystitis without obstruction; E86.0 Dehydration; Z85.841 Personal history of malignant neoplasm of brain; Z51.5 Encounter for palliative care; Z88.6 Allergy status to analgesic agent; Z79.2 Long term (current) use of antibiotics; Z74.01 Bed confinement status; Z93.6 Other artificial openings of urinary tract status; E87.5 Hyperkalemia; Z85.42 Personal history of malignant neoplasm of other parts of uterus; Z85.51 Personal history of malignant neoplasm of bladder; Z85.3 Personal history of malignant neoplasm of breast; Z86.73 Personal history of transient ischemic attack (TIA), and cerebral infarction without residual deficits
CPT/HCPCS: 36415; 74018; 80048; 80053; 81001; 82140; 82570; 82962; 83036; 83605; 83690; 84132; 84133; 84156; 84300; 84484; 85025; 86850; 86900; 86901; 87040; 87086; 93005; 94640; 96365; G0378; J1815